=== PATIENT | female | born 1955 | race African-American/Black ===

== ENCOUNTER 2017-07-29 09:20 | Inpatient (IN) ==
[2017-07-29 09:53] LABS: Immature Platelets 1.9 % (1.1-6.1); Mean Corpuscular HGB Conc 33.3 g/dL (31.6-35.5); Mean Corpuscular Hemoglobin 28.7 pg (28.0-33.3); Mean Platelet Volume 9.9 fL (9.4-12.4); Nucleated Red Blood Cells 3.2 /100 WBC (0); Platelet Count 378 K/mcL (140-400)
[2017-07-29 10:27] LABS: Albumin/Globulin Ratio 0.4 (1.1-2.2); Bilirubin,Total 0.3 mg/dL (0.2-1.2); Calcium 8.2 mg/dL (8.6-10.8); Globulin 4.1 g/dL (2.4-3.5); Magnesium 3.1 mg/dL (1.6-2.6); Phosphorous 5.2 mg/dL (2.3-4.7); Potassium 5.6 mEq/L (3.5-4.5); Total Protein 5.9 g/dL (6.0-8.3)
[2017-07-29 10:28] LABS: Albumin 1.8 g/dL (3.5-5.0)
[2017-07-29 10:37] LABS: Hemoglobin 4.3 g/dL (11.5-15.4)
[2017-07-29 10:38] LABS: Hematocrit 12.9 % (35.3-44.9)
[2017-07-29 10:48] LABS: Thyroid Stimulating Hormone 1.761 mcIU/mL (0.350-4.840)
--- NOTE | 2017-07-29 11:13 | Emergency Department Note ---
Disposition Clinical Impression: Anemia, GI bleed, EDDIE (acute kidney injury) Disposition: Admitted As Inpatient Condition: Fair Referrals: Keesha Ellsworth, MILIEU MANAGER [Primary Care Provider] - Forms: ED Satisfaction Letter General Adult HPI - General Chief complaint: ED Weakness Stated complaint: weakness Time Seen by Provider: 07/29/17 09:26 Source: patient Limitations: no limitations Nursing Notes Reviewed: Yes Vital Signs Reviewed: Yes - History of Present Illness Pain Scale: 0 - Related Data Allergies Allergy/AdvReac Type Severity Reaction Status Date / Time Penicillins Allergy Rash Verified 07/29/17 09:44 Past Medical History - Past Medical History Medical history: Reports: hyperlipidemia, hypertension Psychiatric history: Reports: no psych history - Social History Smoking Status: Current every day smoker Smokeless Tobacco Status: No Alcohol use: Reports: none Drug use: Reports: none Physical Exam - General Limitations: no limitations General appearance: alert, in no apparent distress Course Vital Signs Temperature 94.4 F L 07/29/17 09:22 Pulse Rate 71 07/29/17 09:22 Respiratory Rate 16 07/29/17 09:22 Blood Pressure 107/91 07/29/17 09:22 O2 Sat by Pulse Oximetry 96 07/29/17 09:22 Temperature 96.2 F L 07/29/17 09:32 Pulse Rate 71 07/29/17 09:22 Respiratory Rate 16 07/29/17 09:22 Blood Pressure 107/91 07/29/17 09:22 O2 Sat by Pulse Oximetry 96 07/29/17 09:22 Oxygen Delivery Oxygen Delivery Room Air Medical Decision Making - MDM Narrative Medical decision making narrative: I examined this patient and my medical decision-making was reviewed with the Resident Physician. I agree with the documented findings, disposition and treatment plan as described except to the extent set forth below. Patient was seen and evaluated on arrival by Dr. Nguyen myself, I agree with his evaluation and management plan, supervising care of the patient's stay. Patient presents today stating that she has weakness in her bilateral legs are little bit of "puffiness in her ankles. She denies any chest pain or shortness of breath. She says she has a history of hypertension. She is fairly noncompliant with medications and follow-up. Under workup on her here and probably admit her. 1112 hrs.: Labs show an anemia with guaiac-positive stool. Consistent with a GI bleed. She also has renal insufficiency no old EKG or labs to compare this with. We will bring her into the hospital. Chest X-Ray 07/29/17 09:38 IMPRESSION: 1. Cardiomegaly with moderate right effusion and associated right middle and lower lobe consolidation. D/ / 07/29/2017 10:04:38 Jens Caal MD / le Interpreting Provider: Jens Caal MD Chest X-Ray 07/29/17 09:38 IMPRESSION: 1. Cardiomegaly with moderate right effusion and associated right middle and lower lobe consolidation. D/ / 07/29/2017 10:04:38 Jens Caal MD / le Interpreting Provider: Jens Caal MD 1144 hrs., blood is started. We will go and get her admitted to the hospital. Impressions GI bleed with anemia. EDDIE and weakness. Patient's critical care time excluding separately billable procedures is 45 minutes. 1152 hrs.: I spoke with Dr. Martin, he is on for new nephrology consult. He said he be happy to follow the patient. No new orders at this time. - Lab Data Result diagrams: 07/29/17 09:43 07/29/17 10:08 Lab Results 07/29/17 07/29/17 07/29/17 Range/Units 09:43 09:43 09:43 WBC 7.2 (4.3-11.1) K/mcL RBC 1.50 L (3.82-4.97) M/mcL Hgb 4.3 L* (11.5-15.4) g/dL Hct 12.9 L* (35.3-44.9) % MCV 86.0 (83.0-100.0) fL MCH 28.7 (28.0-33.3) pg MCHC 33.3 (31.6-35.5) g/dL RDW 19.0 H (11.5-14.5) % Plt Count 378 (140-400) K/mcL MPV 9.9 (9.4-12.4) fL Seg Neutrophils % 56.0 % Band Neutrophils % 20.0 H (0-4) % Lymphocytes % 12.0 % Monocytes % 10.0 % Metamyelocytes % 2.0 H (0) % Neutrophils # 5.5 (1.6-8.9) K/mcL Lymphocytes # 0.9 (0.6-4.6) K/mcL Monocytes # 0.7 (0.0-1.3) K/mcL Nucleated RBCs/100 WBC 3.2 H (0) /100 WBC Platelet Estimate Normal (Normal) Immature Plt Fraction 1.9 (1.1-6.1) % Anisocytosis 1+ A (Not Present) Sodium (136-145) mEq/L Potassium (3.5-4.5) mEq/L Chloride (98-109) mEq/L Carbon Dioxide (19-29) mEq/L BUN (7-20) mg/dL Creatinine (0.57-1.11) mg/dL Est GFR ( Amer) (> 60) Est GFR (Non-Af Amer) (> 60) BUN/Creatinine Ratio (6-26) Glucose (70-99) mg/dL Calculated Osmolality (280-300) Calcium (8.6-10.8) mg/dL Phosphorus (2.3-4.7) mg/dL Magnesium (1.6-2.6) mg/dL Total Bilirubin (0.2-1.2) mg/dL AST (5-34) Units/L ALT (0-55) Units/L Alkaline Phosphatase (38-126) Units/L Troponin I 0.01 (0-0.03) ng/mL B-Natriuretic Peptide 512 H (0-100) pg/mL Serum Total Protein (6.0-8.3) g/dL Albumin (3.5-5.0) g/dL Globulin (2.4-3.5) g/dL Albumin/Globulin Ratio (1.1-2.2) TSH (0.350-4.840) mcIU/mL Stool Occult Blood (Negative) Specimen Rejected Blood Type Antibody Screen Crossmatch 07/29/17 07/29/17 07/29/17 Range/Units 09:55 10:08 10:57 WBC (4.3-11.1) K/mcL RBC (3.82-4.97) M/mcL Hgb (11.5-15.4) g/dL Hct (35.3-44.9) % MCV (83.0-100.0) fL MCH (28.0-33.3) pg MCHC (31.6-35.5) g/dL RDW (11.5-14.5) % Plt Count (140-400) K/mcL MPV (9.4-12.4) fL Seg Neutrophils % % Band Neutrophils % (0-4) % Lymphocytes % % Monocytes % % Metamyelocytes % (0) % Neutrophils # (1.6-8.9) K/mcL Lymphocytes # (0.6-4.6) K/mcL Monocytes # (0.0-1.3) K/mcL Nucleated RBCs/100 WBC (0) /100 WBC Platelet Estimate (Normal) Immature Plt Fraction (1.1-6.1) % Anisocytosis (Not Present) Sodium 134 L (136-145) mEq/L Potassium 5.6 H (3.5-4.5) mEq/L Chloride 106 (98-109) mEq/L Carbon Dioxide 14 L (19-29) mEq/L BUN 76 H (7-20) mg/dL Creatinine 3.52 H (0.57-1.11) mg/dL Est GFR ( Amer) 16 L (> 60) Est GFR (Non-Af Amer) 13 L (> 60) BUN/Creatinine Ratio 22 (6-26) Glucose 82 (70-99) mg/dL Calculated Osmolality 300 (280-300) Calcium 8.2 L (8.6-10.8) mg/dL Phosphorus 5.2 H (2.3-4.7) mg/dL Magnesium 3.1 H (1.6-2.6) mg/dL Total Bilirubin 0.3 (0.2-1.2) mg/dL AST 11 (5-34) Units/L ALT 9 (0-55) Units/L Alkaline Phosphatase 59 (38-126) Units/L Troponin I (0-0.03) ng/mL B-Natriuretic Peptide (0-100) pg/mL Serum Total Protein 5.9 L (6.0-8.3) g/dL Albumin 1.8 L (3.5-5.0) g/dL Globulin 4.1 H (2.4-3.5) g/dL Albumin/Globulin Ratio 0.4 L (1.1-2.2) TSH 1.761 (0.350-4.840) mcIU/mL Stool Occult Blood Positive A (Negative) Specimen Rejected Hemolyzed Blood Type Antibody Screen Crossmatch 07/29/17 Range/Units 11:05 WBC (4.3-11.1) K/mcL RBC (3.82-4.97) M/mcL Hgb (11.5-15.4) g/dL Hct (35.3-44.9) % MCV (83.0-100.0) fL MCH (28.0-33.3) pg MCHC (31.6-35.5) g/dL RDW (11.5-14.5) % Plt Count (140-400) K/mcL MPV (9.4-12.4) fL Seg Neutrophils % % Band Neutrophils % (0-4) % Lymphocytes % % Monocytes % % Metamyelocytes % (0) % Neutrophils # (1.6-8.9) K/mcL Lymphocytes # (0.6-4.6) K/mcL Monocytes # (0.0-1.3) K/mcL Nucleated RBCs/100 WBC (0) /100 WBC Platelet Estimate (Normal) Immature Plt Fraction (1.1-6.1) % Anisocytosis (Not Present) Sodium (136-145) mEq/L Potassium (3.5-4.5) mEq/L Chloride (98-109) mEq/L Carbon Dioxide (19-29) mEq/L BUN (7-20) mg/dL Creatinine (0.57-1.11) mg/dL Est GFR ( Amer) (> 60) Est GFR (Non-Af Amer) (> 60) BUN/Creatinine Ratio (6-26) Glucose (70-99) mg/dL Calculated Osmolality (280-300) Calcium (8.6-10.8) mg/dL Phosphorus (2.3-4.7) mg/dL Magnesium (1.6-2.6) mg/dL Total Bilirubin (0.2-1.2) mg/dL AST (5-34) Units/L ALT (0-55) Units/L Alkaline Phosphatase (38-126) Units/L Troponin I (0-0.03) ng/mL B-Natriuretic Peptide (0-100) pg/mL Serum Total Protein (6.0-8.3) g/dL Albumin (3.5-5.0) g/dL Globulin (2.4-3.5) g/dL Albumin/Globulin Ratio (1.1-2.2) TSH (0.350-4.840) mcIU/mL Stool Occult Blood (Negative) Specimen Rejected Blood Type O POSITIVE Antibody Screen NEGATIVE Crossmatch See Detail
[2017-07-29 11:22] LABS: Lymphocytes # 0.9 K/mcL (0.6-4.6); Monocytes # 0.7 K/mcL (0.0-1.3); Neutrophils # 5.5 K/mcL (1.6-8.9)
[2017-07-29 11:24] LABS: Anisocytosis 1+ (Not Present)
[2017-07-29 11:25] LABS: Platelet Estimate Normal (Normal)
[2017-07-29] MEDS ORDERED: 0.9 % Sodium Chloride 1,000 ML IVC ONE ×2 (12:11→13:51)
--- NOTE | 2017-07-29 12:11 | Emergency Department Note ---
Disposition Clinical Impression: EDDIE (acute kidney injury), Pleural effusion Anemia Qualifiers: Anemia type: unspecified type Qualified Code(s): D64.9 - Anemia, unspecified GI bleed Qualifiers: GI bleed type/associated pathology: unspecified gastrointestinal hemorrhage type Qualified Code(s): K92.2 - Gastrointestinal hemorrhage, unspecified Disposition: Admitted As Inpatient Condition: Fair Referrals: Keesha Ellsworth, SCHOOL SPEECH THERAPIST [Primary Care Provider] - Forms: ED Satisfaction Letter General Adult HPI - General Chief complaint: ED Weakness Stated complaint: weakness Time Seen by Provider: 07/29/17 09:26 Source: patient Limitations: no limitations Nursing Notes Reviewed: Yes Vital Signs Reviewed: Yes - History of Present Illness HPI Narrative: 54-year-old female who reports that she has had a few days of increased fatigue and edema of bilateral lower extremities. She has no other complaints. She denies any chest pain or shortness of breath. She denies having any pain anywhere. She denies any prior occurrence of this. She states that her only medical problems are hypertension and hyperlipidemia. She does not go to a doctor very often. Pain Scale: 0 Consistency: constant Improves with: nothing Worsens with: nothing Associated symptoms: Reports: denies other symptoms Treatments Prior to Arrival: none - Related Data Home Medications Medication Instructions Recorded Confirmed Amlodipine Besylate/Benazepril 1 cap PO DAILY 07/29/17 07/29/17 [Lotrel 10-20 mg Capsule] Doxycycline Hyclate [Doxycycline 20 mg PO BID 07/29/17 07/29/17 Hyclate] Simvastatin [Zocor] 20 mg PO QPM 07/29/17 07/29/17 Allergies Allergy/AdvReac Type Severity Reaction Status Date / Time Penicillins Allergy Rash Verified 07/29/17 09:44 All systems ED: reviewed and negative except as stated. Constitutional: Denies: fever ENT ED: Denies: throat pain Cardiovascular: Denies: chest pain Respiratory: Denies: cough Musculoskeletal: Denies: back pain Integumentary: Denies: rash Endocrine: Denies: fatigue Hematological/Lymphatic: Denies: easy bleeding Past Medical History - Past Medical History Medical history: Reports: hyperlipidemia, hypertension Psychiatric history: Reports: no psych history - Social History Smoking Status: Current every day smoker Smokeless Tobacco Status: No Alcohol use: Reports: none Drug use: Reports: none Physical Exam - General Limitations: no limitations General appearance: alert, in no apparent distress - Head Head exam: atraumatic - Eye Eye exam: Present: normal appearance, other (scleral pallor) - ENT ENT exam: normal exam, normal oropharynx - Neck Neck exam: Present: normal inspection - Respiratory Respiratory exam: Present: normal lung sounds bilaterally. Absent: respiratory distress - Cardiovascular Cardiovascular exam: Present: regular rate, normal rhythm - Abdominal Exam Abdominal exam: Present: soft, Non-Tender - Rectal Exam Rectal exam: Present: heme (+) stool - Extremities Exam Extremities exam: Present: pedal edema (3+ bilateral) - Neurological Exam Neurological exam: Present: alert, oriented X3, CN II-XII intact - Psychiatric Psychiatric exam: Present: normal affect, normal mood - Skin Skin exam: Present: warm, dry Course Course Narrative: 62-year-old female with progressive fatigue and lower extremity edema. She is found to be in acute renal failure and a hemoglobin critically low. We called and spoke with Dr. Floyd Mathias who agreed to be a strategic solutions consultant on this case. We will also go ahead and started transfusion. Lungs are clear and I do not think that she is in acute CHF at this time. She is also not hypoxic. Potassium is mildly elevated but no EKG changes. Due to this and at the advice of the nephrologists will not currently treat for the hyperkalemia will first start with fluid resuscitation. I called and spoke with Dr Suh for gastroenterology. He agreed to consult on this case. Blood pressure is approximately 90 systolic. Will give IVF along with the blood. CXR shows a right sided pleural effusion with cardiomegaly. In addition she has a potential consolidation on the right. I do not believe this is pneumonia as she has not had a fever, no cough, and no shortness of breath. As such, I will not start antibiotics. Vital Signs Temperature 94.4 F L 07/29/17 09:22 Pulse Rate 71 07/29/17 09:22 Respiratory Rate 16 07/29/17 09:22 Blood Pressure 107/91 07/29/17 09:22 O2 Sat by Pulse Oximetry 96 07/29/17 09:22 Temperature 96 F L 07/29/17 13:11 Pulse Rate 75 07/29/17 12:49 Respiratory Rate 16 07/29/17 12:49 Blood Pressure 96/42 07/29/17 12:49 O2 Sat by Pulse Oximetry 96 07/29/17 12:49 Oxygen Delivery Oxygen Delivery Nasal Cannula Medical Decision Making - Medical Records Medical records reviewed: Yes I reviewed the patient's medical records. - Lab Data Lab results reviewed: Yes I reviewed the patient's lab results. Result diagrams: 07/29/17 09:43 07/29/17 10:08 Lab Results 07/29/17 07/29/17 07/29/17 Range/Units 09:43 09:43 09:43 WBC 7.2 (4.3-11.1) K/mcL RBC 1.50 L (3.82-4.97) M/mcL Hgb 4.3 L* (11.5-15.4) g/dL Hct 12.9 L* (35.3-44.9) % MCV 86.0 (83.0-100.0) fL MCH 28.7 (28.0-33.3) pg MCHC 33.3 (31.6-35.5) g/dL RDW 19.0 H (11.5-14.5) % Plt Count 378 (140-400) K/mcL MPV 9.9 (9.4-12.4) fL Seg Neutrophils % 56.0 % Band Neutrophils % 20.0 H (0-4) % Lymphocytes % 12.0 % Monocytes % 10.0 % Metamyelocytes % 2.0 H (0) % Neutrophils # 5.5 (1.6-8.9) K/mcL Lymphocytes # 0.9 (0.6-4.6) K/mcL Monocytes # 0.7 (0.0-1.3) K/mcL Nucleated RBCs/100 WBC 3.2 H (0) /100 WBC Platelet Estimate Normal (Normal) Immature Plt Fraction 1.9 (1.1-6.1) % Anisocytosis 1+ A (Not Present) Sodium (136-145) mEq/L Potassium (3.5-4.5) mEq/L Chloride (98-109) mEq/L Carbon Dioxide (19-29) mEq/L BUN (7-20) mg/dL Creatinine (0.57-1.11) mg/dL Est GFR ( Amer) (> 60) Est GFR (Non-Af Amer) (> 60) BUN/Creatinine Ratio (6-26) Glucose (70-99) mg/dL Calculated Osmolality (280-300) Calcium (8.6-10.8) mg/dL Phosphorus (2.3-4.7) mg/dL Magnesium (1.6-2.6) mg/dL Total Bilirubin (0.2-1.2) mg/dL AST (5-34) Units/L ALT (0-55) Units/L Alkaline Phosphatase (38-126) Units/L Troponin I 0.01 (0-0.03) ng/mL B-Natriuretic Peptide 512 H (0-100) pg/mL Serum Total Protein (6.0-8.3) g/dL Albumin (3.5-5.0) g/dL Globulin (2.4-3.5) g/dL Albumin/Globulin Ratio (1.1-2.2) TSH (0.350-4.840) mcIU/mL Urine Color (Yellow) Urine Clarity (Clear) Urine pH (5.0-8.0) pH Units Ur Specific [place] (1.010-1.025) Urine Protein (Neg-Trace) mg/dL Urine Glucose (UA) (Normal) mg/dL Urine Ketones (Negative) mg/dL Urine Blood (Negative) Urine Nitrite (Negative) Urine Bilirubin (Negative) Urine Urobilinogen (Normal) mg/dL Ur Leukocyte Esterase (Negative) Stool Occult Blood (Negative) Specimen Rejected Blood Type Antibody Screen Crossmatch 07/29/17 07/29/17 07/29/17 Range/Units 09:55 10:08 10:57 WBC (4.3-11.1) K/mcL RBC (3.82-4.97) M/mcL Hgb (11.5-15.4) g/dL Hct (35.3-44.9) % MCV (83.0-100.0) fL MCH (28.0-33.3) pg MCHC (31.6-35.5) g/dL RDW (11.5-14.5) % Plt Count (140-400) K/mcL MPV (9.4-12.4) fL Seg Neutrophils % % Band Neutrophils % (0-4) % Lymphocytes % % Monocytes % % Metamyelocytes % (0) % Neutrophils # (1.6-8.9) K/mcL Lymphocytes # (0.6-4.6) K/mcL Monocytes # (0.0-1.3) K/mcL Nucleated RBCs/100 WBC (0) /100 WBC Platelet Estimate (Normal) Immature Plt Fraction (1.1-6.1) % Anisocytosis (Not Present) Sodium 134 L (136-145) mEq/L Potassium 5.6 H (3.5-4.5) mEq/L Chloride 106 (98-109) mEq/L Carbon Dioxide 14 L (19-29) mEq/L BUN 76 H (7-20) mg/dL Creatinine 3.52 H (0.57-1.11) mg/dL Est GFR ( Amer) 16 L (> 60) Est GFR (Non-Af Amer) 13 L (> 60) BUN/Creatinine Ratio 22 (6-26) Glucose 82 (70-99) mg/dL Calculated Osmolality 300 (280-300) Calcium 8.2 L (8.6-10.8) mg/dL Phosphorus 5.2 H (2.3-4.7) mg/dL Magnesium 3.1 H (1.6-2.6) mg/dL Total Bilirubin 0.3 (0.2-1.2) mg/dL AST 11 (5-34) Units/L ALT 9 (0-55) Units/L Alkaline Phosphatase 59 (38-126) Units/L Troponin I (0-0.03) ng/mL B-Natriuretic Peptide (0-100) pg/mL Serum Total Protein 5.9 L (6.0-8.3) g/dL Albumin 1.8 L (3.5-5.0) g/dL Globulin 4.1 H (2.4-3.5) g/dL Albumin/Globulin Ratio 0.4 L (1.1-2.2) TSH 1.761 (0.350-4.840) mcIU/mL Urine Color (Yellow) Urine Clarity (Clear) Urine pH (5.0-8.0) pH Units Ur Specific [place] (1.010-1.025) Urine Protein (Neg-Trace) mg/dL Urine Glucose (UA) (Normal) mg/dL Urine Ketones (Negative) mg/dL Urine Blood (Negative) Urine Nitrite (Negative) Urine Bilirubin (Negative) Urine Urobilinogen (Normal) mg/dL Ur Leukocyte Esterase (Negative) Stool Occult Blood Positive A (Negative) Specimen Rejected Hemolyzed Blood Type Antibody Screen Crossmatch 07/29/17 07/29/17 Range/Units 11:05 13:07 WBC (4.3-11.1) K/mcL RBC (3.82-4.97) M/mcL Hgb (11.5-15.4) g/dL Hct (35.3-44.9) % MCV (83.0-100.0) fL MCH (28.0-33.3) pg MCHC (31.6-35.5) g/dL RDW (11.5-14.5) % Plt Count (140-400) K/mcL MPV (9.4-12.4) fL Seg Neutrophils % % Band Neutrophils % (0-4) % Lymphocytes % % Monocytes % % Metamyelocytes % (0) % Neutrophils # (1.6-8.9) K/mcL Lymphocytes # (0.6-4.6) K/mcL Monocytes # (0.0-1.3) K/mcL Nucleated RBCs/100 WBC (0) /100 WBC Platelet Estimate (Normal) Immature Plt Fraction (1.1-6.1) % Anisocytosis (Not Present) Sodium (136-145) mEq/L Potassium (3.5-4.5) mEq/L Chloride (98-109) mEq/L Carbon Dioxide (19-29) mEq/L BUN (7-20) mg/dL Creatinine (0.57-1.11) mg/dL Est GFR ( Amer) (> 60) Est GFR (Non-Af Amer) (> 60) BUN/Creatinine Ratio (6-26) Glucose (70-99) mg/dL Calculated Osmolality (280-300) Calcium (8.6-10.8) mg/dL Phosphorus (2.3-4.7) mg/dL Magnesium (1.6-2.6) mg/dL Total Bilirubin (0.2-1.2) mg/dL AST (5-34) Units/L ALT (0-55) Units/L Alkaline Phosphatase (38-126) Units/L Troponin I (0-0.03) ng/mL B-Natriuretic Peptide (0-100) pg/mL Serum Total Protein (6.0-8.3) g/dL Albumin (3.5-5.0) g/dL Globulin (2.4-3.5) g/dL Albumin/Globulin Ratio (1.1-2.2) TSH (0.350-4.840) mcIU/mL Urine Color Yellow (Yellow) Urine Clarity Hazy A (Clear) Urine pH 5.0 (5.0-8.0) pH Units Ur Specific [place] 1.026 H (1.010-1.025) Urine Protein Trace (Neg-Trace) mg/dL Urine Glucose (UA) Normal (Normal) mg/dL Urine Ketones Trace H (Negative) mg/dL Urine Blood Negative (Negative) Urine Nitrite Negative (Negative) Urine Bilirubin Small H (Negative) Urine Urobilinogen Normal (Normal) mg/dL Ur Leukocyte Esterase Small H (Negative) Stool Occult Blood (Negative) Specimen Rejected Blood Type O POSITIVE Antibody Screen NEGATIVE Crossmatch See Detail - Radiology Data Radiology results reviewed: Yes I reviewed the patient's radiology results. - EKG Data EKG #1 EKG attestation: Yes I reviewed and interpreted this EKG. EKG shows normal: sinus rhythm Rate: normal Rhythm: NSR [place]/QRS: normal Interpretation: no acute changes
[2017-07-29] MEDS ORDERED: 0.9 % Sodium Chloride 1,000 ML ONE (12:13)
[2017-07-29] MEDS ORDERED: 0.9 % Sodium Chloride 500 ML ONE (12:13)
[2017-07-29 13:24] LABS: Bilirubin,Urine Small (Negative); Blood,Urine Negative (Negative); Glucose,Urine (UA) Normal (Normal); Ketones,Urine Trace mg/dL (Negative); Leukocyte Esterase,Urine Small (Negative); Nitrite,Urine Negative (Negative); Protein,Urine Trace mg/dL (Neg-Trace); Specific Gravity,Urine 1.026 (1.010-1.025); Urobilinogen,Urine Normal (Normal)
[2017-07-29 13:27] LABS: Bacteria,Urine None Seen per hpf (None-Few); Squamous Epithelial Cell,Urine Many per lpf (None-Few); WBC,Urine 0-3 per hpf (0-3)
[2017-07-29 13:29] LABS: Clarity,Urine Hazy (Clear); Color,Urine Yellow (Yellow)
[2017-07-29] MEDS: Pantoprazole 40 MG in 0.9 % Sodium Chloride Mini Bag 100 ML IVC SCH ×3 (13:36→23:18)
[2017-07-29 13:45] LABS: Amorphous Sediment,Urine Many (Few); Mucus,Urine Few (Few)
[2017-07-29] MEDS ORDERED: *HR* HYDROcodone/Acet 5/325 mg TABLET PO PRN (15:13)
[2017-07-29] MEDS ORDERED: Naloxone 0.4 MG/ML INJ IVP PRN (15:13)
[2017-07-29] MEDS ORDERED: Acetaminophen 325 MG TABLET PO PRN (15:13)
--- NOTE | 2017-07-29 15:26 | Internal Med History&Physical ---
Date of Encounter: 07/29/17 Time of Encounter: 15:22 Assessment and Plan (1) Anemia Current visit: Yes Status: Acute Acute on chronic anemia Patient possibly has chronic anemia secondary to renal disease, however the use of NSAIDs and positive occult blood test she might also have GI bleed. Patient was hypotensive on arrival, blood pressure is improved with transfusion. Continue blood transfusion with at least 4 units of blood, give Lasix in between blood transfusion. Continue to monitor hemoglobin q6. Platelets is within normal limits. GI has been consulted for possible endoscopy. Keep patient on clear liquid diet only. Qualifiers: Anemia type: unspecified type Qualified Code(s): D64.9 - Anemia, unspecified (2) EDDIE (acute kidney injury) Current visit: Yes Status: Acute Suspected. Acute on chronic renal failure Evidence of chronic renal failure with BUN/creatinine ratio less than 20-1, presence of hypomagnesemia and hypophosphatemia. We will hold fluid for now as patient is fluid overloaded with evidence bipedal edema and bilateral pleural effusion. Obtain renal ultrasound Consult nephrology. Continue to monitor renal function Avoid nephrotoxins. (3) CKD (chronic kidney disease) Current visit: Yes Status: Acute As above. Qualifiers: Chronic kidney disease stage: unspecified stage Qualified Code(s): N18.9 - Chronic kidney disease, unspecified (4) GI bleed Current visit: Yes Status: Acute Suspected upper GI bleed Continue Protonix infusion Management as in anemia. Qualifiers: GI bleed type/associated pathology: unspecified gastrointestinal hemorrhage type Qualified Code(s): K92.2 - Gastrointestinal hemorrhage, unspecified (5) Pleural effusion Current visit: Yes Status: Acute Bilateral pleural effusion possibly secondary to fluid overload from cardiac and renal failure. Patient is asymptomatic, she has no chest pain, she is not hypoxic, she is not dyspneic. Interventional radiology for diagnostic and therapeutic paracentesis when patient is more stable. (6) Hypothermia Current visit: Yes Status: Acute Possibly secondary to anemia TSH is WNL Patient does not sepsis criteria at this time. Continue abir hugger And monitor closely Qualifiers: Encounter type: initial encounter Qualified Code(s): T68.XXXA - Hypothermia , initial encounter (7) Heart failure Current visit: Yes Status: Suspected Suspected. Possibly secondary to hypertensive heart disease, kidney disease and /or anemia. Obtain echocardiogram BNP on admission 515 Intake and output, daily weights and Lasix IV. Qualifiers: Heart failure type: unspecified heart failure type Heart failure chronicity : unspecified heart failure chronicity Qualified Code(s): I50.9 - Heart failure, unspecified (8) Hypertension Current visit: Yes Status: Chronic hypotensive on arrival Hold home medications for now. Qualifiers: Hypertension type: essential hypertension Qualified Code(s): I10 - Essential (primary) hypertension (9) Hyperlipidemia Current visit: Yes Status: Chronic Continue home medications. Qualifiers: Hyperlipidemia type: unspecified Qualified Code(s): E78.5 - Hyperlipidemia , unspecified Internal Medicine - H&P: HPI Chief complaint: Weakness Admitted From: Home Plans for Post Hospital Care: Home History of present illness: Ms. Adams is a 62 year old female Patient seen and evaluated at the bedside with her family members. She has not seen her primary care doctor in about 5 years. Therefore she does not know her baseline. However, she reports the onset of illness to about 3 months ago, patient was at [place] and started having bilateral lower extremity swelling. She reported lower extremity swelling to be progressing, intermittent and resolved spontaneously with rest. She denies chest pain, she denies cough she denies difficulty breathing. She was in her usual state of health until 2 weeks ago, when she noticed she has been feeling weak, increasing fatigue, and difficulty performing her usual activities. She denies hematemesis, hostilities brown in color without any blood, she denies nausea and vomiting. She reports a skin rash that was diffuse associated with some anesthetic agents used by her dentist about 2 months ago. She otherwise denies any integument symptoms. She does not have routine cancer screening. Past medical history is only of hypertension and hyperlipidemia, and she states she is compliant with her medications. She denies a history of smoking, or illicit drug use. Reports taking 2 tablets of Aleve, along with double Strength aspirin for pain for a prolonged period. She also reports decrease in urinary output, she denies belkis bloody urine, she denies foamy urine. Upon presentation to the ER, she was found to be severely anemic with a hemoglobin of 4, associated bilateral lower extremity edema, hypertension, tachycardia without fever and hypothermia. He was also found to have a potassium of 5.6, WNL 14 with creatinine of 3.52. She has hypomagnesemia and hypophosphatemia. Her liver function tests reveals an albumin level of 1.8. BNP was 512. Urine analysis reveals a dilute urine, to anuria, and some hematuria. Fecal occult blood test was positive. Imaging revealed a chest x- ray with bilateral pleural effusion right greater than left. Suspected consolidation. Past Med Surg Social Fam HX - Past Medical History Medical history: hyperlipidemia, hypertension Psychiatric history: no psych history - Past Surgical History Surgical History: other - Social History Smoking Status: Current every day smoker Packs per day: 1/2 Smokeless Tobacco Status: No Alcohol use: none Drug use: none Internal Medicine - H&P: Meds Amlodipine Besylate/Benazepril [Lotrel 10-20 mg Capsule] 1 cap PO DAILY [History] Doxycycline Hyclate [Doxycycline Hyclate] 20 mg PO BID 07/29/17 [History] Simvastatin [Zocor] 20 mg PO QPM 07/29/17 [History] 3 Allergy/AdvReac Type Severity Reaction Status Date / Time Penicillins Allergy Rash Verified 07/29/17 09:44 All Systems PM: A 10-system review of systems was performed and is negative for pertinent findings except as documented above in the HPI. - Constitutional Constitutional: chills, fatigue, lethargy, malaise - EENT Eyes: no change in vision, no discharge, no pain, no photophobia Nose, mouth and throat: no dysphagia, no nasal discharge, no neck pain, no sore throat - Cardiovascular Cardiovascular ROS IM: no chest pain, no diaphoresis, no dyspnea, no lightheadedness, no palpitations, no syncope - Respiratory Respiratory: no cough, no dyspnea, no wheezing, no excessive phlegm production - Gastrointestinal Gastrointestinal: no abdominal pain, no diarrhea, no hematemesis, no hematochezia, no melena, no nausea, no vomiting - Genitourinary Genitourinary: no change in urinary stream, no dysuria, no flank pain, no hematuria - Constitutional Vitals: Temp Pulse Resp BP Pulse Ox 96.7 F L 75 16 111/51 96 07/29/17 14:45 07/29/17 14:45 07/29/17 14:45 07/29/17 14:45 07/29/17 14:45 Shanties hypothermic and was temperature being 96 degrees Fahrenheit. Heart rate is normal, hypertension is improving. She is alert, awake and oriented 3. She has no speech deficits, she has no facial paralysis. She has no motor deficits. Her oral mucosa is moist. She has no jaundice and she is not cyanotic. Chest has decreased air entry AT the midlung zones bilaterally. She has no crackles or wheezing. She is not tachypneic. Heart sounds S1 and S2 only no murmurs gallops or rubs. Heart rate is regular. Abdomen is soft and nontender. Bowel sounds are present in all quadrants. She has 3+ bilateral pitting lower extremity edema to her knees. Circulation is intact distally. General appearance: Present: mild distress, A&O X 3, pleasant Internal Med - H&P Results - Labs CBC & Chem 7: 07/29/17 09:43 07/29/17 10:08
[2017-07-29] MEDS ORDERED: Furosemide 20 MG/2 ML VIAL IVP ONE (16:09)
--- NOTE | 2017-07-29 16:42 | Electrocardiograph Report ---
[address] [address] Test Date: 2017-07-29 Pat Name: Rashida Adams Department: 103 Room: 2N06 Gender: F Naturalist: : 1955 Requested By: Ralph Nguyne Order Number: [id number] Reading MD: Neri Machado MD Measurements Intervals [place] Rate: 69 P: -3 AK: 151 QRS: -20 QRSD: 85 T: 116 QT: 408 QTc: 427 Interpretive Statements SINUS RHYTHM LOW QRS VOLTAGE IN EXTREMITY LEADS Poor R wave progression BASELINE ARTIFACT Electronically Signed On 07-29-2017 16:40:50 EDT by Neri Machado MD
--- NOTE | 2017-07-29 17:50 | General Surgery Consult Note ---
Date of Encounter: 07/29/17 Time of Encounter: 17:37 History of Present Illness Consult date: 07/29/17 Requesting physician: Ralph Nguyen History of present illness: 62 yo, referred for further evaluation and treatment of profound anemia. The patient describes progressive weakness prompting the patient to seek medical evaluation [facility] ED. The patient was found to be severely anemic with Hgb 4.3, Hct 12.9. WBC 7.2, platelet count 372,000. BUN was elevated at 76 with a creatinine of 3.52. eGFR 16. The patient indicates recently initiating aspirin therapy as she felt so poorly. Patient admits to severe fatigue and malaise but no syncope. No fever, chills, nausea or vomiting. The patient denies any melena or any detected blood per rectum. The patient describes her bowel movements as brown. Past medical history: Hypertension; heart failure possibly due to hypertensive heart disease; hyperlipidemia Surgical history: "Some sort of hysterectomy" approximately 50 years ago Allergies: Penicillin Medications: Amlodipine/benazepril 10/20 one by mouth daily Doxycycline 20 mg by mouth twice a day Simvastatin 20 mg by mouth every afternoon Social history: Patient has never been ; she admits to tobacco use approximately half a pack per day for over 40 years; occasional alcohol, no illicit drugs. Physical examination: Age-appropriate appears in no acute distress. Mucous membranes appear pale consistent with profound anemia. Patient is 1.65 m tall, 87.45 kg, BMI 32.1 The patient is afebrile, 97.6, pulse 75, respirations 20, blood pressure 85/ 39; SPO2 on 2 L/m nasal cannula 94-96% Lungs: Clear to auscultation Cardiac: Regular rate, no appreciable murmurs Abdomen: Obese, soft, nontender. Impression: 62-year-old female admitted after presenting to edema at [facility] with progressive fatigue and malaise. She is profoundly anemic. The patient is to be transfused. I will arrange an EGD to be completed in the a.m. The procedure was discussed. Risks include hemorrhage , infection, aspiration, cramping abdominal pain, bloating, and perforation. We also briefly discussed discussed colonoscopy. The patient has not had a prior colonoscopy. The colonoscopy will be arranged once the patient is more hemodynamically stable. Consent for EGD has been obtained. Past Med Surg Social Fam HX - Past Medical History Medical history: hyperlipidemia, hypertension Psychiatric history: no psych history - Past Surgical History Surgical History: other - Social History Smoking Status: Current every day smoker Packs per day: 1/2 Smokeless Tobacco Status: No Alcohol use: none Drug use: none Medications and Allergies Amlodipine Besylate/Benazepril [Lotrel 10-20 mg Capsule] 1 cap PO DAILY [History] Doxycycline Hyclate [Doxycycline Hyclate] 20 mg PO BID 07/29/17 [History] Simvastatin [Zocor] 20 mg PO QPM 07/29/17 [History] 3 Allergy/AdvReac Type Severity Reaction Status Date / Time Penicillins Allergy Rash Verified 07/29/17 09:44 Review of Systems All systems PM: A 10-system review of systems was performed and is negative for pertinent findings except as documented above in the HPI. General Surgery Exam Initial Vital Signs Temp Pulse Resp BP Pulse Ox 94.4 F L 71 16 107/91 96 07/29/17 09:22 07/29/17 09:22 07/29/17 09:22 07/29/17 09:22 07/29/17 09:22 Exam Initial Vital Signs Temp Pulse Resp BP Pulse Ox 94.4 F L 71 16 107/91 96 07/29/17 09:22 07/29/17 09:22 07/29/17 09:22 07/29/17 09:22 07/29/17 09:22 Results - Labs 07/29/17 09:43 07/29/17 10:08 Abnormal lab results RBC 1.50 M/mcL (3.82-4.97) L 07/29/17 09:43 Hgb 4.3 g/dL (11.5-15.4) L* 07/29/17 09:43 Hct 12.9 % (35.3-44.9) L* 07/29/17 09:43 RDW 19.0 % (11.5-14.5) H 07/29/17 09:43 Band Neutrophils % 20.0 % (0-4) H 07/29/17 09:43 Metamyelocytes % 2.0 % (0) H 07/29/17 09:43 Nucleated RBCs/100 WBC 3.2 /100 WBC (0) H 07/29/17 09:43 Anisocytosis 1+ (Not Present) A 07/29/17 09:43 Sodium 134 mEq/L (136-145) L 07/29/17 10:08 Potassium 5.6 mEq/L (3.5-4.5) H 07/29/17 10:08 Carbon Dioxide 14 mEq/L (19-29) L 07/29/17 10:08 BUN 76 mg/dL (7-20) H 07/29/17 10:08 Creatinine 3.52 mg/dL (0.57-1.11) H 07/29/17 10:08 Est GFR ( Amer) 16 (> 60) L 07/29/17 10:08 Est GFR (Non-Af Amer) 13 (> 60) L 07/29/17 10:08 Calcium 8.2 mg/dL (8.6-10.8) L 07/29/17 10:08 Phosphorus 5.2 mg/dL (2.3-4.7) H 07/29/17 10:08 Magnesium 3.1 mg/dL (1.6-2.6) H 07/29/17 10:08 B-Natriuretic Peptide 512 pg/mL (0-100) H 07/29/17 09:43 Serum Total Protein 5.9 g/dL (6.0-8.3) L 07/29/17 10:08 Albumin 1.8 g/dL (3.5-5.0) L 07/29/17 10:08 Globulin 4.1 g/dL (2.4-3.5) H 07/29/17 10:08 Albumin/Globulin Ratio 0.4 (1.1-2.2) L 07/29/17 10:08 Urine Clarity Hazy (Clear) A 07/29/17 13:07 Ur Specific [place] 1.026 (1.010-1.025) H 07/29/17 13:07 Urine Ketones Trace mg/dL (Negative) H 07/29/17 13:07 Urine Bilirubin Small (Negative) H 07/29/17 13:07 Ur Leukocyte Esterase Small (Negative) H 07/29/17 13:07 Urine Microscopic RBC 3-5 per hpf (0-3) H 07/29/17 13:07 Ur Squamous Epith Cells Many per lpf (None-Few) H 07/29/17 13:07 Amorphous Sediment Many (Few) H 07/29/17 13:07 Ur Culture Indicated? YES (NO) A 07/29/17 13:07 Stool Occult Blood Positive (Negative) A 07/29/17 10:57 All other labs normal. Consult Discharge Plan - Plan Referrals: Keesha Ellsworth, GUIDE [Primary Care Provider] -
[2017-07-29 18:09] LABS: INR 1.3; Prothrombin Time 13.6 Seconds (9.4-12.1)
[2017-07-29 18:11] LABS: Hematocrit 16.1 % (35.3-44.9)
[2017-07-29 18:37] LABS: Hemoglobin 5.4 g/dL (11.5-15.4)
[2017-07-29] MEDS ORDERED: 0.9 % Sodium Chloride 250 ML ONE (22:13)
[2017-07-30] MEDS ORDERED: 0.9 % Sodium Chloride 1,000 ML ONE ×2 (05:05→06:07)
[2017-07-30] MEDS: Pantoprazole 40 MG in 0.9 % Sodium Chloride Mini Bag 100 ML IVC SCH ×3 (06:12→21:31)
[2017-07-30] MEDS: 0.9 % Sodium Chloride 1,000 ML IVC SCH ×3 (06:14→23:54)
[2017-07-30 06:16] LABS: Calcium 7.9 mg/dL (8.6-10.8); INR 1.3; Potassium 5.7 mEq/L (3.5-4.5); Prothrombin Time 14.1 Seconds (9.4-12.1)
[2017-07-30 06:21] LABS: VBG HCO3 19 mEq/L (21-27); VBG PCO2 58 mmHg (41-51); VBG PH 7.12 pH Units (7.32-7.42); VBG PO2 37 mmHg (25-50)
[2017-07-30] MEDS ORDERED: *HR* Dextrose 50 % in Water (Syg) 50 ML SYRINGE IVP PRN ×2 (06:36→21:20)
[2017-07-30] MEDS ORDERED: Calcium Gluconate 1,000 MG in D5% in Water 100 ML IVPB ONE (06:36)
[2017-07-30] MEDS ORDERED: Insulin Regular, Human 100 UNIT/ML IV ONE (06:37)
[2017-07-30] MEDS ORDERED: 0.9 % Sodium Chloride 1,000 ML IVC ONE (06:50)
[2017-07-30 06:52] LABS: Mean Corpuscular HGB Conc 32.9 g/dL (31.6-35.5); Mean Corpuscular Hemoglobin 28.1 pg (28.0-33.3); Mean Corpuscular Volume 85.4 fL (83.0-100.0); Mean Platelet Volume 9.9 fL (9.4-12.4); Nucleated Red Blood Cells 9.6 /100 WBC (0); Platelet Count 296 K/mcL (140-400); Red Blood Count 2.81 M/mcL (3.82-4.97); Red Cell Distribution Width 15.9 % (11.5-14.5)
[2017-07-30 06:54] LABS: Hemoglobin 7.9 g/dL (11.5-15.4)
[2017-07-30] MEDS ORDERED: Levofloxacin 750 MG/150 ML 750 MG/150 ML BAG IVPB SCH (07:00)
[2017-07-30 08:04] LABS: Lymphocytes # 1.1 K/mcL (0.6-4.6); Monocytes # 0.8 K/mcL (0.0-1.3); Neutrophils # 5.4 K/mcL (1.6-8.9); Platelet Estimate Normal (Normal)
--- NOTE | 2017-07-30 08:21 | Pulmonology History & Physical ---
Date of Encounter: 07/30/17 Time of Encounter: 08:19 History of Present Illness HPI: Ms. Adams is a 62 year old female Past Med Surg Social Fam HX - Past Medical History Medical history: hyperlipidemia, hypertension Psychiatric history: no psych history - Past Surgical History Surgical History: other - Social History Smoking Status: Current every day smoker Packs per day: 1/2 Smokeless Tobacco Status: No Alcohol use: none Drug use: none Medications and Allergies Amlodipine Besylate/Benazepril [Lotrel 10-20 mg Capsule] 1 cap PO DAILY [History] Doxycycline Hyclate [Doxycycline Hyclate] 20 mg PO BID 07/29/17 [History] Simvastatin [Zocor] 20 mg PO QPM 07/29/17 [History] 3 Allergy/AdvReac Type Severity Reaction Status Date / Time Penicillins Allergy Rash Verified 07/29/17 09:44 All Systems: A 10-system review of systems was performed and is negative for pertinent findings except as documented above in the HPI. Physical Examination Vital Signs: Vital Signs, Last 4 Hours Temp Pulse Resp BP Pulse Ox 07/30/17 08:00 96.4 F L 70 24 92/43 94 07/30/17 06:00 73 24 103/46 99 07/30/17 05:55 75 07/30/17 05:50 75 22 107/51 96 07/30/17 05:40 97.3 F L 81 20 79/38 95 07/30/17 04:49 97.3 F L 63 18 96 Results - Laboratory Findings CBC and BMP: 07/30/17 05:48 07/30/17 05:48 PT/INR, D-dimer PT 14.1 Seconds (9.4-12.1) H 07/30/17 05:48 Abnormal lab findings: Abnormal lab results RBC 2.81 M/mcL (3.82-4.97) L 07/30/17 05:48 Hgb 7.9 g/dL (11.5-15.4) L D 07/30/17 05:48 Hct 24.0 % (35.3-44.9) L 07/30/17 05:48 RDW 15.9 % (11.5-14.5) H 07/30/17 05:48 Band Neutrophils % 14.0 % (0-4) H 07/30/17 05:48 Metamyelocytes % 4.0 % (0) H 07/30/17 05:48 Nucleated RBCs/100 WBC 9.6 /100 WBC (0) H 07/30/17 05:48 Anisocytosis 1+ (Not Present) A 07/29/17 09:43 PT 14.1 Seconds (9.4-12.1) H 07/30/17 05:48 VBG pH 7.12 pH Units (7.32-7.42) L* 07/30/17 06:09 VBG pCO2 58 mmHg (41-51) H 07/30/17 06:09 VBG HCO3 19 mEq/L (21-27) L 07/30/17 06:09 Sodium 132 mEq/L (136-145) L 07/30/17 05:48 Potassium 5.7 mEq/L (3.5-4.5) H 07/30/17 05:48 Carbon Dioxide 16 mEq/L (19-29) L 07/30/17 05:48 BUN 86 mg/dL (7-20) H 07/30/17 05:48 Creatinine 3.84 mg/dL (0.57-1.11) H 07/30/17 05:48 Est GFR ( Amer) 14 (> 60) L 07/30/17 05:48 Est GFR (Non-Af Amer) 12 (> 60) L 07/30/17 05:48 POC Glucose 92 (58-89) H 07/30/17 05:44 Calcium 7.9 mg/dL (8.6-10.8) L 07/30/17 05:48 Phosphorus 5.2 mg/dL (2.3-4.7) H 07/29/17 10:08 Magnesium 3.1 mg/dL (1.6-2.6) H 07/29/17 10:08 B-Natriuretic Peptide 512 pg/mL (0-100) H 07/29/17 09:43 Serum Total Protein 5.9 g/dL (6.0-8.3) L 07/29/17 10:08 Albumin 1.8 g/dL (3.5-5.0) L 07/29/17 10:08 Globulin 4.1 g/dL (2.4-3.5) H 07/29/17 10:08 Albumin/Globulin Ratio 0.4 (1.1-2.2) L 07/29/17 10:08 Urine Clarity Hazy (Clear) A 07/29/17 13:07 Ur Specific [place] 1.026 (1.010-1.025) H 07/29/17 13:07 Urine Ketones Trace mg/dL (Negative) H 07/29/17 13:07 Urine Bilirubin Small (Negative) H 07/29/17 13:07 Ur Leukocyte Esterase Small (Negative) H 07/29/17 13:07 Urine Microscopic RBC 3-5 per hpf (0-3) H 07/29/17 13:07 Ur Squamous Epith Cells Many per lpf (None-Few) H 07/29/17 13:07 Amorphous Sediment Many (Few) H 07/29/17 13:07 Ur Culture Indicated? YES (NO) A 07/29/17 13:07 Stool Occult Blood Positive (Negative) A 07/29/17 10:57 - VTE Documentation of Mechanical Device: Intermittent pneumatic compression device
--- NOTE | 2017-07-30 08:29 | Pulmonology Consult Note ---
Addendum entered and electronically signed by Kimbelry Hoffman MD 07/30/17 12:27: Patients history obtained by mother and family friend. Per family friend, patient has not been herself for past few months. However, remains private and did not mention co-morbid medical conditions to either democrat. Recently, complained of weakness stating to to mother that she felt that the walker was too heavy for use. \\ Medical History: HTN, family/friend denies co-morbid condition Medications: Per mother, patient endorsed Aleve and Aspirin use, with Aleve daily to get her going Social History: Smoker, Alcohol (neither of which degree of use known). 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 Original Note: <Kimberly Hoffman - Last Filed: 07/30/17 12:22> Date of Encounter: 07/30/17 Time of Encounter: 08:26 Assessment and Plan (1) Anemia Current Visit: Yes Status: Acute 62 yo presenting to ED on 07/29/17 with progressive weakness 07/29/17 CBC demonstrated severe anemia - Hgb 4.3, Hct 12.9. WBC 7.2, platelet count 372,000. Now s/p 3 U PRBCs transfusion 07/30/17: Hgb 7.9. Hct: 24, Platelet count 296 K/mcL 07/30/17: Stool occult blood POS. Surgery on consult, appreciate recs EGD pending this AM. Pt NPO Colonoscopy planned once pt stable. On Protonix Qualifiers: Anemia type: unspecified type Qualified Code(s): D64.9 - Anemia, unspecified (2) EDDIE (acute kidney injury) Current Visit: Yes Status: Acute 07/29/17 BMP BUN: 76 with a creatinine of 3.52. eGFR 16 07/30/17 BMP BUN : 86 with a Creatinine of 3.84 eGFR 14 Hyperkalemia, K 5.4, downtrending from 5.6 Renal on consult, apprecate recs U/S kidney result pending Avoid nephrotoxins, as possible IVF: NS Ca: 7.9, corrected for albumin 9.7 I/O: 2450/0 ml, confirmed with RN (3) CKD (chronic kidney disease) Current Visit: Yes Status: Acute Presented with hypomagnesemia (3.1) and hypophosphatemia (5/2) , suggestive of CKD Renal U/S pending Qualifiers: Chronic kidney disease stage: unspecified stage Qualified Code(s): N18.9 - Chronic kidney disease, unspecified (4) Hypertension Current Visit: Yes Status: Chronic BP 103/46 Will continue to monitor No pressors at this time Qualifiers: Hypertension type: essential hypertension Qualified Code(s): I10 - Essential (primary) hypertension (5) Pleural effusion Current Visit: Yes Status: Acute 07/10/17 CXR Impression: airspace opacities at the bilateral lung bases, likely related to atelectasis and small to moderate pleural effusions, right more than left, stable. No evidence of pneumothorax Currently no SOB, no fever, no cough (6) Debility Current Visit: Yes Status: Acute Per intake, pt complained of progressive weakness ECHO demonstrated LVEF 65% . Moderate left ventricular diastolic dysfunction.Mild mitral regurgitation. Mild-moderate tricuspid regurgitation. CT chest and abdomen pending, to evaluate further causes or possibility of malignancy (7) Skin maceration Current Visit: Yes Status: Acute Skin maceration evident on b/l breast folds and abdominal and inguinal folds Erythematous appearance and distribution localized to skin fold sites, consistent with intertrigo Topical nystatin should be applied twice daily to the affected area until resolution for minimum of 2 weeks, as tolerated If intertrigo does not respond, will consider oral antifungal agent (8) DVT prophylaxis Current Visit: Yes Status: Acute Heparin History of Present Illness Consult date: 07/30/17 Requesting physician: Haja Martinez Reason for consult: other (EDDIE on CKD) Chief complaint: Fatigue History of present illness: 62 yo F presenting with weakness, Hgb In ED 4.3, BUN > 80, with lab suggestive for CKD. Patient responds only that she's feeling "ok" when asked to elaborate on medical condition Past Med Surg Social Fam HX - Past Medical History Medical history: hyperlipidemia, hypertension Psychiatric history: no psych history - Past Surgical History Surgical History: other - Social History Smoking Status: Current every day smoker Packs per day: 1/2 Smokeless Tobacco Status: No Alcohol use: none Drug use: none Medications and Allergies Amlodipine Besylate/Benazepril [Lotrel 10-20 mg Capsule] 1 cap PO DAILY [History] Doxycycline Hyclate [Doxycycline Hyclate] 20 mg PO BID 07/29/17 [History] Simvastatin [Zocor] 20 mg PO QPM 07/29/17 [History] 3 Allergy/AdvReac Type Severity Reaction Status Date / Time Penicillins Allergy Rash Verified 07/29/17 09:44 All Systems: ROS, per below. Review of Systems: ROS below. Only responds that she's "ok" - Constitutional Constitutional: no chills, no fever(s) - Cardiovascular Cardiovascular: leg edema, pedal edema, no rapid heart rate - Respiratory Respiratory: no cough - Integumentary Integumentary: rash Physical Examination Vital Signs: Vital Signs, Last 4 Hours Temp Pulse Resp BP Pulse Ox 07/30/17 08:00 96.4 F L 70 24 92/43 94 07/30/17 06:00 73 24 103/46 99 07/30/17 05:55 75 07/30/17 05:50 75 22 107/51 96 07/30/17 05:40 97.3 F L 81 20 79/38 95 07/30/17 04:49 97.3 F L 63 18 96 General appearance: no acute distress, appears uncomfortable (however, says she' s feeling "ok") Eyes: nonicteric ENT: oropharynx dry Mallampati (class): 3 Neck: JVD Effort: other (open mouthed breathing ) Auscultation: bilateral: diminished breath sounds Cardiovascular: other (diminished heart sounds, S3) Gastrointestinal: hypoactive bowel sounds, non-tender Integumentary: rash (Skin macerations beneath b/l breast folds, and b/l thigh creases) Extremities: edema (LE: +4 on Left, +3 on Right down to ankle. ), other (rash on b/l arms ) pupils equal and round other (blunted) Results - Laboratory Findings CBC and BMP: 07/30/17 10:47 07/30/17 10:47 PT/INR, D-dimer PT 14.1 Seconds (9.4-12.1) H 07/30/17 05:48 Abnormal lab findings: Abnormal lab results RBC 2.81 M/mcL (3.82-4.97) L 07/30/17 05:48 Hgb 7.9 g/dL (11.5-15.4) L D 07/30/17 05:48 Hct 24.0 % (35.3-44.9) L 07/30/17 05:48 RDW 15.9 % (11.5-14.5) H 07/30/17 05:48 Band Neutrophils % 14.0 % (0-4) H 07/30/17 05:48 Metamyelocytes % 4.0 % (0) H 07/30/17 05:48 Nucleated RBCs/100 WBC 9.6 /100 WBC (0) H 07/30/17 05:48 Anisocytosis 1+ (Not Present) A 07/29/17 09:43 PT 14.1 Seconds (9.4-12.1) H 07/30/17 05:48 VBG pH 7.12 pH Units (7.32-7.42) L* 07/30/17 06:09 VBG pCO2 58 mmHg (41-51) H 07/30/17 06:09 VBG HCO3 19 mEq/L (21-27) L 07/30/17 06:09 Sodium 132 mEq/L (136-145) L 07/30/17 05:48 Potassium 5.7 mEq/L (3.5-4.5) H 07/30/17 05:48 Carbon Dioxide 16 mEq/L (19-29) L 07/30/17 05:48 BUN 86 mg/dL (7-20) H 07/30/17 05:48 Creatinine 3.84 mg/dL (0.57-1.11) H 07/30/17 05:48 Est GFR ( Amer) 14 (> 60) L 07/30/17 05:48 Est GFR (Non-Af Amer) 12 (> 60) L 07/30/17 05:48 POC Glucose 92 (58-89) H 07/30/17 05:44 Calcium 7.9 mg/dL (8.6-10.8) L 07/30/17 05:48 Phosphorus 5.2 mg/dL (2.3-4.7) H 07/29/17 10:08 Magnesium 3.1 mg/dL (1.6-2.6) H 07/29/17 10:08 B-Natriuretic Peptide 512 pg/mL (0-100) H 07/29/17 09:43 Serum Total Protein 5.9 g/dL (6.0-8.3) L 07/29/17 10:08 Albumin 1.8 g/dL (3.5-5.0) L 07/29/17 10:08 Globulin 4.1 g/dL (2.4-3.5) H 07/29/17 10:08 Albumin/Globulin Ratio 0.4 (1.1-2.2) L 07/29/17 10:08 Urine Clarity Hazy (Clear) A 07/29/17 13:07 Ur Specific [place] 1.026 (1.010-1.025) H 07/29/17 13:07 Urine Ketones Trace mg/dL (Negative) H 07/29/17 13:07 Urine Bilirubin Small (Negative) H 07/29/17 13:07 Ur Leukocyte Esterase Small (Negative) H 07/29/17 13:07 Urine Microscopic RBC 3-5 per hpf (0-3) H 07/29/17 13:07 Ur Squamous Epith Cells Many per lpf (None-Few) H 07/29/17 13:07 Amorphous Sediment Many (Few) H 07/29/17 13:07 Ur Culture Indicated? YES (NO) A 07/29/17 13:07 Stool Occult Blood Positive (Negative) A 07/29/17 10:57 - Clinical Findings Intake & Output: Intake & Output 07/29/17 07/30/17 07/30/17 23:59 07:59 15:59 Intake Total 1360 / 1682 1450 / 1450 1000 / 1000 Output Total 0 / 0 Balance 1350 / 1672 1450 / 1450 1000 / 1000 Weight 87.9 kg Consult Discharge Plan - Plan Referrals: Keesha Ellsworth, [employer] [Primary Care Provider] - <Vicky Zapien - Last Filed: 07/30/17 16:37> Date of Encounter: 07/30/17 All Systems: A 10-system review of systems was performed and is negative for pertinent findings except as documented above in the HPI. Physical Examination Vital Signs: Vital Signs, Last 4 Hours Temp Pulse Resp BP Pulse Ox 07/30/17 15:43 14 72/44 97 07/30/17 15:00 96.4 F L 70 15 73/44 96 07/30/17 14:00 78 15 82/65 96 07/30/17 13:00 96.4 F L 65 15 68/45 96 Ventilator Settings Ventilator Settings: Ventilator Settings, Last 8 Hours Ventilator Mode VC+ Ventilator Mode VC+ Ventilator Mode VC+ Ventilator Mode VC+ Ventilator Mode VC+ Ventilator Mode VC+ Ventilator Tidal Volume 550 Setting Ventilator Tidal Volume 550 Setting Ventilator Tidal Volume 550 Setting Ventilator Tidal Volume 550 Setting Ventilator Tidal Volume 500 Setting Ventilator Tidal Volume 500 Setting Ventilator Respiratory Rate 14 Setting Ventilator Respiratory Rate 14 Setting Ventilator Respiratory Rate 14 Setting Ventilator Respiratory Rate 14 Setting Ventilator Respiratory Rate 14 Setting Ventilator Respiratory Rate 14 Setting Actual Respiratory Rate 14 Actual Respiratory Rate 15 Actual Respiratory Rate 15 Actual Respiratory Rate 18 Actual Respiratory Rate 21 Positive End Expiratory 5 Pressure Positive End Expiratory 5 Pressure Positive End Expiratory 5 Pressure Positive End Expiratory 5 Pressure Positive End Expiratory 5 Pressure Positive End Expiratory 5 Pressure Peak Inspiratory Airway 41 Pressure Peak Inspiratory Airway 40 Pressure Peak Inspiratory Airway 39 Pressure Peak Inspiratory Airway 40 Pressure Peak Inspiratory Airway 43 Pressure Results - Laboratory Findings CBC and BMP: 07/30/17 16:08 07/30/17 10:47 ABG ABG pH 7.20 pH Units (7.32-7.45) L* 07/30/17 11:31 ABG pCO2 42 mmHg (35-45) 07/30/17 11:31 ABG pO2 256 mmHg (85-104) H 07/30/17 11:31 ABG O2 Saturation 100 % (95-98) H 07/30/17 11:31 PT/INR, D-dimer PT 14.7 Seconds (9.4-12.1) H 07/30/17 10:47 Abnormal lab findings: Abnormal lab results RBC 3.35 M/mcL (3.82-4.97) L 07/30/17 16:08 Hgb 9.7 g/dL (11.5-15.4) L D 07/30/17 16:08 Hct 28.6 % (35.3-44.9) L 07/30/17 16:08 RDW 15.5 % (11.5-14.5) H 07/30/17 16:08 Band Neutrophils % 14.0 % (0-4) H 07/30/17 10:47 Metamyelocytes % 2.0 % (0) H 07/30/17 10:47 Nucleated RBCs/100 WBC 8.8 /100 WBC (0) H 07/30/17 16:08 Anisocytosis 1+ (Not Present) A 07/29/17 09:43 PT 14.7 Seconds (9.4-12.1) H 07/30/17 10:47 ABG pH 7.20 pH Units (7.32-7.45) L* 07/30/17 11:31 ABG pO2 256 mmHg (85-104) H 07/30/17 11:31 ABG HCO3 16 mEq/L (21-27) L 07/30/17 11:31 ABG Total CO2 18 mEq/L (20-26) L 07/30/17 11:31 ABG O2 Saturation 100 % (95-98) H 07/30/17 11:31 ABG Base Excess -11 mEq/L (-2 to 3) L 07/30/17 11:31 VBG pH 7.14 pH Units (7.32-7.42) L* 07/30/17 09:47 VBG pO2 80 mmHg (25-50) H 07/30/17 09:47 VBG HCO3 17 mEq/L (21-27) L 07/30/17 09:47 Potassium 5.4 mEq/L (3.5-4.5) H 07/30/17 10:47 Carbon Dioxide 16 mEq/L (19-29) L 07/30/17 10:47 BUN 79 mg/dL (7-20) H 07/30/17 10:47 Creatinine 3.71 mg/dL (0.57-1.11) H 07/30/17 10:47 Est GFR ( Amer) 15 (> 60) L 07/30/17 10:47 Est GFR (Non-Af Amer) 12 (> 60) L 07/30/17 10:47 Glucose 106 mg/dL (70-99) H 07/30/17 10:47 POC Glucose 92 (58-89) H 07/30/17 05:44 Calculated Osmolality 306 (280-300) H 07/30/17 10:47 Lactic Acid 3.1 mmol/L (0.5-2.2) H 07/30/17 10:47 Calcium 7.4 mg/dL (8.6-10.8) L 07/30/17 10:47 Ionized Calcium 1.07 mmol/L (1.15-1.35) L 07/30/17 10:47 Phosphorus 5.8 mg/dL (2.3-4.7) H 07/30/17 10:47 Magnesium 2.8 mg/dL (1.6-2.6) H 07/30/17 10:47 B-Natriuretic Peptide 512 pg/mL (0-100) H 07/29/17 09:43 Serum Total Protein 5.2 g/dL (6.0-8.3) L 07/30/17 10:47 Albumin 1.5 g/dL (3.5-5.0) L 07/30/17 10:47 Globulin 3.7 g/dL (2.4-3.5) H 07/30/17 10:47 Albumin/Globulin Ratio 0.4 (1.1-2.2) L 07/30/17 10:47 Urine Clarity Hazy (Clear) A 07/29/17 13:07 Ur Specific [place] 1.026 (1.010-1.025) H 07/29/17 13:07 Urine Ketones Trace mg/dL (Negative) H 07/29/17 13:07 Urine Bilirubin Small (Negative) H 07/29/17 13:07 Ur Leukocyte Esterase Small (Negative) H 07/29/17 13:07 Urine Microscopic RBC 3-5 per hpf (0-3) H 07/29/17 13:07 Ur Squamous Epith Cells Many per lpf (None-Few) H 07/29/17 13:07 Amorphous Sediment Many (Few) H 07/29/17 13:07 Ur Culture Indicated? YES (NO) A 07/29/17 13:07 Stool Occult Blood Positive (Negative) A 07/29/17 10:57 Salicylates < 5.0 mg/dL (15-30) L 07/30/17 09:28 Acetaminophen < 1.0 mcg/mL (10-30) L 07/30/17 09:28 - Clinical Findings Intake & Output: Intake & Output 07/30/17 07/30/17 07/30/17 07:59 15:59 23:59 Intake Total 1450 / 1450 3080 / 3080 Output Total 0 / 0 Balance 1450 / 1450 3080 / 3080 Weight 87.9 kg - Attending Attestation I examined this patient and my medical decision-making was reviewed with the Resident Physician. I agree with the documented findings, disposition and treatment plan as described except to the extent set forth below. Patient seen and examined. Labs, radiology, chart personally reviewed. 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 Pulmonary: Acceptable oxygenation and ventilation. Patient initially was not intubated, however after EGD procedure and complicated with acute hypoxic respiratory failure patient was placed on the ventilator and vent setting was changed according to the ABG. Patient remained intubated because of potential need of surgery. Patient also had CT chest which showed bilateral pleural effusion which I suspect she will need chest tube placement. This was explained to the family. Cardiovascular: Hemodynamically not stable, however she needs to have surgery after CT chest findings and I discussed this with the radiologist. GI: Nutrition per dietary and GI prophylaxis per routine. Patient has significant intake of Aleve according to the family and she said she was taking a lot of aspirin for not difficult reason that she could not explain and she had EGD done. Heme: DVT prophylaxis per routine. Severe anemia from the blood loss, upper GI bleed. ID: Continue antibiotics and plan to de-escalation. Patient was septic shock and she is covered with broad-spectrum antibiotics. Renal; urine out put and renal funtion reviewed. Acute kidney injury which is multifactorial. Endorcine: blood glucose is monitored Lines: all lines checked and no evidence of infections Skin: skin care to prevent pressure ulcers per nursing routine care. Skin lesion on the chest and also in the groin area. 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 She and had CT chest and abdomen with significant findings that they have mentioned above that needed surgery. Family initially was reluctant and they wanted to wait for brother, however I told them patient needs to have surgery otherwise prognosis is very poor and prognosis still poor even if she has surgery however the right thing to do is surgery. They understand and they agreed. I spent 90 min of Critical Care time with this patient. It involved decision making of high complexity to assess, manipulate, and support vital organ system failure and/or to prevent further life threatening deterioration of the patient' s condition. The time involved in the performance of separately reportable procedures was not counted toward critical care time. For critical care time, please refer to other documentation under the event note.
[2017-07-30] MEDS ORDERED: Tetracaine/Benzocaine/Butamben 200MG/SPRAY (100SPY/BOT) MM ONE (09:41)
[2017-07-30] MEDS ORDERED: *HR* FentaNYL (PF) 100 MCG/2 ML VIAL IVP PRN (09:41)
[2017-07-30] MEDS ORDERED: *HR* Midazolam HCl 5 MG/5 ML VIAL IVP PRN (09:41)
[2017-07-30] MEDS ORDERED: *HR* Midazolam HCl 5 MG/5 ML VIAL IVP ONE (09:44)
[2017-07-30] MEDS ORDERED: *HR* FentaNYL (PF) 100 MCG/2 ML VIAL ONE ×2 (09:44→16:51)
[2017-07-30 09:54] LABS: VBG HCO3 17 mEq/L (21-27); VBG PCO2 51 mmHg (41-51); VBG PH 7.14 pH Units (7.32-7.42); VBG PO2 80 mmHg (25-50)
[2017-07-30 10:00] LABS: Acetaminophen < 1.0 mcg/mL (10-30); Salicylate < 5.0 mg/dL (15-30)
[2017-07-30] MEDS ORDERED: Aminoglycoside Consult 1 EACH MC ONE (10:03)
[2017-07-30] MEDS ORDERED: FentaNYL (PF) 1,000 MCG in 0.9 % Sodium Chloride 80 ML IVC SCH (10:45)
[2017-07-30] MEDS ORDERED: Dexmedetomidine HCl 400 MCG/100 ML MLS IVC SCH (10:45)
--- NOTE | 2017-07-30 10:48 | Event Note ---
Addendum entered and electronically signed by Kimberly Hoffman MD 07/30/17 11:28: Dr. Zapien present for resuscitation response. Dr. Suh present for entire event. Original Note: <Kimebrly Hoffman - Last Filed: 07/30/17 11:18> Date of Encounter: 07/30/17 Time of Encounter: 10:48 This is an event note. Pt's O2 saturation down to 50% mid-procedure of EGD, performed by MD Angeli. Pt was on tele, was found pulseless at approx 10:15. ICU-wide resuscitation response activated. Attending notified. Pt received appropriate Ventilation: Bag -Valve Mask, Endotracheal Tube. Manual Compression was initiated. Pt received Epinephrine 1mg/IV and Atoprine, due to bradycardia with HRs 40. HR responded with atropine. Naloxone given. Resuscitation Ended with return of circulation. CXR, KUB, appropriate labs drawn. Will follow results. Attempt for further family information made (pt lives at home alone), to notify family. <Vicky Zapien - Last Filed: 07/30/17 16:21> Date of Encounter: 07/30/17 I examined this patient and my medical decision-making was reviewed with the Resident Physician. I agree with the documented findings, disposition and treatment plan as described except to the extent set forth below. Patient had lost her pulse briefly and also resuscitation CPR was done and patient was hypoxic that need to be intubated. Patient was initially preoxygenated with an low back and then with C-mac she was intubated with ET tube size 7.5 under direct visualization without immediate complications with confirmation was done with bilateral airway on auscultation and also chest x- ray subsequently and change in the capnometer. After resuscitation were able to regain her pulse and Narcan also was given during resuscitation. After that I had discussion with the mother and family was updated. Poor prognosis.
[2017-07-30 10:59] LABS: Hematocrit 23.2 % (35.3-44.9); Hemoglobin 7.8 g/dL (11.5-15.4); Mean Corpuscular HGB Conc 33.6 g/dL (31.6-35.5); Mean Corpuscular Hemoglobin 29.1 pg (28.0-33.3); Mean Corpuscular Volume 86.6 fL (83.0-100.0); Mean Platelet Volume 9.6 fL (9.4-12.4); Nucleated Red Blood Cells 11.3 /100 WBC (0); Platelet Count 276 K/mcL (140-400); Red Blood Count 2.68 M/mcL (3.82-4.97); Red Cell Distribution Width 16.2 % (11.5-14.5)
[2017-07-30] MEDS ORDERED: Vancomycin 1,250 MG in D5% in Water 250 ML IVPB SCH (11:00)
[2017-07-30] MEDS: Sod Bicarb 150mEq/D5W 150 MEQ/1,000 ML IV.SOLN IVC SCH ×2 (11:05→23:55)
[2017-07-30 11:06] LABS: INR 1.4; Prothrombin Time 14.7 Seconds (9.4-12.1)
[2017-07-30 11:09] LABS: Ionized Calcium 1.07 mmol/L (1.15-1.35)
--- NOTE | 2017-07-30 11:14 | General Surgery Procedure Note ---
Date of procedure: 07/30/17 Pre-op diagnosis: IV access Post-op diagnosis: same Procedure: placement CVL via left subclavian vein. Patient was in distress, acutely unresponsive requiring intubation and CPR. Once adequately stabilized, a central venous line was placed via the left subclavian vein. The patient was placed supine in her hospital bed. The left anterior chest and infraclavicular area was prepped and draped in the usual sterile fashion. A whole body drape was used, the surgeon was capped, gowned, masked and gloved. The patient was appropriately identified. 5 mL of 1% lidocaine was infiltrated into the infraclavicular skin. The patient was then placed in Trendelenburg. Using an 18 -gauge needle, the left subclavian vein was located. At no time was air aspirated. In the technique described by Radha, a guidewire was inserted, the needle extracted. The skin tract was incised and dilated. A 16 cm, 7Fr, 3 lumen Arrow-Juanito catheter was passed over the guidewire. The guidewire was extracted. The catheter was advanced to 15 cm and secured to the infraclavicular skin with 3-0 silk. The 3 ports aspirated easily for blood and were flushed with saline. A dry sterile dressing was placed. A portable chest x-ray was completed prior to the completion of this dictation demonstrating no pneumothorax and appropriate positioning of the catheter. Complications: none apparent Anesthesia: local (5 mL 1% lidocaine) Surgeon: Samuel Suh Estimated blood loss (cc): 0 Pathology: none sent Condition: stable Disposition: ICU
[2017-07-30 11:18] LABS: Albumin/Globulin Ratio 0.4 (1.1-2.2); Bilirubin,Direct 0.3 mg/dL (0.0-0.5); Bilirubin,Total 0.3 mg/dL (0.2-1.2); Calcium 7.4 mg/dL (8.6-10.8); Globulin 3.7 g/dL (2.4-3.5); Magnesium 2.8 mg/dL (1.6-2.6); Phosphorous 5.8 mg/dL (2.3-4.7); Potassium 5.4 mEq/L (3.5-4.5); Total Protein 5.2 g/dL (6.0-8.3)
[2017-07-30 11:19] LABS: Albumin 1.5 g/dL (3.5-5.0)
[2017-07-30 11:25] LABS: Lymphocytes # 0.7 K/mcL (0.6-4.6); Monocytes # 1.1 K/mcL (0.0-1.3); Neutrophils # 6.2 K/mcL (1.6-8.9); Platelet Estimate Normal (Normal)
--- NOTE | 2017-07-30 11:25 | Nephrology Consult Note ---
Date of Encounter: 07/30/17 Time of Encounter: 10:45 Assessment and Plan (1) EDDIE (acute kidney injury) Current Visit: Yes Status: Acute Oligoanuria EDDIE with hyperkalemia s/p cardiac arrest. Hypotensive on pressors. Recommend CRRT with CVVHDF will start without regional citrate d/t anemia; with Dialysate 1000mL/hr and Replacement fluid at 1000 mL/hr. Discussed with the pt's mother. The pt also nodded her head in affirmation while intubated to provide consent to proceed with HD after I described the R/B/ I and potential SEs. Thank you for consulting the [facility] team. CCT provided of about 48 min in total from early AM chart prep, patient assessment, Jade settings, family discussions and logistics/discussions of recommendations with ICU team plus chart documentation for this severely ill patient. (2) Hyperkalemia Current Visit: Yes Status: Resolved See above (3) GI bleed Current Visit: Yes Status: Acute Severe anemia. Qualifiers: GI bleed type/associated pathology: unspecified gastrointestinal hemorrhage type Qualified Code(s): K92.2 - Gastrointestinal hemorrhage, unspecified (4) Hypertension Current Visit: Yes Status: Chronic Hx of HTN, but now hypotensive, thus requiring use of Jade over standard HD. Qualifiers: Hypertension type: essential hypertension Qualified Code(s): I10 - Essential (primary) hypertension History of Present Illness - Reason for Consult Consult date: 07/29/17 hyperkalemia Requesting physician: Vicky Zapien - Chief Complaint EDDIE with hyperkalemia with severe anemia - History of Present Illness Rashida Adams presented with EDDIE and hyperkalemia and oliguria. She underwent a code blue while undergoing endoscopy and was intubated. This limited all history other than that obtained by the medical record. I later was able to speak with the pt's mother in the ICU family meeting room (one of the pt's mother's friends was present). I described the renal failure and hyperkalemia findings. The pt's mother said that she has never seen a prior collar padder blindstitch to her recollection. She voiced of no known prior renal disease. However, the pt was known to have been taking NSAIDs of late. Further HPI details are all limited d/t intubation. Past Med Surg Social Fam HX - Past Medical History Medical history: hyperlipidemia, hypertension Psychiatric history: no psych history - Past Surgical History Surgical History: other - Social History Smoking Status: Current every day smoker Packs per day: 1/2 Smokeless Tobacco Status: No Alcohol use: none Drug use: none Medications and Allergies Amlodipine Besylate/Benazepril [Lotrel 10-20 mg Capsule] 1 cap PO DAILY [History] Doxycycline Hyclate [Doxycycline Hyclate] 20 mg PO BID 07/29/17 [History] Simvastatin [Zocor] 20 mg PO QPM 07/29/17 [History] 3 Allergy/AdvReac Type Severity Reaction Status Date / Time Penicillins Allergy Rash Verified 07/29/17 09:44 Review of Systems ROS unobtainable: due to endotracheal tube Exam - Vital Signs Vital signs: Initial Vital Signs Temp Pulse Resp BP Pulse Ox 94.4 F L 71 16 107/91 96 07/29/17 09:22 07/29/17 09:22 07/29/17 09:22 07/29/17 09:22 07/29/17 09:22 Vital Signs - Last 8 Hours Temp Pulse Resp BP Pulse Ox 07/30/17 10:35 96.8 F L 91 21 90/56 100 07/30/17 09:00 70 22 102/46 91 07/30/17 08:00 96.4 F L 70 24 92/43 94 07/30/17 06:00 73 24 103/46 99 07/30/17 05:55 75 07/30/17 05:50 75 22 107/51 96 07/30/17 05:40 97.3 F L 81 20 79/38 95 07/30/17 04:49 97.3 F L 63 18 96 Intake and Output 07/29/17 07/30/17 07/30/17 23:59 07:59 15:59 Intake Total 1360 / 1682 1450 / 1450 215 / 2150 Output Total 0 / 0 Balance 1350 / 1672 1450 / 1450 215 / 2150 Intake: IV Fluids 200 / 200 1100 / 1100 215 / 2149 0.9 % Sodium Chloride 1,000 ML 1000 / 1000 As .ROUTE .STK-MED ONE Rx#: [id number] 0.9 % Sodium Chloride 1,000 ML 1999 / 1999 @ 100 mls/hr IVC .Q10H [facility]ANE Rx#: [id number] Protonix 40 MG In 0.9 % Sodium 200 / 200 100 / 100 Chloride (Mini-Bag +) 100 ML @ 20 mls/hr IVC .Q5H [facility]ANE Rx#: [id number] Levaquin Premix 750mg/150 mL 150 / 150 750 mg In 150 ml @ 100 mls/hr IVPB Q48H [facility] Rx#:[id number] Oral 460 / 460 0 / 0 0 / 0 Blood Product 700 / 700 350 / 350 0 / 0 Rbcs Leuko Poor As-1 Unit 350 / 350 350 / 350 [id number] Rbcs Leuko Poor As-1 Unit 0 / 0 [id number] Rbcs Leuko Poor As-3 2nd Unit 350 / 350 [id number] Output: Catheter 0 / 0 Other: Meal Dinner Percent of Meal Consumed 50% # Bowel Movements 0 Weight 87.9 kg Blood Glucose* 92 Patient Weight 07/30/17 23:59 Weight 87.9 kg - General Appearance General appearance: well-developed, well-nourished, moderate distress, fatigue, frail EENT: ATNC, mucous membranes moist Neck: supple Respiratory: course breath sounds Cardiology: edema (trace to 1+ pedal edema b/l), regular rate, regular rhythm, normal S1, normal S2 Gastrointestinal: normoactive bowel sounds, no tenderness, no guarding, obese Integumentary: no rash, warm and dry Neurologic: no focal deficit, no asterixis Musculoskeletal: no deformities, no erythema Psychiatric: cooperative Results - Lab Results 08/06/17 05:20 08/06/17 05:20 Most recent lab results Calcium 7.4 mg/dL (8.6-10.8) L 07/30/17 10:47 Phosphorus 5.8 mg/dL (2.3-4.7) H 07/30/17 10:47 Magnesium 2.8 mg/dL (1.6-2.6) H 07/30/17 10:47 I reviewed the labs, meds, vitals and progress notes, plus imaging. Consult Discharge Plan - Plan Referrals: Keesha Ellsworth, BUSINESS DEVELOPMENT ASSOCIATE [Primary Care Provider] -
[2017-07-30 11:37] LABS: ABG Base Excess -11 mEq/L (-2 to 3); ABG HCO3 16 mEq/L (21-27); ABG Oxygen Saturation 100 % (95-98); ABG PCO2 42 mmHg (35-45); ABG PO2 256 mmHg (85-104); ABG TCO2 18 mEq/L (20-26); Blood Gas Modality VC; Blood Gas PEEP 5 cm H2O; Blood Gas Respiration Rate 14; Blood Gas VT 500 cc
[2017-07-30] MEDS ORDERED: *HR* Heparin 5,000 UNIT/ML VIAL IV PRN (11:47)
[2017-07-30] MEDS ORDERED: 0.9 % Sodium Chloride 1,000 ML IVC SCH ×2 (12:00→21:20)
[2017-07-30] MEDS ORDERED: Vancomycin 1,500 MG in D5% in Water 250 ML IVPB ONE (12:00)
[2017-07-30] MEDS: Ipratropium/Albuterol Neb 3 ML IH SCH ×4 (12:00→23:32)
[2017-07-30] MEDS ORDERED: 0.9 % Sodium Chloride 1,000 ML PRIME SCH ×2 (12:00→21:20)
[2017-07-30] MEDS ORDERED: PrismaSATE BGK 4/2.5 5,000 ML CRRT SCH ×2 (12:00)
[2017-07-30] MEDS ORDERED: Ipratropium/Albuterol Neb 3 ML ONE (12:03)
[2017-07-30] MEDS: Norepinephrine 4 MG in D5% in Water 250 ML IVC SCH ×3 (13:45→22:09)
[2017-07-30] MEDS ORDERED: Heparin 1,000 UNITS/500 mL NS 500 ML ONE ×2 (13:50→16:52)
[2017-07-30] MEDS ORDERED: *HR* Heparin 5,000 UNIT/ML VIAL ONE (14:16)
--- NOTE | 2017-07-30 14:19 | IR Procedure Note ---
Date of procedure: 07/30/17 Consent Obtained: Verbal consent Timeout: Correct patient and procedure verified, Time out performed, Skin prep completed Local anesthetic: Lidocaine 1% Indications: ARF Procedure Performed: Temp dialysis catheter placement Results/Findings: RIJ 15.5F 20cm temp dialysis catheter placement Complications: None; Tolerated procedure well (Monitor on floor)
--- NOTE | 2017-07-30 15:10 | Internal Med Progress Note ---
Date of Encounter: 07/30/17 Time of Encounter: 15:09 - Assessment and plan (1) Anemia Current Visit: Yes Status: Acute Assessment and plan: s/p transfusion. Qualifiers: Anemia type: iron deficiency Iron deficiency anemia type: other iron deficiency Qualified Code(s): D50.8 - Other iron deficiency anemias (2) GI bleed Current Visit: Yes Status: Acute Assessment and plan: Surgery following and managing patient. Has so far needed 5 units PRBCs, levels have stablized at this time. Qualifiers: GI bleed type/associated pathology: unspecified gastrointestinal hemorrhage type Qualified Code(s): K92.2 - Gastrointestinal hemorrhage, unspecified (3) Cardiac arrest Current Visit: Yes Status: Acute Assessment and plan: Acheived ROSC shortly after resuscitation. Care under ICU team. Will follow patient when steps down. Overall poor prognosis. - Subjective Interval history: Patient under care of ICU. Patient had EGD done today that ended prematurely as patient became hemodynamically unstable. She was pulseless and resuscitation was started with compressions. She acheived ROSC. A stat CT Head/chest/abdomen /pelvis done. [facility] has notified us there is free air under her diaphragm. Surgery has been notified. - Constitutional Vitals: Temp Pulse Resp BP Pulse Ox 96.4 F L 78 15 82/65 96 07/30/17 11:40 07/30/17 14:00 07/30/17 14:00 07/30/17 14:00 07/30/17 14:00 Exam: Gen: Intubated, sedated. Obese female. CVS: RRR, Lungs: Coarse breath sounds throughout Abd: mildly distended, soft, normoactive bowel sounds. Ext: no edema Internal Medicine: Result - Labs CBC & Chem 7: 07/30/17 22:00 07/30/17 22:00 Labs: Short CBC 07/30/17 07/30/17 Range/Units 05:48 10:47 WBC 7.5 8.1 (4.3-11.1) K/mcL Hgb 7.9 L D 7.8 L (11.5-15.4) g/dL Hct 24.0 L 23.2 L (35.3-44.9) % Plt Count 296 276 (140-400) K/mcL Neutrophils # 5.4 6.2 (1.6-8.9) K/mcL BMP 07/30/17 07/30/17 07/30/17 05:48 09:28 10:47 Sodium 132 L 136 Potassium 5.7 H 5.6 H 5.4 H Chloride 106 108 Carbon Dioxide 16 L 16 L BUN 86 H 79 H Creatinine 3.84 H 3.71 H Glucose 85 106 H Calcium 7.9 L 7.4 L Liver Function 07/30/17 Range/Units 10:47 Total Bilirubin 0.3 (0.2-1.2) mg/dL Direct Bilirubin 0.3 (0.0-0.5) mg/dL AST 18 (5-34) Units/L ALT 9 (0-55) Units/L Alkaline Phosphatase 68 (38-126) Units/L Albumin 1.5 L (3.5-5.0) g/dL - ABG Interpretation ABG results: ABG ABG pH 7.20 pH Units (7.32-7.45) L* 07/30/17 11:31 ABG pCO2 42 mmHg (35-45) 07/30/17 11:31 ABG pO2 256 mmHg (85-104) H 07/30/17 11:31 ABG O2 Saturation 100 % (95-98) H 07/30/17 11:31 PT/INR, D-dimer PT 14.7 Seconds (9.4-12.1) H 07/30/17 10:47 - Impressions Impressions Chest X-Ray 07/30/17 06:42 IMPRESSION: Stable cardiomegaly. Low lung volumes. Airspace opacities at the bilateral lung bases, likely related to atelectasis and small to moderate pleural effusions, right more than left, stable. Superimposed pneumonia is difficult to exclude. D/ / Eddie Davison MD / Eddie Davison MD Interpreting Provider: Eddie Davison MD Retroperitoneum Ultrasound 07/30/17 09:00 IMPRESSION: No gross hydronephrosis. 1.4 cm right renal cyst. Nonobstructing nephrolithiasis versus echogenic renal sinus fat. Ascites. D/ / Floyd Serna MD / Floyd Serna MD Interpreting Provider: Floyd Serna MD Chest X-Ray 07/30/17 10:44 IMPRESSION: Endotracheal tube measures 2 cm above the omer. Left subclavian central venous catheter tip terminates in the proximal SVC. Increased left basilar atelectasis, superimposed on diffuse increased interstitial changes which may be related to interstitial pulmonary edema. Underlying infectious pneumonitis cannot be excluded. D/ / Amadeo Flores MD / Amadeo Flores MD Interpreting Provider: Amadeo Flores MD Abdomen/Pelvis CT 07/30/17 12:30 IMPRESSION: 1. Bilateral pleural effusions right greater than left with complete atelectasis of the right lower and middle lobes. There is also partial atelectasis of the left lower lobe. 2. Pneumoperitoneum. I suspect this likely is secondary to the abnormality adjacent to the fundus of the stomach and may be related to perforated ulcer or other cause of perforation of the stomach. 3. Mixed density extraluminal mass adjacent to the fundus of the stomach. This may represent a perforated ulcer versus hematoma secondary to iatrogenic perforation. These findings were discussed with Dr. Suh at 3:05 p.m. 07/30/2017. 4. Intra-abdominopelvic ascites with diffuse body wall edema. 5. Low-attenuation lesion seen within the kidneys likely representing cysts with some hemorrhagic cysts involving the left kidney. 6. Diverticulosis without obvious inflammation. 7. Calcified mass within the pelvis likely representing a large degenerated fibroid. 8. Age indeterminate superior endplate fracture of L1. 9. Asymmetric trabecular thickening involving the right pelvis. This could be due to monostotic Paget's disease versus myelofibrosis. Neoplastic process is less likely given the asymmetry and diffuse involvement of the right pelvis. D/ / Reginald Walsh MD / Reginald Walsh MD Interpreting Provider: Reginald Walsh MD Chest CT 07/30/17 12:30 IMPRESSION: 1. Bilateral pleural effusions right greater than left with complete atelectasis of the right lower and middle lobes. There is also partial atelectasis of the left lower lobe. 2. Pneumoperitoneum. I suspect this likely is secondary to the abnormality adjacent to the fundus of the stomach and may be related to perforated ulcer or other cause of perforation of the stomach. 3. Mixed density extraluminal mass adjacent to the fundus of the stomach. This may represent a perforated ulcer versus hematoma secondary to iatrogenic perforation. These findings were discussed with Dr. Suh at 3:05 p.m. 07/30/2017. 4. Intra-abdominopelvic ascites with diffuse body wall edema. 5. Low-attenuation lesion seen within the kidneys likely representing cysts with some hemorrhagic cysts involving the left kidney. 6. Diverticulosis without obvious inflammation. 7. Calcified mass within the pelvis likely representing a large degenerated fibroid. 8. Age indeterminate superior endplate fracture of L1. 9. Asymmetric trabecular thickening involving the right pelvis. This could be due to monostotic Paget's disease versus myelofibrosis. Neoplastic process is less likely given the asymmetry and diffuse involvement of the right pelvis. D/ / Reginald Walsh MD / Reginald Walsh MD Interpreting Provider: Reginald Walsh MD Head CT 07/30/17 12:30 IMPRESSION: 1. No acute intracranial abnormality. 2. Chronic small vessel ischemic disease. D/ / Reginald Walsh MD / Reginald Walsh MD Interpreting Provider: Reginald Walsh MD Echocardiogram 07/30/17 15:17 Impressions: LVEF 65%. Moderate left ventricular diastolic dysfunction. Normal right ventricular structure and function. Mild mitral regurgitation. Mild-moderate tricuspid regurgitation. Mild pulmonic regurgitation. Mild pulmonary hypertension. Abdominal ascites. Left Ventricular Wall Motion: Rest Echo Findings All wall segments showed normal motion. Findings: Study Quality * Technically adequate exam. ECG Findings * Normal sinus rhythm. Left Ventricle * Normal LV chamber size, wall thickness and function. * LVEF 65%. * Moderate left ventricular diastolic dysfunction. Right Ventricle * Normal right ventricular structure and function. Left Atrium * Moderate-severely dilated left atrium. Right Atrium * Normal right atrial size. Aortic Valve * No aortic regurgitation. * Trileaflet aortic valve. * No aortic stenosis. * Mildly calcified aortic valve leaflets. Mitral Valve * Normal mitral valve structure. * No mitral stenosis. * Mild mitral annular calcification * Mild mitral regurgitation. Tricuspid Valve * Normal tricuspid valve structure. * Mild-moderate tricuspid regurgitation. * Estimated RA pressure is 3 mmHg. * Estimated RVSP is 42 mmHg. * Mild pulmonary hypertension. Pulmonic Valve * Pulmonic valve is not well visualized. * No pulmonic stenosis. * Mild pulmonic regurgitation. Pulmonary Artery * Pulmonary artery not well visualized. Aorta * Normally sized aortic root. Pericardium * There is no pericardial effusion present. Interatrial Septum * No evidence of PFO by color Doppler. IVC * The IVC is not dilated. - VTE Documentation of Mechanical Device: Intermittent pneumatic compression device Consult Discharge Plan - Plan Referrals: Keesha Ellsworth, FIELD SUPPORT ENGINEER [Primary Care Provider] -
--- NOTE | 2017-07-30 16:11 | Anesthesia Evaluation PreOp ---
Date of Encounter: 07/30/17 Time of Encounter: 16:15 - Past History Planned Operation: exp lap Cardiac History: CHF, HTN, Hyperlipidemia Pulmonary History: Smoker, Pack/yr (half ppd x 40yrs) SKY LINE YARDER History: Denies Any Significant HX Other Medical History: Renal (DEDIE), Other (anemia) Anesthesia History: No Prior Anesthetic Complications, Past Anesthesia (LOUISE 50 yrs ago) Alcohol Use: none Drug use: none Medications and Allergies Amlodipine Besylate/Benazepril [Lotrel 10-20 mg Capsule] 1 cap PO DAILY [History] Doxycycline Hyclate [Doxycycline Hyclate] 20 mg PO BID 07/29/17 [History] Simvastatin [Zocor] 20 mg PO QPM 07/29/17 [History] 3 Allergy/AdvReac Type Severity Reaction Status Date / Time Penicillins Allergy Rash Verified 07/29/17 09:44 - Meds/Allergy Pre-op Review Medications Reviewed: Yes Allergies Reviewed: Yes Anesthesia Results - Labs 07/30/17 10:47 07/30/17 10:47 - Imaging Additional studies: echo: Impressions: LVEF 65%. Moderate left ventricular diastolic dysfunction. Normal right ventricular structure and function. Mild mitral regurgitation. Mild-moderate tricuspid regurgitation. Mild pulmonic regurgitation. Mild pulmonary hypertension. Abdominal ascites. Anesthesia Exam Selected Entries 07/30/17 15:00 Temperature 96.4 F L Pulse Rate 70 Respiratory Rate 15 Blood Pressure 73/44 O2 Sat by Pulse Oximetry 96 Fraction of Inspired Oxygen % 60 Oxygen Delivery Method Mechanical Ventilation - HEENT Pupil (Motor): Other (sedated on ventilator and intubated) Mallampati: Intubated - SKY LINE YARDER LOC: Unable to assess (intubated and sedated) - Cardiac Rhythm: Regular Murmur: None - Pulmonary Breath Sounds: left Rhonchi Respiratory Effort: Symmetrical Anesthesia Assess/Plan ASA Score: 5, E Modified Vannesa Scale for Level of Consciousness: Asleep with no response Anesthetic Plan: General Monitoring Plan: Standard Monitors Recovery Plan: ICU (very high risk patient)
[2017-07-30 16:20] LABS: Hematocrit 28.6 % (35.3-44.9); Mean Corpuscular HGB Conc 33.9 g/dL (31.6-35.5); Mean Corpuscular Volume 85.4 fL (83.0-100.0); Mean Platelet Volume 9.9 fL (9.4-12.4); Nucleated Red Blood Cells 8.8 /100 WBC (0); Platelet Count 257 K/mcL (140-400); Red Blood Count 3.35 M/mcL (3.82-4.97); Red Cell Distribution Width 15.5 % (11.5-14.5)
--- NOTE | 2017-07-30 16:21 | Electrocardiograph Report ---
[address] [place], [place] [address] Test Date: 2017-07-30 Pat Name: Rashida Adams Department: 109 Room: [facility] Gender: F Rf Manager: [facility] [place] 1955 Requested By: Grant Pickens Order Number: [id number] Reading MD: Fam Dickey Measurements Intervals [place] Rate: 71 P: 22 MA: 169 QRS: -17 QRSD: 98 T: 89 QT: 400 QTc: 422 Interpretive Statements SINUS RHYTHM LOW QRS VOLTAGE IN EXTREMITY LEADS POSSIBLE ANTERIOR MYOCARDIAL INFARCTION, PROBABLY OLD INFERIOR MYOCARDIAL INFARCTION, PROBABLY OLD Electronically Signed On 07-30-2017 16:20:11 EDT by Fam Dickey
[2017-07-30] MEDS: Vasopressin 40 UNIT in D5% in Water 100 ML IV SCH (16:22)
[2017-07-30 16:23] LABS: Hemoglobin 9.7 g/dL (11.5-15.4)
[2017-07-30 16:25] LABS: INR 1.4
[2017-07-30 16:28] LABS: Activated Partial Thrombo Time 53.2 Seconds (26.0-36.0)
[2017-07-30 16:29] LABS: Ionized Calcium 1.05 mmol/L (1.15-1.35)
[2017-07-30 16:35] LABS: Calcium 7.2 mg/dL (8.6-10.8); Magnesium 2.4 mg/dL (1.6-2.6); Potassium 5.4 mEq/L (3.5-4.5)
[2017-07-30] MEDS ORDERED: *HR* Etomidate 40 MG/20 ML VIAL IVP ONE (16:55)
[2017-07-30] MEDS ORDERED: *HR* Vasopressin 20 UNIT/ML VIAL ONE (16:59)
[2017-07-30] MEDS ORDERED: Sodium Bicarbonate 50 MEQ/50 ML VIAL ONE (16:59)
--- NOTE | 2017-07-30 17:08 | Event Note ---
Date of Encounter: 07/30/17 Time of Encounter: 16:48 General Surgery - this is a delayed note 62 yo with severe anemia - H&H on presentation 4.3/12.9 with hypotension. Patient transferred to ICU for continued care. EGD performed at bedside. During the EGD - patient became severely hypoxic with SPO2 approx 48 with associated bradycardia. Patient resuscitated with CPR, administration Epinephrine and Atropine; patient intubated. CVL via left subclavian vein placed without difficulty. Pulse and BP restored but has slowly deteriorated over several hours post resuscitation. CT head, chest, abd, pelvis obtained. Findings include: no acute intra cranial abnormalities; chronic small vessel ischemic disease; bilateral pleural effusions, right greater than left; compressive left lower lobe atelectasis and complete atelectasis right middle and lower lobes; no pneumothorax evident as a result of placing the central venous line; free intra- peritoneal air is noted with a mixed density extraluminal mass measuring approximately 5 x 6.7 cm; intra-abdominal and pelvic ascites noted. The abdominal findings are consistent with a perforated viscus either the stomach or duodenum. As of this dictation, the patient is on norepinephrine 30 mcg/min and Vasopressin 0.03 units/min. Systolic blood pressure has been labile ranging from 70-89. The situation has been discussed in detail with family. The patient is critically ill and despite near maximal support remains hypotensive and acidotic. Treatment options include surgery versus supportive/comfort care. The patient is unlikely to survive surgery, however, the patient is also unlikely to survive medical management without surgery. The family is ultimately decided to proceed with surgery. Consent has been obtained. Risks of surgery include hemorrhage, infection, intra-abdominal abscess, injury to adjacent structures, cardiac dysrhythmia/HI; prolonged respiratory failure; worsening renal status and . The family wishes to proceed with surgical intervention. They have expressed understanding as to the dire prognosis. The patient is in multi organ failure with significant risk of .
[2017-07-30 17:09] LABS: ABG Base Excess -11 mEq/L (-2 to 3); ABG HCO3 16 mEq/L (21-27); ABG Oxygen Saturation 98 % (95-98); ABG PCO2 39 mmHg (35-45); ABG PH 7.23 pH Units (7.32-7.45); ABG PO2 125 mmHg (85-104); ABG TCO2 17 mEq/L (20-26)
[2017-07-30 17:14] LABS: Lymphocytes # 0.9 K/mcL (0.6-4.6); Monocytes # 3.6 K/mcL (0.0-1.3); Neutrophils # 4.2 K/mcL (1.6-8.9)
[2017-07-30 17:15] LABS: Platelet Estimate Normal (Normal); Toxic Granulation Present (Not Present)
[2017-07-30] MEDS ORDERED: Piperacillin/Tazobactam 3.375 GM in D5% in Water (Mini-Bag+) 100 ML IVPB SCH (18:00)
[2017-07-30] MEDS ORDERED: 0.9 % Sodium Chloride 300 ML ONE (18:36)
[2017-07-30] MEDS ORDERED: *HR* EPINEPHrine 1 MG/ML AMPUL ONE (18:36)
[2017-07-30] MEDS ORDERED: *HR* Atropine Sulfate 8 MG/20 ML VIAL IVP ONE (18:36)
--- NOTE | 2017-07-30 18:48 | Anesthesia Procedures ---
Date of Encounter: 07/30/17 Time of Encounter: 18:00 Procedures: Anesthesia - Arterial Line Time out performed: Yes Size (Gauge): 20 Length (inches): 1 3/4 Technique Used: sterile prep, guide wire technique, direct puncture technique Post-Procedure: line taped into place Patient tolerated procedure: well Complications: none Site: Radial L Vitals: see Anesthesia Record Comments: RAdial A-line performed in OR #5 under GETA after uneventful fully monitored transport from ICU4. Sterile P&D, Landmarks identified, RAdial pulse palpated, readily cannulated w/ 20G Arrow. + Pulsatile BRB. Seldinger technique. Catheter easily over Wire. Catheter secured. Appropriate wave forms noted. NO immediate complications. - MD Dustin
[2017-07-30 18:56] LABS: ABG Base Excess -12 mEq/L (-2 to 3); ABG Chloride 109 mEq/L (98-107); ABG Glucose 163 mg/dL (60-95); ABG HCO3 16 mEq/L (21-27); ABG Ionized Calcium 1.48 mmol/L (1.15-1.35); ABG Oxygen Saturation 98 % (95-98); ABG PCO2 42 mmHg (35-45); ABG PH 7.19 pH Units (7.32-7.45); ABG PO2 134 mmHg (85-104); ABG TCO2 17 mEq/L (20-26)
[2017-07-30] MEDS ORDERED: Nystatin Cream 15 GM TUBE TP SCH (21:00)
[2017-07-30] MEDS ORDERED: DEXTROSE IVC SCH (21:20)
[2017-07-30] MEDS ORDERED: Naloxone 0.4 MG/ML INJ IVP PRN (21:20)
[2017-07-30] MEDS ORDERED: [UNRECOGNIZED DRUG - OTHER] IVC SCH (21:20)
[2017-07-30] MEDS ORDERED: SODIUM BICARBONATE IVC SCH (21:20)
--- NOTE | 2017-07-30 21:25 | Operative Note ---
Date of procedure: 07/30/17 Pre-op diagnosis: perforated viscus, pneumoperitoneum, hemodynamic instability Post-op diagnosis: other (Perforated gastric wall with peritonitis) Procedure: Exploratory celiotomy, evacuation 3 L infected ascites; subtotal gastrectomy with stapled retrocolic gastrojejunostomy; placement of Lam gastrostomy tube Implants: Lam gastrostomy tube Anesthesia: EAN Surgeon: Samuel Suh Estimated blood loss (cc): 200 IV fluids (cc): 1,500 Specimen: portion of stomach and perigastric LN; peritoneal cultures Condition: critical Disposition: ICU Procedure in Detail: Brief history: 62-year-old female admitted last evening after presenting to [facility] ED with progressive fatigue and malaise. She was found to be profoundly anemic with a hemoglobin of 4.3, hematocrit 12.9. The patient was also notably hypotensive. Patient was resuscitated through the night with hemoglobin improving to 7.9, blood pressure 102/46. An EGD was initiated but during the procedure patient became bradycardic to less than 20 bpm and hypoxic to approximately 48%. EGD was terminated, the patient was resuscitated using CPR, IV epinephrine and atropine. The patient was also intubated. When the patient was stabilized CT of the abdomen demonstrated free air and extensive ascites. The findings were consistent with perforated viscus requiring surgical intervention. The patient was taken to surgery, she was critically ill, hemodynamically unstable requiring 2 pressors to maintain a systolic blood pressure of approximately 80. Family was aware of the dire circumstances under which the patient was taken to surgery. Technique: The patient was taken to the operating room where she was placed supine upon the operating table. The patient was appropriately identified as to person and procedure. He accuracy of this information is confirmed by the procedure team. Operative consent had been obtained from the patient's mother preoperatively. General anesthesia was administered under the supervision of Dr. Lali Mejia. The abdomen was prepped and draped in usual sterile fashion. A midline incision was made from xiphoid to umbilicus. The dissection was carried to the fascia. Bleeding points were controlled with electrocautery. The fascia was incised along the linea alba allowing atraumatic entry into the peritoneal cavity. Immediately on entry, copious purulent fluid was encountered and evacuated. Approximately 3 L of this purulent ascites was removed. Aerobic and anaerobic cultures of the peritoneal cavity were obtained. Exposure was facilitated by use of a self-retaining Omni tract retractor. The abdominal cavity was examined. The liver gallbladder and spleen appeared normal. Small bowel demonstrated copious fibrinous exited on the serosal surfaces, some of which was easily removed. The anterior gastric appeared to be intact. The lesser sac was opened, the posterior wall demonstrated a large perforation with surrounding ecchymoses and ischemia. The stomach was mobilized from the surrounding structures and then ligated at its approximate midpoint (proximal to the perforation) with a TX 60 mm stapler ( green cartridge). The distal portion of the stomach was incised. Dissection was carried distal to the pylorus and the duodenum was ligated using a TX 60 mm stapler (blue cartridge). The proximal duodenum was divided. The distal stomach and proximal duodenum were removed and sent to pathology for analysis. An enlarged perigastric lymph node was encountered during this dissection and sent to pathology as a separate specimen. The duodenal staple line was reinforced with interrupted 3-0 silk. The jejunum was passed through the mesentery in a retrocolic fashion. The jejunum was approximated to the posterior gastric wall with interrupted 3-0 silk. A stapled gastrojejunostomy was completed with an Ethicon 75 mm linear stapler. A Lam gastrostomy tube was passed through the anterior abdominal wall and passed through the remaining gastrojejunal defect. The anterior gastric wall was approximated to the anterior abdominal wall with interrupted 3-0 silk. The gastrostomy tube was then passed into the efferent jejunal limb. The remaining defect in the stomach /jejunum was then approximated with interrupted 3-0 silk followed by application of a TX 60 mm stapler (green cartridge). The abdomen was copiously irrigated with warm sterile saline until the return was clear. Hemostasis was checked and appeared to be adequate. The anterior abdominal wall was then closed in layers. The peritoneum was approximated with running interlocking 0 Vicryl. The fascia was approximated with interrupted [id number] 0 Vicryl. Subcutaneous tissue was approximated with running 3-0 Vicryl. The skin edges approximated with consuelo. A Lam gastrostomy balloon was filled with 5 mL sterile saline. The retention collar was secured to the anterior abdominal wall with interrupted 3-0 silk. Dry sterile dressings were applied. The patient was returned to ICU. Needle, sponge, and instrument counts were correct at the close of the case.
[2017-07-30] MEDS ORDERED: Sodium Bicarbonate 150 MEQ in D5% in Water 1,000 ML IVC SCH (21:45)
[2017-07-30 22:13] LABS: Hematocrit 26.7 % (35.3-44.9); Hemoglobin 9.2 g/dL (11.5-15.4); Mean Corpuscular HGB Conc 34.5 g/dL (31.6-35.5); Mean Corpuscular Volume 84.2 fL (83.0-100.0); Mean Platelet Volume 9.3 fL (9.4-12.4); Nucleated Red Blood Cells 10.6 /100 WBC (0); Platelet Count 196 K/mcL (140-400); Red Blood Count 3.17 M/mcL (3.82-4.97); Red Cell Distribution Width 15.6 % (11.5-14.5)
[2017-07-30 22:24] LABS: Calcium 7.1 mg/dL (8.6-10.8); Magnesium 2.1 mg/dL (1.6-2.6); Potassium 5.2 mEq/L (3.5-4.5)
[2017-07-30 22:43] LABS: Lymphocytes # 0.4 K/mcL (0.6-4.6); Monocytes # 2.8 K/mcL (0.0-1.3); Neutrophils # 3.7 K/mcL (1.6-8.9); Platelet Estimate Normal (Normal)
[2017-07-30 22:47] LABS: Toxic Granulation Present (Not Present)
[2017-07-30] MEDS ORDERED: 0.9 % Sodium Chloride 500 ML ONE (22:53)
[2017-07-30] MEDS: 0.9 % Sodium Chloride 500 ML IVC ONE (23:03)
[2017-07-30] MEDS: PrismaSATE BGK 4/2.5 5,000 ML CRRT SCH ×2 (23:20)
[2017-07-31] MEDS: Norepinephrine 4 MG in D5% in Water 250 ML IVC SCH ×2 (01:51→05:18)
[2017-07-31] MEDS: Pantoprazole 40 MG in 0.9 % Sodium Chloride Mini Bag 100 ML IVC SCH ×5 (02:09→23:00)
[2017-07-31] MEDS: Ipratropium/Albuterol Neb 3 ML IH SCH ×6 (03:47→23:48)
[2017-07-31 04:32] LABS: Basophils % 0.3 %; Eosinophils # 0.2 K/mcL (0.0-0.6); Eosinophils % 1.7 %; Hematocrit 24.6 % (35.3-44.9); Hemoglobin 8.5 g/dL (11.5-15.4); Immature Granulocytes % 3.1 % (0-4); Lymphocytes # 0.2 K/mcL (0.6-4.6); Lymphocytes % 2.8 %; Mean Corpuscular HGB Conc 34.6 g/dL (31.6-35.5); Mean Corpuscular Hemoglobin 28.5 pg (28.0-33.3); Mean Corpuscular Volume 82.6 fL (83.0-100.0); Monocytes # 0.3 K/mcL (0.0-1.3); Monocytes % 3.1 %; Neutrophils # 7.7 K/mcL (1.6-8.9); Platelet Count 131 K/mcL (140-400); Red Blood Count 2.98 M/mcL (3.82-4.97); Red Cell Distribution Width 15.9 % (11.5-14.5)
[2017-07-31] MEDS: *HR* Heparin 5,000 UNIT/ML VIAL IV PRN ×4 (04:40→23:47)
[2017-07-31 04:42] LABS: ABG Base Excess -7 mEq/L (-2 to 3); ABG HCO3 18 mEq/L (21-27); ABG Oxygen Saturation 84 % (95-98); ABG PCO2 37 mmHg (35-45); ABG PO2 54 mmHg (85-104); ABG TCO2 20 mEq/L (20-26); Blood Gas Modality VC; Blood Gas PEEP 5 cm H2O; Blood Gas VT 550 cc
[2017-07-31 05:07] LABS: Albumin/Globulin Ratio 0.4 (1.1-2.2); Calcium 6.7 mg/dL (8.6-10.8); Globulin 2.9 g/dL (2.4-3.5); Magnesium 2.1 mg/dL (1.6-2.6); Potassium 4.9 mEq/L (3.5-4.5)
[2017-07-31 05:13] LABS: Albumin 1.1 g/dL (3.5-5.0); Bilirubin,Total 0.8 mg/dL (0.2-1.2)
[2017-07-31 05:15] LABS: Platelet Estimate Normal (Normal); Toxic Granulation Present (Not Present)
[2017-07-31] MEDS: PrismaSATE BGK 4/2.5 5,000 ML CRRT SCH ×8 (05:51→22:00)
[2017-07-31] MEDS ORDERED: D5% in Water 1,000 ML IVC PRN (06:22)
[2017-07-31] MEDS ORDERED: *HR* Dextrose 50 % in Water (Syg) 50 ML SYRINGE IVP PRN (06:22)
[2017-07-31] MEDS ORDERED: Dextrose Gel 15 GM PO PRN ×2 (06:22)
[2017-07-31] MEDS ORDERED: 0.9 % Sodium Chloride 500 ML ONE (06:25)
[2017-07-31] MEDS ORDERED: Lacri-Lube 3.5 GM TUBE BOTH EYES PRN (06:40)
[2017-07-31] MEDS: 0.9 % Sodium Chloride 500 ML IVC ONE (06:49)
--- NOTE | 2017-07-31 06:51 | Pulmonology Progress Note ---
<Kimbelry Hoffman - Last Filed: 07/31/17 11:43> Date of Encounter: 07/31/17 Time of Encounter: 06:51 Assessment and Plan (1) Anemia Current Visit: Yes Status: Acute Patient presented with severe anemia, s/p 5 U PRBCs. This includes 1 unit she received in AM Hgb s/p surgery stable, and improved from dmission Timed CBC in AM Qualifiers: Anemia type: iron deficiency Iron deficiency anemia type: other iron deficiency Qualified Code(s): D50.8 - Other iron deficiency anemias (2) Perforated abdominal viscus Current Visit: Yes Status: Acute CT of abdomen consistent with perforated abdominal ulcer and demonstrated significant ascites s/p Surgery POD# -Pt underwent exploratory celiotomy, with evacuation of 3 L purulent fluid; subtotal gastrectomy with stapled retrocolic gastrojejunostomy; placement of Lam gastrostomy tube Surgery is following Stress Ulcer Prophylaxis : On protonix (3) EDDIE (acute kidney injury) Current Visit: Yes Status: Acute Hemodialysis initiated Urine output and renal function reviewed - urine output remains minimal this morning: approx 60 ml overnight (11 PM - 7 AM) Creatinine levels improving with HD Continuous renal replacement therapy, per nephro Will discontinue bicarb Nephrology on consult, greatly appreciate recs Urine culture - no growth, final. (4) CKD (chronic kidney disease) Current Visit: Yes Status: Acute Qualifiers: Chronic kidney disease stage: unspecified stage Qualified Code(s): N18.9 - Chronic kidney disease, unspecified (5) Ascites Current Visit: Yes Status: Acute 3 L of this purulent ascites removed Aerobic and anaerobic cultures of the peritoneal cavity results pending No peritoneal signs evident on exam this morning Initiated meropenem Qualifiers: Ascites type: other type Qualified Code(s): R18.8 - Other ascites (6) Hypertension Current Visit: Yes Status: Chronic Due to current clinical status, pt currently on pressors Attempt to wean today, as tolerated Qualifiers: Hypertension type: essential hypertension Qualified Code(s): I10 - Essential (primary) hypertension (7) Pleural effusion Current Visit: Yes Status: Acute Repeat CXR overnight Pleural effusion b/l seen on CXR (8) Debility Current Visit: Yes Status: Acute Disposition: Critically ill Aim to wean off pressors today, as tolerated Blood cultures negative - preliminary growth (9) Skin maceration Current Visit: Yes Status: Acute Continue application of nystatin twice daily to affected areas, with care to integumentary folds and appropriate wound care Additional skin care to prevent pressure ulcers, according to nursing routine care (10) DVT prophylaxis Current Visit: Yes Status: Acute On subcutaneous compression devices (11) Full code status Current Visit: Yes Status: Acute Family in room this AM when examined Discussed clinical status with mother yesterday Subjective Principal diagnosis: Perforated Viscus s/p subtotal gastrectomy Interval history: Pt underwent exploratory celiotomy, with evacuation of 3 L infected ascites, subtotal gastrectomy with stapled retrocolic gastrojejunostomy and placement of Lam gastrostomy tube. This AM, patient is responsive to voice. Objective PUL Vital signs: Last Vital Signs Temp 97.8 F 07/31/17 06:40 Pulse 66 07/31/17 06:40 Resp 16 07/31/17 06:40 BP 109/40 07/31/17 06:40 Pulse Ox 100 07/31/17 06:30 General appearance: no acute distress, asleep Eyes: nonicteric Mallampati (class): 3 Neck: other (L: HD line in place. R: Subclavian catheter in place. No evidence of infection - no erythema, no oozing, no pus formation. ) Effort: normal, other (acceptable oxygenation, ventilation) Auscultation: bilateral: diminished breath sounds Cardiovascular: other (diminished heart sounds ) Gastrointestinal: hypoactive bowel sounds, non-tender, other (abdominal dressing pad in place, tube draining. No oozing, No outlying erythema) Integumentary: rash, erythema, other (skin macerations now covered with nystatin cream) Extremities: no cyanosis, edema (+4 on LLE, +3 on RLE. Pt's skin warm, dry. Diffuse rash across peripheral extremities ) pupils equal and round, other (responsive to voice) 2 peripheral IV lines, 1 arterial line intact. Ventilator Settings Ventilator Settings: Ventilator Settings, Last 8 Hours Ventilator Mode VC+ Ventilator Mode VC+ Ventilator Mode VC+ Ventilator Mode VC+ Ventilator Mode VC+ Ventilator Mode VC+ Ventilator Mode VC+ Ventilator Tidal Volume 550 Setting Ventilator Tidal Volume 550 Setting Ventilator Tidal Volume 550 Setting Ventilator Tidal Volume 550 Setting Ventilator Tidal Volume 550 Setting Ventilator Tidal Volume 550 Setting Ventilator Tidal Volume 550 Setting Ventilator Respiratory Rate 14 Setting Ventilator Respiratory Rate 14 Setting Ventilator Respiratory Rate 14 Setting Ventilator Respiratory Rate 14 Setting Ventilator Respiratory Rate 14 Setting Ventilator Respiratory Rate 14 Setting Ventilator Respiratory Rate 14 Setting Actual Respiratory Rate 17 Actual Respiratory Rate 15 Actual Respiratory Rate 15 Actual Respiratory Rate 14 Actual Respiratory Rate 14 Actual Respiratory Rate 14 Positive End Expiratory 5 Pressure Positive End Expiratory 5 Pressure Positive End Expiratory 5 Pressure Positive End Expiratory 5 Pressure Positive End Expiratory 5 Pressure Positive End Expiratory 5 Pressure Positive End Expiratory 5 Pressure Peak Inspiratory Airway 36 Pressure Peak Inspiratory Airway 38 Pressure Peak Inspiratory Airway 37 Pressure Peak Inspiratory Airway 38 Pressure Results - Laboratory Findings CBC and BMP: 07/31/17 04:10 07/31/17 04:10 ABG ABG pH 7.30 pH Units (7.32-7.45) L 07/31/17 04:38 ABG pCO2 37 mmHg (35-45) 07/31/17 04:38 ABG pO2 54 mmHg (85-104) L 07/31/17 04:38 ABG O2 Saturation 84 % (95-98) L 07/31/17 04:38 PT/INR, D-dimer PT 15.0 Seconds (9.4-12.1) H 07/30/17 16:08 Abnormal lab findings: Abnormal lab results RBC 2.98 M/mcL (3.82-4.97) L 07/31/17 04:10 Hgb 8.5 g/dL (11.5-15.4) L 07/31/17 04:10 Hct 24.6 % (35.3-44.9) L 07/31/17 04:10 MCV 82.6 fL (83.0-100.0) L 07/31/17 04:10 RDW 15.9 % (11.5-14.5) H 07/31/17 04:10 Plt Count 131 K/mcL (140-400) L 07/31/17 04:10 Band Neutrophils % 6.0 % (0-4) H 07/30/17 22:00 Metamyelocytes % 2.0 % (0) H 07/30/17 16:08 Myelocytes % 2.0 % (0) H 07/30/17 16:08 Lymphocytes # 0.2 K/mcL (0.6-4.6) L 07/31/17 04:10 Nucleated RBCs/100 WBC 11.0 /100 WBC (0) H 07/31/17 04:10 Toxic Granulation Present (Not Present) A 10/25/17 04:10 Anisocytosis 1+ (Not Present) A 07/29/17 09:43 PT 15.0 Seconds (9.4-12.1) H 07/30/17 16:08 APTT 53.2 Seconds (26.0-36.0) H 07/30/17 16:08 ABG pH 7.30 pH Units (7.32-7.45) L 07/31/17 04:38 ABG pO2 54 mmHg (85-104) L 07/31/17 04:38 ABG HCO3 18 mEq/L (21-27) L 07/31/17 04:38 ABG O2 Saturation 84 % (95-98) L 07/31/17 04:38 ABG Base Excess -7 mEq/L (-2 to 3) L 07/31/17 04:38 ABG Hematocrit 26.0 % (35.3-44.9) L 07/30/17 18:50 ABG Chloride 109 mEq/L (98-107) H 07/30/17 18:50 VBG pH 7.14 pH Units (7.32-7.42) L* 07/30/17 09:47 VBG pO2 80 mmHg (25-50) H 07/30/17 09:47 VBG HCO3 17 mEq/L (21-27) L 07/30/17 09:47 Sodium 134 mEq/L (135-148) L 07/30/17 18:50 Glucose 163 mg/dL (60-95) H 07/30/17 18:50 Lactate 2.5 mmol/L (0.7-2.1) H 07/30/17 18:50 Sodium 133 mEq/L (136-145) L 07/31/17 04:10 Potassium 4.9 mEq/L (3.5-4.5) H 07/31/17 04:10 BUN 62 mg/dL (7-20) H 07/31/17 04:10 Creatinine 3.10 mg/dL (0.57-1.11) H 07/31/17 04:10 Est GFR ( Amer) 18 (> 60) L 07/31/17 04:10 Est GFR (Non-Af Amer) 15 (> 60) L 07/31/17 04:10 Glucose 196 mg/dL (70-99) H 07/31/17 04:10 POC Glucose 177 (58-89) H 07/30/17 20:52 Lactic Acid 3.4 mmol/L (0.5-2.2) H 07/31/17 05:00 Calcium 6.7 mg/dL (8.6-10.8) L 07/31/17 04:10 Ionized Calcium 1.00 mmol/L (1.15-1.35) L 07/31/17 04:10 B-Natriuretic Peptide 512 pg/mL (0-100) H 07/29/17 09:43 Serum Total Protein 4.0 g/dL (6.0-8.3) L D 07/31/17 04:10 Albumin 1.1 g/dL (3.5-5.0) L D 07/31/17 04:10 Albumin/Globulin Ratio 0.4 (1.1-2.2) L 07/31/17 04:10 Arterial Blood Ionized Calcium 1.48 mmol/L (1.15-1.35) H 07/30/17 18:50 Urine Clarity Hazy (Clear) A 07/29/17 13:07 Ur Specific [place] 1.026 (1.010-1.025) H 07/29/17 13:07 Urine Ketones Trace mg/dL (Negative) H 07/29/17 13:07 Urine Bilirubin Small (Negative) H 07/29/17 13:07 Ur Leukocyte Esterase Small (Negative) H 07/29/17 13:07 Urine Microscopic RBC 3-5 per hpf (0-3) H 07/29/17 13:07 Ur Squamous Epith Cells Many per lpf (None-Few) H 07/29/17 13:07 Amorphous Sediment Many (Few) H 07/29/17 13:07 Ur Culture Indicated? YES (NO) A 07/29/17 13:07 Stool Occult Blood Positive (Negative) A 07/29/17 10:57 Salicylates < 5.0 mg/dL (15-30) L 07/30/17 09:28 Acetaminophen < 1.0 mcg/mL (10-30) L 07/30/17 09:28 - Microbiology Findings Microbiology Findings: Microbiology 07/29/17 13:07 Urine,Catheterized Urine Culture - Final No growth. - Diagnostic Findings Chest x-ray: image reviewed Additional studies: Impressions Chest X-Ray 07/29/17 09:38 IMPRESSION: 1. Cardiomegaly with moderate right effusion and associated right middle and lower lobe consolidation. D/ / 07/29/2017 10:04:38 Jens Caal MD / le Interpreting Provider: Jens Caal MD Guidance Needle Placement Ultrasound 07/30/17 00:00 IMPRESSION: 1. Right internal jugular vein temporary dialysis catheter placement placement as discussed above. D/ / Reginald Walsh MD / Reginald Walsh MD Interpreting Provider: Reginald Walsh MD Insertion Non-Tunneled Catheter 07/30/17 00:00 IMPRESSION: 1. Right internal jugular vein temporary dialysis catheter placement placement as discussed above. D/ / Reginald Walsh MD / Reginald Walsh MD Interpreting Provider: Reginald Walsh MD Retroperitoneum Ultrasound 07/30/17 09:00 IMPRESSION: No gross hydronephrosis. 1.4 cm right renal cyst. Nonobstructing nephrolithiasis versus echogenic renal sinus fat. Ascites. D/ / Floyd Serna MD / Floyd Serna MD Interpreting Provider: Floyd Serna MD Chest X-Ray 07/30/17 10:44 IMPRESSION: Endotracheal tube measures 2 cm above the omer. Left subclavian central venous catheter tip terminates in the proximal SVC. Increased left basilar atelectasis, superimposed on diffuse increased interstitial changes which may be related to interstitial pulmonary edema. Underlying infectious pneumonitis cannot be excluded. D/ / Amadeo Flores MD / Amadeo Flores MD Interpreting Provider: Amadeo Flores MD Abdomen/Pelvis CT 07/30/17 12:30 IMPRESSION: 1. Bilateral pleural effusions right greater than left with complete atelectasis of the right lower and middle lobes. There is also partial atelectasis of the left lower lobe. 2. Pneumoperitoneum. I suspect this likely is secondary to the abnormality adjacent to the fundus of the stomach and may be related to perforated ulcer or other cause of perforation of the stomach. 3. Mixed density extraluminal mass adjacent to the fundus of the stomach. This may represent a perforated ulcer versus hematoma secondary to iatrogenic perforation. These findings were discussed with Dr. Suh at 3:05 p.m. 07/30/2017. 4. Intra-abdominopelvic ascites with diffuse body wall edema. 5. Low-attenuation lesion seen within the kidneys likely representing cysts with some hemorrhagic cysts involving the left kidney. 6. Diverticulosis without obvious inflammation. 7. Calcified mass within the pelvis likely representing a large degenerated fibroid. 8. Age indeterminate superior endplate fracture of L1. 9. Asymmetric trabecular thickening involving the right pelvis. This could be due to monostotic Paget's disease versus myelofibrosis. Neoplastic process is less likely given the asymmetry and diffuse involvement of the right pelvis. D/ / Reginald Walsh MD / Reginald Walsh MD Interpreting Provider: Reginald Walsh MD Chest CT 07/30/17 12:30 IMPRESSION: 1. Bilateral pleural effusions right greater than left with complete atelectasis of the right lower and middle lobes. There is also partial atelectasis of the left lower lobe. 2. Pneumoperitoneum. I suspect this likely is secondary to the abnormality adjacent to the fundus of the stomach and may be related to perforated ulcer or other cause of perforation of the stomach. 3. Mixed density extraluminal mass adjacent to the fundus of the stomach. This may represent a perforated ulcer versus hematoma secondary to iatrogenic perforation. These findings were discussed with Dr. Suh at 3:05 p.m. 07/30/2017. 4. Intra-abdominopelvic ascites with diffuse body wall edema. 5. Low-attenuation lesion seen within the kidneys likely representing cysts with some hemorrhagic cysts involving the left kidney. 6. Diverticulosis without obvious inflammation. 7. Calcified mass within the pelvis likely representing a large degenerated fibroid. 8. Age indeterminate superior endplate fracture of L1. 9. Asymmetric trabecular thickening involving the right pelvis. This could be due to monostotic Paget's disease versus myelofibrosis. Neoplastic process is less likely given the asymmetry and diffuse involvement of the right pelvis. D/ / Reginald Walsh MD / Reginald Walsh MD Interpreting Provider: Reginald Walsh MD Head CT 07/30/17 12:30 IMPRESSION: 1. No acute intracranial abnormality. 2. Chronic small vessel ischemic disease. D/ / Reginald Walsh MD / Reginald Walsh MD Interpreting Provider: Reginald Walsh MD Echocardiogram 07/30/17 15:17 Impressions: LVEF 65%. Moderate left ventricular diastolic dysfunction. Normal right ventricular structure and function. Mild mitral regurgitation. Mild-moderate tricuspid regurgitation. Mild pulmonic regurgitation. Mild pulmonary hypertension. Abdominal ascites. Left Ventricular Wall Motion: Rest Echo Findings All wall segments showed normal motion. Findings: Study Quality * Technically adequate exam. ECG Findings * Normal sinus rhythm. Left Ventricle * Normal LV chamber size, wall thickness and function. * LVEF 65%. * Moderate left ventricular diastolic dysfunction. Right Ventricle * Normal right ventricular structure and function. Left Atrium * Moderate-severely dilated left atrium. Right Atrium * Normal right atrial size. Aortic Valve * No aortic regurgitation. * Trileaflet aortic valve. * No aortic stenosis. * Mildly calcified aortic valve leaflets. Mitral Valve * Normal mitral valve structure. * No mitral stenosis. * Mild mitral annular calcification * Mild mitral regurgitation. Tricuspid Valve * Normal tricuspid valve structure. * Mild-moderate tricuspid regurgitation. * Estimated RA pressure is 3 mmHg. * Estimated RVSP is 42 mmHg. * Mild pulmonary hypertension. Pulmonic Valve * Pulmonic valve is not well visualized. * No pulmonic stenosis. * Mild pulmonic regurgitation. Pulmonary Artery * Pulmonary artery not well visualized. Aorta * Normally sized aortic root. Pericardium * There is no pericardial effusion present. Interatrial Septum * No evidence of PFO by color Doppler. IVC * The IVC is not dilated. Chest X-Ray 07/31/17 06:03 IMPRESSION: Left subclavian catheter with tip at the superior SVC, slightly withdrawn from the prior exam. Satisfactory position of support devices. Lung aeration is unchanged. Moderate right and small left pleural effusion with bibasilar atelectasis. D/ / 07/31/2017 08:14:16 [facility] Inter[facility] Provider: Armin Lagunas MD - Clinical Findings Intake & Output: Intake & Output 07/30/17 07/30/17 07/31/17 15:59 23:59 07:59 Intake Total 3080 / 3080 1514 / 1514 1973 / 1973 Output Total 0 / 0 3410 / 3410 60 / 60 Balance 3080 / 3080 -1896 / -1896 1913 / 1913 - VTE Documentation of Mechanical Device: Intermittent pneumatic compression device Consult Discharge Plan - Plan Referrals: Keesha Ellsworth, [employer] MACHINE OPERATOR [Primary Care Provider] - <Vicky Zapien - Last Filed: 07/31/17 13:48> Date of Encounter: 07/31/17 Objective PUL Vital signs: Last Vital Signs Temp 96.9 F L 07/31/17 12:00 Pulse 75 07/31/17 13:00 Resp 22 07/31/17 13:00 BP 102/37 07/31/17 13:00 Pulse Ox 99 07/31/17 13:00 Ventilator Settings Ventilator Settings: Ventilator Settings, Last 8 Hours Ventilator Mode VC+ Ventilator Mode VC+ Ventilator Mode VC+ Ventilator Mode VC+ Ventilator Mode VC+ Ventilator Mode VC+ Ventilator Mode VC+ Ventilator Mode VC+ Ventilator Mode VC+ Ventilator Mode VC+ Ventilator Tidal Volume 550 Setting Ventilator Tidal Volume 550 Setting Ventilator Tidal Volume 550 Setting Ventilator Tidal Volume 550 Setting Ventilator Tidal Volume 550 Setting Ventilator Tidal Volume 550 Setting Ventilator Tidal Volume 550 Setting Ventilator Tidal Volume 550 Setting Ventilator Tidal Volume 550 Setting Ventilator Tidal Volume 550 Setting Ventilator Respiratory Rate 14 Setting Ventilator Respiratory Rate 14 Setting Ventilator Respiratory Rate 14 Setting Ventilator Respiratory Rate 14 Setting Ventilator Respiratory Rate 14 Setting Ventilator Respiratory Rate 14 Setting Ventilator Respiratory Rate 14 Setting Ventilator Respiratory Rate 14 Setting Ventilator Respiratory Rate 14 Setting Ventilator Respiratory Rate 14 Setting Actual Respiratory Rate 23 Actual Respiratory Rate 16 Actual Respiratory Rate 16 Actual Respiratory Rate 16 Actual Respiratory Rate 16 Actual Respiratory Rate 16 Actual Respiratory Rate 15 Actual Respiratory Rate 16 Actual Respiratory Rate 16 Actual Respiratory Rate 16 Positive End Expiratory 5 Pressure Positive End Expiratory 5 Pressure Positive End Expiratory 5 Pressure Positive End Expiratory 5 Pressure Positive End Expiratory 5 Pressure Positive End Expiratory 5 Pressure Positive End Expiratory 5 Pressure Positive End Expiratory 5 Pressure Positive End Expiratory 5 Pressure Positive End Expiratory 5 Pressure Peak Inspiratory Airway 28 Pressure Peak Inspiratory Airway 28 Pressure Peak Inspiratory Airway 29 Pressure Peak Inspiratory Airway 29 Pressure Peak Inspiratory Airway 29 Pressure Peak Inspiratory Airway 30 Pressure Peak Inspiratory Airway 30 Pressure Peak Inspiratory Airway 28 Pressure Peak Inspiratory Airway 32 Pressure Peak Inspiratory Airway 32 Pressure Results - Laboratory Findings CBC and BMP: 07/31/17 04:10 07/31/17 04:10 ABG ABG pH 7.30 pH Units (7.32-7.45) L 07/31/17 04:38 ABG pCO2 37 mmHg (35-45) 07/31/17 04:38 ABG pO2 54 mmHg (85-104) L 07/31/17 04:38 ABG O2 Saturation 84 % (95-98) L 07/31/17 04:38 PT/INR, D-dimer PT 15.0 Seconds (9.4-12.1) H 07/30/17 16:08 Abnormal lab findings: Abnormal lab results RBC 2.98 M/mcL (3.82-4.97) L 07/31/17 04:10 Hgb 8.5 g/dL (11.5-15.4) L 07/31/17 04:10 Hct 24.6 % (35.3-44.9) L 07/31/17 04:10 MCV 82.6 fL (83.0-100.0) L 07/31/17 04:10 RDW 15.9 % (11.5-14.5) H 07/31/17 04:10 Plt Count 131 K/mcL (140-400) L 07/31/17 04:10 Band Neutrophils % 6.0 % (0-4) H 07/30/17 22:00 Metamyelocytes % 2.0 % (0) H 07/30/17 16:08 Myelocytes % 2.0 % (0) H 07/30/17 16:08 Lymphocytes # 0.2 K/mcL (0.6-4.6) L 07/31/17 04:10 Nucleated RBCs/100 WBC 11.0 /100 WBC (0) H 07/31/17 04:10 Toxic Granulation Present (Not Present) A 07/31/17 04:10 Anisocytosis 1+ (Not Present) A 07/29/17 09:43 PT 15.0 Seconds (9.4-12.1) H 07/30/17 16:08 APTT 53.2 Seconds (26.0-36.0) H 07/30/17 16:08 ABG pH 7.30 pH Units (7.32-7.45) L 07/31/17 04:38 ABG pO2 54 mmHg (85-104) L 07/31/17 04:38 ABG HCO3 18 mEq/L (21-27) L 07/31/17 04:38 ABG O2 Saturation 84 % (95-98) L 07/31/17 04:38 ABG Base Excess -7 mEq/L (-2 to 3) L 07/31/17 04:38 ABG Hematocrit 26.0 % (35.3-44.9) L 07/30/17 18:50 ABG Chloride 109 mEq/L (98-107) H 07/30/17 18:50 VBG pH 7.14 pH Units (7.32-7.42) L* 07/30/17 09:47 VBG pO2 80 mmHg (25-50) H 07/30/17 09:47 VBG HCO3 17 mEq/L (21-27) L 07/30/17 09:47 Sodium 134 mEq/L (135-148) L 07/30/17 18:50 Glucose 163 mg/dL (60-95) H 07/30/17 18:50 Lactate 2.5 mmol/L (0.7-2.1) H 07/30/17 18:50 Sodium 133 mEq/L (136-145) L 07/31/17 04:10 Potassium 4.9 mEq/L (3.5-4.5) H 07/31/17 04:10 BUN 62 mg/dL (7-20) H 07/31/17 04:10 Creatinine 3.10 mg/dL (0.57-1.11) H 07/31/17 04:10 Est GFR ( Amer) 18 (> 60) L 07/31/17 04:10 Est GFR (Non-Af Amer) 15 (> 60) L 07/31/17 04:10 Glucose 196 mg/dL (70-99) H 07/31/17 04:10 POC Glucose 155 (58-89) H 07/31/17 13:25 Lactic Acid 4.4 mmol/L (0.5-2.2) H* 07/31/17 09:00 Calcium 6.7 mg/dL (8.6-10.8) L 07/31/17 04:10 Ionized Calcium 1.00 mmol/L (1.15-1.35) L 07/31/17 04:10 B-Natriuretic Peptide 512 pg/mL (0-100) H 07/29/17 09:43 Serum Total Protein 4.0 g/dL (6.0-8.3) L D 07/31/17 04:10 Albumin 1.1 g/dL (3.5-5.0) L D 07/31/17 04:10 Albumin/Globulin Ratio 0.4 (1.1-2.2) L 07/31/17 04:10 Arterial Blood Ionized Calcium 1.48 mmol/L (1.15-1.35) H 07/30/17 18:50 Urine Clarity Hazy (Clear) A 07/29/17 13:07 Ur Specific [place] 1.026 (1.010-1.025) H 07/29/17 13:07 Urine Ketones Trace mg/dL (Negative) H 07/29/17 13:07 Urine Bilirubin Small (Negative) H 07/29/17 13:07 Ur Leukocyte Esterase Small (Negative) H 07/29/17 13:07 Urine Microscopic RBC 3-5 per hpf (0-3) H 07/29/17 13:07 Ur Squamous Epith Cells Many per lpf (None-Few) H 07/29/17 13:07 Amorphous Sediment Many (Few) H 07/29/17 13:07 Ur Culture Indicated? YES (NO) A 07/29/17 13:07 Stool Occult Blood Positive (Negative) A 07/29/17 10:57 Salicylates < 5.0 mg/dL (15-30) L 07/30/17 09:28 Acetaminophen < 1.0 mcg/mL (10-30) L 07/30/17 09:28 - Clinical Findings Intake & Output: Intake & Output 07/30/17 07/31/17 07/31/17 23:59 07:59 15:59 Intake Total 1514 / 1514 2908 / 2908 1695 / 1695 Output Total 3410 / 3410 60 / 60 981 / 981 Balance -1896 / -1896 2848 / 2848 714 / 714 - Attending Attestation I examined this patient and my medical decision-making was reviewed with the Resident Physician. I agree with the documented findings, disposition and treatment plan as described except to the extent set forth below. Patient seen and examined. Labs, radiology, chart personally reviewed. Agree with resident's history and physical, assessment, plan with following comments: CREDIT REVIEW OFFICER: Patient follows commands, Pulmonary: Acceptable oxygenation and ventilation. Since patient remained hemodynamically unstable will postponed spontaneous breathing trial and she is requiring low FiO2 for that reason we will continue supportive care without any intervention, however if she started to have the stress then will plan for chest tube placement. Cardiovascular: Patient in shock which is septic in nature. Continue supportive care and vasopressors with transfusion of blood product which may help her hypertension. GI: Nutrition per dietary and GI prophylaxis per routine area patient status post surgery. And vasodilatory shock. Heme: DVT prophylaxis per routine. Mechanical DVT prophylaxis. ID: Continue antibiotics and plan to de-escalation. Renal; Patient is tolerating Jade. Endorcine: blood glucose is monitored Lines: all lines checked and no evidence of infections Skin: skin care to prevent pressure ulcers per nursing routine care. Skin lesion was shown to dermatology. Scuffs with the family at the bedside. I spent 35 min of Critical Care time with this patient. It involved decision making of high complexity to assess, manipulate, and support vital organ system failure and/or to prevent further life threatening deterioration of the patient' s condition. The time involved in the performance of separately reportable procedures was not counted toward critical care time.
[2017-07-31] MEDS: FentaNYL (PF) 1,000 MCG in 0.9 % Sodium Chloride 80 ML IVC SCH ×2 (08:01→23:38)
[2017-07-31] MEDS ORDERED: *HR* Norepinephrine 4 MG/4 ML VIAL IVC ONE (08:25)
[2017-07-31] MEDS ORDERED: D5% in Water 250 ML ONE (08:25)
[2017-07-31] MEDS: 0.9 % Sodium Chloride 1,000 ML IVC SCH (08:34)
[2017-07-31] MEDS: Norepinephrine 8 MG in D5% in Water 250 ML IVC SCH ×4 (08:37→23:48)
[2017-07-31] MEDS: Chlorhexidine Rinse 15 ML MOUTHWASH MM SCH ×2 (08:38→21:44)
[2017-07-31] MEDS: Nystatin Cream 15 GM TUBE TP SCH ×2 (08:39→21:45)
[2017-07-31] MEDS: Lacri-Lube 3.5 GM TUBE BOTH EYES SCH ×4 (08:41→23:38)
[2017-07-31] MEDS ORDERED: Vancomycin 1 EACH in EMPTY BAG 1 EACH IVPB SCH (09:00)
--- NOTE | 2017-07-31 09:42 | Nephrology Progress Note ---
Date of Encounter: 07/31/17 Time of Encounter: 09:10 - Assessment and Plan (1) EDDIE (acute kidney injury) Current Visit: Yes Status: Acute cont CRRT. Updated her brother and cousin Cindi who is a nurse here at [facility] Continue 1000mL/hr for sate/brook but add citrate d/t filter clotting without less than 12 hr UOP remains very poor. Limit obligate inputs: no need for the bicarb gtt now that CVVHDF is running Hyperkalemia is trending better. CCT provided of about 40 min in total from early AM chart prep, patient assessment, Jade adjustments, family discussions and logistics/discussions of recommendations with ICU team plus chart documentation for this severely ill patient. (2) Hyperkalemia Current Visit: Yes Status: Resolved Remained still slightly elevated (3) GI bleed Current Visit: Yes Status: Acute As per primary and GI/Surgery Qualifiers: GI bleed type/associated pathology: unspecified gastrointestinal hemorrhage type Qualified Code(s): K92.2 - Gastrointestinal hemorrhage, unspecified (4) Hypertension Current Visit: Yes Status: Chronic Remained hypotensive, actually, on pressors, so will continue CVVHDF rather than iHD. Qualifiers: Hypertension type: essential hypertension Qualified Code(s): I10 - Essential (primary) hypertension Subjective Principal diagnosis: Perforated Viscus s/p subtotal gastrectomy Interval history: Remains on Jade. No emergent events overnight per DIVER TENDER: still on pressors, but being weaned down. UOP remains very poor. Jade filter clotted 1-2 x already. Pt remains intubated. Family at bedside and updated. Objective - Vital Signs Vital signs: Vital Signs Temp Pulse Resp BP Pulse Ox 07/31/17 09:00 68 15 106/38 92 07/31/17 08:45 96.4 F L 68 18 102/41 100 07/31/17 08:00 68 16 101/40 100 07/31/17 07:56 16 110/35 100 07/31/17 07:00 96.4 F L 75 16 107/40 99 07/31/17 06:40 97.8 F 66 16 109/40 07/31/17 06:30 97.8 F 64 15 105/47 100 07/31/17 06:00 64 15 110/48 100 07/31/17 05:27 17 109/43 100 07/31/17 05:00 64 14 109/42 100 07/31/17 04:00 67 16 106/47 100 07/31/17 03:47 554 97/48 100 07/31/17 03:00 65 14 94/55 100 07/31/17 02:00 97.8 F 62 14 90/54 100 07/31/17 01:27 15 105/43 100 07/31/17 01:00 64 14 86/51 100 07/31/17 00:00 63 14 87/55 100 07/30/17 23:32 14 99/41 98 07/30/17 23:00 67 14 89/53 100 07/30/17 22:30 66 14 110/45 100 07/30/17 22:00 64 14 100/43 100 07/30/17 21:35 64 14 102/62 98 07/30/17 21:20 64 14 120/49 99 07/30/17 21:05 64 14 121/67 97 07/30/17 21:00 64 14 121/67 97 07/30/17 20:50 65 14 110/61 96 07/30/17 17:02 20 91/58 99 07/30/17 17:00 96.0 F L 64 14 86/51 100 07/30/17 16:00 62 14 89/55 99 07/30/17 15:43 14 72/44 97 07/30/17 15:00 96.4 F L 70 15 73/44 96 07/30/17 14:00 78 15 82/65 96 07/30/17 13:00 96.4 F L 65 15 68/45 96 07/30/17 12:07 89 16 84/51 98 07/30/17 12:00 26 92 07/30/17 11:40 96.4 F L 91 21 83/49 96 07/30/17 11:25 92 22 82/51 100 07/30/17 11:21 19 74/53 100 07/30/17 11:15 91 21 79/50 100 07/30/17 10:50 93 20 82/49 100 07/30/17 10:40 96.8 F L 72 15 72/52 94 07/30/17 10:35 96.8 F L 91 21 90/56 100 Intake and Output 07/30/17 07/31/17 07/31/17 23:59 07:59 15:59 Intake Total 1514 / 1514 2908 / 2908 678 / 678 Output Total 3410 / 3410 60 / 60 409 / 409 Balance -1896 / -1896 2848 / 2848 269 / 269 Intake: IV Fluids 1514 / 1514 2908 / 2908 313 / 313 Vasostrict 40 UNIT In Dextrose 34 / 34 5% 100 ML @ 0.03 UNIT/MIN 4.59 mls/hr IV .[id number] [facility] Rx#: [id number] 0.9 % Sodium Chloride 1,000 ML 687 / 687 313 / 313 @ 100 mls/hr IVC .Q10H [facility] Rx#: [id number] 0.9 % Sodium Chloride 500 ML @ 500 / 500 1875 mls/hr IVC .Q16M [facility] Rx#: [id number] PRECEDEX Premix 400 mcg In 100 33 / 33 ml @ 0.5 MCG/KG/HR 10.988 mls/ hr IVC .Q9H7M [facility] Rx#: [id number] FentaNYL (PF) 1,000 MCG In 0.9 38 / 38 % Sodium Chloride 80 ML @ 50 MCG/HR 5 mls/hr IVC CONT [facility] Rx #:[id number] Levophed 4 MG In Dextrose 5% 414 / 414 741 / 741 250 ML @ 5 MCG/MIN 19.05 mls/hr IVC CONT [facility] Rx#:[id number] Protonix 40 MG In 0.9 % Sodium 100 / 100 292 / 292 Chloride (Mini-Bag +) 100 ML @ 20 mls/hr IVC .Q5H [facility] Rx#: [id number] Sod Bicarb D5W 150 mEq/1000 mL 1000 / 1000 583 / 583 150 meq In 1,000 ml @ 100 mls/ hr IVC .Q10H [facility] Rx#:[id number] Blood Product 0 / 0 365 / 365 Rbcs Leuko Poor As-1 Unit 0 / 0 365 / 365 [id number] Output: Urine 10 / Urethral ([place]) 10 Jade 409 / 409 Estimated Blood Loss 400 / 400 Catheter 0 / 0 60 / 60 0 / 0 Wound Drainage 3000 / 3000 Other: Blood Glucose* 177 - General Appearance General appearance: Present: well-developed, well-nourished, moderate distress, fatigue, frail EENT: Present: ATNC, mucous membranes moist Neck: Present: supple Respiratory: Present: clear Cardiology: Present: edema (1+ pedal edema b/l ), regular rate, regular rhythm, normal S1, normal S2 Gastrointestinal: Present: normoactive bowel sounds, obese Integumentary: Present: warm and dry Neurologic: Present: no focal deficit Musculoskeletal: Present: no erythema, no cyanosis Psychiatric: Present: cooperative - Lab 08/06/17 05:20 08/06/17 05:20 Most recent lab results ABG pH 7.30 pH Units (7.32-7.45) L 07/31/17 04:38 ABG pCO2 37 mmHg (35-45) 07/31/17 04:38 ABG pO2 54 mmHg (85-104) L 07/31/17 04:38 ABG HCO3 18 mEq/L (21-27) L 07/31/17 04:38 ABG O2 Saturation 84 % (95-98) L 07/31/17 04:38 Calcium 6.7 mg/dL (8.6-10.8) L 07/31/17 04:10 Phosphorus 4.0 mg/dL (2.3-4.7) 07/31/17 04:10 Magnesium 2.1 mg/dL (1.6-2.6) 07/31/17 04:10 - VTE Documentation of Mechanical Device: Intermittent pneumatic compression device Consult Discharge Plan - Plan Referrals: Keesha Ellsworth, [employer] INTERCEPT CONTROLLER [Primary Care Provider] -
[2017-07-31] MEDS ORDERED: *HR* Heparin 5,000 UNIT/ML VIAL ONE ×2 (10:23→21:54)
[2017-07-31] MEDS: Calcium Chloride 4,000 MG in 0.9 % Sodium Chloride 1,000 ML CRRT SCH (11:04)
[2017-07-31] MEDS: Meropenem 1,000 MG in 0.9 % Sodium Chloride Mini Bag 100 ML IVPB SCH ×2 (11:43→17:33)
[2017-07-31] MEDS: Levofloxacin 750 MG/150 ML 750 MG/150 ML BAG IVPB SCH (11:44)
[2017-07-31] MEDS: Vasopressin 40 UNIT in D5% in Water 100 ML IV SCH (13:03)
[2017-07-31] MEDS: Insulin LISPRO 300 UNITS/3 ML VIAL SQ SCH ×3 (13:26→23:39)
[2017-07-31] MEDS: Dexmedetomidine HCl 400 MCG/100 ML MLS IVC SCH (13:34)
[2017-07-31] MEDS ORDERED: Calcium Gluconate 1,000 MG in D5% in Water 100 ML IVPB SCH (14:45)
[2017-07-31] MEDS ORDERED: 0.9 % Sodium Chloride 1,000 ML IVC ONE (17:07)
--- NOTE | 2017-07-31 17:16 | General Surgery Progress Note ---
Date of Encounter: 07/31/17 Time of Encounter: 17:07 Subjective Narrative: General Surgery - POD #1 The patient has remained hemodynamically stable since surgery but continues to require pressure support with both phenylephrine and vasopressin Dialysis has been initiated; no urine output but BUN and creatinine have improved to 62 and 3.10 respectively Postoperative white count 8.7; hemoglobin 8.5, hematocrit 24.6; platelet count 131,000. Patient remains intubated; afebrile, 96.8, pulse 74, respirations 18, blood pressure 114/36. Patient is awake and able to respond appropriately to voice. Lung sounds remained muffled; particularly diminished bilateral bases. Abdomen: Soft, quiet. Incision/dressing appears to be intact. No active bowel sounds. Gastrostomy tube intact. Low intermittent suction ordered Intraoperative peritoneal cultures pending Impression: Postoperative day 1: Profound anemia likely due to chronic gastritis with ulceration. Corrected S/p transfusion x 6 units PRBC Posterior wall perforation - status post subtotal gastrectomy with stapled gastrojejunostomy and placement of Lam gastrostomy tube The 3 L of purulent ascites encountered at the time of surgery indicative of at least several days duration. The patient is feeling better; but remains at significant risk for recurrent peritonitis/sepsis/and continued multisystem organ failure EDDIE - currently on dialysis Cardiopulmonary arrest during EGD - likely due to overwhelming sepsis/ peritonitis Objective Vital Signs - Last 8 Hours Temp Pulse Resp BP Pulse Ox 07/31/17 16:42 18 114/37 90 07/31/17 16:00 74 18 114/36 99 07/31/17 15:00 96.8 F L 74 20 104/38 93 07/31/17 14:00 71 16 92/35 97 07/31/17 13:00 75 22 102/37 99 07/31/17 12:00 96.9 F L 76 16 111/35 100 07/31/17 11:40 16 100 07/31/17 11:00 70 16 99/40 100 07/31/17 10:00 96.6 F L 68 16 102/44 92 07/31/17 09:56 15 106/38 90 Intake and Output 07/31/17 07/31/17 07/31/17 07:59 15:59 23:59 Intake Total 2908 / 2908 1945 / 1945 Output Total 60 / 60 1366 / 1366 118 / 118 Balance 2848 / 2848 579 / 579 -118 / -118 Intake: IV Fluids 2908 / 2908 1580 / 1580 Vasostrict 40 UNIT In Dextrose 34 / 34 5% 100 ML @ 0.03 UNIT/MIN 4.59 mls/hr IV .[id number] [facility] Rx#: [id number] 0.9 % Sodium Chloride 1,000 ML 687 / 687 413 / 413 @ 100 mls/hr IVC .Q10H [facility] Rx#: [id number] 0.9 % Sodium Chloride 500 ML @ 500 / 500 1875 mls/hr IVC .Q16M [facility] Rx#: [id number] PRECEDEX Premix 400 mcg In 100 33 / 33 ml @ 0.5 MCG/KG/HR 10.988 mls/ hr IVC .Q9H7M [facility] Rx#: [id number] FentaNYL (PF) 1,000 MCG In 0.9 38 / 38 % Sodium Chloride 80 ML @ 50 MCG/HR 5 mls/hr IVC CONT [facility] Rx #:[id number] Levophed 8 MG In Dextrose 5% 741 / 741 450 / 450 250 ML @ 20 MCG/MIN 38.7 mls/hr IVC CONT [facility] Rx#:[id number] Protonix 40 MG In 0.9 % Sodium 292 / 292 100 / 100 Chloride (Mini-Bag +) 100 ML @ 20 mls/hr IVC .Q5H [facility] Rx#: [id number] Sod Bicarb D5W 150 mEq/1000 mL 583 / 583 150 meq In 1,000 ml @ 100 mls/ hr IVC .Q10H [facility] Rx#:[id number] Levaquin Premix 750mg/150 mL 150 / 150 750 mg In 150 ml @ 100 mls/hr IVPB Q24H [facility] Rx#:[id number] Merrem 1,000 MG In 0.9 % Sodium 100 / 100 Chloride (Mini-Bag +) 100 ML @ 200 mls/hr IVPB Q8H [facility] Rx#: [id number] Blood Product 0 / 0 365 / 365 Rbcs Leuko Poor As-1 Unit 0 / 0 365 / 365 [id number] Output: Jade 1366 / 1366 118 / 118 Catheter 60 / 60 0 / 0 0 / 0 Other: Blood Glucose* 155 - Labs 07/31/17 04:10 07/31/17 04:10 Diabetes panel 07/30/17 07/31/17 Range/Units 22:00 04:10 Sodium 135 L 133 L (136-145) mEq/L Potassium 5.2 H 4.9 H (3.5-4.5) mEq/L Chloride 107 105 (98-109) mEq/L Carbon Dioxide 19 19 (19-29) mEq/L BUN 75 H 62 H (7-20) mg/dL Creatinine 3.54 H 3.10 H (0.57-1.11) mg/dL Glucose 201 H 196 H (70-99) mg/dL Calcium 7.1 L 6.7 L (8.6-10.8) mg/dL AST 18 (5-34) Units/L ALT 9 (0-55) Units/L Alkaline Phosphatase 56 (38-126) Units/L Albumin 1.1 L D (3.5-5.0) g/dL Calcium panel 07/30/17 07/31/17 Range/Units 22:00 04:10 Calcium 7.1 L 6.7 L (8.6-10.8) mg/dL Phosphorus 4.0 (2.3-4.7) mg/dL Albumin 1.1 L D (3.5-5.0) g/dL Pituitary panel 07/30/17 07/31/17 Range/Units 22:00 04:10 Sodium 135 L 133 L (136-145) mEq/L Potassium 5.2 H 4.9 H (3.5-4.5) mEq/L Chloride 107 105 (98-109) mEq/L Carbon Dioxide 19 19 (19-29) mEq/L BUN 75 H 62 H (7-20) mg/dL Creatinine 3.54 H 3.10 H (0.57-1.11) mg/dL Glucose 201 H 196 H (70-99) mg/dL Calcium 7.1 L 6.7 L (8.6-10.8) mg/dL Adrenal panel 07/30/17 07/31/17 Range/Units 22:00 04:10 Sodium 135 L 133 L (136-145) mEq/L Potassium 5.2 H 4.9 H (3.5-4.5) mEq/L Chloride 107 105 (98-109) mEq/L Carbon Dioxide 19 19 (19-29) mEq/L BUN 75 H 62 H (7-20) mg/dL Creatinine 3.54 H 3.10 H (0.57-1.11) mg/dL Glucose 201 H 196 H (70-99) mg/dL Calcium 7.1 L 6.7 L (8.6-10.8) mg/dL Total Bilirubin 0.8 D (0.2-1.2) mg/dL AST 18 (5-34) Units/L ALT 9 (0-55) Units/L Alkaline Phosphatase 56 (38-126) Units/L Albumin 1.1 L D (3.5-5.0) g/dL - VTE Documentation of Mechanical Device: Intermittent pneumatic compression device Consult Discharge Plan - Plan Referrals: Keesha Ellsworth, [employer] [Primary Care Provider] -
[2017-07-31 21:16] LABS: ABG Base Excess -7 mEq/L (-2 to 3); ABG HCO3 20 mEq/L (21-27); ABG Oxygen Saturation 91 % (95-98); ABG PCO2 43 mmHg (35-45); ABG PH 7.27 pH Units (7.32-7.45); ABG PO2 69 mmHg (85-104); ABG TCO2 21 mEq/L (20-26); Blood Gas Modality ASSIST CONTROL; Blood Gas PEEP 8 cm H2O; Blood Gas Respiration Rate 14; Blood Gas VT 550 cc
[2017-07-31 23:47] LABS: ABG Base Excess -6 mEq/L (-2 to 3); ABG HCO3 20 mEq/L (21-27); ABG Oxygen Saturation 87 % (95-98); ABG PCO2 42 mmHg (35-45); ABG PH 7.29 pH Units (7.32-7.45); ABG PO2 60 mmHg (85-104); ABG TCO2 21 mEq/L (20-26); Blood Gas Modality ASSIST CONTROL; Blood Gas PEEP 8 cm H2O; Blood Gas Respiration Rate 14; Blood Gas VT 550 cc
[2017-08-01] MEDS: Lacri-Lube 3.5 GM TUBE BOTH EYES SCH ×6 (00:18→19:52)
[2017-08-01] MEDS: Meropenem 1,000 MG in 0.9 % Sodium Chloride Mini Bag 100 ML IVPB SCH ×3 (00:21→16:25)
[2017-08-01] MEDS: Ipratropium/Albuterol Neb 3 ML IH SCH ×6 (03:22→23:37)
[2017-08-01] MEDS: PrismaSATE BGK 4/2.5 5,000 ML CRRT SCH ×8 (03:30→19:44)
[2017-08-01] MEDS: Calcium Chloride 4,000 MG in 0.9 % Sodium Chloride 1,000 ML CRRT SCH ×2 (04:06→18:25)
[2017-08-01] MEDS: FentaNYL (PF) 1,000 MCG in 0.9 % Sodium Chloride 80 ML IVC SCH ×2 (04:07→20:00)
[2017-08-01] MEDS: Norepinephrine 8 MG in D5% in Water 250 ML IVC SCH ×4 (04:08→20:38)
[2017-08-01] MEDS: Pantoprazole 40 MG in 0.9 % Sodium Chloride Mini Bag 100 ML IVC SCH ×4 (04:15→19:50)
[2017-08-01 04:51] LABS: ABG Base Excess -6 mEq/L (-2 to 3); ABG HCO3 20 mEq/L (21-27); ABG Oxygen Saturation 82 % (95-98); ABG PCO2 43 mmHg (35-45); ABG PH 7.28 pH Units (7.32-7.45); ABG PO2 52 mmHg (85-104); ABG TCO2 21 mEq/L (20-26); Blood Gas Modality ASSIST CONTROL; Blood Gas PEEP 8 cm H2O; Blood Gas Respiration Rate 14; Blood Gas VT 550 cc
[2017-08-01 04:57] LABS: Basophils % 0.1 %; Eosinophils # 0.3 K/mcL (0.0-0.6); Eosinophils % 4.8 %; Hematocrit 20.9 % (35.3-44.9); Hemoglobin 7.1 g/dL (11.5-15.4); Immature Granulocytes % 2.4 % (0-4); Immature Platelets 11.6 % (1.1-6.1); Lymphocytes # 0.4 K/mcL (0.6-4.6); Lymphocytes % 5.8 %; Mean Corpuscular Hemoglobin 29.3 pg (28.0-33.3); Mean Corpuscular Volume 86.4 fL (83.0-100.0); Mean Platelet Volume 11.9 fL (9.4-12.4); Monocytes # 0.2 K/mcL (0.0-1.3); Monocytes % 3.3 %; Neutrophils # 5.6 K/mcL (1.6-8.9); Nucleated Red Blood Cells 22.4 /100 WBC (0); Red Blood Count 2.42 M/mcL (3.82-4.97); Red Cell Distribution Width 16.6 % (11.5-14.5); Segmented Neutrophils % 83.6 %
[2017-08-01 05:11] LABS: Albumin/Globulin Ratio 0.4 (1.1-2.2); Bilirubin,Direct 0.4 mg/dL (0.0-0.5); Bilirubin,Indirect 0.1 mg/dL (0.0-1.2); Bilirubin,Total 0.5 mg/dL (0.2-1.2); Calcium 7.7 mg/dL (8.6-10.8); Magnesium 1.8 mg/dL (1.6-2.6); Phosphorous 2.6 mg/dL (2.3-4.7); Potassium 4.8 mEq/L (3.5-4.5)
[2017-08-01 05:18] LABS: Albumin 0.7 g/dL (3.5-5.0); Total Protein 2.7 g/dL (6.0-8.3)
[2017-08-01 05:53] LABS: Platelet Count 34 K/mcL (140-400)
[2017-08-01 05:56] LABS: Anisocytosis 1+ (Not Present); Burr Cells 1+ (Not Present); Hypochromasia Present (Not Present); Platelet Estimate Decreased (Normal)
[2017-08-01 05:57] LABS: Target Cells 1+ (Not Present)
[2017-08-01] MEDS: Insulin LISPRO 300 UNITS/3 ML VIAL SQ SCH ×3 (06:05→17:54)
[2017-08-01] MEDS ORDERED: 0.9 % Sodium Chloride 250 ML ONE ×2 (06:47→23:20)
[2017-08-01] MEDS: Chlorhexidine Rinse 15 ML MOUTHWASH MM SCH ×2 (08:29→19:50)
[2017-08-01] MEDS: Nystatin Cream 15 GM TUBE TP SCH ×2 (08:31→19:50)
[2017-08-01] MEDS: Levofloxacin 750 MG/150 ML 750 MG/150 ML BAG IVPB SCH (09:46)
[2017-08-01] MEDS: Dexmedetomidine HCl 400 MCG/100 ML MLS IVC SCH ×4 (10:37→22:48)
[2017-08-01] MEDS ORDERED: D10% in Water 500 ML IVC PRN (11:59)
[2017-08-01 12:35] LABS: RBC,Pleural Fluid < 0.002 M/mcL
[2017-08-01 12:36] LABS: Appearance of Pleural Fl Clear (Clear); LDH,Pleural Fluid 169 Units/L (No Ref Range)
[2017-08-01 12:37] LABS: Total Protein,Pleural Fluid 1.8 g/dL (No Ref Range)
--- NOTE | 2017-08-01 13:42 | Nephrology Progress Note ---
Date of Encounter: 08/01/17 Time of Encounter: 13:38 - Assessment and Plan (1) EDDIE (acute kidney injury) Current Visit: Yes Status: Acute Cr improved today 1.82 from 3.1 yesterday oligouric EDDIE will continue with dialysis. continues to have poor urine output. urine culture: no growth. Plan: continue helen, keep net + 25-50ml per hour as tolerated by hemodynamics. (2) Thrombocytopenia Current Visit: Yes Status: Acute may remain on citrate (3) CKD (chronic kidney disease) Current Visit: Yes Status: Acute Qualifiers: Chronic kidney disease stage: unspecified stage Qualified Code(s): N18.9 - Chronic kidney disease, unspecified (4) Hyperkalemia Current Visit: Yes Status: Acute (5) Anemia Current Visit: Yes Status: Acute acute blood loss anemia, s/p transfusion of 7 units so far. Qualifiers: Anemia type: iron deficiency Iron deficiency anemia type: other iron deficiency Qualified Code(s): D50.8 - Other iron deficiency anemias (6) GI bleed Current Visit: Yes Status: Acute Qualifiers: GI bleed type/associated pathology: unspecified gastrointestinal hemorrhage type Qualified Code(s): K92.2 - Gastrointestinal hemorrhage, unspecified (7) Hypertension Current Visit: Yes Status: Chronic Qualifiers: Hypertension type: essential hypertension Qualified Code(s): I10 - Essential (primary) hypertension (8) Pleural effusion Current Visit: Yes Status: Acute s/p placement of pleural catheter today with 1L fluid removed. per primary. (9) Perforated abdominal viscus Current Visit: Yes Status: Acute per surgery and primary team. Subjective Principal diagnosis: Perforated Viscus s/p subtotal gastrectomy Interval history: 62F evaluated at bedside. patient remains intubated and sedated. Objective - Vital Signs Vital signs: Vital Signs Temp Pulse Resp BP Pulse Ox 08/01/17 13:00 80 14 116/44 90 08/01/17 12:38 97.5 F L 80 14 101/38 91 08/01/17 12:23 97.3 F L 80 14 111/41 90 08/01/17 12:20 97.7 F 84 14 138/43 97 08/01/17 12:00 97.3 F L 80 14 111/41 90 08/01/17 11:18 14 133/40 97 08/01/17 11:00 97.7 F 74 15 142/43 100 08/01/17 10:26 16 133/40 100 08/01/17 10:00 89 16 105/36 90 08/01/17 09:00 92 16 133/40 92 08/01/17 08:21 98.5 F 80 16 144/40 95 08/01/17 08:06 98.4 F 80 17 135/42 97 08/01/17 08:00 98.4 F 80 16 135/40 95 08/01/17 07:43 80 08/01/17 07:36 17 124/38 93 08/01/17 07:00 80 17 124/38 95 08/01/17 06:00 82 19 104/41 90 08/01/17 05:40 19 116/40 92 08/01/17 05:00 82 18 111/40 89 08/01/17 04:00 99.8 F H 99 19 128/42 87 08/01/17 03:22 20 117/41 91 08/01/17 03:12 84 08/01/17 03:00 86 17 125/42 90 08/01/17 02:00 79 17 125/39 88 08/01/17 01:25 17 131/41 90 08/01/17 01:00 80 19 133/41 94 08/01/17 00:00 90 16 137/47 92 07/31/17 23:48 19 110/39 88 07/31/17 23:27 89 07/31/17 23:00 97.9 F 84 20 91/36 87 07/31/17 22:00 88 15 113/33 90 07/31/17 21:48 17 107/38 92 07/31/17 21:00 86 17 105/33 93 07/31/17 20:30 84 07/31/17 20:00 96.9 F L 86 18 98/54 90 07/31/17 19:43 19 130/38 96 07/31/17 19:00 77 18 115/34 94 07/31/17 18:00 78 16 122/36 95 07/31/17 17:00 74 16 108/36 95 07/31/17 16:42 18 114/37 90 07/31/17 16:00 74 18 114/36 99 07/31/17 15:10 16 95 10/25/17 15:00 96.8 F L 74 20 104/38 93 07/31/17 14:00 71 16 92/35 97 Intake and Output 07/31/17 08/01/17 08/01/17 23:59 07:59 15:59 Intake Total 1290 / 1290 1544 / 1544 884 / 884 Output Total 1225 / 1225 1484 / 1484 2284 / 2284 Balance 65 / 65 60 / 60 -1400 / -1400 Intake: IV Fluids 1290 / 1290 1544 / 1544 584 / 584 Calcium Chloride 4,000 MG In 0. 380 / 380 747 / 747 9 % Sodium Chloride 1,000 ML @ 40 mls/hr CRRT CONT [facility] Rx#: [id number] PrismaSATE BGK 4/2.5 5,000 ML @ 0 / 0 0 / 0 1000 mls/hr CRRT CONT [facility] Rx#: [id number] PRECEDEX Premix 400 mcg In 100 100 / 100 ml @ 0.5 MCG/KG/HR 10.988 mls/ hr IVC .Q9H7M [facility] Rx#: [id number] FentaNYL (PF) 1,000 MCG In 0.9 115 / 115 % Sodium Chloride 80 ML @ 50 MCG/HR 5 mls/hr IVC CONT [facility] Rx #:[id number] Levophed 8 MG In Dextrose 5% 500 / 500 423 / 423 93 / 93 250 ML @ 20 MCG/MIN 38.7 mls/hr IVC CONT [facility] Rx#:[id number] Protonix 40 MG In 0.9 % Sodium 200 / 200 159 / 159 41 / 41 Chloride (Mini-Bag +) 100 ML @ 20 mls/hr IVC .Q5H [facility] Rx#: [id number] Calcium Gluconate 1,000 MG In 110 / 110 Dextrose 5% 100 ML @ 220 mls/hr IVPB PROTOCOL [facility] Rx#: [id number] Levaquin Premix 750mg/150 mL 150 / 150 750 mg In 150 ml @ 100 mls/hr IVPB Q24H [facility] Rx#:[id number] Merrem 1,000 MG In 0.9 % Sodium 100 / 100 100 / 100 100 / 100 Chloride (Mini-Bag +) 100 ML @ 200 mls/hr IVPB Q8H [facility] Rx#: [id number] Oral 0 / 0 0 / 0 Tube Feeding 0 / 0 0 / 0 Blood Product 300 / 300 Rbcs Leuko Poor As-1 Unit 0 / 0 [id number] Rbcs Leuko Poor As-1 Unit 300 / 300 [id number] Free Water 0 / 0 0 / 0 Output: Helen 1195 / 1195 1484 / 1484 1184 / 1184 Thoracentesis 1100 / 1100 Catheter 30 / 30 0 / 0 0 / 0 Gastric Drainage 0 / 0 Other: # Bowel Movements 0 Weight 90 kg Blood Glucose* 117 111 141 - General Appearance General appearance: Present: well-developed, well-nourished, appears started age , obese, sedated on ventilator, intubated Neck: Present: JVD Additional Comments: mild JVD present. Respiratory: Present: course breath sounds Additional Comments: coarse breath sounds heard throughout. Cardiology: Present: regular rate, regular rhythm, normal S1, normal S2 Dialysis Vascular Access: Venous Catheter Gastrointestinal: Present: absent bowel sounds Additional Comments: distended, mild tenderness. Additional Comments: intubated and sedated. Additional Comments: +2 pitting edema on right lower extremity, +3 pitting edema on left lower extremity. - Lab 08/01/17 04:35 08/01/17 04:35 Most recent lab results ABG pH 7.28 pH Units (7.32-7.45) L 08/01/17 04:45 ABG pCO2 43 mmHg (35-45) 08/01/17 04:45 ABG pO2 52 mmHg (85-104) L 08/01/17 04:45 ABG HCO3 20 mEq/L (21-27) L 08/01/17 04:45 ABG O2 Saturation 82 % (95-98) L 08/01/17 04:45 Calcium 7.7 mg/dL (8.6-10.8) L 08/01/17 04:35 Phosphorus 2.6 mg/dL (2.3-4.7) 08/01/17 04:35 Magnesium 1.8 mg/dL (1.6-2.6) 08/01/17 04:35 - VTE Documentation of Mechanical Device: Intermittent pneumatic compression device Consult Discharge Plan - Plan Referrals: Keesha Ellsworth, INTERNATIONAL SALES REPRESENTATIVE [Primary Care Provider] -
[2017-08-01] MEDS: Vasopressin 40 UNIT in D5% in Water 100 ML IV SCH ×3 (14:55→22:47)
--- NOTE | 2017-08-01 15:59 | Pulmonology Progress Note ---
<Julius Navarro - Last Filed: 08/01/17 15:56> Date of Encounter: 08/01/17 Time of Encounter: 15:56 Assessment and Plan (1) Cardiac arrest Current Visit: Yes Status: Acute Patient had a cardiac arrest during endoscopy on the day of admission. She received 1 round of CPR and milligram of epinephrine and had spontaneous return of circulation. Neurologic status appears to be intact. No indications for hypothermia. (2) Perforated abdominal viscus Current Visit: Yes Status: Acute Likely secondary to gastric ulcer. Patient is postop day 2 status post gastric resection. Patient is on broad-spectrum antibiotics, intraoperative cultures are pending. Surgery is following, further management per surgery. (3) Anemia Current Visit: Yes Status: Acute Likely secondary to peptic ulcer disease. Continue PPI drip. Qualifiers: Anemia type: iron deficiency Iron deficiency anemia type: other iron deficiency Qualified Code(s): D50.8 - Other iron deficiency anemias (4) GI bleed Current Visit: Yes Status: Acute Likely secondary to peptic ulcer disease. Hemoglobin has been corrected. No evidence of active bleeding. Continue to monitor. Qualifiers: GI bleed type/associated pathology: unspecified gastrointestinal hemorrhage type Qualified Code(s): K92.2 - Gastrointestinal hemorrhage, unspecified (5) EDDIE (acute kidney injury) Current Visit: Yes Status: Acute Secondary to dehydration in setting of GI bleed as discussed above. Septic shock is also contributing. Patient has been anuric and is on renal replacement therapy. Electrolytes stable. Nephrology is following. (6) Pleural effusion Current Visit: Yes Status: Acute Patient had a large right-sided pleural effusion that continued to worsen since admission. Patient did have some hypoxia overnight and this was felt to be related to her worsening pleural effusion. Patient underwent pleural catheter placement with evacuation of approximately 1 L of straw-colored fluid immediately. Oxygen saturations improved immediately. Repeat chest x-ray in the morning. Subjective Principal diagnosis: Perforated Viscus s/p subtotal gastrectomy Interval history: Patient seen and examined at bedside. Patient remains intubated and sedated. She will wake up to verbal stimuli and follow commands. She does not appear to be in any acute distress. Objective PUL Vital signs: Last Vital Signs Temp 97.5 F L 08/01/17 14:31 Pulse 80 08/01/17 15:00 Resp 14 08/01/17 15:00 BP 139/49 08/01/17 15:00 Pulse Ox 93 08/01/17 15:00 General appearance: no acute distress ENT: oropharynx dry Auscultation: bilateral: diminished breath sounds Cardiovascular: regular rate and rhythm Gastrointestinal: absent bowel sounds, soft, non-tender Extremities: no cyanosis, no edema, no clubbing unable to assess due to mental status Ventilator Settings Ventilator Settings: Ventilator Settings, Last 8 Hours Ventilator Mode VC+ Ventilator Mode VC+ Ventilator Mode VC+ Ventilator Mode VC+ Ventilator Mode VC+ Ventilator Mode VC+ Ventilator Mode VC+ Ventilator Mode VC+ Ventilator Mode VC+ Ventilator Mode VC+ Ventilator Tidal Volume 550 Setting Ventilator Tidal Volume 550 Setting Ventilator Tidal Volume 550 Setting Ventilator Tidal Volume 550 Setting Ventilator Tidal Volume 550 Setting Ventilator Tidal Volume 550 Setting Ventilator Tidal Volume 550 Setting Ventilator Tidal Volume 550 Setting Ventilator Tidal Volume 550 Setting Ventilator Tidal Volume 550 Setting Ventilator Respiratory Rate 14 Setting Ventilator Respiratory Rate 14 Setting Ventilator Respiratory Rate 14 Setting Ventilator Respiratory Rate 14 Setting Ventilator Respiratory Rate 14 Setting Ventilator Respiratory Rate 14 Setting Ventilator Respiratory Rate 14 Setting Ventilator Respiratory Rate 14 Setting Ventilator Respiratory Rate 14 Setting Ventilator Respiratory Rate 14 Setting Actual Respiratory Rate 14 Actual Respiratory Rate 14 Actual Respiratory Rate 14 Actual Respiratory Rate 14 Actual Respiratory Rate 16 Actual Respiratory Rate 14 Actual Respiratory Rate 16 Actual Respiratory Rate 16 Actual Respiratory Rate 16 Actual Respiratory Rate 17 Positive End Expiratory 8 Pressure Positive End Expiratory 8 Pressure Positive End Expiratory 8 Pressure Positive End Expiratory 8 Pressure Positive End Expiratory 8 Pressure Positive End Expiratory 8 Pressure Positive End Expiratory 8 Pressure Positive End Expiratory 8 Pressure Positive End Expiratory 10 Pressure Positive End Expiratory 10 Pressure Peak Inspiratory Airway 36 Pressure Peak Inspiratory Airway 36 Pressure Peak Inspiratory Airway 36 Pressure Peak Inspiratory Airway 37 Pressure Peak Inspiratory Airway 33 Pressure Peak Inspiratory Airway 34 Pressure Peak Inspiratory Airway 28 Pressure Peak Inspiratory Airway 38 Pressure Peak Inspiratory Airway 28 Pressure Peak Inspiratory Airway 31 Pressure Results - Laboratory Findings CBC and BMP: 08/01/17 04:35 08/01/17 04:35 ABG ABG pH 7.28 pH Units (7.32-7.45) L 08/01/17 04:45 ABG pCO2 43 mmHg (35-45) 08/01/17 04:45 ABG pO2 52 mmHg (85-104) L 08/01/17 04:45 ABG O2 Saturation 82 % (95-98) L 08/01/17 04:45 PT/INR, D-dimer PT 15.0 Seconds (9.4-12.1) H 07/30/17 16:08 Abnormal lab findings: Abnormal lab results RBC 2.42 M/mcL (3.82-4.97) L 08/01/17 04:35 Hgb 7.1 g/dL (11.5-15.4) L 08/01/17 04:35 Hct 20.9 % (35.3-44.9) L 08/01/17 04:35 RDW 16.6 % (11.5-14.5) H 08/01/17 04:35 Plt Count 34 K/mcL (140-400) L D 08/01/17 04:35 Band Neutrophils % 6.0 % (0-4) H 07/30/17 22:00 Metamyelocytes % 2.0 % (0) H 07/30/17 16:08 Myelocytes % 2.0 % (0) H 07/30/17 16:08 Lymphocytes # 0.4 K/mcL (0.6-4.6) L 08/01/17 04:35 Nucleated RBCs/100 WBC 22.4 /100 WBC (0) H 08/01/17 04:35 Toxic Granulation Present (Not Present) A 07/31/17 04:10 Platelet Estimate Decreased (Normal) L 08/01/17 04:35 Immature Plt Fraction 11.6 % (1.1-6.1) H 08/01/17 04:35 Hypochromasia Present (Not Present) A 08/01/17 04:35 Anisocytosis 1+ (Not Present) A 08/01/17 04:35 Target Cells 1+ (Not Present) A 08/01/17 04:35 [place] Cells 1+ (Not Present) A 08/01/17 04:35 PT 15.0 Seconds (9.4-12.1) H 07/30/17 16:08 APTT 69.7 Seconds (26.0-36.0) H 08/01/17 05:30 ABG pH 7.28 pH Units (7.32-7.45) L 08/01/17 04:45 ABG pO2 52 mmHg (85-104) L 08/01/17 04:45 ABG HCO3 20 mEq/L (21-27) L 08/01/17 04:45 ABG O2 Saturation 82 % (95-98) L 08/01/17 04:45 ABG Base Excess -6 mEq/L (-2 to 3) L 08/01/17 04:45 ABG Hematocrit 26.0 % (35.3-44.9) L 07/30/17 18:50 ABG Chloride 109 mEq/L (98-107) H 07/30/17 18:50 VBG pH 7.14 pH Units (7.32-7.42) L* 07/30/17 09:47 VBG pO2 80 mmHg (25-50) H 07/30/17 09:47 VBG HCO3 17 mEq/L (21-27) L 07/30/17 09:47 Sodium 134 mEq/L (135-148) L 07/30/17 18:50 Glucose 163 mg/dL (60-95) H 07/30/17 18:50 Lactate 2.5 mmol/L (0.7-2.1) H 07/30/17 18:50 Sodium 135 mEq/L (136-145) L 08/01/17 04:35 Potassium 4.8 mEq/L (3.5-4.5) H 08/01/17 04:35 BUN 28 mg/dL (7-20) H D 08/01/17 04:35 Creatinine 1.82 mg/dL (0.57-1.11) H 08/01/17 04:35 Est GFR ( Amer) 34 (> 60) L 08/01/17 04:35 Est GFR (Non-Af Amer) 28 (> 60) L 08/01/17 04:35 Glucose 104 mg/dL (70-99) H 08/01/17 04:35 POC Glucose 141 (58-89) H 08/01/17 11:32 Lactic Acid 4.0 mmol/L (0.5-2.2) H* 08/01/17 04:35 Calcium 7.7 mg/dL (8.6-10.8) L 08/01/17 04:35 B-Natriuretic Peptide 512 pg/mL (0-100) H 07/29/17 09:43 Serum Total Protein 2.7 g/dL (6.0-8.3) L D 08/01/17 04:35 Albumin 0.7 g/dL (3.5-5.0) L D 08/01/17 04:35 Globulin 2.0 g/dL (2.4-3.5) L 08/01/17 04:35 Albumin/Globulin Ratio 0.4 (1.1-2.2) L 08/01/17 04:35 Arterial Blood Ionized Calcium 1.48 mmol/L (1.15-1.35) H 07/30/17 18:50 Urine Clarity Hazy (Clear) A 07/29/17 13:07 Ur Specific [place] 1.026 (1.010-1.025) H 07/29/17 13:07 Urine Ketones Trace mg/dL (Negative) H 07/29/17 13:07 Urine Bilirubin Small (Negative) H 07/29/17 13:07 Ur Leukocyte Esterase Small (Negative) H 07/29/17 13:07 Urine Microscopic RBC 3-5 per hpf (0-3) H 07/29/17 13:07 Ur Squamous Epith Cells Many per lpf (None-Few) H 07/29/17 13:07 Amorphous Sediment Many (Few) H 07/29/17 13:07 Ur Culture Indicated? YES (NO) A 07/29/17 13:07 Stool Occult Blood Positive (Negative) A 07/29/17 10:57 Salicylates < 5.0 mg/dL (15-30) L 07/30/17 09:28 Acetaminophen < 1.0 mcg/mL (10-30) L 07/30/17 09:28 - Microbiology Findings Microbiology Findings: Microbiology, Last 48 Hours 08/01/17 10:40 Gram Stain - Final Pleural Fluid - Clinical Findings Intake & Output: Intake & Output 07/31/17 08/01/17 08/01/17 23:59 07:59 15:59 Intake Total 1290 / 1290 1544 / 1544 1539 / 1539 Output Total 1225 / 1225 1484 / 1484 2816 / 2816 Balance 65 / 65 60 / 60 -1277 / -1277 Weight 90 kg - VTE Documentation of Mechanical Device: Intermittent pneumatic compression device Consult Discharge Plan - Plan Referrals: Keesha Ellsworth, DESIGN ENGINEER [employer] [Primary Care Provider] - <Vicky Zapien - Last Filed: 08/01/17 17:15> Date of Encounter: 08/01/17 Objective PUL Vital signs: Last Vital Signs Temp 97.9 F 08/01/17 16:00 Pulse 76 10/26/17 16:00 Resp 14 08/01/17 16:27 BP 132/51 08/01/17 16:27 Pulse Ox 93 08/01/17 16:27 Ventilator Settings Ventilator Settings: Ventilator Settings, Last 8 Hours Ventilator Mode VC+ Ventilator Mode VC+ Ventilator Mode VC+ Ventilator Mode VC+ Ventilator Mode VC+ Ventilator Mode VC+ Ventilator Mode VC+ Ventilator Mode VC+ Ventilator Mode VC+ Ventilator Mode VC+ Ventilator Tidal Volume 550 Setting Ventilator Tidal Volume 550 Setting Ventilator Tidal Volume 550 Setting Ventilator Tidal Volume 550 Setting Ventilator Tidal Volume 550 Setting Ventilator Tidal Volume 550 Setting Ventilator Tidal Volume 550 Setting Ventilator Tidal Volume 550 Setting Ventilator Tidal Volume 550 Setting Ventilator Tidal Volume 550 Setting Ventilator Respiratory Rate 14 Setting Ventilator Respiratory Rate 14 Setting Ventilator Respiratory Rate 14 Setting Ventilator Respiratory Rate 14 Setting Ventilator Respiratory Rate 14 Setting Ventilator Respiratory Rate 14 Setting Ventilator Respiratory Rate 14 Setting Ventilator Respiratory Rate 14 Setting Ventilator Respiratory Rate 14 Setting Ventilator Respiratory Rate 14 Setting Actual Respiratory Rate 14 Actual Respiratory Rate 14 Actual Respiratory Rate 14 Actual Respiratory Rate 14 Actual Respiratory Rate 14 Actual Respiratory Rate 14 Actual Respiratory Rate 16 Actual Respiratory Rate 14 Actual Respiratory Rate 16 Actual Respiratory Rate 16 Positive End Expiratory 8 Pressure Positive End Expiratory 8 Pressure Positive End Expiratory 8 Pressure Positive End Expiratory 8 Pressure Positive End Expiratory 8 Pressure Positive End Expiratory 8 Pressure Positive End Expiratory 8 Pressure Positive End Expiratory 8 Pressure Positive End Expiratory 8 Pressure Positive End Expiratory 8 Pressure Peak Inspiratory Airway 37 Pressure Peak Inspiratory Airway 36 Pressure Peak Inspiratory Airway 36 Pressure Peak Inspiratory Airway 36 Pressure Peak Inspiratory Airway 36 Pressure Peak Inspiratory Airway 37 Pressure Peak Inspiratory Airway 33 Pressure Peak Inspiratory Airway 34 Pressure Peak Inspiratory Airway 28 Pressure Peak Inspiratory Airway 38 Pressure Results - Laboratory Findings CBC and BMP: 08/01/17 04:35 08/01/17 04:35 ABG ABG pH 7.28 pH Units (7.32-7.45) L 08/01/17 04:45 ABG pCO2 43 mmHg (35-45) 08/01/17 04:45 ABG pO2 52 mmHg (85-104) L 08/01/17 04:45 ABG O2 Saturation 82 % (95-98) L 08/01/17 04:45 PT/INR, D-dimer PT 15.0 Seconds (9.4-12.1) H 07/30/17 16:08 Abnormal lab findings: Abnormal lab results RBC 2.42 M/mcL (3.82-4.97) L 08/01/17 04:35 Hgb 7.1 g/dL (11.5-15.4) L 08/01/17 04:35 Hct 20.9 % (35.3-44.9) L 08/01/17 04:35 RDW 16.6 % (11.5-14.5) H 08/01/17 04:35 Plt Count 34 K/mcL (140-400) L D 08/01/17 04:35 Band Neutrophils % 6.0 % (0-4) H 07/30/17 22:00 Metamyelocytes % 2.0 % (0) H 07/30/17 16:08 Myelocytes % 2.0 % (0) H 07/30/17 16:08 Lymphocytes # 0.4 K/mcL (0.6-4.6) L 08/01/17 04:35 Nucleated RBCs/100 WBC 22.4 /100 WBC (0) H 08/01/17 04:35 Toxic Granulation Present (Not Present) A 07/31/17 04:10 Platelet Estimate Decreased (Normal) L 08/01/17 04:35 Immature Plt Fraction 11.6 % (1.1-6.1) H 08/01/17 04:35 Hypochromasia Present (Not Present) A 08/01/17 04:35 Anisocytosis 1+ (Not Present) A 08/01/17 04:35 Target Cells 1+ (Not Present) A 08/01/17 04:35 [place] Cells 1+ (Not Present) A 08/01/17 04:35 PT 15.0 Seconds (9.4-12.1) H 07/30/17 16:08 APTT 69.7 Seconds (26.0-36.0) H 08/01/17 05:30 ABG pH 7.28 pH Units (7.32-7.45) L 08/01/17 04:45 ABG pO2 52 mmHg (85-104) L 08/01/17 04:45 ABG HCO3 20 mEq/L (21-27) L 08/01/17 04:45 ABG O2 Saturation 82 % (95-98) L 08/01/17 04:45 ABG Base Excess -6 mEq/L (-2 to 3) L 08/01/17 04:45 ABG Hematocrit 26.0 % (35.3-44.9) L 07/30/17 18:50 ABG Chloride 109 mEq/L (98-107) H 07/30/17 18:50 VBG pH 7.14 pH Units (7.32-7.42) L* 07/30/17 09:47 VBG pO2 80 mmHg (25-50) H 07/30/17 09:47 VBG HCO3 17 mEq/L (21-27) L 07/30/17 09:47 Sodium 134 mEq/L (135-148) L 07/30/17 18:50 Glucose 163 mg/dL (60-95) H 07/30/17 18:50 Lactate 2.5 mmol/L (0.7-2.1) H 07/30/17 18:50 Sodium 135 mEq/L (136-145) L 08/01/17 04:35 Potassium 4.8 mEq/L (3.5-4.5) H 08/01/17 04:35 BUN 28 mg/dL (7-20) H D 08/01/17 04:35 Creatinine 1.82 mg/dL (0.57-1.11) H 08/01/17 04:35 Est GFR ( Amer) 34 (> 60) L 08/01/17 04:35 Est GFR (Non-Af Amer) 28 (> 60) L 08/01/17 04:35 Glucose 104 mg/dL (70-99) H 08/01/17 04:35 POC Glucose 141 (58-89) H 08/01/17 11:32 Lactic Acid 4.0 mmol/L (0.5-2.2) H* 08/01/17 04:35 Calcium 7.7 mg/dL (8.6-10.8) L 08/01/17 04:35 B-Natriuretic Peptide 512 pg/mL (0-100) H 07/29/17 09:43 Serum Total Protein 2.7 g/dL (6.0-8.3) L D 08/01/17 04:35 Albumin 0.7 g/dL (3.5-5.0) L D 08/01/17 04:35 Globulin 2.0 g/dL (2.4-3.5) L 08/01/17 04:35 Albumin/Globulin Ratio 0.4 (1.1-2.2) L 08/01/17 04:35 Arterial Blood Ionized Calcium 1.48 mmol/L (1.15-1.35) H 07/30/17 18:50 Urine Clarity Hazy (Clear) A 07/29/17 13:07 Ur Specific [place] 1.026 (1.010-1.025) H 07/29/17 13:07 Urine Ketones Trace mg/dL (Negative) H 07/29/17 13:07 Urine Bilirubin Small (Negative) H 07/29/17 13:07 Ur Leukocyte Esterase Small (Negative) H 07/29/17 13:07 Urine Microscopic RBC 3-5 per hpf (0-3) H 07/29/17 13:07 Ur Squamous Epith Cells Many per lpf (None-Few) H 07/29/17 13:07 Amorphous Sediment Many (Few) H 07/29/17 13:07 Ur Culture Indicated? YES (NO) A 07/29/17 13:07 Stool Occult Blood Positive (Negative) A 07/29/17 10:57 Salicylates < 5.0 mg/dL (15-30) L 07/30/17 09:28 Acetaminophen < 1.0 mcg/mL (10-30) L 07/30/17 09:28 - Microbiology Findings Microbiology Findings: Microbiology, Last 48 Hours 08/01/17 10:40 Gram Stain - Final Pleural Fluid - Clinical Findings Intake & Output: Intake & Output 08/01/17 08/01/17 08/01/17 07:59 15:59 23:59 Intake Total 1544 / 1544 1539 / 1539 100 / 100 Output Total 1484 / 1484 2816 / 2816 321 / 321 Balance 60 / 60 -1277 / -1277 -221 / -221 - Attending Attestation I examined this patient and my medical decision-making was reviewed with the Resident Physician. I agree with the documented findings, disposition and treatment plan as described except to the extent set forth below. Patient seen and examined. Labs, radiology, chart personally reviewed. Agree with resident's history and physical, assessment, plan with following comments: EQUIPMENT VALIDATION ENGINEER: Patient follows simple commands, Pulmonary: Patient had significant hypoxia and FiO2 has to be increased to 100 % and PEEP to 10 which I suspected with pleural effusion and compressive atelectasis is histaminic reason. I have discussed with the family at the bedside and recommended chest tube and they agreed. Immediately after placing chest tube significantly improved on oxygenation and we are able to lower FiO2 and PEEP. Cardiovascular: Patient is in shock which is multifactorial from GI bleed as well as septic shock. GI: Nutrition per dietary and GI prophylaxis per routine Heme: DVT prophylaxis per routine. Transfuse packed RBC which helped blood pressure. ID: Continue antibiotics and plan to de-escalation Renal; urine out put and renal funtion reviewed Endorcine: blood glucose is monitored Lines: all lines checked and no evidence of infections Skin: skin care to prevent pressure ulcers per nursing routine care Discussed with the family at the bedside. I spent 40 min of Critical Care time with this patient. It involved decision making of high complexity to assess, manipulate, and support vital organ system failure and/or to prevent further life threatening deterioration of the patient' s condition. The time involved in the performance of separately reportable procedures was not counted toward critical care time.
[2017-08-01] MEDS ORDERED: Clinimix 5%-20% SOLUTION 2,000 ML with MVI, adult with vitamin K 10 ML, Sodium Phosph... IVC SCH (17:00)
--- NOTE | 2017-08-01 17:28 | Procedure Note ---
Date of procedure: 08/01/17 Pre-op diagnosis: Acute respiratory failure with right-sided pleural effusion Post-op diagnosis: same Procedure: Chest he replacement for the right-sided pleural effusion No immediate complications After obtaining informed consent, the patient was supine position on the ventilator. Using ultrasound, the right hemithorax was examined revealing a moderately sized pleural effusion. The best entry site was marked. The area was prepped in the usual sterile fashion. Fluid was aspirated using 18-gauge needle in the midaxillary line in the sixth intercostal space, guidewire was placed and then the needle was removed subsequently was dilated over the guidewire then 10 Polish chest tube was placed successfully without immediate complication. 1800 mL of serous fluid was removed. Fluid was sent for routine pleural analysis. Patient's condition improved after the procedure. Chest x-ray was ordered for any evidence of pneumothorax or complications. Anesthesia: other (Patients on the ventilator and sedation) Surgeon: Vicky Zapien Disposition: ICU
--- NOTE | 2017-08-01 19:27 | General Surgery Progress Note ---
Date of Encounter: 08/01/17 Time of Encounter: 19:17 Subjective Narrative: General Surgery POD#2 This is a delayed progress note. Patient seen and examined with discussion with family members approx 1300 and 1900. Patient is responsive to verbal stimulation; remains intubated with sedation to assist tolerance of mechanical ventilation Patient remains afebrile, currently 97.9, pulse 80, respirations 14, blood pressure 133/52 -pressure support has been slowly weaned over the course of the day. Earlier today she would was still on both phenylephrine and vasopressin. Currently she is only on phenylephrine. Lungs: Clear, her aeration right lung field with thoracentesis and evacuation of a large pleural effusion. Over 1 L of fluid was extracted. Abdomen: Soft, quiet; line incision intact with no drainage. Gastrostomy tube also intact - gastrostomy output scant. Patient remains on Jade; no significant urine output. Labs: White count 6.7, hemoglobin is full and is 7.1 with hematocrit 20.9; blood has been transfused, it appears to units PRBC have been administered Bilateral count notable for profound thrombocytopenia, 34,000. No evidence of bleeding but certainly at risk. Electrolytes within an acceptable range, BUN 28, creatinine 1.82 - improved with dialysis. Total serum protein 2.7, albumin 0.7 - TPN has been initiated. Impression: Patient remains in critical condition. Several parameters demonstrate improvement, however, it has been stressed to family that the patient's situation remains "precarious". Awaiting operative pathology as well as intraoperative cultures Objective Vital Signs - Last 8 Hours Temp Pulse Resp BP Pulse Ox 08/01/17 18:22 14 133/52 88 08/01/17 18:00 80 14 133/52 93 08/01/17 17:00 82 14 155/55 92 08/01/17 16:27 14 132/51 93 08/01/17 16:00 97.9 F 76 14 121/43 93 08/01/17 15:00 80 14 139/49 93 08/01/17 14:31 97.5 F L 80 14 142/49 93 08/01/17 14:00 84 14 124/43 93 08/01/17 13:00 80 14 116/44 90 08/01/17 12:38 97.5 F L 80 14 101/38 91 08/01/17 12:23 97.3 F L 80 14 111/41 90 08/01/17 12:20 97.7 F 84 14 138/43 97 08/01/17 12:00 97.3 F L 80 14 111/41 90 08/01/17 11:18 14 133/40 97 Intake and Output 08/01/17 08/01/17 08/01/17 07:59 15:59 23:59 Intake Total 1544 / 1544 1539 / 1539 933 / 933 Output Total 1484 / 1484 2816 / 2816 977 / 977 Balance 60 / 60 -1277 / -1277 -44 / -44 Intake: IV Fluids 1544 / 1544 939 / 939 933 / 933 Calcium Chloride 4,000 MG In 0. 747 / 747 833 / 833 9 % Sodium Chloride 1,000 ML @ 40 mls/hr CRRT CONT [facility] Rx#: [id number] PrismaSATE BGK 4/2.5 5,000 ML @ 0 / 0 0 / 0 1000 mls/hr CRRT CONT [facility] Rx#: [id number] Vasostrict 40 UNIT In Dextrose 5 / 5 5% 100 ML @ 0.03 UNIT/MIN 4.59 mls/hr IV .[id number] [facility] Rx#: [id number] PRECEDEX Premix 400 mcg In 100 100 / 100 ml @ 0.5 MCG/KG/HR 10.988 mls/ hr IVC .Q9H7M [facility] Rx#: [id number] FentaNYL (PF) 1,000 MCG In 0.9 115 / 115 % Sodium Chloride 80 ML @ 50 MCG/HR 5 mls/hr IVC CONT [facility] Rx #:[id number] Levophed 8 MG In Dextrose 5% 423 / 423 343 / 343 250 ML @ 20 MCG/MIN 38.7 mls/hr IVC CONT [facility] Rx#:[id number] Protonix 40 MG In 0.9 % Sodium 159 / 159 141 / 141 Chloride (Mini-Bag +) 100 ML @ 20 mls/hr IVC .Q5H [facility] Rx#: [id number] Levaquin Premix 750mg/150 mL 150 / 150 750 mg In 150 ml @ 100 mls/hr IVPB Q24H [facility] Rx#:[id number] Merrem 1,000 MG In 0.9 % Sodium 100 / 100 100 / 100 100 / 100 Chloride (Mini-Bag +) 100 ML @ 200 mls/hr IVPB Q8H [facility] Rx#: [id number] Oral 0 / 0 Tube Feeding 0 / 0 Blood Product 600 / 600 Rbcs Leuko Poor As-1 Unit 300 / 300 [id number] Rbcs Leuko Poor As-1 Unit 300 / 300 [id number] Free Water 0 / 0 Output: Jade 1484 / 1484 1676 / 1676 927 / 927 Thoracentesis 1140 / 1140 50 / 50 Catheter 0 / 0 0 / 0 0 / 0 Gastric Drainage 0 / 0 Other: # Bowel Movements 0 Blood Glucose* 111 141 - Labs 08/01/17 04:35 08/01/17 04:35 Diabetes panel 08/01/17 08/01/17 Range/Units 04:35 04:35 Sodium 135 L (136-145) mEq/L Potassium 4.8 H (3.5-4.5) mEq/L Chloride 106 (98-109) mEq/L Carbon Dioxide 19 (19-29) mEq/L BUN 28 H D (7-20) mg/dL Creatinine 1.82 H (0.57-1.11) mg/dL Glucose 104 H (70-99) mg/dL Calcium 7.7 L (8.6-10.8) mg/dL AST 16 (5-34) Units/L ALT 7 (0-55) Units/L Alkaline Phosphatase 44 (38-126) Units/L Albumin 0.7 L D (3.5-5.0) g/dL Calcium panel 08/01/17 08/01/17 Range/Units 04:35 04:35 Calcium 7.7 L (8.6-10.8) mg/dL Phosphorus 2.6 (2.3-4.7) mg/dL Albumin 0.7 L D (3.5-5.0) g/dL Pituitary panel 08/01/17 Range/Units 04:35 Sodium 135 L (136-145) mEq/L Potassium 4.8 H (3.5-4.5) mEq/L Chloride 106 (98-109) mEq/L Carbon Dioxide 19 (19-29) mEq/L BUN 28 H D (7-20) mg/dL Creatinine 1.82 H (0.57-1.11) mg/dL Glucose 104 H (70-99) mg/dL Calcium 7.7 L (8.6-10.8) mg/dL Adrenal panel 08/01/17 08/01/17 Range/Units 04:35 04:35 Sodium 135 L (136-145) mEq/L Potassium 4.8 H (3.5-4.5) mEq/L Chloride 106 (98-109) mEq/L Carbon Dioxide 19 (19-29) mEq/L BUN 28 H D (7-20) mg/dL Creatinine 1.82 H (0.57-1.11) mg/dL Glucose 104 H (70-99) mg/dL Calcium 7.7 L (8.6-10.8) mg/dL Total Bilirubin 0.5 (0.2-1.2) mg/dL AST 16 (5-34) Units/L ALT 7 (0-55) Units/L Alkaline Phosphatase 44 (38-126) Units/L Albumin 0.7 L D (3.5-5.0) g/dL - VTE Documentation of Mechanical Device: Intermittent pneumatic compression device Consult Discharge Plan - Plan Referrals: Keesha Ellsworth, [employer] [Primary Care Provider] -
[2017-08-01] MEDS ORDERED: *HR* Heparin 5,000 UNIT/ML VIAL ONE (20:19)
[2017-08-01] MEDS: *HR* Heparin 5,000 UNIT/ML VIAL IV PRN (20:36)
[2017-08-02] MEDS: Insulin LISPRO 300 UNITS/3 ML VIAL SQ SCH ×6 (00:41→23:28)
[2017-08-02] MEDS: Lacri-Lube 3.5 GM TUBE BOTH EYES SCH ×7 (00:43→23:25)
[2017-08-02] MEDS: Meropenem 1,000 MG in 0.9 % Sodium Chloride Mini Bag 100 ML IVPB SCH ×2 (01:23→08:32)
[2017-08-02] MEDS: Pantoprazole 40 MG in 0.9 % Sodium Chloride Mini Bag 100 ML IVC SCH ×3 (02:30→08:00)
[2017-08-02] MEDS: PrismaSATE BGK 4/2.5 5,000 ML CRRT SCH ×10 (02:58→23:22)
[2017-08-02] MEDS: Norepinephrine 8 MG in D5% in Water 250 ML IVC SCH ×3 (03:00→22:00)
[2017-08-02 03:17] LABS: Protein/Creatinine Ratio,Urine 2.43 mg/mg (0-0.20)
[2017-08-02] MEDS: Ipratropium/Albuterol Neb 3 ML IH SCH ×6 (03:27→23:20)
[2017-08-02 05:24] LABS: Ionized Calcium 1.27 mmol/L (1.15-1.35)
[2017-08-02 05:29] LABS: Hematocrit 28.1 % (35.3-44.9); Mean Corpuscular HGB Conc 34.5 g/dL (31.6-35.5); Mean Corpuscular Volume 84.1 fL (83.0-100.0); Mean Platelet Volume 12.5 fL (9.4-12.4); Red Blood Count 3.34 M/mcL (3.82-4.97); Red Cell Distribution Width 17.3 % (11.5-14.5)
[2017-08-02 05:30] LABS: Hemoglobin 9.7 g/dL (11.5-15.4); Platelet Count 39 K/mcL (140-400)
[2017-08-02 06:18] LABS: Alanine Aminotransferase 19 Units/L (0-55); Albumin 1.1 g/dL (3.5-5.0); Albumin/Globulin Ratio 0.4 (1.1-2.2); Alkaline Phosphatase 71 Units/L (38-126); Aspartate Amino Transferase 28 Units/L (5-34); BUN/Creatinine Ratio 14 (6-26); Bilirubin,Indirect 0.4 mg/dL (0.0-1.2); Bilirubin,Total 1.4 mg/dL (0.2-1.2); Blood Urea Nitrogen 15 mg/dL (7-20); Calcium 7.9 mg/dL (8.6-10.8); Carbon Dioxide 24 mEq/L (19-29); Chloride 106 mEq/L (98-109); Globulin 3.1 g/dL (2.4-3.5); Glucose 155 mg/dL (70-99); Magnesium 1.9 mg/dL (1.6-2.6); Osmolality,Calculated 286 (280-300); Potassium 3.8 mEq/L (3.5-4.5); Sodium 136 mEq/L (136-145); Total Protein 4.2 g/dL (6.0-8.3); Triglycerides 262 mg/dL (< 150); eGFR For African Americans > 60 (> 60); eGFR For Non-African Americans 53 (> 60)
[2017-08-02] MEDS: Dexmedetomidine HCl 400 MCG/100 ML MLS IVC SCH ×3 (06:22→23:20)
[2017-08-02] MEDS ORDERED: Sodium Phosphate 30 MMOL in D5% in Water 100 ML IVPB ONE (06:33)
[2017-08-02] MEDS ORDERED: Budesonide/Formoterol 160/4.5 MDI IH ONE (07:46)
[2017-08-02 08:25] LABS: Anisocytosis 1+ (Not Present); Eosinophils # 1.3 K/mcL (0.0-0.6); Lymphocytes # 1.3 K/mcL (0.6-4.6); Monocytes # 0.9 K/mcL (0.0-1.3); Neutrophils # 5.6 K/mcL (1.6-8.9); Toxic Granulation Present (Not Present)
[2017-08-02 08:27] LABS: Platelet Estimate Marked Decrease (Normal)
[2017-08-02 08:28] LABS: Polychromasia 1+ (Not Present)
[2017-08-02 08:29] LABS: Hypochromasia Present (Not Present)
[2017-08-02] MEDS: Chlorhexidine Rinse 15 ML MOUTHWASH MM SCH ×2 (08:32→20:36)
[2017-08-02 09:09] LABS: ABG Base Excess -2 mEq/L (-2 to 3); ABG HCO3 25 mEq/L (21-27); ABG Oxygen Saturation 78 % (95-98); ABG PCO2 51 mmHg (35-45); ABG PH 7.29 pH Units (7.32-7.45); ABG PO2 48 mmHg (85-104); ABG TCO2 26 mEq/L (20-26); Blood Gas Modality VC; Blood Gas PEEP 8 cm H2O; Blood Gas Respiration Rate 14; Blood Gas VT 550 cc
[2017-08-02] MEDS ORDERED: *HR* Heparin 5,000 UNIT/ML VIAL ONE (09:13)
--- NOTE | 2017-08-02 09:42 | Pulmonology Progress Note ---
<Julius Navarro - Last Filed: 08/02/17 09:48> Date of Encounter: 08/02/17 Time of Encounter: 09:39 Assessment and Plan (1) Cardiac arrest Current Visit: Yes Status: Acute Patient had a cardiac arrest during endoscopy on the day of admission. She received 1 round of CPR and milligram of epinephrine and had spontaneous return of circulation. Neurologic status appears to be intact. No indications for hypothermia. (2) Perforated abdominal viscus Current Visit: Yes Status: Acute Likely secondary to gastric ulcer. Patient is postop day 3 status post gastric resection. Patient is on broad-spectrum antibiotics with meropenem and levaquin , intraoperative cultures are pending. Surgery is following, further management per surgery. (3) Anemia Current Visit: Yes Status: Acute Likely secondary to peptic ulcer disease. Continue PPI drip. Qualifiers: Anemia type: iron deficiency Iron deficiency anemia type: other iron deficiency Qualified Code(s): D50.8 - Other iron deficiency anemias (4) GI bleed Current Visit: Yes Status: Acute Likely secondary to peptic ulcer disease. Hemoglobin has been corrected. No evidence of active bleeding. Continue to monitor. Qualifiers: GI bleed type/associated pathology: unspecified gastrointestinal hemorrhage type Qualified Code(s): K92.2 - Gastrointestinal hemorrhage, unspecified (5) EDDIE (acute kidney injury) Current Visit: Yes Status: Acute Secondary to dehydration in setting of GI bleed as discussed above. Septic shock is also contributing. Patient has been anuric and is on renal replacement therapy. Electrolytes stable. Nephrology is following. (6) Pleural effusion Current Visit: Yes Status: Acute Patient had a large right-sided pleural effusion that continued to worsen since admission. Patient did have some hypoxia overnight and this was felt to be related to her worsening pleural effusion. Patient underwent pleural catheter placement with evacuation of approximately 1 L of straw-colored fluid immediately. Oxygen saturations improved immediately. Repeat chest x-ray in the morning. (7) Atrial fibrillation Current Visit: Yes Status: Acute Patient is having paroxysmal A. fib since last night. Rate is well controlled. Likely related to stress of underlying illness. Anticoagulation is contraindicated at this time. Continue to monitor. Qualifiers: Atrial fibrillation type: paroxysmal Qualified Code(s): I48.0 - Paroxysmal atrial fibrillation (8) Thrombocytopenia Current Visit: Yes Status: Acute Likely related to underlying sepsis. Platelets were as low as 28 last night. Patient received 2 units of platelets overnight. We will give 1 more unit of platelets today. Subjective Principal diagnosis: Perforated Viscus s/p subtotal gastrectomy Interval history: Patient seen and examined at bedside. Patient remains intubated and sedated. She does not appear to be in any acute distress. Objective PUL Vital signs: Last Vital Signs Temp 96.0 F L 08/02/17 08:00 Pulse 90 08/02/17 09:00 Resp 14 08/02/17 09:00 BP 112/50 08/02/17 09:00 Pulse Ox 95 08/02/17 09:00 General appearance: no acute distress ENT: oropharynx dry Auscultation: bilateral: clear Cardiovascular: regular rate and rhythm Gastrointestinal: hypoactive bowel sounds, soft, non-tender, other (Midline surgical incision with consuelo present. Incision is clean dry and intact) Extremities: no cyanosis, no edema, no clubbing unable to assess due to mental status Ventilator Settings Ventilator Settings: Ventilator Settings, Last 8 Hours Ventilator Mode VC+ Ventilator Mode VC+ Ventilator Mode VC+ Ventilator Mode VC+ Ventilator Mode VC+ Ventilator Mode VC+ Ventilator Mode VC+ Ventilator Mode VC+ Ventilator Mode VC+ Ventilator Mode VC+ Ventilator Mode VC+ Ventilator Mode VC+ Ventilator Tidal Volume 600 Setting Ventilator Tidal Volume 550 Setting Ventilator Tidal Volume 550 Setting Ventilator Tidal Volume 550 Setting Ventilator Tidal Volume 550 Setting Ventilator Tidal Volume 550 Setting Ventilator Tidal Volume 550 Setting Ventilator Tidal Volume 550 Setting Ventilator Tidal Volume 550 Setting Ventilator Tidal Volume 550 Setting Ventilator Tidal Volume 550 Setting Ventilator Tidal Volume 550 Setting Ventilator Respiratory Rate 14 Setting Ventilator Respiratory Rate 14 Setting Ventilator Respiratory Rate 14 Setting Ventilator Respiratory Rate 14 Setting Ventilator Respiratory Rate 14 Setting Ventilator Respiratory Rate 14 Setting Ventilator Respiratory Rate 14 Setting Ventilator Respiratory Rate 14 Setting Ventilator Respiratory Rate 14 Setting Ventilator Respiratory Rate 14 Setting Ventilator Respiratory Rate 14 Setting Ventilator Respiratory Rate 14 Setting Actual Respiratory Rate 14 Actual Respiratory Rate 14 Actual Respiratory Rate 14 Actual Respiratory Rate 14 Actual Respiratory Rate 14 Actual Respiratory Rate 14 Actual Respiratory Rate 14 Actual Respiratory Rate 14 Actual Respiratory Rate 14 Actual Respiratory Rate 15 Actual Respiratory Rate 15 Positive End Expiratory 8 Pressure Positive End Expiratory 8 Pressure Positive End Expiratory 8 Pressure Positive End Expiratory 8 Pressure Positive End Expiratory 8 Pressure Positive End Expiratory 8 Pressure Positive End Expiratory 8 Pressure Positive End Expiratory 8 Pressure Positive End Expiratory 8 Pressure Positive End Expiratory 8 Pressure Positive End Expiratory 8 Pressure Peak Inspiratory Airway 41 Pressure Peak Inspiratory Airway 37 Pressure Peak Inspiratory Airway 38 Pressure Peak Inspiratory Airway 38 Pressure Peak Inspiratory Airway 39 Pressure Peak Inspiratory Airway 39 Pressure Peak Inspiratory Airway 39 Pressure Peak Inspiratory Airway 38 Pressure Peak Inspiratory Airway 37 Pressure Peak Inspiratory Airway 36 Pressure Peak Inspiratory Airway 36 Pressure Results - Laboratory Findings CBC and BMP: 08/02/17 04:30 08/02/17 04:30 ABG ABG pH 7.29 pH Units (7.32-7.45) L 08/02/17 08:55 ABG pCO2 51 mmHg (35-45) H 08/02/17 08:55 ABG pO2 48 mmHg (85-104) L* 08/02/17 08:55 ABG O2 Saturation 78 % (95-98) L 08/02/17 08:55 PT/INR, D-dimer PT 15.0 Seconds (9.4-12.1) H 07/30/17 16:08 Abnormal lab findings: Abnormal lab results RBC 3.34 M/mcL (3.82-4.97) L 08/02/17 04:30 Hgb 9.7 g/dL (11.5-15.4) L D 08/02/17 04:30 Hct 28.1 % (35.3-44.9) L 08/02/17 04:30 RDW 17.3 % (11.5-14.5) H 08/02/17 04:30 Plt Count 39 K/mcL (140-400) L 08/02/17 04:30 MPV 12.5 fL (9.4-12.4) H 08/02/17 04:30 Band Neutrophils % 6.0 % (0-4) H 07/30/17 22:00 Metamyelocytes % 2.0 % (0) H 07/30/17 16:08 Myelocytes % 2.0 % (0) H 07/30/17 16:08 Eosinophils # 1.3 K/mcL (0.0-0.6) H 08/02/17 04:30 Nucleated RBCs/100 WBC 5.0 /100 WBC (0) H 08/02/17 04:30 Toxic Granulation Present (Not Present) A 08/02/17 04:30 Platelet Estimate Marked Decrease (Normal) L 08/02/17 04:30 Immature Plt Fraction 11.6 % (1.1-6.1) H 08/01/17 04:35 Polychromasia 1+ (Not Present) A 08/02/17 04:30 Hypochromasia Present (Not Present) A 08/02/17 04:30 Anisocytosis 1+ (Not Present) A 08/02/17 04:30 Target Cells 1+ (Not Present) A 08/01/17 04:35 [place]ima Cells 1+ (Not Present) A 08/01/17 04:35 PT 15.0 Seconds (9.4-12.1) H 07/30/17 16:08 APTT 69.7 Seconds (26.0-36.0) H 08/01/17 05:30 ABG pH 7.29 pH Units (7.32-7.45) L 08/02/17 08:55 ABG pCO2 51 mmHg (35-45) H 08/02/17 08:55 ABG pO2 48 mmHg (85-104) L* 08/02/17 08:55 ABG O2 Saturation 78 % (95-98) L 08/02/17 08:55 ABG Hematocrit 26.0 % (35.3-44.9) L 07/30/17 18:50 ABG Chloride 109 mEq/L (98-107) H 07/30/17 18:50 VBG pH 7.14 pH Units (7.32-7.42) L* 07/30/17 09:47 VBG pO2 80 mmHg (25-50) H 07/30/17 09:47 VBG HCO3 17 mEq/L (21-27) L 07/30/17 09:47 Sodium 134 mEq/L (135-148) L 07/30/17 18:50 Glucose 163 mg/dL (60-95) H 07/30/17 18:50 Lactate 2.5 mmol/L (0.7-2.1) H 07/30/17 18:50 Est GFR (Non-Af Amer) 53 (> 60) L 08/02/17 04:30 Glucose 155 mg/dL (70-99) H 08/02/17 04:30 POC Glucose 153 (58-89) H 08/02/17 06:13 Lactic Acid 4.0 mmol/L (0.5-2.2) H* 08/01/17 04:35 Calcium 7.9 mg/dL (8.6-10.8) L 08/02/17 04:30 Phosphorus 1.0 mg/dL (2.3-4.7) L* D 08/02/17 04:30 Total Bilirubin 1.4 mg/dL (0.2-1.2) H D 08/02/17 04:30 Direct Bilirubin 1.0 mg/dL (0.0-0.5) H 08/02/17 04:30 B-Natriuretic Peptide 512 pg/mL (0-100) H 07/29/17 09:43 Serum Total Protein 4.2 g/dL (6.0-8.3) L D 08/02/17 04:30 Albumin 1.1 g/dL (3.5-5.0) L D 08/02/17 04:30 Albumin/Globulin Ratio 0.4 (1.1-2.2) L 08/02/17 04:30 Triglycerides 262 mg/dL (< 150) H 08/02/17 04:30 Arterial Blood Ionized Calcium 1.48 mmol/L (1.15-1.35) H 07/30/17 18:50 Urine Clarity Hazy (Clear) A 07/29/17 13:07 Ur Specific [place] 1.026 (1.010-1.025) H 07/29/17 13:07 Urine Ketones Trace mg/dL (Negative) H 07/29/17 13:07 Urine Bilirubin Small (Negative) H 07/29/17 13:07 Ur Leukocyte Esterase Small (Negative) H 07/29/17 13:07 Urine Microscopic RBC 3-5 per hpf (0-3) H 07/29/17 13:07 Ur Squamous Epith Cells Many per lpf (None-Few) H 07/29/17 13:07 Amorphous Sediment Many (Few) H 07/29/17 13:07 Ur Culture Indicated? YES (NO) A 07/29/17 13:07 Protein/Creatinin Ratio 2.43 mg/mg (0-0.20) H 08/02/17 02:30 Urine Total Protein 211 mg/dL (1-14) H 08/02/17 02:30 Stool Occult Blood Positive (Negative) A 07/29/17 10:57 Salicylates < 5.0 mg/dL (15-30) L 07/30/17 09:28 Acetaminophen < 1.0 mcg/mL (10-30) L 07/30/17 09:28 - Microbiology Findings Microbiology Findings: Microbiology, Last 48 Hours 08/01/17 10:40 Gram Stain - Final Pleural Fluid - Clinical Findings Intake & Output: Intake & Output 08/01/17 08/02/17 08/02/17 23:59 07:59 15:59 Intake Total 7229 / 7229 987 / 987 171 / 171 Output Total 1314 / 1314 1378 / 1378 197 / 197 Balance 5915 / 5915 -391 / -391 - - Weight 100 kg - VTE Documentation of Mechanical Device: Intermittent pneumatic compression device Consult Discharge Plan - Plan Referrals: Keesha Ellsworth, [facility] [Primary Care Provider] - <Vicky Zapien - Last Filed: 08/02/17 10:18> Date of Encounter: 08/02/17 Objective PUL Vital signs: Last Vital Signs Temp 96.0 F L 08/02/17 08:00 Pulse 92 08/02/17 10:00 Resp 14 08/02/17 10:00 BP 103/49 08/02/17 10:00 Pulse Ox 96 08/02/17 10:00 Ventilator Settings Ventilator Settings: Ventilator Settings, Last 8 Hours Ventilator Mode VC+ Ventilator Mode VC+ Ventilator Mode VC+ Ventilator Mode VC+ Ventilator Mode VC+ Ventilator Mode VC+ Ventilator Mode VC+ Ventilator Mode VC+ Ventilator Mode VC+ Ventilator Mode VC+ Ventilator Mode VC+ Ventilator Mode VC+ Ventilator Mode VC+ Ventilator Tidal Volume 600 Setting Ventilator Tidal Volume 600 Setting Ventilator Tidal Volume 600 Setting Ventilator Tidal Volume 550 Setting Ventilator Tidal Volume 550 Setting Ventilator Tidal Volume 550 Setting Ventilator Tidal Volume 550 Setting Ventilator Tidal Volume 550 Setting Ventilator Tidal Volume 550 Setting Ventilator Tidal Volume 550 Setting Ventilator Tidal Volume 550 Setting Ventilator Tidal Volume 550 Setting Ventilator Tidal Volume 550 Setting Ventilator Respiratory Rate 14 Setting Ventilator Respiratory Rate 14 Setting Ventilator Respiratory Rate 14 Setting Ventilator Respiratory Rate 14 Setting Ventilator Respiratory Rate 14 Setting Ventilator Respiratory Rate 14 Setting Ventilator Respiratory Rate 14 Setting Ventilator Respiratory Rate 14 Setting Ventilator Respiratory Rate 14 Setting Ventilator Respiratory Rate 14 Setting Ventilator Respiratory Rate 14 Setting Ventilator Respiratory Rate 14 Setting Ventilator Respiratory Rate 14 Setting Actual Respiratory Rate 14 Actual Respiratory Rate 14 Actual Respiratory Rate 14 Actual Respiratory Rate 14 Actual Respiratory Rate 14 Actual Respiratory Rate 14 Actual Respiratory Rate 14 Actual Respiratory Rate 14 Actual Respiratory Rate 14 Actual Respiratory Rate 14 Actual Respiratory Rate 14 Actual Respiratory Rate 15 Positive End Expiratory 8 Pressure Positive End Expiratory 8 Pressure Positive End Expiratory 8 Pressure Positive End Expiratory 8 Pressure Positive End Expiratory 8 Pressure Positive End Expiratory 8 Pressure Positive End Expiratory 8 Pressure Positive End Expiratory 8 Pressure Positive End Expiratory 8 Pressure Positive End Expiratory 8 Pressure Positive End Expiratory 8 Pressure Positive End Expiratory 8 Pressure Peak Inspiratory Airway 40 Pressure Peak Inspiratory Airway 40 Pressure Peak Inspiratory Airway 41 Pressure Peak Inspiratory Airway 37 Pressure Peak Inspiratory Airway 38 Pressure Peak Inspiratory Airway 38 Pressure Peak Inspiratory Airway 39 Pressure Peak Inspiratory Airway 39 Pressure Peak Inspiratory Airway 39 Pressure Peak Inspiratory Airway 38 Pressure Peak Inspiratory Airway 37 Pressure Peak Inspiratory Airway 36 Pressure Results - Laboratory Findings CBC and BMP: 08/02/17 04:30 08/02/17 04:30 ABG ABG pH 7.29 pH Units (7.32-7.45) L 08/02/17 08:55 ABG pCO2 51 mmHg (35-45) H 08/02/17 08:55 ABG pO2 48 mmHg (85-104) L* 08/02/17 08:55 ABG O2 Saturation 78 % (95-98) L 08/02/17 08:55 PT/INR, D-dimer PT 15.0 Seconds (9.4-12.1) H 07/30/17 16:08 Abnormal lab findings: Abnormal lab results RBC 3.34 M/mcL (3.82-4.97) L 08/02/17 04:30 Hgb 9.7 g/dL (11.5-15.4) L D 08/02/17 04:30 Hct 28.1 % (35.3-44.9) L 08/02/17 04:30 RDW 17.3 % (11.5-14.5) H 08/02/17 04:30 Plt Count 39 K/mcL (140-400) L 08/02/17 04:30 MPV 12.5 fL (9.4-12.4) H 08/02/17 04:30 Band Neutrophils % 6.0 % (0-4) H 07/30/17 22:00 Metamyelocytes % 2.0 % (0) H 07/30/17 16:08 Myelocytes % 2.0 % (0) H 07/30/17 16:08 Eosinophils # 1.3 K/mcL (0.0-0.6) H 08/02/17 04:30 Nucleated RBCs/100 WBC 5.0 /100 WBC (0) H 08/02/17 04:30 Toxic Granulation Present (Not Present) A 08/02/17 04:30 Platelet Estimate Marked Decrease (Normal) L 08/02/17 04:30 Immature Plt Fraction 11.6 % (1.1-6.1) H 08/01/17 04:35 Polychromasia 1+ (Not Present) A 08/02/17 04:30 Hypochromasia Present (Not Present) A 08/02/17 04:30 Anisocytosis 1+ (Not Present) A 08/02/17 04:30 Target Cells 1+ (Not Present) A 08/01/17 04:35 Kartik Cells 1+ (Not Present) A 08/01/17 04:35 PT 15.0 Seconds (9.4-12.1) H 07/30/17 16:08 APTT 69.7 Seconds (26.0-36.0) H 08/01/17 05:30 ABG pH 7.29 pH Units (7.32-7.45) L 08/02/17 08:55 ABG pCO2 51 mmHg (35-45) H 08/02/17 08:55 ABG pO2 48 mmHg (85-104) L* 08/02/17 08:55 ABG O2 Saturation 78 % (95-98) L 08/02/17 08:55 ABG Hematocrit 26.0 % (35.3-44.9) L 07/30/17 18:50 ABG Chloride 109 mEq/L (98-107) H 07/30/17 18:50 VBG pH 7.14 pH Units (7.32-7.42) L* 07/30/17 09:47 VBG pO2 80 mmHg (25-50) H 07/30/17 09:47 VBG HCO3 17 mEq/L (21-27) L 07/30/17 09:47 Sodium 134 mEq/L (135-148) L 07/30/17 18:50 Glucose 163 mg/dL (60-95) H 07/30/17 18:50 Lactate 2.5 mmol/L (0.7-2.1) H 07/30/17 18:50 Est GFR (Non-Af Amer) 53 (> 60) L 08/02/17 04:30 Glucose 155 mg/dL (70-99) H 08/02/17 04:30 POC Glucose 153 (58-89) H 08/02/17 06:13 Lactic Acid 4.0 mmol/L (0.5-2.2) H* 08/01/17 04:35 Calcium 7.9 mg/dL (8.6-10.8) L 08/02/17 04:30 Phosphorus 1.0 mg/dL (2.3-4.7) L* D 08/02/17 04:30 Total Bilirubin 1.4 mg/dL (0.2-1.2) H D 08/02/17 04:30 Direct Bilirubin 1.0 mg/dL (0.0-0.5) H 08/02/17 04:30 B-Natriuretic Peptide 512 pg/mL (0-100) H 07/29/17 09:43 Serum Total Protein 4.2 g/dL (6.0-8.3) L D 08/02/17 04:30 Albumin 1.1 g/dL (3.5-5.0) L D 08/02/17 04:30 Albumin/Globulin Ratio 0.4 (1.1-2.2) L 08/02/17 04:30 Triglycerides 262 mg/dL (< 150) H 08/02/17 04:30 Arterial Blood Ionized Calcium 1.48 mmol/L (1.15-1.35) H 07/30/17 18:50 Urine Clarity Hazy (Clear) A 07/29/17 13:07 Ur Specific [place] 1.026 (1.010-1.025) H 07/29/17 13:07 Urine Ketones Trace mg/dL (Negative) H 07/29/17 13:07 Urine Bilirubin Small (Negative) H 07/29/17 13:07 Ur Leukocyte Esterase Small (Negative) H 07/29/17 13:07 Urine Microscopic RBC 3-5 per hpf (0-3) H 07/29/17 13:07 Ur Squamous Epith Cells Many per lpf (None-Few) H 07/29/17 13:07 Amorphous Sediment Many (Few) H 07/29/17 13:07 Ur Culture Indicated? YES (NO) A 07/29/17 13:07 Protein/Creatinin Ratio 2.43 mg/mg (0-0.20) H 08/02/17 02:30 Urine Total Protein 211 mg/dL (1-14) H 08/02/17 02:30 Stool Occult Blood Positive (Negative) A 07/29/17 10:57 Salicylates < 5.0 mg/dL (15-30) L 07/30/17 09:28 Acetaminophen < 1.0 mcg/mL (10-30) L 07/30/17 09:28 - Microbiology Findings Microbiology Findings: Microbiology, Last 48 Hours 08/01/17 10:40 Gram Stain - Final Pleural Fluid - Clinical Findings Intake & Output: Intake & Output 08/01/17 08/02/17 08/02/17 23:59 07:59 15:59 Intake Total 7229 / 7229 987 / 987 171 / 171 Output Total 1314 / 1314 1378 / 1378 362 / 362 Balance 5915 / 5915 -391 / -391 -191 / -191 Weight 100 kg - Attending Attestation I examined this patient and my medical decision-making was reviewed with the Resident Physician. I agree with the documented findings, disposition and treatment plan as described except to the extent set forth below. Patient seen and examined. Labs, radiology, chart personally reviewed. 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 Chest tube is draining less and will monitor if less than 150 mL then it can be removed. Still have some evidence of respiratory acidosis and increased tidal volume. Metabolic acidosis hopefully will be corrected with Jade. Cardiovascular: Patient remained in septic shock and started on Levothroid which needs to go higher. GI: Nutrition per dietary and GI prophylaxis per routine Heme: DVT prophylaxis per routine. No need for transfusion packed RBC and platelet was transfused. ID: Continue antibiotics and plan to de-escalation Renal; urine out put and renal funtion reviewed. Patient is on Jade. Endorcine: blood glucose is monitored Lines: all lines checked and no evidence of infections Skin: skin care to prevent pressure ulcers per nursing routine care I have explained to the family she still critically ill and will continue current treatment. I spent 35 min of Critical Care time with this patient. It involved decision making of high complexity to assess, manipulate, and support vital organ system failure and/or to prevent further life threatening deterioration of the patient' s condition. The time involved in the performance of separately reportable procedures was not counted toward critical care time.
[2017-08-02] MEDS: Nystatin Cream 15 GM TUBE TP SCH ×2 (11:21→20:39)
[2017-08-02] MEDS: Levofloxacin 750 MG/150 ML 750 MG/150 ML BAG IVPB SCH (11:21)
--- NOTE | 2017-08-02 11:51 | Nephrology Progress Note ---
Date of Encounter: 08/02/17 Time of Encounter: 11:48 - Assessment and Plan (1) EDDIE (acute kidney injury) Current Visit: Yes Status: Acute Cr improved continues to improve. oligoanuric EDDIE will continue with dialysis. continues to have poor urine output. urine culture: no growth. Plan: continue with helen today with more fluid removal after patient is weaned off of levophed (vasopressin stopped yesterday). stopped citrate due to thrombocytopenia (2) Thrombocytopenia Current Visit: Yes Status: Acute stopped citrate (3) CKD (chronic kidney disease) Current Visit: Yes Status: Acute Qualifiers: Chronic kidney disease stage: unspecified stage Qualified Code(s): N18.9 - Chronic kidney disease, unspecified (4) Hyperkalemia Current Visit: Yes Status: Resolved (5) Anemia Current Visit: Yes Status: Acute acute blood loss anemia, s/p transfusion of 7 units so far. Qualifiers: Anemia type: iron deficiency Iron deficiency anemia type: other iron deficiency Qualified Code(s): D50.8 - Other iron deficiency anemias (6) GI bleed Current Visit: Yes Status: Acute Qualifiers: GI bleed type/associated pathology: unspecified gastrointestinal hemorrhage type Qualified Code(s): K92.2 - Gastrointestinal hemorrhage, unspecified (7) Hypertension Current Visit: Yes Status: Chronic Qualifiers: Hypertension type: essential hypertension Qualified Code(s): I10 - Essential (primary) hypertension (8) Pleural effusion Current Visit: Yes Status: Acute s/p placement of pleural catheter yesterday per primary. (9) Perforated abdominal viscus Current Visit: Yes Status: Acute per surgery and primary team. Subjective Principal diagnosis: Perforated Viscus s/p subtotal gastrectomy Interval history: 62F evaluated at bedside. patient remains intubated and sedated. Objective - Vital Signs Vital signs: Vital Signs Temp Pulse Resp BP Pulse Ox 08/02/17 11:09 14 119/53 95 08/02/17 11:00 100 14 103/56 98 08/02/17 10:00 92 14 103/49 96 08/02/17 09:50 14 108/52 96 08/02/17 09:00 90 14 112/50 95 08/02/17 08:00 96.0 F L 90 14 122/62 92 08/02/17 07:56 14 92/51 92 08/02/17 07:54 90 08/02/17 07:00 104 14 108/50 91 08/02/17 06:00 92 14 109/52 91 08/02/17 05:27 14 89/45 88 08/02/17 05:00 101 14 97/47 89 08/02/17 04:00 96.6 F L 72 14 115/47 91 08/02/17 03:27 14 132/49 90 08/02/17 03:00 74 15 121/46 90 08/02/17 02:00 80 15 111/47 89 08/02/17 01:17 16 124/45 89 08/02/17 01:00 85 15 137/49 90 08/02/17 00:00 97.9 F 70 15 140/52 90 08/01/17 23:50 97.9 F 86 15 131/49 90 08/01/17 23:38 15 138/54 90 08/01/17 23:21 97.8 F 83 14 129/49 90 08/01/17 23:20 97.8 F 87 15 136/50 08/01/17 23:00 97.8 F 81 14 129/49 90 08/01/17 22:00 97.9 F 83 14 138/49 90 08/01/17 21:36 16 99/37 90 08/01/17 21:00 89 16 134/46 90 08/01/17 20:00 81 14 127/47 92 08/01/17 19:39 15 129/48 91 08/01/17 19:00 78 14 114/45 91 08/01/17 18:22 14 133/52 88 08/01/17 18:00 80 14 133/52 93 08/01/17 17:00 82 14 155/55 92 08/01/17 16:27 14 132/51 93 08/01/17 16:00 97.9 F 76 14 121/43 93 08/01/17 15:00 80 14 139/49 93 08/01/17 14:31 97.5 F L 80 14 142/49 93 08/01/17 14:00 84 14 124/43 93 08/01/17 13:00 80 14 116/44 90 08/01/17 12:38 97.5 F L 80 14 101/38 91 08/01/17 12:23 97.3 F L 80 14 111/41 90 08/01/17 12:20 97.7 F 84 14 138/43 97 08/01/17 12:00 97.3 F L 80 14 111/41 90 Intake and Output 08/01/17 08/02/17 08/02/17 23:59 07:59 15:59 Intake Total 7229 / 7229 987 / 987 171 / 171 Output Total 1314 / 1314 1378 / 1378 415 / 415 Balance 5915 / 5915 -391 / -391 -244 / -244 Intake: IV Fluids 6779 / 6779 987 / 987 171 / 171 Calcium Chloride 4,000 MG In 0. 1140 / 1140 9 % Sodium Chloride 1,000 ML @ 40 mls/hr CRRT CONT [facility] Rx#: [id number] PrismaSATE BGK 4/2.5 5,000 ML @ 5000 / 5000 2 / 2 1000 mls/hr CRRT CONT [facility] Rx#: [id number] PRECEDEX Premix 400 mcg In 100 34 / 34 69 / 69 ml @ 0.5 MCG/KG/HR 10.988 mls/ hr IVC .Q9H7M [facility] Rx#: [id number] FentaNYL (PF) 1,000 MCG In 0.9 85 / 85 54 / 54 % Sodium Chloride 80 ML @ 50 MCG/HR 5 mls/hr IVC CONT [facility] Rx #:[id number] Levophed 8 MG In Dextrose 5% 258 / 258 385 / 385 60 / 60 250 ML @ 20 MCG/MIN 38.7 mls/hr IVC CONT [facility] Rx#:[id number] Protonix 40 MG In 0.9 % Sodium 100 / 100 189 / 189 11 / 11 Chloride (Mini-Bag +) 100 ML @ 20 mls/hr IVC .Q5H [facility] Rx#: [id number] Intralipid 20% 250 ML @ 21 mls/ 62 / 62 188 / 188 hr IVPB DAILY@1700 [facility] Rx#: [id number] Merrem 1,000 MG In 0.9 % Sodium 100 / 100 100 / 100 100 / 100 Chloride (Mini-Bag +) 100 ML @ 200 mls/hr IVPB Q8H [facility] Rx#: [id number] Blood Product 450 / 450 Platelet Pheresis Lp Irr 1st 450 / 450 Unit [id number] Output: Urine 0 / 0 0 / 0 Urethral ([place]) 0 / 0 Helen 1189 / 1189 1213 / 1213 405 / 405 Thoracentesis 50 / 50 Other 0 / 0 50 / 50 Catheter 5 / 5 15 / 10 Chest Tube Drainage 70 / 70 100 / 100 0 / 0 Right Upper Mid-Axillary Chest 70 / 70 100 / 100 0 / 0 #1 Other: Weight 100 kg Blood Glucose* 153 Patient Weight 08/02/17 23:59 Weight 100 kg - General Appearance General appearance: Present: well-developed, well-nourished, appears started age , obese, intubated Neck: Present: JVD Cardiology: Present: regular rate, regular rhythm, normal S1, normal S2 Dialysis Vascular Access: Venous Catheter Gastrointestinal: Present: absent bowel sounds, no tenderness, no guarding, no organomegaly, no masses Additional Comments: abdomen soft distended, non tender, bowel sounds not heard. Additional Comments: bilateral +3 pitting edema on extremities, appears worse on left lower extremity than right. - Lab 08/02/17 04:30 08/02/17 04:30 Most recent lab results ABG pH 7.29 pH Units (7.32-7.45) L 08/02/17 08:55 ABG pCO2 51 mmHg (35-45) H 08/02/17 08:55 ABG pO2 48 mmHg (85-104) L* 08/02/17 08:55 ABG HCO3 25 mEq/L (21-27) 08/02/17 08:55 ABG O2 Saturation 78 % (95-98) L 08/02/17 08:55 Calcium 7.9 mg/dL (8.6-10.8) L 08/02/17 04:30 Phosphorus 1.0 mg/dL (2.3-4.7) L* D 08/02/17 04:30 Magnesium 1.9 mg/dL (1.6-2.6) 08/02/17 04:30 Urine Creatinine 87 mg/dL 08/02/17 02:30 Urine Sodium 49.0 mEq/L 08/02/17 02:30 Urine Total Protein 211 mg/dL (1-14) H 08/02/17 02:30 - VTE Documentation of Mechanical Device: Intermittent pneumatic compression device Consult Discharge Plan - Plan Referrals: Keesha Ellsworth, VINE[employer] MAKER [Primary Care Provider] -
--- NOTE | 2017-08-02 12:23 | General Surgery Progress Note ---
Date of Encounter: 08/02/17 Time of Encounter: 11:50 Subjective Narrative: General Surgery - POD #3 Patient remains intubated, requires less pressor support. Patient awake, able to respond to simple questions. She denies abd pain Afebrile, currently 96.0; pulse 90; respirations 14; blood pressure 122/62 though earlier today 92/51 Lungs clear; SPO2 92% on 60% FIO2; significant history tobacco use, likely baseline 90% or less - ABGs 7.29/pCO2 51/ pO2 48/roqfpr20 chest tube approx 230 mL serous fluid since yesterday Abdomen: soft, quiet non tender. Midline incision clean and dry. gastrostomy tube - scant output. intra operative cultures pending. Laboratories: White count 9.1, hematocrit 28.1; platelet count 39,000 Electrolytes within acceptable range; ionized calcium 1.0; total protein 4.2 , albumin 1.1 - TPN discussed with Manager Multimedia Impression: continues slow progress. discussed with CCM and Nutrition Objective Vital Signs - Last 8 Hours Temp Pulse Resp BP Pulse Ox 08/02/17 11:09 14 119/53 95 08/02/17 11:00 100 14 103/56 98 08/02/17 10:00 92 14 103/49 96 08/02/17 09:50 14 108/52 96 08/02/17 09:00 90 14 112/50 95 08/02/17 08:00 96.0 F L 90 14 122/62 92 08/02/17 07:56 14 92/51 92 08/02/17 07:54 90 08/02/17 07:00 104 14 108/50 91 08/02/17 06:00 92 14 109/52 91 08/02/17 05:27 14 89/45 88 08/02/17 05:00 101 14 97/47 89 Intake and Output 08/01/17 08/02/17 08/02/17 23:59 07:59 15:59 Intake Total 7229 / 7229 987 / 987 221 / 221 Output Total 1314 / 1314 1378 / 1378 415 / 415 Balance 5915 / 5915 -391 / -391 -194 / -194 Intake: IV Fluids 6779 / 6779 987 / 987 221 / 221 Calcium Chloride 4,000 MG In 0. 1140 / 1140 9 % Sodium Chloride 1,000 ML @ 40 mls/hr CRRT CONT [facility] Rx#: [id number] PrismaSATE BGK 4/2.5 5,000 ML @ 5000 / 5000 2 / 2 1000 mls/hr CRRT CONT [facility] Rx#: [id number] PRECEDEX Premix 400 mcg In 100 34 / 34 69 / 69 ml @ 0.5 MCG/KG/HR 10.988 mls/ hr IVC .Q9H7M [facility] Rx#: [id number] FentaNYL (PF) 1,000 MCG In 0.9 85 / 85 54 / 54 % Sodium Chloride 80 ML @ 50 MCG/HR 5 mls/hr IVC CONT [facility] Rx #:[id number] Levophed 8 MG In Dextrose 5% 258 / 258 385 / 385 110 / 110 250 ML @ 20 MCG/MIN 38.7 mls/hr IVC CONT [facility] Rx#:[id number] Protonix 40 MG In 0.9 % Sodium 100 / 100 189 / 189 11 / 11 Chloride (Mini-Bag +) 100 ML @ 20 mls/hr IVC .Q5H [facility] Rx#: [id number] Intralipid 20% 250 ML @ 21 mls/ 62 / 62 188 / 188 hr IVPB DAILY@1700 [facility] Rx#: [id number] Merrem 1,000 MG In 0.9 % Sodium 100 / 100 100 / 100 100 / 100 Chloride (Mini-Bag +) 100 ML @ 200 mls/hr IVPB Q8H [facility] Rx#: [id number] Blood Product 450 / 450 Platelet Pheresis Lp Irr 1st 450 / 450 Unit [id number] Output: Urine 0 / 0 0 / 0 Urethral ([place]) 0 / 0 Jade 1189 / 1189 1213 / 1213 405 / 405 Thoracentesis 50 / 50 Other 0 / 0 50 / 50 Catheter 5 / 5 15 / 15 10 / 10 Chest Tube Drainage 70 / 70 100 / 100 0 / 0 Right Upper Mid-Axillary Chest 70 / 70 100 / 100 0 / 0 #1 Other: Weight 100 kg Blood Glucose* 153 Patient Weight 08/02/17 23:59 Weight 100 kg - Labs 08/02/17 04:30 08/02/17 04:30 Diabetes panel 08/02/17 Range/Units 04:30 Sodium 136 (136-145) mEq/L Potassium 3.8 D (3.5-4.5) mEq/L Chloride 106 (98-109) mEq/L Carbon Dioxide 24 (19-29) mEq/L BUN 15 D (7-20) mg/dL Creatinine 1.05 (0.57-1.11) mg/dL Glucose 155 H (70-99) mg/dL Calcium 7.9 L (8.6-10.8) mg/dL AST 28 (5-34) Units/L ALT 19 (0-55) Units/L Alkaline Phosphatase 71 (38-126) Units/L Albumin 1.1 L D (3.5-5.0) g/dL Triglycerides 262 H (< 150) mg/dL Calcium panel 08/02/17 Range/Units 04:30 Calcium 7.9 L (8.6-10.8) mg/dL Phosphorus 1.0 L* D (2.3-4.7) mg/dL Albumin 1.1 L D (3.5-5.0) g/dL Pituitary panel 08/02/17 Range/Units 04:30 Sodium 136 (136-145) mEq/L Potassium 3.8 D (3.5-4.5) mEq/L Chloride 106 (98-109) mEq/L Carbon Dioxide 24 (19-29) mEq/L BUN 15 D (7-20) mg/dL Creatinine 1.05 (0.57-1.11) mg/dL Glucose 155 H (70-99) mg/dL Calcium 7.9 L (8.6-10.8) mg/dL Adrenal panel 08/02/17 Range/Units 04:30 Sodium 136 (136-145) mEq/L Potassium 3.8 D (3.5-4.5) mEq/L Chloride 106 (98-109) mEq/L Carbon Dioxide 24 (19-29) mEq/L BUN 15 D (7-20) mg/dL Creatinine 1.05 (0.57-1.11) mg/dL Glucose 155 H (70-99) mg/dL Calcium 7.9 L (8.6-10.8) mg/dL Total Bilirubin 1.4 H D (0.2-1.2) mg/dL AST 28 (5-34) Units/L ALT 19 (0-55) Units/L Alkaline Phosphatase 71 (38-126) Units/L Albumin 1.1 L D (3.5-5.0) g/dL - VTE Documentation of Mechanical Device: Intermittent pneumatic compression device Consult Discharge Plan - Plan Referrals: Keesha Ellsworth, NANCY [Primary Care Provider] -
[2017-08-02] MEDS: Fluconazole 400 MG/200 ML 400 MG/200 ML BAG IVPB SCH (12:48)
[2017-08-02] MEDS: Meropenem 1,000 MG in Water for inj. (sterile) 10 ML IVP SCH ×2 (16:09→23:35)
[2017-08-02] MEDS ORDERED: Clinimix E 5%-15% SOLUTION 2,000 ML with MVI, adult with vitamin K 10 ML IVC SCH ×2 (17:00)
[2017-08-02] MEDS: FentaNYL (PF) 1,000 MCG in 0.9 % Sodium Chloride 80 ML IVC SCH (17:25)
[2017-08-02] MEDS: Pantoprazole 40 MG VIAL IVP SCH (18:00)
[2017-08-02] MEDS: Vasopressin 40 UNIT in D5% in Water 100 ML IV SCH (19:32)
[2017-08-03] MEDS: Ipratropium/Albuterol Neb 3 ML IH SCH ×5 (03:39→20:32)
[2017-08-03 04:14] LABS: Ionized Calcium 1.15 mmol/L (1.15-1.35)
[2017-08-03 04:16] LABS: BUN/Creatinine Ratio 14 (6-26); Blood Urea Nitrogen 11 mg/dL (7-20); Calcium 7.5 mg/dL (8.6-10.8); Carbon Dioxide 24 mEq/L (19-29); Chloride 105 mEq/L (98-109); Glucose 177 mg/dL (70-99); Magnesium 1.9 mg/dL (1.6-2.6); Osmolality,Calculated 284 (280-300); Potassium 3.7 mEq/L (3.5-4.5); Sodium 135 mEq/L (136-145); eGFR For African Americans > 60 (> 60); eGFR For Non-African Americans > 60 (> 60)
[2017-08-03 04:20] LABS: Albumin/Globulin Ratio 0.3 (1.1-2.2); Bilirubin,Direct 0.7 mg/dL (0.0-0.5); Bilirubin,Indirect 0.3 mg/dL (0.0-1.2); Globulin 3.5 g/dL (2.4-3.5); Total Protein 4.4 g/dL (6.0-8.3)
[2017-08-03 04:22] LABS: Phosphorous 0.9 mg/dL (2.3-4.7)
[2017-08-03 04:25] LABS: Albumin 0.9 g/dL (3.5-5.0)
[2017-08-03] MEDS: Lacri-Lube 3.5 GM TUBE BOTH EYES SCH ×6 (04:42→23:37)
[2017-08-03] MEDS: Insulin LISPRO 300 UNITS/3 ML VIAL SQ SCH ×6 (04:43→23:42)
[2017-08-03] MEDS: Pantoprazole 40 MG VIAL IVP SCH ×2 (04:45→17:47)
[2017-08-03 04:46] LABS: Basophils % 0.2 %; Eosinophils # 0.5 K/mcL (0.0-0.6); Eosinophils % 6.9 %; Hematocrit 28.6 % (35.3-44.9); Hemoglobin 9.9 g/dL (11.5-15.4); Immature Granulocytes % 2.5 % (0-4); Immature Platelets 16.7 % (1.1-6.1); Lymphocytes # 0.3 K/mcL (0.6-4.6); Lymphocytes % 4.9 %; Mean Corpuscular HGB Conc 34.6 g/dL (31.6-35.5); Mean Corpuscular Hemoglobin 28.9 pg (28.0-33.3); Mean Corpuscular Volume 83.4 fL (83.0-100.0); Monocytes # 0.5 K/mcL (0.0-1.3); Nucleated Red Blood Cells 6.2 /100 WBC (0); Red Blood Count 3.43 M/mcL (3.82-4.97); Red Cell Distribution Width 17.3 % (11.5-14.5); Segmented Neutrophils % 77.5 %
[2017-08-03] MEDS: PrismaSATE BGK 4/2.5 5,000 ML CRRT SCH ×6 (04:48→21:00)
[2017-08-03 05:02] LABS: Platelet Count 15 K/mcL (140-400)
[2017-08-03 05:06] LABS: Platelet Estimate Marked Decrease (Normal)
[2017-08-03 05:07] LABS: Anisocytosis 1+ (Not Present); Microcytosis Present (Not Present); Poikilocytosis 1+ (Not Present); Polychromasia 1+ (Not Present); Target Cells 1+ (Not Present)
[2017-08-03] MEDS ORDERED: Potassium Phosphate 44 MEQ in 0.9 % Sodium Chloride 250 ML IVPB ONE (05:11)
[2017-08-03] MEDS: Norepinephrine 8 MG in D5% in Water 250 ML IVC SCH ×2 (06:43→16:52)
--- NOTE | 2017-08-03 07:25 | Internal Med Progress Note ---
Date of Encounter: 08/03/17 - Assessment and plan (1) Anemia Current Visit: Yes Status: Acute Qualifiers: Anemia type: iron deficiency Iron deficiency anemia type: other iron deficiency Qualified Code(s): D50.8 - Other iron deficiency anemias (2) Perforated abdominal viscus Current Visit: Yes Status: Acute (3) EDDIE (acute kidney injury) Current Visit: Yes Status: Acute (4) CKD (chronic kidney disease) Current Visit: Yes Status: Acute Qualifiers: Chronic kidney disease stage: unspecified stage Qualified Code(s): N18.9 - Chronic kidney disease, unspecified (5) Ascites Current Visit: Yes Status: Acute Qualifiers: Ascites type: other type Qualified Code(s): R18.8 - Other ascites (6) Hypertension Current Visit: Yes Status: Chronic Qualifiers: Hypertension type: essential hypertension Qualified Code(s): I10 - Essential (primary) hypertension (7) Pleural effusion Current Visit: Yes Status: Acute (8) Debility Current Visit: Yes Status: Acute (9) Skin maceration Current Visit: Yes Status: Acute (10) DVT prophylaxis Current Visit: Yes Status: Acute (11) Full code status Current Visit: Yes Status: Acute - Subjective Interval history: Pt underwent exploratory celiotomy, with evacuation of 3 L infected ascites, subtotal gastrectomy with stapled retrocolic gastrojejunostomy and placement of Lam gastrostomy tube. This AM, patient is responsive to voice. - Constitutional Vitals: Temp Pulse Resp BP Pulse Ox 95.6 F L 79 19 138/46 96 08/03/17 04:00 08/03/17 06:55 08/03/17 06:55 08/03/17 06:55 08/03/17 06:55 General appearance: Present: mild distress, A&O X 3, pleasant Internal Medicine: Result - Labs CBC & Chem 7: 08/03/17 04:35 08/03/17 03:30 Labs: Short CBC 08/02/17 08/03/17 Range/Units 04:30 04:35 WBC 6.5 (4.3-11.1) K/mcL Hgb 9.9 L (11.5-15.4) g/dL Hct 28.6 L (35.3-44.9) % Plt Count 15 L* D (140-400) K/mcL Neutrophils # 5.6 5.0 (1.6-8.9) K/mcL BMP 08/03/17 03:30 Sodium 135 L Potassium 3.7 Chloride 105 Carbon Dioxide 24 BUN 11 Creatinine 0.76 Glucose 177 H Calcium 7.5 L Liver Function 08/03/17 Range/Units 03:30 Total Bilirubin 1.0 (0.2-1.2) mg/dL Direct Bilirubin 0.7 H (0.0-0.5) mg/dL AST 25 (5-34) Units/L ALT 20 (0-55) Units/L Alkaline Phosphatase 78 (38-126) Units/L Albumin 0.9 L (3.5-5.0) g/dL - ABG Interpretation ABG results: ABG ABG pH 7.29 pH Units (7.32-7.45) L 08/02/17 08:55 ABG pCO2 51 mmHg (35-45) H 08/02/17 08:55 ABG pO2 48 mmHg (85-104) L* 08/02/17 08:55 ABG O2 Saturation 78 % (95-98) L 08/02/17 08:55 PT/INR, D-dimer PT 15.0 Seconds (9.4-12.1) H 07/30/17 16:08 - VTE Documentation of Mechanical Device: Intermittent pneumatic compression device Consult Discharge Plan - Plan Referrals: Keesha Ellsworth, [employer]N LOADER [Primary Care Provider] -
--- NOTE | 2017-08-03 07:29 | Pulmonology Progress Note ---
<Vicky Zapien M - Last Filed: 08/03/17 10:02> Date of Encounter: 08/03/17 Objective PUL Vital signs: Last Vital Signs Temp 91.0 F L 08/03/17 08:00 Pulse 77 08/03/17 09:00 Resp 18 08/03/17 09:00 BP 115/40 08/03/17 09:00 Pulse Ox 94 08/03/17 09:00 Ventilator Settings Ventilator Settings: Ventilator Settings, Last 8 Hours Ventilator Mode VC+ Ventilator Mode VC+ Ventilator Mode VC+ Ventilator Mode VC+ Ventilator Mode VC+ Ventilator Mode VC+ Ventilator Mode VC+ Ventilator Mode VC+ Ventilator Mode VC+ Ventilator Mode VC+ Ventilator Mode VC+ Ventilator Mode VC+ Ventilator Tidal Volume 600 Setting Ventilator Tidal Volume 600 Setting Ventilator Tidal Volume 600 Setting Ventilator Tidal Volume 600 Setting Ventilator Tidal Volume 600 Setting Ventilator Tidal Volume 600 Setting Ventilator Tidal Volume 600 Setting Ventilator Tidal Volume 600 Setting Ventilator Tidal Volume 600 Setting Ventilator Tidal Volume 600 Setting Ventilator Tidal Volume 600 Setting Ventilator Tidal Volume 600 Setting Ventilator Respiratory Rate 14 Setting Ventilator Respiratory Rate 16 Setting Ventilator Respiratory Rate 14 Setting Ventilator Respiratory Rate 14 Setting Ventilator Respiratory Rate 14 Setting Ventilator Respiratory Rate 14 Setting Ventilator Respiratory Rate 14 Setting Ventilator Respiratory Rate 14 Setting Ventilator Respiratory Rate 14 Setting Ventilator Respiratory Rate 14 Setting Ventilator Respiratory Rate 14 Setting Ventilator Respiratory Rate 14 Setting Actual Respiratory Rate 18 Actual Respiratory Rate 18 Actual Respiratory Rate 16 Actual Respiratory Rate 22 Actual Respiratory Rate 19 Actual Respiratory Rate 19 Actual Respiratory Rate 20 Actual Respiratory Rate 20 Actual Respiratory Rate 19 Actual Respiratory Rate 18 Actual Respiratory Rate 14 Positive End Expiratory 8 Pressure Positive End Expiratory 8 Pressure Positive End Expiratory 8 Pressure Positive End Expiratory 8 Pressure Positive End Expiratory 8 Pressure Positive End Expiratory 8 Pressure Positive End Expiratory 8 Pressure Positive End Expiratory 8 Pressure Positive End Expiratory 8 Pressure Positive End Expiratory 8 Pressure Positive End Expiratory 8 Pressure Positive End Expiratory 8 Pressure Peak Inspiratory Airway 41 Pressure Peak Inspiratory Airway 42 Pressure Peak Inspiratory Airway 42 Pressure Peak Inspiratory Airway 42 Pressure Peak Inspiratory Airway 42 Pressure Peak Inspiratory Airway 42 Pressure Peak Inspiratory Airway 42 Pressure Peak Inspiratory Airway 42 Pressure Peak Inspiratory Airway 42 Pressure Peak Inspiratory Airway 43 Pressure Peak Inspiratory Airway 40 Pressure Results - Laboratory Findings CBC and BMP: 08/03/17 04:35 08/03/17 03:30 ABG ABG pH 7.42 pH Units (7.32-7.45) 08/03/17 08:58 ABG pCO2 40 mmHg (35-45) 08/03/17 08:58 ABG pO2 51 mmHg (85-104) L 08/03/17 08:58 ABG O2 Saturation 87 % (95-98) L 08/03/17 08:58 PT/INR, D-dimer PT 15.0 Seconds (9.4-12.1) H 07/30/17 16:08 Abnormal lab findings: Abnormal lab results RBC 3.43 M/mcL (3.82-4.97) L 08/03/17 04:35 Hgb 9.9 g/dL (11.5-15.4) L 08/03/17 04:35 Hct 28.6 % (35.3-44.9) L 08/03/17 04:35 RDW 17.3 % (11.5-14.5) H 08/03/17 04:35 Plt Count 15 K/mcL (140-400) L* D 08/03/17 04:35 Band Neutrophils % 6.0 % (0-4) H 07/30/17 22:00 Metamyelocytes % 2.0 % (0) H 07/30/17 16:08 Myelocytes % 2.0 % (0) H 07/30/17 16:08 Lymphocytes # 0.3 K/mcL (0.6-4.6) L 08/03/17 04:35 Nucleated RBCs/100 WBC 6.2 /100 WBC (0) H 08/03/17 04:35 Toxic Granulation Present (Not Present) A 08/02/17 04:30 Platelet Estimate Marked Decrease (Normal) L 08/03/17 04:35 Immature Plt Fraction 16.7 % (1.1-6.1) H 08/03/17 04:35 Polychromasia 1+ (Not Present) A 08/03/17 04:35 Hypochromasia Present (Not Present) A 08/02/17 04:30 Poikilocytosis 1+ (Not Present) A 08/03/17 04:35 Anisocytosis 1+ (Not Present) A 08/03/17 04:35 Microcytosis Present (Not Present) A 08/03/17 04:35 Target Cells 1+ (Not Present) A 08/03/17 04:35 Kartik Cells 1+ (Not Present) A 08/01/17 04:35 PT 15.0 Seconds (9.4-12.1) H 07/30/17 16:08 APTT 69.7 Seconds (26.0-36.0) H 08/01/17 05:30 ABG pO2 51 mmHg (85-104) L 08/03/17 08:58 ABG Total CO2 27 mEq/L (20-26) H 08/03/17 08:58 ABG O2 Saturation 87 % (95-98) L 08/03/17 08:58 ABG Hematocrit 26.0 % (35.3-44.9) L 07/30/17 18:50 ABG Chloride 109 mEq/L (98-107) H 07/30/17 18:50 VBG pH 7.14 pH Units (7.32-7.42) L* 07/30/17 09:47 VBG pO2 80 mmHg (25-50) H 07/30/17 09:47 VBG HCO3 17 mEq/L (21-27) L 07/30/17 09:47 Sodium 134 mEq/L (135-148) L 07/30/17 18:50 Glucose 163 mg/dL (60-95) H 07/30/17 18:50 Lactate 2.5 mmol/L (0.7-2.1) H 07/30/17 18:50 Sodium 135 mEq/L (136-145) L 08/03/17 03:30 Glucose 177 mg/dL (70-99) H 08/03/17 03:30 POC Glucose 180 (58-89) H 08/03/17 08:58 Lactic Acid 4.0 mmol/L (0.5-2.2) H* 08/01/17 04:35 Calcium 7.5 mg/dL (8.6-10.8) L 08/03/17 03:30 Phosphorus 0.9 mg/dL (2.3-4.7) L* D 08/03/17 03:30 Direct Bilirubin 0.7 mg/dL (0.0-0.5) H 08/03/17 03:30 B-Natriuretic Peptide 512 pg/mL (0-100) H 07/29/17 09:43 Serum Total Protein 4.4 g/dL (6.0-8.3) L 08/03/17 03:30 Albumin 0.9 g/dL (3.5-5.0) L 08/03/17 03:30 Albumin/Globulin Ratio 0.3 (1.1-2.2) L 08/03/17 03:30 Triglycerides 262 mg/dL (< 150) H 08/02/17 04:30 Arterial Blood Ionized Calcium 1.48 mmol/L (1.15-1.35) H 07/30/17 18:50 Urine Clarity Hazy (Clear) A 07/29/17 13:07 Ur Specific Carpenter 1.026 (1.010-1.025) H 07/29/17 13:07 Urine Ketones Trace mg/dL (Negative) H 07/29/17 13:07 Urine Bilirubin Small (Negative) H 07/29/17 13:07 Ur Leukocyte Esterase Small (Negative) H 07/29/17 13:07 Urine Microscopic RBC 3-5 per hpf (0-3) H 07/29/17 13:07 Ur Squamous Epith Cells Many per lpf (None-Few) H 07/29/17 13:07 Amorphous Sediment Many (Few) H 07/29/17 13:07 Ur Culture Indicated? YES (NO) A 07/29/17 13:07 Protein/Creatinin Ratio 2.43 mg/mg (0-0.20) H 08/02/17 02:30 Urine Total Protein 211 mg/dL (1-14) H 08/02/17 02:30 Stool Occult Blood Positive (Negative) A 07/29/17 10:57 Salicylates < 5.0 mg/dL (15-30) L 07/30/17 09:28 Acetaminophen < 1.0 mcg/mL (10-30) L 07/30/17 09:28 - Microbiology Findings Microbiology Findings: Microbiology, Last 48 Hours 07/30/17 18:00 Wound Culture - Preliminary Abdomen Yeast Species Strep agalactiae - (Group B) Gram Positive Cocci 08/01/17 10:40 Body Fluid Culture - Preliminary Pleural Fluid 07/30/17 18:00 Anaerobic Culture - Preliminary Abdomen At this time, no anaerobic growth is present. The culture will be finalized after 5 days of incubation. 08/01/17 10:40 Gram Stain - Final Pleural Fluid - Clinical Findings Intake & Output: Intake & Output 08/02/17 08/03/17 08/03/17 23:59 07:59 15:59 Intake Total 387 / 387 1556.5 / 1556.5 167.5 / 167.5 Output Total 1185 / 1185 1232 / 1232 358 / 358 Balance -798 / -798 324.5 / 324.5 -190.5 / -190.5 Weight 96.2 kg Consult Discharge Plan - Plan Referrals: Keesha Ellsworth, [employer] OPERATOR [Primary Care Provider] - - Attending Attestation I examined this patient and my medical decision-making was reviewed with the Resident Physician. I agree with the documented findings, disposition and treatment plan as described except to the extent set forth below. Patient seen and examined. Labs, radiology, chart personally reviewed. Agree with resident's history and physical, assessment, plan with following comments: DIE FILER: Patient follows commands, he should not is not comfortable and will increase fentanyl for vent synchrony and patient's comfort Pulmonary: Acceptable oxygenation and ventilation. Combination of metabolic and component of respiratory acidosis will increase respiratory rate and discussed with the applications project manager regarding metabolic acidosis. Patient remain unstable for spontaneous breathing trial. No plan to remove chest tube because of pleural fluid is greater than 150 mL. Cardiovascular: Patient is still requiring Levophed for septic shock and discussed with the family at the bedside the fact that there is no significant improvement, there is always potential for complications. GI: Nutrition per dietary and GI prophylaxis per routine Heme: DVT prophylaxis per routine patient with significant thrombocytopenia which is multifactorial and she will need platelet transfusion. HIT panel to be ordered. ID: Continue antibiotics and plan to de-escalation Renal; urine out put and renal funtion reviewed. Discussed with applications project manager and they give her sodium bicarbonate for metabolic acidosis. Endorcine: blood glucose is monitored Lines: all lines checked and no evidence of infections Skin: skin care to prevent pressure ulcers per nursing routine care Should not remain critically sick and I am hoping she would not have major complications from staying on the ventilator I spent 35 min of Critical Care time with this patient. It involved decision making of high complexity to assess, manipulate, and support vital organ system failure and/or to prevent further life threatening deterioration of the patient' s condition. The time involved in the performance of separately reportable procedures was not counted toward critical care time. <Kimberly Hoffman - Last Filed: 08/03/17 11:50> Date of Encounter: 08/03/17 Time of Encounter: 07:29 Assessment and Plan (1) Thrombocytopenia Current Visit: Yes Status: Acute This AM, platelet count < 20k. Transfused 2 units of platelets this AM. Platelet drop, concerning for HIT. Assay for HIT assessment ordered Plan to stop all heparin-containing products, if positive for [id number] (2) Anemia Current Visit: Yes Status: Acute Patient presented with severe anemia, s/p transfusion 8 U PRBCs Hgb levels stable Will continue to monitor with timed CBC Qualifiers: Anemia type: iron deficiency Iron deficiency anemia type: other iron deficiency Qualified Code(s): D50.8 - Other iron deficiency anemias (3) Perforated abdominal viscus Current Visit: Yes Status: Acute s/p Surgery POD#4 -Pt underwent exploratory celiotomy, with evacuation of 3 L purulent fluid; subtotal gastrectomy with stapled retrocolic gastrojejunostomy; placement of Lam gastrostomy tube Peritoenum fluid culture -- preliminary positive for Group B strep, no anaerobic growth present. Final Sensitivities pending Patient is on broad-spectrum antibiotics with meropenem and levaquin Stress Ulcer Prophylaxis : On protonix Surgery is following, further management per surgery (4) EDDIE (acute kidney injury) Current Visit: Yes Status: Acute Hemodialysis initiated Urine output and renal function reviewed - remains poor Creatinine levels improving with HD Continuous renal replacement therapy, per nephro -- with plan for additional fluid removal today Citrate d/c's 2/2 to thrombocytopenia Nephrology on consult, greatly appreciate recs (5) Ascites Current Visit: Yes Status: Acute 3 L of this purulent ascites removed Final Aerobic and anaerobic cultures of the peritoneal cavity results pending - preliminary report discussed above No peritoneal signs evident on exam this morning Continue Abx Qualifiers: Ascites type: other type Qualified Code(s): R18.8 - Other ascites (6) Pleural effusion Current Visit: Yes Status: Acute Pleural effusion seen on CXR, with R-sided prominent on CXR Patient s/p pleural catheter placement with evacuation of approximately 1 L of straw-colored fluid immediately. Patient's 02 sat improved since then (7) Atrial fibrillation Current Visit: Yes Status: Acute Onset of Paroxysmal A. fib noted 2 nights prior Anticoagulation is contraindicated On tele, continue to monitor Qualifiers: Atrial fibrillation type: paroxysmal Qualified Code(s): I48.0 - Paroxysmal atrial fibrillation (8) Electrolyte abnormality Current Visit: Yes Status: Acute On electrolyte protocol orders Phosphorus low today, replaced this AM (9) Skin maceration Current Visit: Yes Status: Acute Continue application of nystatin twice daily to affected areas, with care to integumentary folds and appropriate wound care Additional skin care to prevent pressure ulcers, according to nursing routine care (10) DVT prophylaxis Current Visit: Yes Status: Acute On subcutaneous compression devices (11) Full code status Current Visit: Yes Status: Acute Family in room this AM when examined Discussed clinical status with mother yesterday (12) Debility Current Visit: Yes Status: Acute Disposition: Critically ill Fentanyl for pain control Subjective Principal diagnosis: Perforated Viscus s/p subtotal gastrectomy Interval history: Patient responsive to commands. Occasionally appears uncomfortable. Objective PUL Vital signs: Last Vital Signs Temp 95.6 F L 08/03/17 04:00 Pulse 79 08/03/17 06:55 Resp 19 08/03/17 06:55 BP 138/46 08/03/17 06:55 Pulse Ox 96 08/03/17 06:55 General appearance: appears uncomfortable Eyes: nonicteric ENT: other (remains intubated ) Mallampati (class): 3 (patient remains intubated) Neck: supple Effort: mildly labored Auscultation: bilateral: diminished breath sounds Cardiovascular: regular rate and rhythm, other (diminished heart sounds ) Gastrointestinal: hypoactive bowel sounds, non-tender (Agata present and intact, by midline surgical incision. No oozing. Incision clean dry. ), other ( drain in place) Integumentary: other (skin maceration, covered with nystatin ) Extremities: cool (bear huggers in place), edema (LE: + 2 ) unable to assess due to mental status Peripheral lines intact. SCDs in place. Ventilator Settings Ventilator Settings: Ventilator Settings, Last 8 Hours Ventilator Mode VC+ Ventilator Mode VC+ Ventilator Mode VC+ Ventilator Mode VC+ Ventilator Mode VC+ Ventilator Mode VC+ Ventilator Mode VC+ Ventilator Mode VC+ Ventilator Mode VC+ Ventilator Mode VC+ Ventilator Mode VC+ Ventilator Tidal Volume 600 Setting Ventilator Tidal Volume 600 Setting Ventilator Tidal Volume 600 Setting Ventilator Tidal Volume 600 Setting Ventilator Tidal Volume 600 Setting Ventilator Tidal Volume 600 Setting Ventilator Tidal Volume 600 Setting Ventilator Tidal Volume 600 Setting Ventilator Tidal Volume 600 Setting Ventilator Tidal Volume 600 Setting Ventilator Tidal Volume 600 Setting Ventilator Respiratory Rate 14 Setting Ventilator Respiratory Rate 14 Setting Ventilator Respiratory Rate 14 Setting Ventilator Respiratory Rate 14 Setting Ventilator Respiratory Rate 14 Setting Ventilator Respiratory Rate 14 Setting Ventilator Respiratory Rate 14 Setting Ventilator Respiratory Rate 14 Setting Ventilator Respiratory Rate 14 Setting Ventilator Respiratory Rate 14 Setting Ventilator Respiratory Rate 14 Setting Actual Respiratory Rate 19 Actual Respiratory Rate 19 Actual Respiratory Rate 20 Actual Respiratory Rate 20 Actual Respiratory Rate 19 Actual Respiratory Rate 18 Actual Respiratory Rate 14 Actual Respiratory Rate 14 Actual Respiratory Rate 14 Actual Respiratory Rate 14 Actual Respiratory Rate 14 Positive End Expiratory 8 Pressure Positive End Expiratory 8 Pressure Positive End Expiratory 8 Pressure Positive End Expiratory 8 Pressure Positive End Expiratory 8 Pressure Positive End Expiratory 8 Pressure Positive End Expiratory 8 Pressure Positive End Expiratory 8 Pressure Positive End Expiratory 8 Pressure Positive End Expiratory 8 Pressure Positive End Expiratory 8 Pressure Peak Inspiratory Airway 42 Pressure Peak Inspiratory Airway 42 Pressure Peak Inspiratory Airway 42 Pressure Peak Inspiratory Airway 42 Pressure Peak Inspiratory Airway 42 Pressure Peak Inspiratory Airway 43 Pressure Peak Inspiratory Airway 40 Pressure Peak Inspiratory Airway 40 Pressure Peak Inspiratory Airway 40 Pressure Peak Inspiratory Airway 39 Pressure Peak Inspiratory Airway 42 Pressure Results - Laboratory Findings CBC and BMP: 08/03/17 04:35 08/03/17 03:30 ABG ABG pH 7.29 pH Units (7.32-7.45) L 08/02/17 08:55 ABG pCO2 51 mmHg (35-45) H 08/02/17 08:55 ABG pO2 48 mmHg (85-104) L* 08/02/17 08:55 ABG O2 Saturation 78 % (95-98) L 08/02/17 08:55 PT/INR, D-dimer PT 15.0 Seconds (9.4-12.1) H 07/30/17 16:08 Abnormal lab findings: Abnormal lab results RBC 3.43 M/mcL (3.82-4.97) L 08/03/17 04:35 Hgb 9.9 g/dL (11.5-15.4) L 08/03/17 04:35 Hct 28.6 % (35.3-44.9) L 08/03/17 04:35 RDW 17.3 % (11.5-14.5) H 08/03/17 04:35 Plt Count 15 K/mcL (140-400) L* D 08/03/17 04:35 Band Neutrophils % 6.0 % (0-4) H 07/30/17 22:00 Metamyelocytes % 2.0 % (0) H 07/30/17 16:08 Myelocytes % 2.0 % (0) H 07/30/17 16:08 Lymphocytes # 0.3 K/mcL (0.6-4.6) L 08/03/17 04:35 Nucleated RBCs/100 WBC 6.2 /100 WBC (0) H 08/03/17 04:35 Toxic Granulation Present (Not Present) A 08/02/17 04:30 Platelet Estimate Marked Decrease (Normal) L 08/03/17 04:35 Immature Plt Fraction 16.7 % (1.1-6.1) H 08/03/17 04:35 Polychromasia 1+ (Not Present) A 08/03/17 04:35 Hypochromasia Present (Not Present) A 08/02/17 04:30 Poikilocytosis 1+ (Not Present) A 08/03/17 04:35 Anisocytosis 1+ (Not Present) A 08/03/17 04:35 Microcytosis Present (Not Present) A 08/03/17 04:35 Target Cells 1+ (Not Present) A 08/03/17 04:35 Kartik Cells 1+ (Not Present) A 08/01/17 04:35 PT 15.0 Seconds (9.4-12.1) H 07/30/17 16:08 APTT 69.7 Seconds (26.0-36.0) H 08/01/17 05:30 ABG pH 7.29 pH Units (7.32-7.45) L 08/02/17 08:55 ABG pCO2 51 mmHg (35-45) H 08/02/17 08:55 ABG pO2 48 mmHg (85-104) L* 08/02/17 08:55 ABG O2 Saturation 78 % (95-98) L 08/02/17 08:55 ABG Hematocrit 26.0 % (35.3-44.9) L 07/30/17 18:50 ABG Chloride 109 mEq/L (98-107) H 07/30/17 18:50 VBG pH 7.14 pH Units (7.32-7.42) L* 07/30/17 09:47 VBG pO2 80 mmHg (25-50) H 07/30/17 09:47 VBG HCO3 17 mEq/L (21-27) L 07/30/17 09:47 Sodium 134 mEq/L (135-148) L 07/30/17 18:50 Glucose 163 mg/dL (60-95) H 07/30/17 18:50 Lactate 2.5 mmol/L (0.7-2.1) H 07/30/17 18:50 Sodium 135 mEq/L (136-145) L 08/03/17 03:30 Glucose 177 mg/dL (70-99) H 08/03/17 03:30 POC Glucose 168 (58-89) H 08/03/17 04:17 Lactic Acid 4.0 mmol/L (0.5-2.2) H* 08/01/17 04:35 Calcium 7.5 mg/dL (8.6-10.8) L 08/03/17 03:30 Phosphorus 0.9 mg/dL (2.3-4.7) L* D 08/03/17 03:30 Direct Bilirubin 0.7 mg/dL (0.0-0.5) H 08/03/17 03:30 B-Natriuretic Peptide 512 pg/mL (0-100) H 07/29/17 09:43 Serum Total Protein 4.4 g/dL (6.0-8.3) L 08/03/17 03:30 Albumin 0.9 g/dL (3.5-5.0) L 08/03/17 03:30 Albumin/Globulin Ratio 0.3 (1.1-2.2) L 08/03/17 03:30 Triglycerides 262 mg/dL (< 150) H 08/02/17 04:30 Arterial Blood Ionized Calcium 1.48 mmol/L (1.15-1.35) H 07/30/17 18:50 Urine Clarity Hazy (Clear) A 07/29/17 13:07 Ur Specific Carpenter 1.026 (1.010-1.025) H 07/29/17 13:07 Urine Ketones Trace mg/dL (Negative) H 07/29/17 13:07 Urine Bilirubin Small (Negative) H 07/29/17 13:07 Ur Leukocyte Esterase Small (Negative) H 07/29/17 13:07 Urine Microscopic RBC 3-5 per hpf (0-3) H 07/29/17 13:07 Ur Squamous Epith Cells Many per lpf (None-Few) H 07/29/17 13:07 Amorphous Sediment Many (Few) H 07/29/17 13:07 Ur Culture Indicated? YES (NO) A 07/29/17 13:07 Protein/Creatinin Ratio 2.43 mg/mg (0-0.20) H 08/02/17 02:30 Urine Total Protein 211 mg/dL (1-14) H 08/02/17 02:30 Stool Occult Blood Positive (Negative) A 07/29/17 10:57 Salicylates < 5.0 mg/dL (15-30) L 07/30/17 09:28 Acetaminophen < 1.0 mcg/mL (10-30) L 07/30/17 09:28 - Microbiology Findings Microbiology Findings: Microbiology, Last 48 Hours 08/01/17 10:40 Body Fluid Culture - Preliminary Pleural Fluid 07/30/17 18:00 Anaerobic Culture - Preliminary Abdomen At this time, no anaerobic growth is present. The culture will be finalized after 5 days of incubation. 07/30/17 18:00 Wound Culture - Preliminary Abdomen Yeast Species Strep agalactiae - (Group B) 08/01/17 10:40 Gram Stain - Final Pleural Fluid - Clinical Findings Intake & Output: Intake & Output 08/02/17 08/02/17 08/03/17 15:59 23:59 07:59 Intake Total 836 / 836 387 / 387 1556 / 1556 Output Total 1284 / 1284 1185 / 1185 1232 / 1232 Balance -448 / -448 -798 / -798 324 / 324 Weight 96.2 kg - VTE Documentation of Mechanical Device: Intermittent pneumatic compression device
[2017-08-03] MEDS: Dexmedetomidine HCl 400 MCG/100 ML MLS IVC SCH ×3 (08:42→23:44)
[2017-08-03] MEDS: Meropenem 1,000 MG in Water for inj. (sterile) 10 ML IVP SCH ×3 (08:59→23:37)
[2017-08-03] MEDS: Nystatin Cream 15 GM TUBE TP SCH ×2 (09:00→20:34)
[2017-08-03] MEDS: Fluconazole 400 MG/200 ML 400 MG/200 ML BAG IVPB SCH (09:00)
[2017-08-03] MEDS: Chlorhexidine Rinse 15 ML MOUTHWASH MM SCH ×2 (09:00→20:34)
[2017-08-03 09:03] LABS: ABG Base Excess 2 mEq/L (-2 to 3); ABG HCO3 26 mEq/L (21-27); ABG Oxygen Saturation 87 % (95-98); ABG PCO2 40 mmHg (35-45); ABG PH 7.42 pH Units (7.32-7.45); ABG PO2 51 mmHg (85-104); ABG TCO2 27 mEq/L (20-26); Blood Gas Modality VC; Blood Gas PEEP 8 cm H2O; Blood Gas Respiration Rate 14; Blood Gas VT 600 cc
[2017-08-03] MEDS ORDERED: 0.9 % Sodium Chloride 250 ML ONE (09:31)
--- NOTE | 2017-08-03 10:07 | Nephrology Progress Note ---
Date of Encounter: 08/03/17 Time of Encounter: 10:05 - Assessment and Plan (1) Respiratory failure Current Visit: Yes Status: Acute Management per primary team. Patient on vent. Removing fluid to assist with volume status. Qualifiers: Qualified Code(s): J96.90 - Respiratory failure, unspecified, unspecified whether with hypoxia or hypercapnia (2) EDDIE (acute kidney injury) Current Visit: Yes Status: Acute Dialysis dependent. Patient on CVVHDF Tolerating continuous dialysis well Adjust volume removal as tolerated. From 25cc/hour to 50cc/hour. Adjust medications for renal function. (3) Anemia Current Visit: Yes Status: Acute Per primary team. Transfuse as needed. Qualifiers: Anemia type: iron deficiency Iron deficiency anemia type: other iron deficiency Qualified Code(s): D50.8 - Other iron deficiency anemias (4) CKD (chronic kidney disease) Current Visit: Yes Status: Acute Qualifiers: Chronic kidney disease stage: unspecified stage Qualified Code(s): N18.9 - Chronic kidney disease, unspecified (5) Perforated abdominal viscus Current Visit: Yes Status: Acute Per surgery. (6) Acidosis Current Visit: Yes Status: Acute Metabolic and respiratory. Improved with ongoing CVVHD and improvement in pCO2. Subjective Principal diagnosis: Perforated Viscus s/p subtotal gastrectomy Interval history: Patient seen and evaluated. Family at bedside. Review of systems unobtainable as patient is intubated and sedated. Objective - Vital Signs Vital signs: Vital Signs Temp Pulse Resp BP Pulse Ox 08/03/17 09:00 77 18 115/40 94 08/03/17 08:25 19 92 08/03/17 08:00 91.0 F L 97 16 105/38 93 08/03/17 07:00 79 22 110/38 96 08/03/17 06:55 79 19 138/46 96 08/03/17 06:00 80 19 122/42 96 08/03/17 05:20 20 125/45 96 08/03/17 05:00 79 20 129/45 96 08/03/17 04:00 95.6 F L 75 19 124/44 95 08/03/17 03:39 18 139/48 96 08/03/17 03:00 70 14 132/46 96 08/03/17 02:00 94.2 F L 70 14 117/43 96 08/03/17 01:34 14 130/48 97 08/03/17 01:00 70 14 132/50 97 08/03/17 00:00 92.8 F L 70 14 142/54 97 08/02/17 23:20 14 123/54 97 08/02/17 23:00 91 14 118/52 96 08/02/17 22:00 93.8 F L 86 14 104/52 97 08/02/17 21:45 14 141/71 97 08/02/17 21:00 93 14 106/51 96 08/02/17 20:00 93.5 F L 83 14 124/53 96 08/02/17 19:59 14 125/54 96 08/02/17 19:00 93 14 109/52 96 08/02/17 18:00 87 14 127/58 96 08/02/17 17:13 14 112/50 96 08/02/17 17:00 97 14 113/50 96 08/02/17 16:00 96.2 F L 95 14 119/51 95 08/02/17 15:00 98 14 113/51 95 08/02/17 14:00 96 14 121/52 96 08/02/17 13:00 99 14 121/51 96 08/02/17 12:00 96.0 F L 105 14 100/44 96 08/02/17 11:09 14 119/53 95 08/02/17 11:00 100 14 103/56 98 Intake and Output 08/02/17 08/03/17 08/03/17 23:59 07:59 15:59 Intake Total 387 / 387 1556.5 / 1556.5 167.5 / 167.5 Output Total 1185 / 1185 1232 / 1232 358 / 358 Balance -798 / -798 324.5 / 324.5 -190.5 / -190.5 Intake: IV Fluids 387 / 387 1556.5 / 1556.5 167.5 / 167.5 Calcium Chloride 4,000 MG In 0. 0 / 0 9 % Sodium Chloride 1,000 ML @ 40 mls/hr CRRT [facility] Rx#: [id number] PrismaSATE BGK 4/2.5 5,000 ML @ 2 / 2 2 / 2 1000 mls/hr CRRT [facility] Rx#: [id number] PRECEDEX Premix 400 mcg In 100 14 / 14 23.5 / 23.5 159.5 / 159.5 ml @ 0.5 MCG/KG/HR 10.988 mls/ hr IVC .Q9H7M [facility] Rx#: [id number] FentaNYL (PF) 1,000 MCG In 0.9 62 / 62 43 / 43 8 / 8 % Sodium Chloride 80 ML @ 50 MCG/HR 5 mls/hr IVC CONT [facility] Rx #:[id number] Clinimix E 5%-15% SOLUTION 2, 1005 / 1005 000 ML @ 83.3 mls/hr IVC .Q24H [facility] with M.v.i. Adult 10 ml Rx# :[id number] Levophed 8 MG In Dextrose 5% 224 / 224 258 / 258 250 ML @ 20 MCG/MIN 38.7 mls/hr IVC CONT [facility] Rx#:[id number] Merrem 1,000 MG In Water for 20 / 20 inj. (sterile) 10 ML @ 200 mls/ hr IVP Q8HR [facility] Rx#:[id number] Intralipid 20% 250 ML @ 21 mls/ 65 / 65 185 / 185 hr IVPB DAILY@1700 [facility] Rx#: [id number] Potassium Phosphate 44 MEQ In 0 40 / 40 .9 % Sodium Chloride 250 ML @ 40 mls/hr IVPB ONCE [facility] Rx#: [id number] Output: Gastric Tube Lavage Amount 0 / 0 0 / 0 Left Upper Quadrant 0 / 0 0 / 0 Jade 1105 / 1105 1162 / 1162 338 / 338 Catheter 0 / 0 20 / 20 20 / 20 Chest Tube Drainage 80 / 80 50 / 50 0 / 0 Right Upper Mid-Axillary Chest 80 / 80 50 / 50 0 / 0 #1 Other: Weight 96.2 kg Blood Glucose* 159 168 Patient Weight 08/03/17 23:59 Weight 96.2 kg - General Appearance General appearance: Present: well-developed, well-nourished, sedated on ventilator, intubated EENT: Present: ATNC Respiratory: Present: course breath sounds Cardiology: Present: edema, regular rate, regular rhythm Dialysis Vascular Access: Venous Catheter Additional Comments: Soft Integumentary: Present: warm and dry Additional Comments: Sedated Musculoskeletal: Present: no cyanosis Additional Comments: Sedated - Lab 08/03/17 04:35 08/03/17 03:30 Most recent lab results ABG pH 7.42 pH Units (7.32-7.45) 08/03/17 08:58 ABG pCO2 40 mmHg (35-45) 08/03/17 08:58 ABG pO2 51 mmHg (85-104) L 08/03/17 08:58 ABG HCO3 26 mEq/L (21-27) 08/03/17 08:58 ABG O2 Saturation 87 % (95-98) L 08/03/17 08:58 Calcium 7.5 mg/dL (8.6-10.8) L 08/03/17 03:30 Phosphorus 0.9 mg/dL (2.3-4.7) L* D 08/03/17 03:30 Magnesium 1.9 mg/dL (1.6-2.6) 08/03/17 03:30 Urine Creatinine 87 mg/dL 08/02/17 02:30 Urine Sodium 49.0 mEq/L 08/02/17 02:30 Urine Total Protein 211 mg/dL (1-14) H 08/02/17 02:30 - VTE Documentation of Mechanical Device: Intermittent pneumatic compression device Consult Discharge Plan - Plan Referrals: Keesha Ellsworth, [employer]PERATOR [Primary Care Provider] -
[2017-08-03] MEDS: Levofloxacin 750 MG/150 ML 750 MG/150 ML BAG IVPB SCH (10:31)
[2017-08-03] MEDS: FentaNYL (PF) 1,000 MCG in 0.9 % Sodium Chloride 80 ML IVC SCH ×2 (11:20→22:00)
--- NOTE | 2017-08-03 11:41 | General Surgery Progress Note ---
Date of Encounter: 08/03/17 Time of Encounter: 11:00 Subjective Narrative: General Surgery - POD #4 Patient remains intubated, and as a result sedated. Voicing no complaints Pressure support continues to be diminished, currently norepinephrine at 15 mg/hr Remains afebrile, currently 94.4, pulse 79, respirations 16, blood pressure 121/42. Lungs: Clear though on the right side a few crackles are still present; chest tube - approximately 290 mL output in the last 24 hours Abdomen: Soft without obvious tenderness; no active bowel sounds audible. Midline incision clean dry and intact; gastrostomy also clean and intact - output approximately 50 mL. Urine output: Approximately 40 mL reported in the last 24 hours. Laboratories: White count 6.5, hemoglobin 9.9, hematocrit 28.6 Platelet count 15,000 - 2 "sixpacks" platelets to be transfused Electrolytes, BUN and creatinine remained stable and within normal limits; sodium is borderline low at 135 but there are no obvious colon from this hyponatremia Total protein 4.4, albumin 0.9 Intraperitoneal cultures - Yeast, Strep agalactiae, GPC (presumably strep species) - sensitivities requested. Pathology: Perforated benign stomach with necrotizing serositis; multiple reactive lymph nodes; benign perigastric fat with foci of fat necrosis. Impression: continued slow progress requiring less pressure support continue mechanical ventilation for respiratory failure severe thrombocytopenia - transfusions ordered EDDIE - patient has responded to Jade - awaiting return renal function Pathology results and peritoneal cultures noted - may need to change levoquin for better strep coverage. Sensitivities requested and pending. severe protein depletion, hypo albuminemia - on TPN until enteral route available. No audible bowel sounds at present. Objective Vital Signs - Last 8 Hours Temp Pulse Resp BP Pulse Ox 08/03/17 11:00 79 16 121/42 94 08/03/17 10:42 81 17 99/37 94 08/03/17 10:28 94.4 F L 82 16 110/39 94 08/03/17 10:00 85 18 125/42 95 08/03/17 09:00 77 18 115/40 94 08/03/17 08:25 19 92 08/03/17 08:00 91.0 F L 97 16 105/38 93 08/03/17 07:00 79 22 110/38 96 08/03/17 06:55 79 19 138/46 96 08/03/17 06:00 80 19 122/42 96 08/03/17 05:20 20 125/45 96 08/03/17 05:00 79 20 129/45 96 08/03/17 04:00 95.6 F L 75 19 124/44 95 08/03/17 03:39 18 139/48 96 Intake and Output 08/02/17 08/03/17 08/03/17 23:59 07:59 15:59 Intake Total 387 / 387 1556.5 / 1556.5 410.5 / 410.5 Output Total 1185 / 1185 1232 / 1232 882 / 882 Balance -798 / -798 324.5 / 324.5 -471.5 / -471.5 Intake: IV Fluids 387 / 387 1556.5 / 1556.5 410.5 / 410.5 Calcium Chloride 4,000 MG In 0. 0 / 0 9 % Sodium Chloride 1,000 ML @ 40 mls/hr CRRT [facility] Rx#: [id number] PrismaSATE BGK 4/2.5 5,000 ML @ 2 / 2 2 / 2 1000 mls/hr CRRT [facility] Rx#: [id number] PRECEDEX Premix 400 mcg In 100 14 / 14 23.5 / 23.5 159.5 / 159.5 ml @ 0.5 MCG/KG/HR 10.988 mls/ hr IVC .Q9H7M [facility] Rx#: [id number] FentaNYL (PF) 1,000 MCG In 0.9 62 / 62 43 / 43 41 / 41 % Sodium Chloride 80 ML @ 50 MCG/HR 5 mls/hr IVC [facility] Rx #:[id number] Clinimix E 5%-15% SOLUTION 2, 1005 / 1005 000 ML @ 83.3 mls/hr IVC .Q24H [facility] with M.v.i. Adult 10 ml Rx# :[id number] Levophed 8 MG In Dextrose 5% 224 / 224 258 / 258 250 ML @ 20 MCG/MIN 38.7 mls/hr IVC [facility] Rx#:[id number] Merrem 1,000 MG In Water for 10 inj. (sterile) 10 ML @ 200 mls/ hr IVP Q8HR [facility] Rx#:[id number] Intralipid 20% 250 ML @ 21 mls/ 65 / 65 185 / 185 hr IVPB DAILY@1700 [facility] Rx#: [id number] Diflucan Premix 400 MG/200 ML 200 / 200 400 mg In 200 ml @ 200 mls/hr IVPB DAILY [facility] Rx#:[id number] Potassium Phosphate 44 MEQ In 0 40 / 40 .9 % Sodium Chloride 250 ML @ 40 mls/hr IVPB ONCE ONE Rx#: [id number] Blood Product 0 / 0 Platelet Pheresis Lp Irr 3rd 0 / 0 Unit [id number] Output: Gastric Tube Lavage Amount 0 / 0 0 / 0 Left Upper Quadrant 0 / 0 0 / 0 Jade 1105 / 1105 1162 / 1162 852 / 852 Catheter 0 / 0 20 / 20 30 / 30 Chest Tube Drainage 80 / 80 50 / 50 0 / 0 Right Upper Mid-Axillary Chest 80 / 80 50 / 50 0 / 0 #1 Other: Weight 96.2 kg Blood Glucose* 159 168 180 Patient Weight 08/03/17 23:59 Weight 96.2 kg - Labs 08/03/17 04:35 08/03/17 03:30 Diabetes panel 08/03/17 08/03/17 Range/Units 03:30 03:30 Sodium 135 L (136-145) mEq/L Potassium 3.7 (3.5-4.5) mEq/L Chloride 105 (98-109) mEq/L Carbon Dioxide 24 (19-29) mEq/L BUN 11 (7-20) mg/dL Creatinine 0.76 (0.57-1.11) mg/dL Glucose 177 H (70-99) mg/dL Calcium 7.5 L (8.6-10.8) mg/dL AST 25 (5-34) Units/L ALT 20 (0-55) Units/L Alkaline Phosphatase 78 (38-126) Units/L Albumin 0.9 L (3.5-5.0) g/dL Calcium panel 08/02/17 08/03/17 08/03/17 Range/Units 15:00 03:30 03:30 Calcium 7.5 L (8.6-10.8) mg/dL Phosphorus 2.0 L D 0.9 L* D (2.3-4.7) mg/dL Albumin 0.9 L (3.5-5.0) g/dL Pituitary panel 08/03/17 Range/Units 03:30 Sodium 135 L (136-145) mEq/L Potassium 3.7 (3.5-4.5) mEq/L Chloride 105 (98-109) mEq/L Carbon Dioxide 24 (19-29) mEq/L BUN 11 (7-20) mg/dL Creatinine 0.76 (0.57-1.11) mg/dL Glucose 177 H (70-99) mg/dL Calcium 7.5 L (8.6-10.8) mg/dL Adrenal panel 08/03/17 08/03/17 Range/Units 03:30 03:30 Sodium 135 L (136-145) mEq/L Potassium 3.7 (3.5-4.5) mEq/L Chloride 105 (98-109) mEq/L Carbon Dioxide 24 (19-29) mEq/L BUN 11 (7-20) mg/dL Creatinine 0.76 (0.57-1.11) mg/dL Glucose 177 H (70-99) mg/dL Calcium 7.5 L (8.6-10.8) mg/dL Total Bilirubin 1.0 (0.2-1.2) mg/dL AST 25 (5-34) Units/L ALT 20 (0-55) Units/L Alkaline Phosphatase 78 (38-126) Units/L Albumin 0.9 L (3.5-5.0) g/dL - VTE Documentation of Mechanical Device: Intermittent pneumatic compression device Consult Discharge Plan - Plan Referrals: Keesha Ellsworth, FIELD STAFF [Primary Care Provider] -
[2017-08-03] MEDS ORDERED: Sodium Phosphate 30 MMOL in D5% in Water 100 ML IVPB ONE (11:43)
[2017-08-03] MEDS ORDERED: *HR* Heparin 5,000 UNIT/ML VIAL ONE (14:35)
[2017-08-03] MEDS ORDERED: CLINIMIX E IVC SCH (17:00)
[2017-08-03] MEDS ORDERED: PARENTERAL AMINO ACID 10% IVC SCH (17:00)
[2017-08-03] MEDS ORDERED: [UNRECOGNIZED DRUG - OTHER] IVC SCH (17:00)
[2017-08-03] MEDS ORDERED: MVI IVC SCH (17:00)
[2017-08-03] MEDS ORDERED: Clinimix E 5%-15% SOLUTION 2,000 ML with MVI, adult with vitamin K 10 ML IVC SCH (17:00)
[2017-08-03] MEDS: Calcium Chloride 4,000 MG in 0.9 % Sodium Chloride 1,000 ML CRRT SCH (19:35)
[2017-08-03] MEDS: Vasopressin 40 UNIT in D5% in Water 100 ML IV SCH (19:37)
[2017-08-04] MEDS: Ipratropium/Albuterol Neb 3 ML IH SCH ×7 (00:24→23:53)
[2017-08-04] MEDS ORDERED: *HR* Heparin 5,000 UNIT/ML VIAL ONE ×2 (00:32→17:44)
[2017-08-04] MEDS: Norepinephrine 8 MG in D5% in Water 250 ML IVC SCH ×2 (00:34→10:17)
[2017-08-04] MEDS: PrismaSATE BGK 4/2.5 5,000 ML CRRT SCH ×10 (02:00→23:22)
[2017-08-04] MEDS: Insulin LISPRO 300 UNITS/3 ML VIAL SQ SCH ×6 (04:42→23:47)
[2017-08-04] MEDS: Lacri-Lube 3.5 GM TUBE BOTH EYES SCH ×6 (04:45→23:47)
[2017-08-04 05:41] LABS: ABG Base Excess -1 mEq/L (-2 to 3); ABG HCO3 24 mEq/L (21-27); ABG Oxygen Saturation 87 % (95-98); ABG PCO2 42 mmHg (35-45); ABG PH 7.37 pH Units (7.32-7.45); ABG PO2 55 mmHg (85-104); ABG TCO2 26 mEq/L (20-26); Blood Gas Modality ASSIST CONTROL; Blood Gas PEEP 8 cm H2O; Blood Gas Respiration Rate 16; Blood Gas VT 600 cc
[2017-08-04] MEDS: Pantoprazole 40 MG VIAL IVP SCH ×2 (05:49→17:20)
[2017-08-04 05:58] LABS: Hematocrit 26.1 % (35.3-44.9)
[2017-08-04 06:00] LABS: Hemoglobin 8.9 g/dL (11.5-15.4); Immature Platelets 16.3 % (1.1-6.1); Mean Corpuscular HGB Conc 34.1 g/dL (31.6-35.5); Mean Corpuscular Hemoglobin 28.9 pg (28.0-33.3); Mean Corpuscular Volume 84.7 fL (83.0-100.0); Nucleated Red Blood Cells 3.3 /100 WBC (0); Red Blood Count 3.08 M/mcL (3.82-4.97); Red Cell Distribution Width 18.1 % (11.5-14.5)
[2017-08-04 06:03] LABS: Ionized Calcium 1.08 mmol/L (1.15-1.35)
[2017-08-04 06:04] LABS: Alanine Aminotransferase 18 Units/L (0-55); Albumin/Globulin Ratio 0.3 (1.1-2.2); Alkaline Phosphatase 77 Units/L (38-126); Aspartate Amino Transferase 21 Units/L (5-34); BUN/Creatinine Ratio 14 (6-26); Bilirubin,Direct 0.8 mg/dL (0.0-0.5); Bilirubin,Indirect 0.4 mg/dL (0.0-1.2); Bilirubin,Total 1.2 mg/dL (0.2-1.2); Blood Urea Nitrogen 11 mg/dL (7-20); Calcium 7.2 mg/dL (8.6-10.8); Carbon Dioxide 23 mEq/L (19-29); Chloride 105 mEq/L (98-109); Globulin 3.7 g/dL (2.4-3.5); Glucose 199 mg/dL (70-99); Magnesium 1.9 mg/dL (1.6-2.6); Osmolality,Calculated 287 (280-300); Phosphorous 1.3 mg/dL (2.3-4.7); Potassium 4.3 mEq/L (3.5-4.5); Sodium 136 mEq/L (136-145); Total Protein 4.7 g/dL (6.0-8.3); eGFR For African Americans > 60 (> 60); eGFR For Non-African Americans > 60 (> 60)
[2017-08-04 06:25] LABS: Platelet Count 30 K/mcL (140-400)
--- NOTE | 2017-08-04 06:38 | Pulmonology Progress Note ---
<Vicky Zapien M - Last Filed: 08/04/17 09:55> Date of Encounter: 08/04/17 Objective PUL Vital signs: Last Vital Signs Temp 96.2 F L 08/04/17 08:00 Pulse 73 08/04/17 09:00 Resp 19 08/04/17 09:00 BP 109/48 08/04/17 09:00 Pulse Ox 95 08/04/17 09:00 Ventilator Settings Ventilator Settings: Ventilator Settings, Last 8 Hours Ventilator Mode VC+ Ventilator Mode VC+ Ventilator Mode VC+ Ventilator Mode VC+ Ventilator Mode VC+ Ventilator Mode VC+ Ventilator Mode VC+ Ventilator Mode VC+ Ventilator Mode VC+ Ventilator Mode VC+ Ventilator Mode VC+ Ventilator Mode VC+ Ventilator Mode VC+ Ventilator Tidal Volume 600 Setting Ventilator Tidal Volume 600 Setting Ventilator Tidal Volume 600 Setting Ventilator Tidal Volume 600 Setting Ventilator Tidal Volume 600 Setting Ventilator Tidal Volume 600 Setting Ventilator Tidal Volume 600 Setting Ventilator Tidal Volume 600 Setting Ventilator Tidal Volume 600 Setting Ventilator Tidal Volume 600 Setting Ventilator Tidal Volume 600 Setting Ventilator Tidal Volume 600 Setting Ventilator Tidal Volume 600 Setting Ventilator Respiratory Rate 16 Setting Ventilator Respiratory Rate 16 Setting Ventilator Respiratory Rate 16 Setting Ventilator Respiratory Rate 16 Setting Ventilator Respiratory Rate 16 Setting Ventilator Respiratory Rate 16 Setting Ventilator Respiratory Rate 16 Setting Ventilator Respiratory Rate 16 Setting Ventilator Respiratory Rate 16 Setting Ventilator Respiratory Rate 16 Setting Ventilator Respiratory Rate 16 Setting Ventilator Respiratory Rate 16 Setting Ventilator Respiratory Rate 16 Setting Actual Respiratory Rate 19 Actual Respiratory Rate 22 Actual Respiratory Rate 22 Actual Respiratory Rate 18 Actual Respiratory Rate 18 Actual Respiratory Rate 18 Actual Respiratory Rate 17 Actual Respiratory Rate 16 Actual Respiratory Rate 18 Actual Respiratory Rate 17 Actual Respiratory Rate 17 Actual Respiratory Rate 18 Positive End Expiratory 5 Pressure Positive End Expiratory 8 Pressure Positive End Expiratory 5 Pressure Positive End Expiratory 8 Pressure Positive End Expiratory 8 Pressure Positive End Expiratory 8 Pressure Positive End Expiratory 8 Pressure Positive End Expiratory 8 Pressure Positive End Expiratory 8 Pressure Positive End Expiratory 8 Pressure Positive End Expiratory 8 Pressure Positive End Expiratory 8 Pressure Positive End Expiratory 8 Pressure Peak Inspiratory Airway 31 Pressure Peak Inspiratory Airway 36 Pressure Peak Inspiratory Airway 36 Pressure Peak Inspiratory Airway 34 Pressure Peak Inspiratory Airway 32 Pressure Peak Inspiratory Airway 36 Pressure Peak Inspiratory Airway 32 Pressure Peak Inspiratory Airway 53 Pressure Peak Inspiratory Airway 38 Pressure Peak Inspiratory Airway 35 Pressure Peak Inspiratory Airway 38 Pressure Peak Inspiratory Airway 39 Pressure Results - Laboratory Findings CBC and BMP: 08/04/17 05:45 08/04/17 05:45 ABG ABG pH 7.37 pH Units (7.32-7.45) 08/04/17 05:38 ABG pCO2 42 mmHg (35-45) 08/04/17 05:38 ABG pO2 55 mmHg (85-104) L 08/04/17 05:38 ABG O2 Saturation 87 % (95-98) L 08/04/17 05:38 PT/INR, D-dimer PT 15.0 Seconds (9.4-12.1) H 07/30/17 16:08 Abnormal lab findings: Abnormal lab results WBC 14.4 K/mcL (4.3-11.1) H D 08/04/17 05:45 RBC 3.08 M/mcL (3.82-4.97) L 08/04/17 05:45 Hgb 8.9 g/dL (11.5-15.4) L 08/04/17 05:45 Hct 26.1 % (35.3-44.9) L 08/04/17 05:45 RDW 18.1 % (11.5-14.5) H 08/04/17 05:45 Plt Count 30 K/mcL (140-400) L* D 08/04/17 05:45 Band Neutrophils % 6.0 % (0-4) H 08/04/17 05:45 Metamyelocytes % 2.0 % (0) H 08/04/17 05:45 Myelocytes % 6.0 % (0) H 08/04/17 05:45 Monocytes # 4.0 K/mcL (0.0-1.3) H 08/04/17 05:45 Nucleated RBCs/100 WBC 3.3 /100 WBC (0) H 08/04/17 05:45 Toxic Granulation Present (Not Present) A 08/04/17 05:45 Platelet Estimate Marked Decrease (Normal) L 08/04/17 05:45 Immature Plt Fraction 16.3 % (1.1-6.1) H 08/04/17 05:45 Polychromasia 1+ (Not Present) A 08/04/17 05:45 Hypochromasia Present (Not Present) A 08/02/17 04:30 Poikilocytosis 1+ (Not Present) A 08/03/17 04:35 Anisocytosis 1+ (Not Present) A 08/04/17 05:45 Microcytosis Present (Not Present) A 08/03/17 04:35 Target Cells 1+ (Not Present) A 08/03/17 04:35 [place] Cells 1+ (Not Present) A 08/01/17 04:35 PT 15.0 Seconds (9.4-12.1) H 07/30/17 16:08 APTT 69.7 Seconds (26.0-36.0) H 08/01/17 05:30 ABG pO2 55 mmHg (85-104) L 08/04/17 05:38 ABG O2 Saturation 87 % (95-98) L 08/04/17 05:38 ABG Hematocrit 26.0 % (35.3-44.9) L 07/30/17 18:50 ABG Chloride 109 mEq/L (98-107) H 07/30/17 18:50 VBG pH 7.14 pH Units (7.32-7.42) L* 07/30/17 09:47 VBG pO2 80 mmHg (25-50) H 07/30/17 09:47 VBG HCO3 17 mEq/L (21-27) L 07/30/17 09:47 Sodium 134 mEq/L (135-148) L 07/30/17 18:50 Glucose 163 mg/dL (60-95) H 07/30/17 18:50 Lactate 2.5 mmol/L (0.7-2.1) H 07/30/17 18:50 Glucose 199 mg/dL (70-99) H 08/04/17 05:45 POC Glucose 177 (58-89) H 08/04/17 08:00 Lactic Acid 4.0 mmol/L (0.5-2.2) H* 08/01/17 04:35 Calcium 7.2 mg/dL (8.6-10.8) L 08/04/17 05:45 Ionized Calcium 1.08 mmol/L (1.15-1.35) L 08/04/17 05:45 Phosphorus 1.3 mg/dL (2.3-4.7) L 08/04/17 05:45 Direct Bilirubin 0.8 mg/dL (0.0-0.5) H 08/04/17 05:45 B-Natriuretic Peptide 512 pg/mL (0-100) H 07/29/17 09:43 Serum Total Protein 4.7 g/dL (6.0-8.3) L 08/04/17 05:45 Albumin 1.0 g/dL (3.5-5.0) L 08/04/17 05:45 Globulin 3.7 g/dL (2.4-3.5) H 08/04/17 05:45 Albumin/Globulin Ratio 0.3 (1.1-2.2) L 08/04/17 05:45 Triglycerides 262 mg/dL (< 150) H 08/02/17 04:30 Arterial Blood Ionized Calcium 1.48 mmol/L (1.15-1.35) H 07/30/17 18:50 Urine Clarity Hazy (Clear) A 07/29/17 13:07 Ur Specific [place] 1.026 (1.010-1.025) H 07/29/17 13:07 Urine Ketones Trace mg/dL (Negative) H 07/29/17 13:07 Urine Bilirubin Small (Negative) H 07/29/17 13:07 Ur Leukocyte Esterase Small (Negative) H 07/29/17 13:07 Urine Microscopic RBC 3-5 per hpf (0-3) H 07/29/17 13:07 Ur Squamous Epith Cells Many per lpf (None-Few) H 07/29/17 13:07 Amorphous Sediment Many (Few) H 07/29/17 13:07 Ur Culture Indicated? YES (NO) A 07/29/17 13:07 Protein/Creatinin Ratio 2.43 mg/mg (0-0.20) H 08/02/17 02:30 Urine Total Protein 211 mg/dL (1-14) H 08/02/17 02:30 Stool Occult Blood Positive (Negative) A 07/29/17 10:57 Salicylates < 5.0 mg/dL (15-30) L 07/30/17 09:28 Acetaminophen < 1.0 mcg/mL (10-30) L 07/30/17 09:28 - Microbiology Findings Microbiology Findings: Microbiology, Last 48 Hours 08/01/17 10:40 Body Fluid Culture - Final Pleural Fluid 07/30/17 18:00 Wound Culture - Preliminary Abdomen Yeast Species Strep agalactiae - (Group B) Gram Positive Cocci 07/30/17 18:00 Anaerobic Culture - Preliminary Abdomen At this time, no anaerobic growth is present. The culture will be finalized after 5 days of incubation. - Clinical Findings Intake & Output: Intake & Output 08/03/17 08/04/17 08/04/17 23:59 07:59 15:59 Intake Total 1889.2 / 1889.2 1572 / 1572 207 / 207 Output Total 1619 / 1619 1649 / 1649 328 / 328 Balance 270.2 / 270.2 -77 / -77 -121 / -121 Weight 96.9 kg Consult Discharge Plan - Plan Referrals: Keesha Ellsworth, GRADUATE ADVISOR [Primary Care Provider] - - Attending Attestation I examined this patient and my medical decision-making was reviewed with the Resident Physician. I agree with the documented findings, disposition and treatment plan as described except to the extent set forth below. Patient seen and examined. Labs, radiology, chart personally reviewed. Agree with resident's history and physical, assessment, plan with following comments: PERSONAL PROPERTY ASSESSOR: Patient follows commands, Pulmonary: Acceptable oxygenation and ventilation. Patient is requiring higher PEEP which was reduced for chest tube removal and patient is on higher FiO2 which I will attempt to titrate it down. Patient is now stable for spontaneous breathing trial. Chest is removed out immediate complications. Cardiovascular: She still requiring Levophed, however we are able to lower the dose. GI: Nutrition per dietary and GI prophylaxis per routine Heme: DVT prophylaxis per routine. Platelet transfusion because of the risk of bleeding. ID: Continue antibiotics and plan to de-escalation Renal; and remain on Jade Endorcine: blood glucose is monitored Lines: all lines checked and no evidence of infections Skin: skin care to prevent pressure ulcers per nursing routine care I spent 40 min of Critical Care time with this patient. It involved decision making of high complexity to assess, manipulate, and support vital organ system failure and/or to prevent further life threatening deterioration of the patient' s condition. The time involved in the performance of procedures removing chest tube. <Kimberly Hoffman - Last Filed: 08/04/17 13:52> Date of Encounter: 08/04/17 Time of Encounter: 06:38 Assessment and Plan (1) Thrombocytopenia Current Visit: Yes Status: Acute This AM, platelet count 30k Transfuse 1 units of platelets this AM. HIT panel result pending (2) Anemia Current Visit: Yes Status: Acute Patient presented with severe anemia, s/p transfusion Hgb levels stable Will continue to monitor with timed CBC Qualifiers: Anemia type: iron deficiency Iron deficiency anemia type: other iron deficiency Qualified Code(s): D50.8 - Other iron deficiency anemias (3) Perforated abdominal viscus Current Visit: Yes Status: Acute s/p Surgery POD#4 -Pt underwent exploratory celiotomy, with evacuation of 3 L purulent fluid; subtotal gastrectomy with stapled retrocolic gastrojejunostomy; placement of Lam gastrostomy tube Patient is currently hypothermic, with warming efforts in place Chest tube removed, with follow-up CXR reviewed Peritoenum fluid culture -- preliminary positive for Group B strep, no anaerobic growth present. Final Sensitivities pending Patient is on broad-spectrum antibiotics with meropenem and levaquin Stress Ulcer Prophylaxis : On protonix Surgery is following, appreciate recs (4) EDDIE (acute kidney injury) Current Visit: Yes Status: Acute Citrate d/c's 2/2 to thrombocytopenia Nephrology on consult, greatly appreciate recs Tolerating continuous dialysis well Adjust volume removal as tolerated. From 25cc/hour to 50cc/hour. Adjust medications for renal function. (5) Ascites Current Visit: Yes Status: Acute 3 L of this purulent ascites removed Final Aerobic and anaerobic cultures of the peritoneal cavity results pending - preliminary report discussed above No peritoneal signs evident on exam this morning Continue Abx Qualifiers: Ascites type: other type Qualified Code(s): R18.8 - Other ascites (6) Pleural effusion Current Visit: Yes Status: Acute Pleural effusion seen on CXR, with R-sided prominent on CXR Patient s/p pleural catheter placement with evacuation of approximately 1 L of straw-colored fluid immediately. Patient's 02 sat improved since then (7) Atrial fibrillation Current Visit: Yes Status: Acute Onset of Paroxysmal A. fib noted 2 nights prior. Anticoagulation is contraindicated On tele, continue to monitor Qualifiers: Atrial fibrillation type: paroxysmal Qualified Code(s): I48.0 - Paroxysmal atrial fibrillation (8) Electrolyte abnormality Current Visit: Yes Status: Acute On electrolyte protocol orders Phosphorus low today, replaced this AM (9) Skin maceration Current Visit: Yes Status: Acute Continue application of nystatin twice daily to affected areas, with care to integumentary folds and appropriate wound care Additional skin care to prevent pressure ulcers, according to nursing routine care (10) DVT prophylaxis Current Visit: Yes Status: Acute On subcutaneous compression devices (11) Debility Current Visit: Yes Status: Acute Disposition: Critically ill Patient at risk for intra peritoneal abscess / sepsis , CT abd/pelvis contraindicated at moment due to patient's condition (12) Full code status Current Visit: Yes Status: Acute Family in room this AM when examined Discussed clinical status with mother yesterday Subjective Principal diagnosis: Perforated Viscus s/p subtotal gastrectomy Interval history: Patient responsive to commands and name this AM. Appears more comfortable this morning. Objective PUL Vital signs: Last Vital Signs Temp 96.7 F L 08/04/17 06:00 Pulse 82 08/04/17 06:00 Resp 17 08/04/17 06:33 BP 113/44 08/04/17 06:33 Pulse Ox 96 08/04/17 06:33 General appearance: no acute distress Eyes: nonicteric Neck: supple Effort: mildly labored Auscultation: bilateral: diminished breath sounds Cardiovascular: other (irregular heart rhythm, diminished heart sounds ) Gastrointestinal: hypoactive bowel sounds (Abdomen slightly more distended compared to previous exam. Agata present and intact, by midline surgical incision. No oozing. Incision clean dry. ), other (Abdomen slighlty more distended than in previous exam. No tenderness. Soft. ) Integumentary: rash (Skin maceration, covered with nystatin ) Extremities: edema, other (Bear hugger in place, ) unable to assess due to mental status All lines examined. No evidence of infection present. SCDs in place. Ventilator Settings Ventilator Settings: Ventilator Settings, Last 8 Hours Ventilator Mode VC+ Ventilator Mode VC+ Ventilator Mode VC+ Ventilator Mode VC+ Ventilator Mode VC+ Ventilator Mode VC+ Ventilator Mode VC+ Ventilator Mode VC+ Ventilator Mode VC+ Ventilator Mode VC+ Ventilator Mode VC+ Ventilator Mode VC+ Ventilator Mode VC+ Ventilator Tidal Volume 600 Setting Ventilator Tidal Volume 600 Setting Ventilator Tidal Volume 600 Setting Ventilator Tidal Volume 600 Setting Ventilator Tidal Volume 600 Setting Ventilator Tidal Volume 600 Setting Ventilator Tidal Volume 600 Setting Ventilator Tidal Volume 600 Setting Ventilator Tidal Volume 600 Setting Ventilator Tidal Volume 600 Setting Ventilator Tidal Volume 600 Setting Ventilator Tidal Volume 600 Setting Ventilator Tidal Volume 600 Setting Ventilator Respiratory Rate 16 Setting Ventilator Respiratory Rate 16 Setting Ventilator Respiratory Rate 16 Setting Ventilator Respiratory Rate 16 Setting Ventilator Respiratory Rate 16 Setting Ventilator Respiratory Rate 16 Setting Ventilator Respiratory Rate 16 Setting Ventilator Respiratory Rate 16 Setting Ventilator Respiratory Rate 16 Setting Ventilator Respiratory Rate 16 Setting Ventilator Respiratory Rate 16 Setting Ventilator Respiratory Rate 16 Setting Ventilator Respiratory Rate 16 Setting Actual Respiratory Rate 18 Actual Respiratory Rate 18 Actual Respiratory Rate 17 Actual Respiratory Rate 16 Actual Respiratory Rate 18 Actual Respiratory Rate 17 Actual Respiratory Rate 17 Actual Respiratory Rate 18 Actual Respiratory Rate 20 Actual Respiratory Rate 21 Actual Respiratory Rate 21 Actual Respiratory Rate 19 Positive End Expiratory 8 Pressure Positive End Expiratory 8 Pressure Positive End Expiratory 8 Pressure Positive End Expiratory 8 Pressure Positive End Expiratory 8 Pressure Positive End Expiratory 8 Pressure Positive End Expiratory 8 Pressure Positive End Expiratory 8 Pressure Positive End Expiratory 8 Pressure Positive End Expiratory 8 Pressure Positive End Expiratory 8 Pressure Positive End Expiratory 8 Pressure Positive End Expiratory 8 Pressure Peak Inspiratory Airway 32 Pressure Peak Inspiratory Airway 36 Pressure Peak Inspiratory Airway 32 Pressure Peak Inspiratory Airway 53 Pressure Peak Inspiratory Airway 38 Pressure Peak Inspiratory Airway 35 Pressure Peak Inspiratory Airway 38 Pressure Peak Inspiratory Airway 39 Pressure Peak Inspiratory Airway 37 Pressure Peak Inspiratory Airway 43 Pressure Peak Inspiratory Airway 42 Pressure Peak Inspiratory Airway 44 Pressure Results - Laboratory Findings CBC and BMP: 08/04/17 05:45 08/04/17 05:45 ABG ABG pH 7.37 pH Units (7.32-7.45) 08/04/17 05:38 ABG pCO2 42 mmHg (35-45) 08/04/17 05:38 ABG pO2 55 mmHg (85-104) L 08/04/17 05:38 ABG O2 Saturation 87 % (95-98) L 08/04/17 05:38 PT/INR, D-dimer PT 15.0 Seconds (9.4-12.1) H 07/30/17 16:08 Abnormal lab findings: Abnormal lab results WBC 14.4 K/mcL (4.3-11.1) H D 08/04/17 05:45 RBC 3.08 M/mcL (3.82-4.97) L 08/04/17 05:45 Hgb 8.9 g/dL (11.5-15.4) L 08/04/17 05:45 Hct 26.1 % (35.3-44.9) L 08/04/17 05:45 RDW 18.1 % (11.5-14.5) H 08/04/17 05:45 Plt Count 30 K/mcL (140-400) L* D 08/04/17 05:45 Band Neutrophils % 6.0 % (0-4) H 07/30/17 22:00 Metamyelocytes % 2.0 % (0) H 07/30/17 16:08 Myelocytes % 2.0 % (0) H 07/30/17 16:08 Lymphocytes # 0.3 K/mcL (0.6-4.6) L 08/03/17 04:35 Nucleated RBCs/100 WBC 3.3 /100 WBC (0) H 08/04/17 05:45 Toxic Granulation Present (Not Present) A 08/02/17 04:30 Platelet Estimate Marked Decrease (Normal) L 08/03/17 04:35 Immature Plt Fraction 16.3 % (1.1-6.1) H 08/04/17 05:45 Polychromasia 1+ (Not Present) A 08/03/17 04:35 Hypochromasia Present (Not Present) A 08/02/17 04:30 Poikilocytosis 1+ (Not Present) A 08/03/17 04:35 Anisocytosis 1+ (Not Present) A 08/03/17 04:35 Microcytosis Present (Not Present) A 08/03/17 04:35 Target Cells 1+ (Not Present) A 08/03/17 04:35 [place] Cells 1+ (Not Present) A 08/01/17 04:35 PT 15.0 Seconds (9.4-12.1) H 07/30/17 16:08 APTT 69.7 Seconds (26.0-36.0) H 08/01/17 05:30 ABG pO2 55 mmHg (85-104) L 08/04/17 05:38 ABG O2 Saturation 87 % (95-98) L 08/04/17 05:38 ABG Hematocrit 26.0 % (35.3-44.9) L 07/30/17 18:50 ABG Chloride 109 mEq/L (98-107) H 07/30/17 18:50 VBG pH 7.14 pH Units (7.32-7.42) L* 07/30/17 09:47 VBG pO2 80 mmHg (25-50) H 07/30/17 09:47 VBG HCO3 17 mEq/L (21-27) L 07/30/17 09:47 Sodium 134 mEq/L (135-148) L 07/30/17 18:50 Glucose 163 mg/dL (60-95) H 07/30/17 18:50 Lactate 2.5 mmol/L (0.7-2.1) H 07/30/17 18:50 Glucose 199 mg/dL (70-99) H 08/04/17 05:45 POC Glucose 197 (58-89) H 08/04/17 04:12 Lactic Acid 4.0 mmol/L (0.5-2.2) H* 08/01/17 04:35 Calcium 7.2 mg/dL (8.6-10.8) L 08/04/17 05:45 Ionized Calcium 1.08 mmol/L (1.15-1.35) L 08/04/17 05:45 Phosphorus 1.3 mg/dL (2.3-4.7) L 08/04/17 05:45 Direct Bilirubin 0.8 mg/dL (0.0-0.5) H 08/04/17 05:45 B-Natriuretic Peptide 512 pg/mL (0-100) H 07/29/17 09:43 Serum Total Protein 4.7 g/dL (6.0-8.3) L 08/04/17 05:45 Albumin 1.0 g/dL (3.5-5.0) L 08/04/17 05:45 Globulin 3.7 g/dL (2.4-3.5) H 08/04/17 05:45 Albumin/Globulin Ratio 0.3 (1.1-2.2) L 08/04/17 05:45 Triglycerides 262 mg/dL (< 150) H 08/02/17 04:30 Arterial Blood Ionized Calcium 1.48 mmol/L (1.15-1.35) H 07/30/17 18:50 Urine Clarity Hazy (Clear) A 07/29/17 13:07 Ur Specific [place] 1.026 (1.010-1.025) H 07/29/17 13:07 Urine Ketones Trace mg/dL (Negative) H 07/29/17 13:07 Urine Bilirubin Small (Negative) H 07/29/17 13:07 Ur Leukocyte Esterase Small (Negative) H 07/29/17 13:07 Urine Microscopic RBC 3-5 per hpf (0-3) H 07/29/17 13:07 Ur Squamous Epith Cells Many per lpf (None-Few) H 07/29/17 13:07 Amorphous Sediment Many (Few) H 07/29/17 13:07 Ur Culture Indicated? YES (NO) A 07/29/17 13:07 Protein/Creatinin Ratio 2.43 mg/mg (0-0.20) H 08/02/17 02:30 Urine Total Protein 211 mg/dL (1-14) H 08/02/17 02:30 Stool Occult Blood Positive (Negative) A 07/29/17 10:57 Salicylates < 5.0 mg/dL (15-30) L 07/30/17 09:28 Acetaminophen < 1.0 mcg/mL (10-30) L 07/30/17 09:28 - Microbiology Findings Microbiology Findings: Microbiology, Last 48 Hours 08/01/17 10:40 Body Fluid Culture - Final Pleural Fluid 07/30/17 18:00 Wound Culture - Preliminary Abdomen Yeast Species Strep agalactiae - (Group B) Gram Positive Cocci 07/30/17 18:00 Anaerobic Culture - Preliminary Abdomen At this time, no anaerobic growth is present. The culture will be finalized after 5 days of incubation. - Clinical Findings Intake & Output: Intake & Output 08/03/17 08/03/17 08/04/17 15:59 23:59 07:59 Intake Total 1220.5 / 1220.5 1889.2 / 1889.2 1453 / 1453 Output Total 2115 / 2115 1619 / 1619 1460 / 1460 Balance -894.5 / -894.5 270.2 / 270.2 -7 / -7 Weight 96.9 kg - VTE Documentation of Mechanical Device: Intermittent pneumatic compression device
[2017-08-04] MEDS: Meropenem 1,000 MG in Water for inj. (sterile) 10 ML IVP SCH ×3 (08:42→23:52)
[2017-08-04] MEDS: Chlorhexidine Rinse 15 ML MOUTHWASH MM SCH ×2 (08:44→20:54)
[2017-08-04] MEDS: Nystatin Cream 15 GM TUBE TP SCH ×2 (08:45→20:54)
[2017-08-04] MEDS: Fluconazole 400 MG/200 ML 400 MG/200 ML BAG IVPB SCH (08:45)
[2017-08-04] MEDS: FentaNYL (PF) 1,000 MCG in 0.9 % Sodium Chloride 80 ML IVC SCH ×2 (08:50→18:34)
[2017-08-04 08:54] LABS: Eosinophils # 0.6 K/mcL (0.0-0.6); Lymphocytes # 0.9 K/mcL (0.6-4.6); Neutrophils # 7.8 K/mcL (1.6-8.9); Platelet Estimate Marked Decrease (Normal)
[2017-08-04 08:55] LABS: Anisocytosis 1+ (Not Present); Polychromasia 1+ (Not Present); Toxic Granulation Present (Not Present)
[2017-08-04] MEDS: Levofloxacin 750 MG/150 ML 750 MG/150 ML BAG IVPB SCH (10:17)
--- NOTE | 2017-08-04 11:57 | General Surgery Progress Note ---
Date of Encounter: 08/04/17 Time of Encounter: 11:38 Subjective Narrative: General Surgery - POD #5 Patient remains intubated, but able to respond to verbal stimuli. She denies abdominal pain. Patient is currently hypothermic, which are approximately 92 degrees - warming efforts are in progress. 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 Pressure suppport has also geen increased. Norepinephrine increased from 8 to 10 mg/hour Chest x-ray personally reviewed - findings include interval removal right sided chest tube; slight decrease left pleural effusion and slight interval improvement in his airspace opacities. Lungs: Essentially unchanged, slight rales right, clear anterior left Abdomen: Soft, quiet. No obvious tenderness. Incision clean; gastrostomy site; minimal gastric drainage. Extremities: 4+ pitting edema as expected due to fluids being administered and low protein/albumin status Laboratories: White count 14.4 - first elevated leukocytosis since surgery Hemoglobin 8.9, hematocrit 26.1; platelet count remains low at 30,000 despite transfusion 2 sixpacks platelets in the last 24 hours Band neutrophils increased to 6%; metamyelocytes 2%, metamyelocytes 6%; no increase in neutrophils above normal limits Electrolytes, BUN and creatinine remain within an acceptable range. Protein 4.7 albumin 1.0 - improved but still severely depleted. Impression: hypothermia, leukocytosis, increased pressure support and increased oxygen demand concerning. Discussed with family present at bedside Patient at risk for intra peritoneal abscess / sepsis but at the present time unsafe to obtain CT abd/pelvis due to the risk of moving the patient and her multiple support lines and devices. Objective Vital Signs - Last 8 Hours Temp Pulse Resp BP Pulse Ox 08/04/17 11:05 17 88 08/04/17 10:00 96.7 F L 73 19 122/50 92 08/04/17 09:00 73 19 109/48 95 08/04/17 08:12 22 92 08/04/17 08:00 96.2 F L 80 22 128/48 93 08/04/17 07:00 80 18 119/46 96 08/04/17 06:33 17 113/44 96 08/04/17 06:00 96.7 F L 82 18 113/44 96 08/04/17 05:11 18 104/44 94 10/29/17 05:00 77 16 100/42 94 08/04/17 04:00 96.7 F L 81 18 118/47 93 Intake and Output 08/03/17 08/04/17 08/04/17 23:59 07:59 15:59 Intake Total 1889.2 / 1889.2 1572 / 1572 597 / 597 Output Total 1619 / 1619 1649 / 1649 501 / 501 Balance 270.2 / 270.2 -77 / -77 96 / 96 Intake: IV Fluids 1889.2 / 1889.2 1572 / 1572 298 / 298 PrismaSATE BGK 4/2.5 5,000 ML @ 2 / 2 4 / 4 1000 mls/hr CRRT CONT [facility] Rx#: [id number] PRECEDEX Premix 400 mcg In 100 100 / 100 40 / 40 14 / 14 ml @ 0.5 MCG/KG/HR 10.988 mls/ hr IVC .Q9H7M [facility] Rx#: [id number] FentaNYL (PF) 1,000 MCG In 0.9 100 / 100 100 / 100 % Sodium Chloride 80 ML @ 50 MCG/HR 5 mls/hr IVC CONT [facility] Rx #:[id number] Clinimix E 5%-15% SOLUTION 2, 905 / 905 000 ML @ 83.3 mls/hr IVC .Q24H [facility] with M.v.i. Adult 10 ml Rx# :[id number] Clinimix E 5%-15% SOLUTION 2, 286 / 286 853 / 853 000 ML Travasol 10% 300 ML @ 95 .8 mls/hr IVC .Q24H [facility] with M. v.i. Adult 10 ml Rx#:[id number] Levophed 8 MG In Dextrose 5% 303.2 / 303.2 388 / 388 74 / 74 250 ML @ 20 MCG/MIN 38.7 mls/hr IVC CONT [facility] Rx#:[id number] Merrem 1,000 MG In Water for 10 inj. (sterile) 10 ML @ 200 mls/ hr IVP Q8HR [facility] Rx#:[id number] Intralipid 20% 250 ML @ 21 mls/ 63 / 63 187 / 187 hr IVPB DAILY@1700 [facility] Rx#: [id number] Diflucan Premix 400 MG/200 ML 200 / 200 400 mg In 200 ml @ 200 mls/hr IVPB DAILY [facility] Rx#:[id number] Sodium Phosphate 30 MMOL In 110 / 110 Dextrose 5% 100 ML @ 16 mls/hr IVPB ONCE ONE Rx#:[id number] Blood Product 0 / 0 Platelet Pheresis Lp Irr 1st 0 / 0 Unit [id number] Other 299 / 299 Output: Gastric Tube Lavage Amount 0 / 0 20 20 Left Upper Quadrant 0 / 0 Jade 1524 / 1524 1604 / 1604 501 / 501 Catheter 0 0 Chest Tube Drainage 60 / 60 Right Upper Mid-Axillary Chest 60 / 60 #1 Other: Weight 96.9 kg Blood Glucose* 135 184 177 Patient Weight 08/04/17 23:59 Weight 96.9 kg - Labs 08/04/17 05:45 08/04/17 05:45 Diabetes panel 08/04/17 Range/Units 05:45 Sodium 136 (136-145) mEq/L Potassium 4.3 (3.5-4.5) mEq/L Chloride 105 (98-109) mEq/L Carbon Dioxide 23 (19-29) mEq/L BUN 11 (7-20) mg/dL Creatinine 0.78 (0.57-1.11) mg/dL Glucose 199 H (70-99) mg/dL Calcium 7.2 L (8.6-10.8) mg/dL AST 21 (5-34) Units/L ALT 18 (0-55) Units/L Alkaline Phosphatase 77 (38-126) Units/L Albumin 1.0 L (3.5-5.0) g/dL Calcium panel 08/04/17 Range/Units 05:45 Calcium 7.2 L (8.6-10.8) mg/dL Phosphorus 1.3 L (2.3-4.7) mg/dL Albumin 1.0 L (3.5-5.0) g/dL Pituitary panel 08/04/17 Range/Units 05:45 Sodium 136 (136-145) mEq/L Potassium 4.3 (3.5-4.5) mEq/L Chloride 105 (98-109) mEq/L Carbon Dioxide 23 (19-29) mEq/L BUN 11 (7-20) mg/dL Creatinine 0.78 (0.57-1.11) mg/dL Glucose 199 H (70-99) mg/dL Calcium 7.2 L (8.6-10.8) mg/dL Adrenal panel 08/04/17 Range/Units 05:45 Sodium 136 (136-145) mEq/L Potassium 4.3 (3.5-4.5) mEq/L Chloride 105 (98-109) mEq/L Carbon Dioxide 23 (19-29) mEq/L BUN 11 (7-20) mg/dL Creatinine 0.78 (0.57-1.11) mg/dL Glucose 199 H (70-99) mg/dL Calcium 7.2 L (8.6-10.8) mg/dL Total Bilirubin 1.2 (0.2-1.2) mg/dL AST 21 (5-34) Units/L ALT 18 (0-55) Units/L Alkaline Phosphatase 77 (38-126) Units/L Albumin 1.0 L (3.5-5.0) g/dL - VTE Documentation of Mechanical Device: Intermittent pneumatic compression device Consult Discharge Plan - Plan Referrals: Keesha Ellsworth, TECHNOLOGY SALES CONSULTANT [Primary Care Provider] -
--- NOTE | 2017-08-04 12:03 | Nephrology Progress Note ---
Date of Encounter: 08/04/17 Time of Encounter: 12:00 - Assessment and Plan (1) Respiratory failure Current Visit: Yes Status: Acute Management per primary team. Patient on vent. Removing fluid to assist with volume status. Patient with increasing O2 requirement after improvement yesterday. This is along with significant increase in WBC with bandemia and hypothermia. Patient with worsening sepsis. Will continue CVVHDF at the same settings. Unable to wean pressors as she has significant drop in blood pressure as the pressors are decreased. May need to decrease UF if patient pressor requirement increases. (2) EDDIE (acute kidney injury) Current Visit: Yes Status: Acute Dialysis dependent. Patient on CVVHDF Tolerating continuous dialysis well Adjust volume removal as tolerated. Current UF 50cc/hr, but with worsening sepsis this may need to decrease. Adjust medications for renal function. Replace electrolytes as needed. Discussed plan of care with critical care team. 32 minutes spent in the care of this critically ill patient. (3) Anemia Current Visit: Yes Status: Acute Per primary team. Transfuse as needed. Qualifiers: Anemia type: iron deficiency Iron deficiency anemia type: other iron deficiency Qualified Code(s): D50.8 - Other iron deficiency anemias (4) CKD (chronic kidney disease) Current Visit: Yes Status: Acute Qualifiers: Chronic kidney disease stage: unspecified stage Qualified Code(s): N18.9 - Chronic kidney disease, unspecified (5) Perforated abdominal viscus Current Visit: Yes Status: Acute Per surgery. (6) Acidosis Current Visit: Yes Status: Acute Metabolic and respiratory. Improved with ongoing CVVHD and improvement in pCO2. Subjective Principal diagnosis: Perforated Viscus s/p subtotal gastrectomy Interval history: Patient seen and evaluated. Still on vent and CVVHD. Review of systems unobtainable as patient is intubated and sedated. Objective - Vital Signs Vital signs: Vital Signs Temp Pulse Resp BP Pulse Ox 08/04/17 11:05 17 88 08/04/17 11:00 94.1 F L 67 18 108/56 90 08/04/17 10:00 95.7 F L 73 19 122/50 92 08/04/17 09:00 73 19 109/48 95 08/04/17 08:12 22 92 08/04/17 08:00 96.2 F L 80 22 128/48 93 08/04/17 07:00 80 18 119/46 96 10/29/17 06:33 17 113/44 96 08/04/17 06:00 96.7 F L 82 18 113/44 96 08/04/17 05:11 18 104/44 94 08/04/17 05:00 77 16 100/42 94 08/04/17 04:00 96.7 F L 81 18 118/47 93 08/04/17 03:00 97.5 F L 83 17 123/49 96 08/04/17 02:04 19 126/48 97 08/04/17 02:00 98.3 F 86 18 130/50 96 08/04/17 01:00 90 20 129/48 97 08/04/17 00:25 19 124/52 90 08/04/17 00:00 83 21 136/49 89 08/03/17 23:00 99.8 F H 92 19 133/51 89 08/03/17 22:22 19 129/47 91 08/03/17 22:00 99.5 F 85 19 127/45 90 08/03/17 21:00 92 18 115/42 92 08/03/17 20:32 21 118/43 92 08/03/17 20:00 100.1 F H 93 16 106/40 93 08/03/17 19:00 93 20 108/40 92 08/03/17 18:00 101 20 97/40 92 08/03/17 17:36 19 93 08/03/17 17:00 93 16 131/47 96 08/03/17 16:00 98.2 F 96 16 117/42 94 08/03/17 15:40 96.1 F L 68 18 126/52 92 08/03/17 15:31 19 94 08/03/17 15:00 96 16 109/37 94 08/03/17 14:03 18 93 08/03/17 14:00 89 18 127/44 94 08/03/17 13:05 92.4 F L 96 16 103/35 96 08/03/17 13:00 85 16 118/41 93 08/03/17 12:47 92.4 F L 85 17 111/40 93 08/03/17 12:46 92.4 F L 85 17 107/37 93 Intake and Output 08/03/17 08/04/17 08/04/17 23:59 07:59 15:59 Intake Total 1889.2 / 1889.2 1572 / 1572 687 / 687 Output Total 1619 / 1619 1649 / 1649 773 / 773 Balance 270.2 / 270.2 -77 / -77 -86 / -86 Intake: IV Fluids 1889.2 / 1889.2 1572 / 1572 298 / 298 PrismaSATE BGK 4/2.5 5,000 ML @ 2 / 2 4 / 4 1000 mls/hr CRRT CONT [facility] [place] Rx#: [id number] PRECEDEX Premix 400 mcg In 100 100 / 100 40 / 40 14 / 14 ml @ 0.5 MCG/KG/HR 10.988 mls/ hr IVC .Q9H7M [facility] Rx#: [id number] FentaNYL (PF) 1,000 MCG In 0.9 100 / 100 100 / 100 % Sodium Chloride 80 ML @ 50 MCG/HR 5 mls/hr IVC CONT [facility] Rx #:[id number] Clinimix E 5%-15% SOLUTION 2, 905 / 905 000 ML @ 83.3 mls/hr IVC .Q24H [facility] with M.v.i. Adult 10 ml Rx# :[id number] Clinimix E 5%-15% SOLUTION 2, 286 / 286 853 / 853 000 ML Travasol 10% 300 ML @ 95 .8 mls/hr IVC .Q24H [facility] with M. v.i. Adult 10 ml Rx#:[id number] Levophed 8 MG In Dextrose 5% 303.2 / 303.2 388 / 388 74 / 74 250 ML @ 20 MCG/MIN 38.7 mls/hr IVC CONT [facility] Rx#:[id number] Merrem 1,000 MG In Water for 20 10 / 10 inj. (sterile) 10 ML @ 200 mls/ hr IVP Q8HR [facility] Rx#:[id number] Intralipid 20% 250 ML @ 21 mls/ 63 / 63 187 / 187 hr IVPB DAILY@1700 [facility] Rx#: [id number] Diflucan Premix 400 MG/200 ML 200 / 200 400 mg In 200 ml @ 200 mls/hr IVPB DAILY [facility] Rx#:[id number] Sodium Phosphate 30 MMOL In 110 / 110 Dextrose 5% 100 ML @ 16 mls/hr IVPB ONCE ONE Rx#:[id number] Blood Product 0 / 0 Platelet Pheresis Lp Irr 1st 0 / 0 Unit [id number] Other 389 / 389 Output: Gastric Tube Lavage Amount 0 / 0 20 / Left Upper Quadrant 0 / 0 20 / 20 Jade 1524 / 1524 1604 / 1604 768 / 768 Catheter 35 / 35 15 / 15 5 / 5 Chest Tube Drainage 60 / 60 10 Right Upper Mid-Axillary Chest 60 / 60 #1 Other: Weight 96.9 kg Blood Glucose* 135 184 177 Patient Weight 08/04/17 23:59 Weight 96.9 kg - General Appearance General appearance: Present: well-developed, well-nourished, sedated on ventilator, intubated EENT: Present: ATNC Respiratory: Present: course breath sounds Cardiology: Present: edema, regular rate Dialysis Vascular Access: Venous Catheter Additional Comments: Post surgical consuelo are in place. Additional Comments: sedated. Musculoskeletal: Present: no cyanosis Additional Comments: sedated. - Lab 08/04/17 05:45 08/04/17 05:45 Most recent lab results ABG pH 7.37 pH Units (7.32-7.45) 08/04/17 05:38 ABG pCO2 42 mmHg (35-45) 08/04/17 05:38 ABG pO2 55 mmHg (85-104) L 08/04/17 05:38 ABG HCO3 24 mEq/L (21-27) 08/04/17 05:38 ABG O2 Saturation 87 % (95-98) L 08/04/17 05:38 Calcium 7.2 mg/dL (8.6-10.8) L 08/04/17 05:45 Phosphorus 1.3 mg/dL (2.3-4.7) L 08/04/17 05:45 Magnesium 1.9 mg/dL (1.6-2.6) 08/04/17 05:45 Urine Creatinine 87 mg/dL 08/02/17 02:30 Urine Sodium 49.0 mEq/L 08/02/17 02:30 Urine Total Protein 211 mg/dL (1-14) H 08/02/17 02:30 - VTE Documentation of Mechanical Device: Intermittent pneumatic compression device Consult Discharge Plan - Plan Referrals: Keesha Ellsworth, WHEELCHAIR RENTAL CLERK [Primary Care Provider] -
[2017-08-04] MEDS ORDERED: Calcium Gluconate 2,000 MG in D5% in Water 100 ML IVPB ONE (13:37)
[2017-08-04] MEDS ORDERED: Magnesium Sulfate 1 GM in D5% in Water 100 ML IVPB ONE (13:37)
[2017-08-04] MEDS: Dexmedetomidine HCl 400 MCG/100 ML MLS IVC SCH ×2 (14:49→20:57)
[2017-08-04] MEDS ORDERED: MVI IVC SCH (17:00)
[2017-08-04] MEDS ORDERED: [UNRECOGNIZED DRUG - OTHER] IVC SCH (17:00)
[2017-08-04] MEDS ORDERED: CLINIMIX E IVC SCH (17:00)
[2017-08-04] MEDS ORDERED: PARENTERAL AMINO ACID 10% IVC SCH (17:00)
[2017-08-04] MEDS ORDERED: Clinimix E 5%-15% SOLUTION 2,000 ML with MVI, adult with vitamin K 10 ML IVC SCH (17:00)
[2017-08-04] MEDS: Vasopressin 40 UNIT in D5% in Water 100 ML IV SCH (17:29)
[2017-08-04] MEDS: Calcium Chloride 4,000 MG in 0.9 % Sodium Chloride 1,000 ML CRRT SCH (17:29)
[2017-08-04] MEDS: *HR* Heparin 5,000 UNIT/ML VIAL IV PRN (18:33)
[2017-08-05] MEDS: FentaNYL (PF) 1,000 MCG in 0.9 % Sodium Chloride 80 ML IVC SCH ×3 (02:15→18:47)
[2017-08-05] MEDS: PrismaSATE BGK 4/2.5 5,000 ML CRRT SCH ×8 (03:45→20:47)
[2017-08-05] MEDS: Ipratropium/Albuterol Neb 3 ML IH SCH ×6 (03:54→23:24)
[2017-08-05 04:49] LABS: ABG Base Excess -1 mEq/L (-2 to 3); ABG HCO3 25 mEq/L (21-27); ABG Oxygen Saturation 86 % (95-98); ABG PCO2 48 mmHg (35-45); ABG PH 7.33 pH Units (7.32-7.45); ABG PO2 56 mmHg (85-104); ABG TCO2 26 mEq/L (20-26); Blood Gas Modality ASSIST CONTROL; Blood Gas PEEP 8 cm H2O; Blood Gas Respiration Rate 16; Blood Gas VT 600 cc
[2017-08-05] MEDS: Lacri-Lube 3.5 GM TUBE BOTH EYES SCH ×6 (04:51→23:50)
[2017-08-05] MEDS: Insulin LISPRO 300 UNITS/3 ML VIAL SQ SCH ×6 (04:54→23:50)
[2017-08-05] MEDS: Dexmedetomidine HCl 400 MCG/100 ML MLS IVC SCH (05:02)
[2017-08-05 05:20] LABS: Hemoglobin 8.5 g/dL (11.5-15.4); Mean Corpuscular Hemoglobin 28.1 pg (28.0-33.3); Nucleated Red Blood Cells 1.9 /100 WBC (0); Red Cell Distribution Width 18.6 % (11.5-14.5)
[2017-08-05 05:22] LABS: Mean Corpuscular HGB Conc 32.7 g/dL (31.6-35.5); Mean Corpuscular Volume 86.1 fL (83.0-100.0); Mean Platelet Volume 11.8 fL (9.4-12.4); Red Blood Count 3.02 M/mcL (3.82-4.97)
[2017-08-05 05:24] LABS: Ionized Calcium 1.13 mmol/L (1.15-1.35)
[2017-08-05 05:33] LABS: Alanine Aminotransferase 15 Units/L (0-55); Albumin/Globulin Ratio 0.3 (1.1-2.2); Alkaline Phosphatase 88 Units/L (38-126); Aspartate Amino Transferase 23 Units/L (5-34); BUN/Creatinine Ratio 18 (6-26); Bilirubin,Total 1.1 mg/dL (0.2-1.2); Blood Urea Nitrogen 13 mg/dL (7-20); Calcium 7.6 mg/dL (8.6-10.8); Carbon Dioxide 25 mEq/L (19-29); Chloride 105 mEq/L (98-109); Globulin 3.7 g/dL (2.4-3.5); Glucose 174 mg/dL (70-99); Osmolality,Calculated 286 (280-300); Potassium 4.6 mEq/L (3.5-4.5); Sodium 136 mEq/L (136-145); Total Protein 4.7 g/dL (6.0-8.3); eGFR For African Americans > 60 (> 60); eGFR For Non-African Americans > 60 (> 60)
[2017-08-05 05:34] LABS: Albumin/Globulin Ratio 0.3 (1.1-2.2); Bilirubin,Direct 0.9 mg/dL (0.0-0.5); Bilirubin,Indirect 0.2 mg/dL (0.0-1.2); Bilirubin,Total 1.1 mg/dL (0.2-1.2); Globulin 3.7 g/dL (2.4-3.5); Total Protein 4.7 g/dL (6.0-8.3)
[2017-08-05 05:45] LABS: Platelet Count 41 K/mcL (140-400)
[2017-08-05] MEDS: Pantoprazole 40 MG VIAL IVP SCH ×2 (05:48→18:43)
[2017-08-05 05:49] LABS: Eosinophils # 2.3 K/mcL (0.0-0.6); Lymphocytes # 2.7 K/mcL (0.6-4.6); Monocytes # 0.9 K/mcL (0.0-1.3); Neutrophils # 16.9 K/mcL (1.6-8.9)
[2017-08-05 05:50] LABS: Smudge Cells Present (Not Present); Toxic Granulation Present (Not Present); Toxic Vacuolation Present (Not Present)
[2017-08-05 05:54] LABS: Anisocytosis 1+ (Not Present); Poikilocytosis 1+ (Not Present); Target Cells 1+ (Not Present)
[2017-08-05 05:55] LABS: Platelet Estimate Decreased (Normal); Polychromasia 1+ (Not Present)
[2017-08-05] MEDS: Norepinephrine 8 MG in D5% in Water 250 ML IVC SCH ×3 (05:57→20:15)
[2017-08-05] MEDS: Meropenem 1,000 MG in Water for inj. (sterile) 10 ML IVP SCH ×3 (08:48→23:43)
[2017-08-05] MEDS: Nystatin Cream 15 GM TUBE TP SCH ×2 (08:49→20:48)
[2017-08-05] MEDS: Chlorhexidine Rinse 15 ML MOUTHWASH MM SCH ×2 (08:50→20:47)
--- NOTE | 2017-08-05 08:51 | Pulmonology Progress Note ---
<Julius Navarro - Last Filed: 08/05/17 13:48> Date of Encounter: 08/05/17 Time of Encounter: 08:48 Assessment and Plan (1) Septic shock Current Visit: Yes Status: Acute Present since arrival. Secondary to perforated abdominal viscus. Patient is still requiring pressor therapy in the amount of pressor requirements have been increasing. There is a concern for intra-abdominal abscess however the patient is too unstable for CT scan. Continue antibiotic therapy and may broaden antibiotics today. Patient is on Levaquin, meropenem, vancomycin, and micafungin (2) Cardiac arrest Current Visit: Yes Status: Acute Patient had a cardiac arrest during endoscopy on the day of admission. She received 1 round of CPR and milligram of epinephrine and had spontaneous return of circulation. Neurologic status intact. (3) Perforated abdominal viscus Current Visit: Yes Status: Acute Likely secondary to gastric ulcer. Patient is postop day 6 status post gastric resection. Patient is on broad-spectrum antibiotics with meropenem and levaquin as well as econazole, intraoperative cultures showed 2 different gram- positive cocci and yeast species. Leukocytosis is worsening, will broaden out antibiotics including adding vancomycin and changing fluconazole to micafungin. There is a concern for intra-abdominal abscess and we will tentatively get CT however patient at this point is too unstable to transport to CT scan. Surgery is following. (4) Anemia Current Visit: Yes Status: Acute Stable. Likely secondary to peptic ulcer disease. On twice a day Protonix. Qualifiers: Anemia type: iron deficiency Iron deficiency anemia type: other iron deficiency Qualified Code(s): D50.8 - Other iron deficiency anemias (5) GI bleed Current Visit: Yes Status: Acute Likely secondary to peptic ulcer disease. Hemoglobin has been corrected. No evidence of active bleeding. Continue to monitor. Qualifiers: GI bleed type/associated pathology: unspecified gastrointestinal hemorrhage type Qualified Code(s): K92.2 - Gastrointestinal hemorrhage, unspecified (6) EDDIE (acute kidney injury) Current Visit: Yes Status: Acute Secondary to dehydration in setting of GI bleed as discussed above. Septic shock is also contributing. Patient has been anuric and is on renal replacement therapy. Replace phosphorus. Nephrology is following. (7) Pleural effusion Current Visit: Yes Status: Acute Pleural catheter removed yesterday. Repeat chest x-ray does not show reaccumulation of fluid. Patient also has pulmonary edema which is contributing to her worsening oxygenation status. Currently requiring high amounts of PEEP and FiO2. Attempting to remove fluid through continuous renal replacement therapy. (8) Atrial fibrillation Current Visit: Yes Status: Acute Patient is having paroxysmal A. fib since Saturday. Rate is well controlled. Likely related to stress of underlying illness. Anticoagulation is contraindicated at this time. Continue to monitor. Qualifiers: Atrial fibrillation type: paroxysmal Qualified Code(s): I48.0 - Paroxysmal atrial fibrillation (9) Thrombocytopenia Current Visit: Yes Status: Acute Likely related to underlying sepsis. Platelets were as low as 15, 41 today. Subjective Principal diagnosis: Perforated Viscus s/p subtotal gastrectomy Interval history: Patient seen and examined at bedside. Patient remains intubated and minimally sedated. She is awake and able to follow commands. She does appear to be in mild distress. Objective PUL Vital signs: Last Vital Signs Temp 97.6 F 08/05/17 08:00 Pulse 79 08/05/17 08:00 Resp 23 08/05/17 08:12 BP 99/39 08/05/17 08:12 Pulse Ox 92 08/05/17 08:12 General appearance: appears uncomfortable ENT: oropharynx dry Auscultation: left: diminished breath sounds Cardiovascular: irregular rhythm Gastrointestinal: hypoactive bowel sounds, soft, non-tender, non-distended, other (Surgical incision is clean dry and intact.) Extremities: no cyanosis, no clubbing, edema (Trace lower extremity bilaterally) non-focal exam Ventilator Settings Ventilator Settings: Ventilator Settings, Last 8 Hours Ventilator Mode VC+ Ventilator Mode VC+ Ventilator Mode VC+ Ventilator Mode VC+ Ventilator Mode VC+ Ventilator Mode VC+ Ventilator Mode VC+ Ventilator Mode VC+ Ventilator Mode VC+ Ventilator Mode VC+ Ventilator Mode VC+ Ventilator Mode VC+ Ventilator Mode VC+ Ventilator Mode VC+ Ventilator Tidal Volume 450 Setting Ventilator Tidal Volume 450 Setting Ventilator Tidal Volume 600 Setting Ventilator Tidal Volume 600 Setting Ventilator Tidal Volume 600 Setting Ventilator Tidal Volume 600 Setting Ventilator Tidal Volume 600 Setting Ventilator Tidal Volume 600 Setting Ventilator Tidal Volume 600 Setting Ventilator Tidal Volume 600 Setting Ventilator Tidal Volume 600 Setting Ventilator Tidal Volume 600 Setting Ventilator Tidal Volume 600 Setting Ventilator Tidal Volume 600 Setting Ventilator Respiratory Rate 16 Setting Ventilator Respiratory Rate 16 Setting Ventilator Respiratory Rate 16 Setting Ventilator Respiratory Rate 16 Setting Ventilator Respiratory Rate 16 Setting Ventilator Respiratory Rate 16 Setting Ventilator Respiratory Rate 16 Setting Ventilator Respiratory Rate 16 Setting Ventilator Respiratory Rate 16 Setting Ventilator Respiratory Rate 16 Setting Ventilator Respiratory Rate 16 Setting Ventilator Respiratory Rate 16 Setting Ventilator Respiratory Rate 16 Setting Ventilator Respiratory Rate 16 Setting Actual Respiratory Rate 23 Actual Respiratory Rate 21 Actual Respiratory Rate 22 Actual Respiratory Rate 20 Actual Respiratory Rate 19 Actual Respiratory Rate 18 Actual Respiratory Rate 20 Actual Respiratory Rate 20 Actual Respiratory Rate 19 Actual Respiratory Rate 20 Actual Respiratory Rate 20 Actual Respiratory Rate 22 Actual Respiratory Rate 20 Positive End Expiratory 10 Pressure Positive End Expiratory 10 Pressure Positive End Expiratory 8 Pressure Positive End Expiratory 8 Pressure Positive End Expiratory 8 Pressure Positive End Expiratory 8 Pressure Positive End Expiratory 8 Pressure Positive End Expiratory 8 Pressure Positive End Expiratory 8 Pressure Positive End Expiratory 8 Pressure Positive End Expiratory 8 Pressure Positive End Expiratory 8 Pressure Positive End Expiratory 8 Pressure Positive End Expiratory 8 Pressure Peak Inspiratory Airway 29 Pressure Peak Inspiratory Airway 15 Pressure Peak Inspiratory Airway 36 Pressure Peak Inspiratory Airway 27 Pressure Peak Inspiratory Airway 26 Pressure Peak Inspiratory Airway 28 Pressure Peak Inspiratory Airway 27 Pressure Peak Inspiratory Airway 32 Pressure Peak Inspiratory Airway 27 Pressure Peak Inspiratory Airway 25 Pressure Peak Inspiratory Airway 27 Pressure Peak Inspiratory Airway 29 Pressure Peak Inspiratory Airway 29 Pressure Results - Laboratory Findings CBC and BMP: 08/05/17 05:10 08/05/17 05:10 ABG ABG pH 7.33 pH Units (7.32-7.45) 08/05/17 04:44 ABG pCO2 48 mmHg (35-45) H 08/05/17 04:44 ABG pO2 56 mmHg (85-104) L 08/05/17 04:44 ABG O2 Saturation 86 % (95-98) L 08/05/17 04:44 PT/INR, D-dimer PT 15.0 Seconds (9.4-12.1) H 07/30/17 16:08 Abnormal lab findings: Abnormal lab results WBC 22.8 K/mcL (4.3-11.1) H D 08/05/17 05:10 RBC 3.02 M/mcL (3.82-4.97) L 08/05/17 05:10 Hgb 8.5 g/dL (11.5-15.4) L 08/05/17 05:10 Hct 26.0 % (35.3-44.9) L 08/05/17 05:10 RDW 18.6 % (11.5-14.5) H 08/05/17 05:10 Plt Count 41 K/mcL (140-400) L 08/05/17 05:10 Band Neutrophils % 6.0 % (0-4) H 08/04/17 05:45 Metamyelocytes % 2.0 % (0) H 08/04/17 05:45 Myelocytes % 6.0 % (0) H 08/04/17 05:45 Neutrophils # 16.9 K/mcL (1.6-8.9) H 08/05/17 05:10 Eosinophils # 2.3 K/mcL (0.0-0.6) H 08/05/17 05:10 Nucleated RBCs/100 WBC 1.9 /100 WBC (0) H 08/05/17 05:10 Smudge Cells Present (Not Present) A 08/05/17 05:10 Toxic Granulation Present (Not Present) A 08/05/17 05:10 Toxic Vacuolation Present (Not Present) A 08/05/17 05:10 Platelet Estimate Decreased (Normal) L 08/05/17 05:10 Immature Plt Fraction 16.0 % (1.1-6.1) H 08/05/17 05:10 Polychromasia 1+ (Not Present) A 08/05/17 05:10 Hypochromasia Present (Not Present) A 08/02/17 04:30 Poikilocytosis 1+ (Not Present) A 08/05/17 05:10 Anisocytosis 1+ (Not Present) A 08/05/17 05:10 Microcytosis Present (Not Present) A 08/03/17 04:35 Target Cells 1+ (Not Present) A 08/05/17 05:10 Kartik Cells 1+ (Not Present) A 08/01/17 04:35 PT 15.0 Seconds (9.4-12.1) H 07/30/17 16:08 APTT 69.7 Seconds (26.0-36.0) H 08/01/17 05:30 ABG pCO2 48 mmHg (35-45) H 08/05/17 04:44 ABG pO2 56 mmHg (85-104) L 08/05/17 04:44 ABG O2 Saturation 86 % (95-98) L 08/05/17 04:44 ABG Hematocrit 26.0 % (35.3-44.9) L 07/30/17 18:50 ABG Chloride 109 mEq/L (98-107) H 07/30/17 18:50 VBG pH 7.14 pH Units (7.32-7.42) L* 07/30/17 09:47 VBG pO2 80 mmHg (25-50) H 07/30/17 09:47 VBG HCO3 17 mEq/L (21-27) L 07/30/17 09:47 Sodium 134 mEq/L (135-148) L 07/30/17 18:50 Glucose 163 mg/dL (60-95) H 07/30/17 18:50 Lactate 2.5 mmol/L (0.7-2.1) H 07/30/17 18:50 Potassium 4.6 mEq/L (3.5-4.5) H 08/05/17 05:10 Glucose 174 mg/dL (70-99) H 08/05/17 05:10 POC Glucose 156 (58-89) H 08/05/17 08:00 Lactic Acid 4.0 mmol/L (0.5-2.2) H* 08/01/17 04:35 Calcium 7.6 mg/dL (8.6-10.8) L 08/05/17 05:10 Ionized Calcium 1.13 mmol/L (1.15-1.35) L 08/05/17 05:10 Phosphorus 1.0 mg/dL (2.3-4.7) L* 08/05/17 05:10 Direct Bilirubin 0.9 mg/dL (0.0-0.5) H 08/05/17 05:10 B-Natriuretic Peptide 512 pg/mL (0-100) H 07/29/17 09:43 Serum Total Protein 4.7 g/dL (6.0-8.3) L 08/05/17 05:10 Albumin 1.0 g/dL (3.5-5.0) L 08/05/17 05:10 Globulin 3.7 g/dL (2.4-3.5) H 08/05/17 05:10 Albumin/Globulin Ratio 0.3 (1.1-2.2) L 08/05/17 05:10 Triglycerides 262 mg/dL (< 150) H 08/02/17 04:30 Arterial Blood Ionized Calcium 1.48 mmol/L (1.15-1.35) H 07/30/17 18:50 Urine Clarity Hazy (Clear) A 07/29/17 13:07 Ur Specific [place] 1.026 (1.010-1.025) H 07/29/17 13:07 Urine Ketones Trace mg/dL (Negative) H 07/29/17 13:07 Urine Bilirubin Small (Negative) H 07/29/17 13:07 Ur Leukocyte Esterase Small (Negative) H 07/29/17 13:07 Urine Microscopic RBC 3-5 per hpf (0-3) H 07/29/17 13:07 Ur Squamous Epith Cells Many per lpf (None-Few) H 07/29/17 13:07 Amorphous Sediment Many (Few) H 07/29/17 13:07 Ur Culture Indicated? YES (NO) A 07/29/17 13:07 Protein/Creatinin Ratio 2.43 mg/mg (0-0.20) H 08/02/17 02:30 Urine Total Protein 211 mg/dL (1-14) H 08/02/17 02:30 Stool Occult Blood Positive (Negative) A 07/29/17 10:57 Salicylates < 5.0 mg/dL (15-30) L 07/30/17 09:28 Acetaminophen < 1.0 mcg/mL (10-30) L 07/30/17 09:28 - Microbiology Findings Microbiology Findings: Microbiology, Last 48 Hours 07/30/17 18:00 Wound Culture - Preliminary Abdomen Ketty albicans Strep agalactiae - (Group B) Streptococcus mitis/S.oralis 07/30/17 18:00 Anaerobic Culture - Preliminary Abdomen 08/01/17 10:40 Body Fluid Culture - Final Pleural Fluid - Clinical Findings Intake & Output: Intake & Output 08/04/17 08/05/17 08/05/17 23:59 07:59 15:59 Intake Total 1373 / 1373 1346 / 1346 Output Total 1616 / 1616 1620 / 1620 196 / 196 Balance -243 / -243 -274 / -274 -179 / -179 Weight 98 kg - VTE Documentation of Mechanical Device: Intermittent pneumatic compression device Consult Discharge Plan - Plan Referrals: Keesha Ellsworth, [employer] [employer] [Primary Care Provider] - <Chris Rodríguez - Last Filed: 08/05/17 18:26> Date of Encounter: 08/05/17 Objective PUL Vital signs: Last Vital Signs Temp 97.7 F 08/05/17 16:00 Pulse 85 08/05/17 17:00 Resp 30 08/05/17 17:00 BP 101/53 08/05/17 17:00 Pulse Ox 98 08/05/17 17:00 Ventilator Settings Ventilator Settings: Ventilator Settings, Last 8 Hours Ventilator Mode VC+ Ventilator Mode VC+ Ventilator Mode VC+ Ventilator Mode VC+ Ventilator Mode VC+ Ventilator Mode VC+ Ventilator Mode VC+ Ventilator Mode VC+ Ventilator Mode VC+ Ventilator Mode VC+ Ventilator Mode VC+ Ventilator Mode VC+ Ventilator Tidal Volume 450 Setting Ventilator Tidal Volume 450 Setting Ventilator Tidal Volume 450 Setting Ventilator Tidal Volume 450 Setting Ventilator Tidal Volume 450 Setting Ventilator Tidal Volume 450 Setting Ventilator Tidal Volume 450 Setting Ventilator Tidal Volume 450 Setting Ventilator Tidal Volume 450 Setting Ventilator Tidal Volume 450 Setting Ventilator Tidal Volume 450 Setting Ventilator Tidal Volume 450 Setting Ventilator Respiratory Rate 16 Setting Ventilator Respiratory Rate 16 Setting Ventilator Respiratory Rate 16 Setting Ventilator Respiratory Rate 16 Setting Ventilator Respiratory Rate 16 Setting Ventilator Respiratory Rate 16 Setting Ventilator Respiratory Rate 16 Setting Ventilator Respiratory Rate 16 Setting Ventilator Respiratory Rate 16 Setting Ventilator Respiratory Rate 16 Setting Ventilator Respiratory Rate 16 Setting Ventilator Respiratory Rate 16 Setting Actual Respiratory Rate 30 Actual Respiratory Rate 28 Actual Respiratory Rate 25 Actual Respiratory Rate 28 Actual Respiratory Rate 30 Actual Respiratory Rate 27 Actual Respiratory Rate 27 Actual Respiratory Rate 27 Actual Respiratory Rate 29 Actual Respiratory Rate 22 Positive End Expiratory 15 Pressure Positive End Expiratory 15 Pressure Positive End Expiratory 15 Pressure Positive End Expiratory 15 Pressure Positive End Expiratory 15 Pressure Positive End Expiratory 15 Pressure Positive End Expiratory 15 Pressure Positive End Expiratory 15 Pressure Positive End Expiratory 15 Pressure Positive End Expiratory 15 Pressure Positive End Expiratory 15 Pressure Positive End Expiratory 10 Pressure Peak Inspiratory Airway 45 Pressure Peak Inspiratory Airway 39 Pressure Peak Inspiratory Airway 39 Pressure Peak Inspiratory Airway 38 Pressure Peak Inspiratory Airway 38 Pressure Peak Inspiratory Airway 41 Pressure Peak Inspiratory Airway 41 Pressure Peak Inspiratory Airway 41 Pressure Peak Inspiratory Airway 44 Pressure Peak Inspiratory Airway 17 Pressure Results - Laboratory Findings CBC and BMP: 08/05/17 05:10 08/05/17 05:10 ABG ABG pH 7.29 pH Units (7.32-7.45) L 08/05/17 18:00 ABG pCO2 50 mmHg (35-45) H 08/05/17 18:00 ABG pO2 71 mmHg (85-104) L 08/05/17 18:00 ABG O2 Saturation 92 % (95-98) L 08/05/17 18:00 PT/INR, D-dimer PT 15.0 Seconds (9.4-12.1) H 07/30/17 16:08 Abnormal lab findings: Abnormal lab results WBC 22.8 K/mcL (4.3-11.1) H D 08/05/17 05:10 RBC 3.02 M/mcL (3.82-4.97) L 08/05/17 05:10 Hgb 8.5 g/dL (11.5-15.4) L 08/05/17 05:10 Hct 26.0 % (35.3-44.9) L 08/05/17 05:10 RDW 18.6 % (11.5-14.5) H 08/05/17 05:10 Plt Count 41 K/mcL (140-400) L 08/05/17 05:10 Band Neutrophils % 6.0 % (0-4) H 08/04/17 05:45 Metamyelocytes % 2.0 % (0) H 08/04/17 05:45 Myelocytes % 6.0 % (0) H 08/04/17 05:45 Neutrophils # 16.9 K/mcL (1.6-8.9) H 08/05/17 05:10 Eosinophils # 2.3 K/mcL (0.0-0.6) H 08/05/17 05:10 Nucleated RBCs/100 WBC 1.9 /100 WBC (0) H 08/05/17 05:10 Smudge Cells Present (Not Present) A 08/05/17 05:10 Toxic Granulation Present (Not Present) A 08/05/17 05:10 Toxic Vacuolation Present (Not Present) A 08/05/17 05:10 Platelet Estimate Decreased (Normal) L 08/05/17 05:10 Immature Plt Fraction 16.0 % (1.1-6.1) H 08/05/17 05:10 Polychromasia 1+ (Not Present) A 08/05/17 05:10 Hypochromasia Present (Not Present) A 08/02/17 04:30 Poikilocytosis 1+ (Not Present) A 08/05/17 05:10 Anisocytosis 1+ (Not Present) A 08/05/17 05:10 Microcytosis Present (Not Present) A 08/03/17 04:35 Target Cells 1+ (Not Present) A 08/05/17 05:10 Kartik Cells 1+ (Not Present) A 08/01/17 04:35 PT 15.0 Seconds (9.4-12.1) H 07/30/17 16:08 APTT 69.7 Seconds (26.0-36.0) H 08/01/17 05:30 ABG pH 7.29 pH Units (7.32-7.45) L 08/05/17 18:00 ABG pCO2 50 mmHg (35-45) H 08/05/17 18:00 ABG pO2 71 mmHg (85-104) L 08/05/17 18:00 ABG O2 Saturation 92 % (95-98) L 08/05/17 18:00 ABG Base Excess -3 mEq/L (-2 to 3) L 08/05/17 18:00 ABG Hematocrit 26.0 % (35.3-44.9) L 07/30/17 18:50 ABG Chloride 109 mEq/L (98-107) H 07/30/17 18:50 VBG pH 7.14 pH Units (7.32-7.42) L* 07/30/17 09:47 VBG pO2 80 mmHg (25-50) H 07/30/17 09:47 VBG HCO3 17 mEq/L (21-27) L 07/30/17 09:47 Sodium 134 mEq/L (135-148) L 07/30/17 18:50 Glucose 163 mg/dL (60-95) H 07/30/17 18:50 Lactate 3.1 mmol/L (0.7-2.1) H 08/05/17 16:54 Potassium 4.6 mEq/L (3.5-4.5) H 08/05/17 05:10 Glucose 174 mg/dL (70-99) H 08/05/17 05:10 POC Glucose 191 (58-89) H 08/05/17 16:24 Lactic Acid 4.0 mmol/L (0.5-2.2) H* 08/01/17 04:35 Calcium 7.6 mg/dL (8.6-10.8) L 08/05/17 05:10 Ionized Calcium 1.13 mmol/L (1.15-1.35) L 08/05/17 05:10 Phosphorus 1.0 mg/dL (2.3-4.7) L* 08/05/17 05:10 Direct Bilirubin 0.9 mg/dL (0.0-0.5) H 08/05/17 05:10 B-Natriuretic Peptide 512 pg/mL (0-100) H 07/29/17 09:43 Serum Total Protein 4.7 g/dL (6.0-8.3) L 08/05/17 05:10 Albumin 1.0 g/dL (3.5-5.0) L 08/05/17 05:10 Globulin 3.7 g/dL (2.4-3.5) H 08/05/17 05:10 Albumin/Globulin Ratio 0.3 (1.1-2.2) L 08/05/17 05:10 Triglycerides 262 mg/dL (< 150) H 08/02/17 04:30 Arterial Blood Ionized Calcium 1.48 mmol/L (1.15-1.35) H 07/30/17 18:50 Urine Clarity Hazy (Clear) A 07/29/17 13:07 Ur Specific [place] 1.026 (1.010-1.025) H 07/29/17 13:07 Urine Ketones Trace mg/dL (Negative) H 07/29/17 13:07 Urine Bilirubin Small (Negative) H 07/29/17 13:07 Ur Leukocyte Esterase Small (Negative) H 07/29/17 13:07 Urine Microscopic RBC 3-5 per hpf (0-3) H 07/29/17 13:07 Ur Squamous Epith Cells Many per lpf (None-Few) H 07/29/17 13:07 Amorphous Sediment Many (Few) H 07/29/17 13:07 Ur Culture Indicated? YES (NO) A 07/29/17 13:07 Protein/Creatinin Ratio 2.43 mg/mg (0-0.20) H 08/02/17 02:30 Urine Total Protein 211 mg/dL (1-14) H 08/02/17 02:30 Stool Occult Blood Positive (Negative) A 07/29/17 10:57 Salicylates < 5.0 mg/dL (15-30) L 07/30/17 09:28 Acetaminophen < 1.0 mcg/mL (10-30) L 07/30/17 09:28 - Microbiology Findings Microbiology Findings: Microbiology, Last 48 Hours 07/30/17 18:00 Wound Culture - Preliminary Abdomen Ketty albicans Strep agalactiae - (Group B) Streptococcus mitis/S.oralis 07/30/17 18:00 Anaerobic Culture - Preliminary Abdomen 08/01/17 10:40 Body Fluid Culture - Final Pleural Fluid - Clinical Findings Intake & Output: Intake & Output 08/05/17 08/05/17 08/05/17 07:59 15:59 23:59 Intake Total 1346 / 1346 843 / 843 1375 / 1375 Output Total 1620 / 1620 1648 / 1648 696 / 696 Balance -274 / -274 -805 / -805 679 / 679 Weight 98 kg - Attending Attestation I saw the patient with the resident agree with History and Physical exam findings. Labs and Radiology were reviewed CXR showed left sided airspace disease more likely fluid overload vs developing ARDS Ventilator data were reviewed adjusted TV and RR , FIO2 and PEEP PRODUCT DEVELOPMENT: Patient is intubated and following commands NECK : No JVD appreciated Pulmonary : Patient is has refractory hypoxemia which became a real concern today more likely due to Fluid overload because of diastolic dysfunction low concern for ARDS needed higher PEEP to convert Shunt Physiology to V/Q mimatch very high PEEP will try to bring down the FIO2 as tolerated to aim for SPO2 around 90-92%. Cardiac : On Vasopressor due to septic shock now it is worsening with increasing lactate and increasing vasopressor requirements Nutrition/GI: Patient is on TPN , PPI prophylaxis , Patient has Laparatomy secondary to a subacute perforation had lot of pus inside the abdomen they do worse after 72 hrs after surgery very poor prognosis . Could not shift her to the CT scan , US guided aspiration of intraperitoneal pus is difficult because of post laparatomy anatomy spoke with IR Renal : EDDIE on CVVH had to remove fluid because of low blood pressure. Heme onc Labs reviewed Endo: Diabetes on insulin Musculo skeletal / skin issues : Per Nursing Disposition : Very Critical Code status: Spoke with Mother and her Sibling brother POA as she doesnt have or Children Changed to code status to DNRCCA if she gets worsen despite all therapy will help the family focussing comfort measures . Palliative Care is Involved Family/POA: Brother and Mother I spent 44 minutes of Critical Care time which include complex medical decision in supporting vital organ function and prevention life threatening deterioration of the organ function.
[2017-08-05] MEDS ORDERED: Sodium Phosphate 30 MMOL in D5% in Water 100 ML IVPB ONE ×2 (08:54→16:00)
[2017-08-05] MEDS ORDERED: Vancomycin 1,500 MG in D5% in Water 250 ML IVPB SCH (09:00)
[2017-08-05] MEDS ORDERED: Calcium Gluconate 2,000 MG in D5% in Water 100 ML IVPB ONE (09:18)
--- NOTE | 2017-08-05 09:22 | Nephrology Progress Note ---
Date of Encounter: 08/05/17 Time of Encounter: 09:20 - Assessment and Plan (1) EDDIE (acute kidney injury) Current Visit: Yes Status: Acute Cr improved but urine output remains very poor: total of 30ml urine output yesterday. oligoanuric EDDIE will continue with helen urine culture: no growth. Plan: continue with helen today, keep net negative 50ml per hour. (2) Septic shock Current Visit: Yes Status: Acute patient requiring levophed again. wound culture from abdomen grew jagruti albicans, group B strep agalectiae, strep Mitis blood culture and pleural fluid culture: no growth. currently on levaquin, micafungin, meropenem, vancomycin (3) Respiratory failure Current Visit: Yes Status: Acute likely secondary to septic shock. per primary team. Qualifiers: Chronicity: acute Respiratory failure complication: hypoxia Qualified Code(s): J96.01 - Acute respiratory failure with hypoxia (4) Thrombocytopenia Current Visit: Yes Status: Acute platelets today 41 (5) CKD (chronic kidney disease) Current Visit: Yes Status: Acute Qualifiers: Chronic kidney disease stage: unspecified stage Qualified Code(s): N18.9 - Chronic kidney disease, unspecified (6) Hyperkalemia Current Visit: Yes Status: Resolved (7) Anemia Current Visit: Yes Status: Acute acute blood loss anemia, s/p transfusion of 8 units blood and 4 units platelets so far. Qualifiers: Anemia type: iron deficiency Iron deficiency anemia type: other iron deficiency Qualified Code(s): D50.8 - Other iron deficiency anemias (8) GI bleed Current Visit: Yes Status: Acute Qualifiers: GI bleed type/associated pathology: unspecified gastrointestinal hemorrhage type Qualified Code(s): K92.2 - Gastrointestinal hemorrhage, unspecified (9) Hypertension Current Visit: Yes Status: Chronic Qualifiers: Hypertension type: essential hypertension Qualified Code(s): I10 - Essential (primary) hypertension (10) Pleural effusion Current Visit: Yes Status: Acute pleural catheter has been removed. (11) Perforated abdominal viscus Current Visit: Yes Status: Acute per surgery and primary team. Subjective Principal diagnosis: Perforated Viscus s/p subtotal gastrectomy Interval history: 62F evaluated at bedside. patient remains intubated and sedated. Objective - Vital Signs Vital signs: Vital Signs Temp Pulse Resp BP Pulse Ox 08/05/17 09:00 80 23 94/37 91 08/05/17 08:12 23 99/39 92 08/05/17 08:00 97.6 F 79 21 96/36 92 08/05/17 07:47 16 67/38 87 08/05/17 07:00 97.1 F L 73 20 113/44 90 08/05/17 06:00 97.4 F L 72 19 106/41 88 08/05/17 05:48 18 105/42 89 08/05/17 05:00 98.3 F 77 20 107/42 90 08/05/17 04:30 98.3 F 80 20 101/43 90 08/05/17 04:00 98.1 F 81 20 115/44 90 08/05/17 03:54 19 145/54 91 08/05/17 03:00 97.3 F L 83 20 118/48 90 08/05/17 02:00 96.8 F L 72 20 108/43 90 08/05/17 01:27 22 113/46 93 08/05/17 01:00 98.0 F 82 20 111/46 93 08/05/17 00:00 98.3 F 87 21 140/53 94 08/04/17 23:53 18 128/50 92 08/04/17 23:00 97.3 F L 77 20 99/41 91 08/04/17 22:00 97.9 F 79 20 117/49 92 08/04/17 21:57 19 122/49 92 08/04/17 21:00 97.8 F 80 19 103/43 92 08/04/17 20:15 19 124/50 90 08/04/17 20:00 96.9 F L 80 16 98/41 92 08/04/17 19:00 97.2 F L 70 18 104/45 92 08/04/17 18:00 98.9 F 90 20 121/49 94 08/04/17 17:21 19 93 08/04/17 17:00 98.8 F 84 16 86/48 94 08/04/17 16:00 97.1 F L 90 18 130/50 94 08/04/17 15:00 96.6 F L 87 18 86/49 93 08/04/17 14:41 20 91 08/04/17 14:00 95.9 F L 97 18 83/53 94 08/04/17 13:00 94.6 F L 105 18 90/52 90 08/04/17 12:15 94.3 F L 110 18 126/62 90 08/04/17 12:00 94.1 F L 98 18 111/55 90 08/04/17 11:05 17 88 08/04/17 11:00 94.1 F L 67 18 108/56 90 08/04/17 10:49 94.2 F L 70 18 124/52 93 08/04/17 10:34 85 18 121/52 08/04/17 10:00 95.7 F L 73 19 122/50 92 Intake and Output 08/04/17 08/05/17 08/05/17 23:59 07:59 15:59 Intake Total 1373 / 1373 1346 / 1346 37 / 37 Output Total 1616 / 1616 1620 / 1620 382 / 382 Balance -243 / -243 -274 / -274 -345 / -345 Intake: IV Fluids 624 / 624 578 / 578 37 / 37 PrismaSATE BGK 4/2.5 5,000 ML @ 4 / 4 2 / 2 1000 mls/hr CRRT CONT [facility] Rx#: [id number] PRECEDEX Premix 400 mcg In 100 123 / 123 102 / 102 ml @ 0.5 MCG/KG/HR 10.988 mls/ hr IVC .Q9H7M [facility] Rx#: [id number] FentaNYL (PF) 1,000 MCG In 0.9 84 / 84 118 / 118 % Sodium Chloride 80 ML @ 50 MCG/HR 5 mls/hr IVC CONT [facility] Rx #:[id number] Levophed 8 MG In Dextrose 5% 76 / 76 201 / 201 37 / 37 250 ML @ 20 MCG/MIN 38.7 mls/hr IVC CONT [facility] Rx#:[id number] Merrem 1,000 MG In Water for inj. (sterile) 10 ML @ 200 mls/ hr IVP Q8HR [facility] Rx#:[id number] Calcium Gluconate 2,000 MG In 120 / 120 Dextrose 5% 100 ML @ 220 mls/hr IVPB ONCE ONE Rx#:[id number] Intralipid 20% 250 ML @ 21 mls/ 105 / 105 145 / 145 hr IVPB DAILY@1700 [facility] Rx#: [id number] Magnesium Sulfate 1 GM In 102 / 102 Dextrose 5% 100 ML @ 100 mls/hr IVPB ONCE ONE Rx#:[id number] Other 749 / 749 768 / 768 Output: Gastric Tube Lavage Amount 0 / 0 40 / 40 Left Upper Quadrant 0 / 0 40 / 40 Helen 1611 / 1611 1555 / 1555 382 / 382 Catheter 5 / 5 25 / 25 0 / 0 Other: Weight 98 kg Blood Glucose* 153 163 Patient Weight 08/05/17 23:59 Weight 98 kg - General Appearance General appearance: Present: well-developed, well-nourished, appears started age , obese, chronically ill, intubated Neck: Present: JVD Respiratory: Present: course breath sounds (throughout. ) Cardiology: Present: no murmurs, no rub, no gallops, normal S1, normal S2 Dialysis Vascular Access: Venous Catheter Additional Comments: firm, distended, non tender. no bowel sounds heard. scar present from surgery Additional Comments: +3/4 pitting edema on bilateral lower extremities. - Lab 08/05/17 05:10 08/05/17 05:10 Most recent lab results ABG pH 7.33 pH Units (7.32-7.45) 08/05/17 04:44 ABG pCO2 48 mmHg (35-45) H 08/05/17 04:44 ABG pO2 56 mmHg (85-104) L 08/05/17 04:44 ABG HCO3 25 mEq/L (21-27) 08/05/17 04:44 ABG O2 Saturation 86 % (95-98) L 08/05/17 04:44 Calcium 7.6 mg/dL (8.6-10.8) L 08/05/17 05:10 Phosphorus 1.0 mg/dL (2.3-4.7) L* 08/05/17 05:10 Magnesium 2.0 mg/dL (1.6-2.6) 08/05/17 05:10 Urine Creatinine 87 mg/dL 08/02/17 02:30 Urine Sodium 49.0 mEq/L 08/02/17 02:30 Urine Total Protein 211 mg/dL (1-14) H 08/02/17 02:30 - VTE Documentation of Mechanical Device: Intermittent pneumatic compression device Consult Discharge Plan - Plan Referrals: Keesha Ellsworth, MOBILE UNIT ASSISTANT [Primary Care Provider] -
[2017-08-05] MEDS ORDERED: Heparin 1,000 UNITS/500 mL NS 500 ML ONE (09:35)
[2017-08-05] MEDS: Micafungin 100 MG in 0.9 % Sodium Chloride 100 ML IVPB SCH (09:41)
[2017-08-05] MEDS: Levofloxacin 750 MG/150 ML 750 MG/150 ML BAG IVPB SCH (09:43)
[2017-08-05] MEDS: Vancomycin 1,250 MG in D5% in Water 250 ML IVPB SCH ×2 (09:43→20:58)
[2017-08-05 09:47] LABS: ABG Base Excess -1 mEq/L (-2 to 3); ABG HCO3 26 mEq/L (21-27); ABG Oxygen Saturation 82 % (95-98); ABG PCO2 56 mmHg (35-45); ABG PH 7.28 pH Units (7.32-7.45); ABG PO2 54 mmHg (85-104); ABG TCO2 28 mEq/L (20-26); Blood Gas Modality VC; Blood Gas PEEP 10 cm H2O; Blood Gas Respiration Rate 16; Blood Gas VT 450 cc
[2017-08-05] MEDS ORDERED: *HR* Heparin 5,000 UNIT/ML VIAL ONE ×3 (10:33→20:40)
[2017-08-05] MEDS: Vasopressin 40 UNIT in D5% in Water 100 ML IV SCH (13:58)
--- NOTE | 2017-08-05 14:48 | Palliative - Consult Note ---
Date of Encounter: 08/05/17 Time of Encounter: 13:30 - Assessment and Plan (1) Generalized pain Current Visit: Yes Status: Acute Assessment and plan: Receiving IV Fentanyl per ICU protocol. MOnitor (2) Goals of care, counseling/discussion Current Visit: Yes Status: Acute Assessment and plan: Mother, which is patient's closest next of kin, has already transitioned code status to DNRCC-Arrest. Patient has no durable power of united [place] attorney for healthcare. Mother states pt siblings will be traveling from out of state ( [place]) and she has good friend coming tonight from [place]. MOther understands her condition is very critical, and she may not survive. She desires to continue present care, to give family a chance to arrive. Will continue to follow. Will plan on meeting with them tomorrow when they arrive. (3) Perforated abdominal viscus Current Visit: Yes Status: Acute (4) EDDIE (acute kidney injury) Current Visit: Yes Status: Acute Assessment and plan: Nephrology following. On helen (5) Cardiac arrest Current Visit: Yes Status: Acute (6) Septic shock Current Visit: Yes Status: Acute Palliative-CN HPI - Data of Consult Consult date: 08/05/17 Requesting Physician: Dennys Scott MD Primary Care Provider: Keesha Ellsworth CNP - Consult Narrative History of present illness: Ms. Adams is a 62 year old female who was admitted when she was found to be very anemic with presenting hemoglobin of ? Patient currently intubated and on vent, history being taken by chart review as well as mother, Constance, at bedside. 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 Mother states she had been increasingly weak at home, and had lower extremity swelling. She describes pt as very private, and she didn't care for going to physicians. Not much medical history on record, other than hypertension, hyperlipidemia. Surgery was consulted and after transfusion, pt was taken for EGD the following day. She experience cardiac arrest during EGD. Further testing was completed and pt had perforated viscous. Upon weighing risks/benefit, family did consent for pt to have surgery. Appears she was fairly stable last week, however, began to decline over the weekend, requiring increasing vent support. She has continued to decline today, with further hypotension, and pressors have been escalated. She also continues increased vent support with FIO2 100% and PEEP 10. At my visit, mother is at bedside. Dr. Suh, Dr. Navarro, and Dr. Rodríguez have all spoken and updated mother on current declining condition. Mother did transition code status to DNRCC-A. A 2nd pressors is being added. Palliative care was consulted to assist with goals of care discussion. CC: Dennys Scott MD Past Med Surg Social Fam HX - Past Medical History Medical history: hyperlipidemia, hypertension Psychiatric history: no psych history - Past Surgical History Surgical History: other - Social History Smoking Status: Current every day smoker Packs per day: 1/2 Smokeless Tobacco Status: No Alcohol use: none Drug use: none Medications and Allergies Amlodipine Besylate/Benazepril [Lotrel 10-20 mg Capsule] 1 cap PO DAILY [History] Doxycycline Hyclate [Doxycycline Hyclate] 20 mg PO BID 07/29/17 [History] Simvastatin [Zocor] 20 mg PO QPM 07/29/17 [History] 3 Allergy/AdvReac Type Severity Reaction Status Date / Time Penicillins Allergy Rash Verified 07/29/17 09:44 ROS unobtainable: due to endotracheal tube Palliative Care-Exam - Constitutional Vitals: Temp Pulse Resp BP Pulse Ox 97.6 F 89 30 93/46 91 08/05/17 13:00 08/05/17 14:00 08/05/17 14:00 08/05/17 14:00 08/05/17 14:00 General appearance: Present: mild distress - Head Head Exam: Present: normal inspection, normocephalic - Respiratory Respiratory exam: Present: decreased breath sounds, CTAB - Cardiovascular Cardiovascular exam: Present: irregular rhythm, tachycardia - GI/Abdominal Exam GI/Abdominal exam: Present: diminished bowel sounds, distended, firm additional comments: Jejunostomy intact, abd incision - Catheter Type: Urethral (Vicente) Additional comments: Drops in vicente tubing - Extremities Exam Additional comments: 3-4+ bilateral pitting edema - Neurological Exam Additional comments: Sedated on vent - Skin Skin exam: Present: dry, warm Internal Medicine - CN: Reslt - Labs CBC & Chem 7: 08/05/17 05:10 08/05/17 05:10 Labs: Short CBC 08/05/17 Range/Units 05:10 WBC 22.8 H D (4.3-11.1) K/mcL Hgb 8.5 L (11.5-15.4) g/dL Hct 26.0 L (35.3-44.9) % Plt Count 41 L (140-400) K/mcL Neutrophils # 16.9 H (1.6-8.9) K/mcL BMP 08/05/17 05:10 Sodium 136 Potassium 4.6 H Chloride 105 Carbon Dioxide 25 BUN 13 Creatinine 0.73 Glucose 174 H Calcium 7.6 L Liver Function 08/05/17 08/05/17 Range/Units 05:10 05:10 Total Bilirubin 1.1 1.1 (0.2-1.2) mg/dL Direct Bilirubin 0.9 H (0.0-0.5) mg/dL AST 22 23 (5-34) Units/L ALT 16 15 (0-55) Units/L Alkaline Phosphatase 89 88 (38-126) Units/L Albumin 1.0 L 1.0 L (3.5-5.0) g/dL - ABG Interpretation ABG results: ABG ABG pH 7.28 pH Units (7.32-7.45) L 08/05/17 09:42 ABG pCO2 56 mmHg (35-45) H 08/05/17 09:42 ABG pO2 54 mmHg (85-104) L 08/05/17 09:42 ABG O2 Saturation 82 % (95-98) L 08/05/17 09:42 PT/INR, D-dimer PT 15.0 Seconds (9.4-12.1) H 07/30/17 16:08 - Impressions Impressions Chest X-Ray 08/05/17 05:00 IMPRESSION: Diffuse bilateral airspace disease suggests pneumonia. Stable examination. Stable lines and tubes. D/ / 08/05/2017 07:52:39 George Zamorano MD / le Interpreting Provider: George Zamorano MD Consult Discharge Plan - Plan Referrals: Keesha Ellsworth, NANCY [Primary Care Provider] - Palliative Quality Palliative Quality: Screen for Code Status: Yes, Screen for Goals of Care: Yes, Screen for Pain: NA, If Pain Regimen Started, Initiate Bowel Regimen: NA, Screen for Nausea/Vomitting: NA Code Status: 08/05/17 13:44 CODE [Resuscitation Status: Active] [RES] Routine Comment: Resuscitation Status: DNR-Comfort Care-Arrest
[2017-08-05 16:57] LABS: ABG Base Excess -3 mEq/L (-2 to 3); ABG HCO3 24 mEq/L (21-27); ABG Oxygen Saturation 79 % (95-98); ABG PCO2 47 mmHg (35-45); ABG PH 7.31 pH Units (7.32-7.45); ABG PO2 48 mmHg (85-104); ABG TCO2 25 mEq/L (20-26); Blood Gas Modality ASSIST CONTROL; Blood Gas PEEP 15 cm H2O; Blood Gas Respiration Rate 16; Blood Gas VT 450 cc
[2017-08-05] MEDS ORDERED: CLINIMIX E IVC SCH (17:00)
[2017-08-05] MEDS ORDERED: PARENTERAL AMINO ACID 10% IVC SCH (17:00)
[2017-08-05] MEDS ORDERED: Clinimix 5%-20% SOLUTION 2,000 ML, Parenteral Amino Acid 10% 300 ML with MVI, adult wi... IVC SCH (17:00)
[2017-08-05] MEDS ORDERED: [UNRECOGNIZED DRUG - OTHER] IVC SCH (17:00)
[2017-08-05] MEDS ORDERED: MVI IVC SCH (17:00)
[2017-08-05 18:05] LABS: ABG Base Excess -3 mEq/L (-2 to 3); ABG HCO3 24 mEq/L (21-27); ABG Oxygen Saturation 92 % (95-98); ABG PCO2 50 mmHg (35-45); ABG PH 7.29 pH Units (7.32-7.45); ABG PO2 71 mmHg (85-104); ABG TCO2 25 mEq/L (20-26); Blood Gas Modality VC; Blood Gas PEEP 15 cm H2O; Blood Gas Respiration Rate 16; Blood Gas VT 450 cc
--- NOTE | 2017-08-05 18:33 | General Surgery Progress Note ---
Date of Encounter: 08/05/17 Time of Encounter: 18:28 Subjective Narrative: General Surgery - POD # 6 - delayed progress note I have been at bedside several times today. Discussed situation with family and Dr Rodríguez Patient's pulmonary failure has progressed, requiring FiO2 of 100% to maintain adequate SPO2 Patient is also required increased pressure support; currently on 2 pressors ; a third may be necessary through the night The patient is no longer awake and alert Leukocytosis has increased to 22.8; neutrophils 16.9%;Hemoglobin stable at 8.5, hetocrit 26. Platelet count 41,000 despite repeated platelet transfusions Per my discussions with the family; the patient has been made DNR-A Treatment continues. The prognosis appears quite grim. The family is aware. Objective Vital Signs - Last 8 Hours Temp Pulse Resp BP Pulse Ox 08/05/17 18:00 89 26 100/44 97 08/05/17 17:00 85 30 101/53 98 08/05/17 16:00 97.7 F 87 24 94/43 92 08/05/17 15:29 29 102/46 94 08/05/17 15:00 87 28 87/47 94 08/05/17 14:00 89 30 93/46 91 08/05/17 13:20 27 111/44 96 08/05/17 13:00 97.6 F 89 29 90/36 94 08/05/17 12:00 90 26 104/42 92 08/05/17 11:45 26 97/39 84 08/05/17 11:00 84 22 123/42 90 Intake and Output 08/05/17 08/05/17 08/05/17 07:59 15:59 23:59 Intake Total 1346 / 1346 843 / 843 1375 / 1375 Output Total 1620 / 1620 1648 / 1648 696 / 696 Balance -274 / -274 -805 / -805 679 / 679 Intake: IV Fluids 578 / 578 843 / 843 1375 / 1375 PrismaSATE BGK 4/2.5 5,000 ML @ 2 / 2 1000 mls/hr CRRT CONT [facility] Rx#: [id number] Vasostrict 40 UNIT In Dextrose 0 / 0 5% 100 ML @ 0.03 UNIT/MIN 4.59 mls/hr IV .[id number] [facility] Rx#: [id number] PRECEDEX Premix 400 mcg In 100 102 / 102 25 / 25 ml @ 0.5 MCG/KG/HR 10.988 mls/ hr IVC .Q9H7M [facility] Rx#: [id number] FentaNYL (PF) 1,000 MCG In 0.9 118 / 118 53 / 53 % Sodium Chloride 80 ML @ 50 MCG/HR 5 mls/hr IVC CONT [facility] Rx #:[id number] Versed 50 MG In 0.9 % Sodium 16 / 16 84 / 84 Chloride 90 ML @ 2 MG/HR 4 mls/ hr IVC CONT [facility] Rx#:[id number] Levophed 8 MG In Dextrose 5% 201 / 201 239 / 239 250 ML @ 20 MCG/MIN 38.7 mls/hr IVC CONT [facility] Rx#:[id number] Merrem 1,000 MG In Water for inj. (sterile) 10 ML @ 200 mls/ hr IVP Q8HR [facility] Rx#:[id number] Intralipid 20% 250 ML @ 21 mls/ 145 / 145 hr IVPB DAILY@1700 [facility] Rx#: [id number] Levaquin Premix 750mg/150 mL 150 / 150 750 mg In 150 ml @ 100 mls/hr IVPB Q24H [facility] Rx#:[id number] Mycamine 100 MG In 0.9 % Sodium 100 / 100 Chloride 100 ML @ 100 mls/hr IVPB DAILY [facility] Rx#:[id number] Sodium Phosphate 30 MMOL In 110 / 110 Dextrose 5% 100 ML @ 16 mls/hr IVPB ONCE ONE Rx#:[id number] Vancocin 1,250 MG In Dextrose 5 250 / 250 % 250 ML @ 166.67 mls/hr IVPB Q12H [facility] Rx#:[id number] Other 768 / 768 Output: Gastric Tube Lavage Amount 40 / 40 Left Upper Quadrant 40 / 40 Jade 1555 / 1555 1638 / 1638 696 / 696 Catheter 0 / 0 Other: Weight 98 kg Blood Glucose* 163 197 191 Patient Weight 08/05/17 23:59 Weight 98 kg - Labs 08/05/17 05:10 08/05/17 05:10 Diabetes panel 08/05/17 08/05/17 Range/Units 05:10 05:10 Sodium 136 (136-145) mEq/L Potassium 4.6 H (3.5-4.5) mEq/L Chloride 105 (98-109) mEq/L Carbon Dioxide 25 (19-29) mEq/L BUN 13 (7-20) mg/dL Creatinine 0.73 (0.57-1.11) mg/dL Glucose 174 H (70-99) mg/dL Calcium 7.6 L (8.6-10.8) mg/dL AST 22 23 (5-34) Units/L ALT 16 15 (0-55) Units/L Alkaline Phosphatase 89 88 (38-126) Units/L Albumin 1.0 L 1.0 L (3.5-5.0) g/dL Calcium panel 08/05/17 08/05/17 08/05/17 Range/Units 05:10 05:10 05:10 Calcium 7.6 L (8.6-10.8) mg/dL Phosphorus 1.0 L* (2.3-4.7) mg/dL Albumin 1.0 L 1.0 L (3.5-5.0) g/dL Pituitary panel 08/05/17 Range/Units 05:10 Sodium 136 (136-145) mEq/L Potassium 4.6 H (3.5-4.5) mEq/L Chloride 105 (98-109) mEq/L Carbon Dioxide 25 (19-29) mEq/L BUN 13 (7-20) mg/dL Creatinine 0.73 (0.57-1.11) mg/dL Glucose 174 H (70-99) mg/dL Calcium 7.6 L (8.6-10.8) mg/dL Adrenal panel 08/05/17 08/05/17 Range/Units 05:10 05:10 Sodium 136 (136-145) mEq/L Potassium 4.6 H (3.5-4.5) mEq/L Chloride 105 (98-109) mEq/L Carbon Dioxide 25 (19-29) mEq/L BUN 13 (7-20) mg/dL Creatinine 0.73 (0.57-1.11) mg/dL Glucose 174 H (70-99) mg/dL Calcium 7.6 L (8.6-10.8) mg/dL Total Bilirubin 1.1 1.1 (0.2-1.2) mg/dL AST 22 23 (5-34) Units/L ALT 16 15 (0-55) Units/L Alkaline Phosphatase 89 88 (38-126) Units/L Albumin 1.0 L 1.0 L (3.5-5.0) g/dL - VTE Documentation of Mechanical Device: Intermittent pneumatic compression device Consult Discharge Plan - Plan Referrals: Keesha Ellsworth, PULP MILL OPERATOR [Primary Care Provider] -
[2017-08-05 18:42] LABS: VBG HCO3 25 mEq/L (21-27); VBG PCO2 65 mmHg (41-51); VBG PO2 75 mmHg (25-50)
[2017-08-05] MEDS: Phenylephrine 10 MG in D5% in Water 250 ML IVC SCH ×3 (18:53→23:56)
[2017-08-05] MEDS: Calcium Chloride 4,000 MG in 0.9 % Sodium Chloride 1,000 ML CRRT SCH (20:14)
[2017-08-06] MEDS: Norepinephrine 8 MG in D5% in Water 250 ML IVC SCH ×4 (00:03→14:30)
[2017-08-06] MEDS: Phenylephrine 10 MG in D5% in Water 250 ML IVC SCH ×5 (01:13→06:20)
[2017-08-06] MEDS: FentaNYL (PF) 1,000 MCG in 0.9 % Sodium Chloride 80 ML IVC SCH ×2 (03:00→19:00)
[2017-08-06] MEDS: Ipratropium/Albuterol Neb 3 ML IH SCH ×5 (04:18→20:09)
[2017-08-06] MEDS: Insulin LISPRO 300 UNITS/3 ML VIAL SQ SCH ×5 (04:36→20:09)
[2017-08-06] MEDS: Lacri-Lube 3.5 GM TUBE BOTH EYES SCH ×5 (04:36→20:09)
[2017-08-06 05:09] LABS: ABG Base Excess -6 mEq/L (-2 to 3); ABG HCO3 21 mEq/L (21-27); ABG Oxygen Saturation 90 % (95-98); ABG PCO2 49 mmHg (35-45); ABG PH 7.24 pH Units (7.32-7.45); ABG PO2 68 mmHg (85-104); ABG TCO2 23 mEq/L (20-26); Blood Gas Modality ASSIST CONTROL; Blood Gas PEEP 15 cm H2O; Blood Gas Respiration Rate 16; Blood Gas VT 450 cc
[2017-08-06 05:34] LABS: Hemoglobin 8.6 g/dL (11.5-15.4); Nucleated Red Blood Cells 2.5 /100 WBC (0)
[2017-08-06 05:37] LABS: Hematocrit 26.8 % (35.3-44.9); Immature Platelets 26.5 % (1.1-6.1); Mean Corpuscular HGB Conc 32.1 g/dL (31.6-35.5); Mean Corpuscular Hemoglobin 28.4 pg (28.0-33.3); Mean Corpuscular Volume 88.4 fL (83.0-100.0); Red Blood Count 3.03 M/mcL (3.82-4.97); Red Cell Distribution Width 19.1 % (11.5-14.5)
[2017-08-06 05:45] LABS: Platelet Count 43 K/mcL (140-400)
[2017-08-06 05:56] LABS: Alanine Aminotransferase 14 Units/L (0-55); Albumin/Globulin Ratio 0.2 (1.1-2.2); Alkaline Phosphatase 138 Units/L (38-126); Aspartate Amino Transferase 24 Units/L (5-34); BUN/Creatinine Ratio 20 (6-26); Bilirubin,Direct 0.9 mg/dL (0.0-0.5); Bilirubin,Indirect 0.4 mg/dL (0.0-1.2); Bilirubin,Total 1.3 mg/dL (0.2-1.2); Blood Urea Nitrogen 17 mg/dL (7-20); Calcium 7.4 mg/dL (8.6-10.8); Carbon Dioxide 20 mEq/L (19-29); Chloride 98 mEq/L (98-109); Globulin 4.3 g/dL (2.4-3.5); Glucose 344 mg/dL (70-99); Magnesium 1.9 mg/dL (1.6-2.6); Osmolality,Calculated 283 (280-300); Potassium 4.2 mEq/L (3.5-4.5); Total Protein 5.3 g/dL (6.0-8.3); eGFR For African Americans > 60 (> 60); eGFR For Non-African Americans > 60 (> 60)
[2017-08-06 05:58] LABS: Phosphorous 2.8 mg/dL (2.3-4.7); Sodium 129 mEq/L (136-145)
[2017-08-06 06:01] LABS: Eosinophils # 2.2 K/mcL (0.0-0.6); Lymphocytes # 4.4 K/mcL (0.6-4.6); Monocytes # 3.7 K/mcL (0.0-1.3); Neutrophils # 24.9 K/mcL (1.6-8.9); Platelet Estimate Decreased (Normal); Toxic Vacuolation Present (Not Present)
[2017-08-06 06:02] LABS: Anisocytosis 1+ (Not Present); Dohle Bodies Present (Not Present); Poikilocytosis 1+ (Not Present); Polychromasia 1+ (Not Present)
[2017-08-06 06:03] LABS: Smudge Cells Present (Not Present); Target Cells 1+ (Not Present); Toxic Granulation Present (Not Present)
[2017-08-06] MEDS: Phenylephrine 50 MG in D5% in Water 250 ML IVC SCH ×3 (07:10→17:26)
[2017-08-06] MEDS: Pantoprazole 40 MG VIAL IVP SCH ×2 (07:37→16:31)
[2017-08-06] MEDS: Chlorhexidine Rinse 15 ML MOUTHWASH MM SCH ×2 (07:38→20:09)
[2017-08-06] MEDS: Meropenem 1,000 MG in Water for inj. (sterile) 10 ML IVP SCH ×2 (07:38→16:30)
[2017-08-06] MEDS: Nystatin Cream 15 GM TUBE TP SCH ×2 (07:39→20:10)
[2017-08-06] MEDS: PrismaSATE BGK 4/2.5 5,000 ML CRRT SCH ×4 (08:00→17:10)
--- NOTE | 2017-08-06 08:04 | Pulmonology Progress Note ---
<Julius Navarro - Last Filed: 08/06/17 08:20> Date of Encounter: 08/06/17 Time of Encounter: 08:01 Assessment and Plan (1) Septic shock Current Visit: Yes Status: Acute Present since arrival. Secondary to perforated abdominal viscus. Patient is still requiring pressor therapy in the amount of pressor requirements have been increasing, she is now maxed out on 3 pressors. There is a concern for intra- abdominal abscess however the patient is too unstable for CT scan. Continue antibiotic therapy and may broaden antibiotics today. Patient is on Levaquin, meropenem, vancomycin, and micafungin (2) Cardiac arrest Current Visit: Yes Status: Acute Patient had a cardiac arrest during endoscopy on the day of admission. She received 1 round of CPR and milligram of epinephrine and had spontaneous return of circulation. Neurologic status intact post arrest. (3) Perforated abdominal viscus Current Visit: Yes Status: Acute Likely secondary to gastric ulcer. Patient is postop day 8 status post gastric resection. Patient is on broad-spectrum antibiotics with meropenem and levaquin as well as fluconazole, intraoperative cultures showed 2 different gram -positive cocci and yeast species. Leukocytosis is worsening, will broaden out antibiotics including adding vancomycin and changing fluconazole to micafungin. There is a concern for intra-abdominal abscess and we will tentatively get CT however patient at this point is too unstable to transport to CT scan. Surgery is following. (4) Anemia Current Visit: Yes Status: Acute Stable. Likely secondary to peptic ulcer disease. On twice a day Protonix. Qualifiers: Anemia type: iron deficiency Iron deficiency anemia type: other iron deficiency Qualified Code(s): D50.8 - Other iron deficiency anemias (5) GI bleed Current Visit: Yes Status: Acute Likely secondary to peptic ulcer disease. Hemoglobin has been corrected. No evidence of active bleeding. Continue to monitor. Qualifiers: GI bleed type/associated pathology: unspecified gastrointestinal hemorrhage type Qualified Code(s): K92.2 - Gastrointestinal hemorrhage, unspecified (6) EDDIE (acute kidney injury) Current Visit: Yes Status: Acute Secondary to dehydration in setting of GI bleed as discussed above. Septic shock is also contributing. Patient has been anuric and is on renal replacement therapy. Replace phosphorus. Nephrology is following. (7) Pleural effusion Current Visit: Yes Status: Acute Pleural catheter removed yesterday. Repeat chest x-ray does not show reaccumulation of fluid. Patient also has pulmonary edema which is contributing to her worsening oxygenation status. Currently requiring high amounts of PEEP and FiO2. Attempting to remove fluid through continuous renal replacement therapy. (8) Atrial fibrillation Current Visit: Yes Status: Acute Patient is having paroxysmal A. fib since Saturday. Rate is well controlled. Likely related to stress of underlying illness. Anticoagulation is contraindicated at this time. Continue to monitor. Qualifiers: Atrial fibrillation type: paroxysmal Qualified Code(s): I48.0 - Paroxysmal atrial fibrillation (9) Thrombocytopenia Current Visit: Yes Status: Acute Likely related to underlying sepsis. Platelets were as low as 15, 41 today. (10) Goals of care, counseling/discussion Current Visit: Yes Status: Acute Patient's clinical condition has significantly worsened. She is now requiring 3 pressors maxed out for blood pressure support. We will have further discussions with family today regarding goals of care. We appreciate the palliative care team and their input. Subjective Principal diagnosis: Perforated Viscus s/p subtotal gastrectomy Interval history: Patient seen and examined at bedside. Patient remains intubated and minimally sedated. She is currently unresponsive to painful or verbal stimuli. Objective PUL Vital signs: Last Vital Signs Temp 97.8 F 08/06/17 06:00 Pulse 101 08/06/17 07:00 Resp 28 08/06/17 07:00 BP 143/47 08/06/17 07:00 Pulse Ox 97 08/06/17 07:00 General appearance: comatose ENT: oropharynx dry Auscultation: bilateral: diminished breath sounds Cardiovascular: irregular rhythm (tachycardia) Gastrointestinal: absent bowel sounds, other (firm and distended) Extremities: no cyanosis, no clubbing, edema (1+) unable to assess due to mental status Ventilator Settings Ventilator Settings: Ventilator Settings, Last 8 Hours Ventilator Mode VC+ Ventilator Mode VC+ Ventilator Mode VC+ Ventilator Mode VC+ Ventilator Mode VC+ Ventilator Mode VC+ Ventilator Mode VC+ Ventilator Mode VC+ Ventilator Mode VC+ Ventilator Mode VC+ Ventilator Mode VC+ Ventilator Tidal Volume 450 Setting Ventilator Tidal Volume 450 Setting Ventilator Tidal Volume 450 Setting Ventilator Tidal Volume 450 Setting Ventilator Tidal Volume 450 Setting Ventilator Tidal Volume 450 Setting Ventilator Tidal Volume 450 Setting Ventilator Tidal Volume 450 Setting Ventilator Tidal Volume 450 Setting Ventilator Tidal Volume 450 Setting Ventilator Tidal Volume 450 Setting Ventilator Respiratory Rate 16 Setting Ventilator Respiratory Rate 16 Setting Ventilator Respiratory Rate 16 Setting Ventilator Respiratory Rate 16 Setting Ventilator Respiratory Rate 16 Setting Ventilator Respiratory Rate 16 Setting Ventilator Respiratory Rate 16 Setting Ventilator Respiratory Rate 16 Setting Ventilator Respiratory Rate 16 Setting Ventilator Respiratory Rate 16 Setting Ventilator Respiratory Rate 16 Setting Actual Respiratory Rate 28 Actual Respiratory Rate 28 Actual Respiratory Rate 26 Actual Respiratory Rate 31 Actual Respiratory Rate 28 Actual Respiratory Rate 23 Actual Respiratory Rate 27 Actual Respiratory Rate 31 Actual Respiratory Rate 32 Actual Respiratory Rate 30 Positive End Expiratory 15 Pressure Positive End Expiratory 15 Pressure Positive End Expiratory 15 Pressure Positive End Expiratory 15 Pressure Positive End Expiratory 15 Pressure Positive End Expiratory 15 Pressure Positive End Expiratory 15 Pressure Positive End Expiratory 15 Pressure Positive End Expiratory 15 Pressure Positive End Expiratory 15 Pressure Positive End Expiratory 15 Pressure Peak Inspiratory Airway 28 Pressure Peak Inspiratory Airway 36 Pressure Peak Inspiratory Airway 29 Pressure Peak Inspiratory Airway 34 Pressure Peak Inspiratory Airway 32 Pressure Peak Inspiratory Airway 52 Pressure Peak Inspiratory Airway 32 Pressure Peak Inspiratory Airway 52 Pressure Peak Inspiratory Airway 47 Pressure Peak Inspiratory Airway 50 Pressure Results - Laboratory Findings CBC and BMP: 08/06/17 05:20 08/06/17 05:20 ABG ABG pH 7.24 pH Units (7.32-7.45) L 08/06/17 05:05 ABG pCO2 49 mmHg (35-45) H 08/06/17 05:05 ABG pO2 68 mmHg (85-104) L 08/06/17 05:05 ABG O2 Saturation 90 % (95-98) L 08/06/17 05:05 PT/INR, D-dimer PT 15.0 Seconds (9.4-12.1) H 07/30/17 16:08 Abnormal lab findings: Abnormal lab results WBC 36.6 K/mcL (4.3-11.1) H* D 08/06/17 05:20 RBC 3.03 M/mcL (3.82-4.97) L 08/06/17 05:20 Hgb 8.6 g/dL (11.5-15.4) L 08/06/17 05:20 Hct 26.8 % (35.3-44.9) L 08/06/17 05:20 RDW 19.1 % (11.5-14.5) H 08/06/17 05:20 Plt Count 43 K/mcL (140-400) L 08/06/17 05:20 Band Neutrophils % 8.0 % (0-4) H 08/06/17 05:20 Metamyelocytes % 4.0 % (0) H 08/06/17 05:20 Myelocytes % 6.0 % (0) H 08/04/17 05:45 Neutrophils # 24.9 K/mcL (1.6-8.9) H 08/06/17 05:20 Monocytes # 3.7 K/mcL (0.0-1.3) H 08/06/17 05:20 Eosinophils # 2.2 K/mcL (0.0-0.6) H 08/06/17 05:20 Nucleated RBCs/100 WBC 2.5 /100 WBC (0) H 08/06/17 05:20 Smudge Cells Present (Not Present) A 08/06/17 05:20 Toxic Granulation Present (Not Present) A 08/06/17 05:20 Toxic Vacuolation Present (Not Present) A 08/06/17 05:20 Dohle Bodies Present (Not Present) A 08/06/17 05:20 Platelet Estimate Decreased (Normal) L 08/06/17 05:20 Immature Plt Fraction 26.5 % (1.1-6.1) H 08/06/17 05:20 Polychromasia 1+ (Not Present) A 08/06/17 05:20 Hypochromasia Present (Not Present) A 08/02/17 04:30 Poikilocytosis 1+ (Not Present) A 08/06/17 05:20 Anisocytosis 1+ (Not Present) A 08/06/17 05:20 Microcytosis Present (Not Present) A 08/03/17 04:35 Target Cells 1+ (Not Present) A 08/06/17 05:20 Dorris Cells 1+ (Not Present) A 08/01/17 04:35 PT 15.0 Seconds (9.4-12.1) H 07/30/17 16:08 APTT 69.7 Seconds (26.0-36.0) H 08/01/17 05:30 ABG pH 7.24 pH Units (7.32-7.45) L 08/06/17 05:05 ABG pCO2 49 mmHg (35-45) H 08/06/17 05:05 ABG pO2 68 mmHg (85-104) L 08/06/17 05:05 ABG O2 Saturation 90 % (95-98) L 08/06/17 05:05 ABG Base Excess -6 mEq/L (-2 to 3) L 08/06/17 05:05 ABG Hematocrit 26.0 % (35.3-44.9) L 07/30/17 18:50 ABG Chloride 109 mEq/L (98-107) H 07/30/17 18:50 VBG pH 7.20 pH Units (7.32-7.42) L* 08/05/17 18:39 VBG pCO2 65 mmHg (41-51) H 08/05/17 18:39 VBG pO2 75 mmHg (25-50) H 08/05/17 18:39 Sodium 134 mEq/L (135-148) L 07/30/17 18:50 Glucose 163 mg/dL (60-95) H 07/30/17 18:50 Lactate 3.1 mmol/L (0.7-2.1) H 08/05/17 16:54 Sodium 129 mEq/L (136-145) L D 08/06/17 05:20 Glucose 344 mg/dL (70-99) H 08/06/17 05:20 POC Glucose 308 (58-89) H 08/06/17 07:49 Lactic Acid 4.0 mmol/L (0.5-2.2) H* 08/01/17 04:35 Calcium 7.4 mg/dL (8.6-10.8) L 08/06/17 05:20 Ionized Calcium 1.13 mmol/L (1.15-1.35) L 08/05/17 05:10 Total Bilirubin 1.3 mg/dL (0.2-1.2) H 08/06/17 05:20 Direct Bilirubin 0.9 mg/dL (0.0-0.5) H 08/06/17 05:20 Alkaline Phosphatase 138 Units/L (38-126) H 08/06/17 05:20 B-Natriuretic Peptide 512 pg/mL (0-100) H 07/29/17 09:43 Serum Total Protein 5.3 g/dL (6.0-8.3) L 08/06/17 05:20 Albumin 1.0 g/dL (3.5-5.0) L 08/06/17 05:20 Globulin 4.3 g/dL (2.4-3.5) H 08/06/17 05:20 Albumin/Globulin Ratio 0.2 (1.1-2.2) L 08/06/17 05:20 Triglycerides 262 mg/dL (< 150) H 08/02/17 04:30 Arterial Blood Ionized Calcium 1.48 mmol/L (1.15-1.35) H 07/30/17 18:50 Urine Clarity Hazy (Clear) A 07/29/17 13:07 Ur Specific [place] 1.026 (1.010-1.025) H 07/29/17 13:07 Urine Ketones Trace mg/dL (Negative) H 07/29/17 13:07 Urine Bilirubin Small (Negative) H 07/29/17 13:07 Ur Leukocyte Esterase Small (Negative) H 07/29/17 13:07 Urine Microscopic RBC 3-5 per hpf (0-3) H 07/29/17 13:07 Ur Squamous Epith Cells Many per lpf (None-Few) H 07/29/17 13:07 Amorphous Sediment Many (Few) H 07/29/17 13:07 Ur Culture Indicated? YES (NO) A 07/29/17 13:07 Protein/Creatinin Ratio 2.43 mg/mg (0-0.20) H 08/02/17 02:30 Urine Total Protein 211 mg/dL (1-14) H 08/02/17 02:30 Stool Occult Blood Positive (Negative) A 07/29/17 10:57 Salicylates < 5.0 mg/dL (15-30) L 07/30/17 09:28 Acetaminophen < 1.0 mcg/mL (10-30) L 07/30/17 09:28 - Microbiology Findings Microbiology Findings: Microbiology, Last 48 Hours 07/30/17 18:00 Anaerobic Culture - Final Abdomen No anaerobes were recovered. 07/30/17 18:00 Wound Culture - Preliminary Abdomen Ketty albicans Strep agalactiae - (Group B) Streptococcus mitis/S.oralis 08/01/17 10:40 Body Fluid Culture - Final Pleural Fluid - Clinical Findings Intake & Output: Intake & Output 08/05/17 08/06/17 08/06/17 23:59 07:59 15:59 Intake Total 3322 / 3322 2695 / 2695 Output Total 2283 / 2283 1194 / 1194 Balance 1039 / 1039 1501 / 1501 Weight 97.3 kg - VTE Documentation of Mechanical Device: Intermittent pneumatic compression device Consult Discharge Plan - Plan Referrals: Keesha Ellsworth, [employer] [employer] [Primary Care Provider] - <Chris Rodríguez - Last Filed: 08/06/17 22:29> Date of Encounter: 08/06/17 Objective PUL Vital signs: Last Vital Signs Temp 98.8 F 08/06/17 20:00 Pulse 88 08/06/17 21:00 Resp 15 08/06/17 21:00 BP 57/16 08/06/17 21:00 Pulse Ox 57 08/06/17 21:00 Ventilator Settings Ventilator Settings: Ventilator Settings, Last 8 Hours Ventilator Mode VC+ Ventilator Mode VC+ Ventilator Mode VC+ Ventilator Mode VC+ Ventilator Mode VC+ Ventilator Mode VC+ Ventilator Mode VC+ Ventilator Tidal Volume 450 Setting Ventilator Tidal Volume 450 Setting Ventilator Tidal Volume 450 Setting Ventilator Tidal Volume 450 Setting Ventilator Tidal Volume 450 Setting Ventilator Tidal Volume 450 Setting Ventilator Tidal Volume 450 Setting Ventilator Respiratory Rate 16 Setting Ventilator Respiratory Rate 16 Setting Ventilator Respiratory Rate 16 Setting Ventilator Respiratory Rate 16 Setting Ventilator Respiratory Rate 16 Setting Ventilator Respiratory Rate 16 Setting Ventilator Respiratory Rate 16 Setting Actual Respiratory Rate 19 Actual Respiratory Rate 25 Actual Respiratory Rate 26 Actual Respiratory Rate 28 Actual Respiratory Rate 28 Actual Respiratory Rate 28 Actual Respiratory Rate 23 Positive End Expiratory 15 Pressure Positive End Expiratory 15 Pressure Positive End Expiratory 15 Pressure Positive End Expiratory 15 Pressure Positive End Expiratory 15 Pressure Positive End Expiratory 15 Pressure Positive End Expiratory 15 Pressure Peak Inspiratory Airway 33 Pressure Peak Inspiratory Airway 30 Pressure Peak Inspiratory Airway 34 Pressure Peak Inspiratory Airway 32 Pressure Peak Inspiratory Airway 36 Pressure Peak Inspiratory Airway 41 Pressure Peak Inspiratory Airway 36 Pressure Results - Laboratory Findings CBC and BMP: 08/06/17 05:20 08/06/17 05:20 ABG ABG pH 7.24 pH Units (7.32-7.45) L 08/06/17 05:05 ABG pCO2 49 mmHg (35-45) H 08/06/17 05:05 ABG pO2 68 mmHg (85-104) L 08/06/17 05:05 ABG O2 Saturation 90 % (95-98) L 08/06/17 05:05 PT/INR, D-dimer PT 15.0 Seconds (9.4-12.1) H 07/30/17 16:08 Abnormal lab findings: Abnormal lab results WBC 36.6 K/mcL (4.3-11.1) H* D 08/06/17 05:20 RBC 3.03 M/mcL (3.82-4.97) L 08/06/17 05:20 Hgb 8.6 g/dL (11.5-15.4) L 08/06/17 05:20 Hct 26.8 % (35.3-44.9) L 08/06/17 05:20 RDW 19.1 % (11.5-14.5) H 08/06/17 05:20 Plt Count 43 K/mcL (140-400) L 08/06/17 05:20 Band Neutrophils % 8.0 % (0-4) H 08/06/17 05:20 Metamyelocytes % 4.0 % (0) H 08/06/17 05:20 Myelocytes % 6.0 % (0) H 08/04/17 05:45 Neutrophils # 24.9 K/mcL (1.6-8.9) H 08/06/17 05:20 Monocytes # 3.7 K/mcL (0.0-1.3) H 08/06/17 05:20 Eosinophils # 2.2 K/mcL (0.0-0.6) H 08/06/17 05:20 Nucleated RBCs/100 WBC 2.5 /100 WBC (0) H 08/06/17 05:20 Smudge Cells Present (Not Present) A 08/06/17 05:20 Toxic Granulation Present (Not Present) A 08/06/17 05:20 Toxic Vacuolation Present (Not Present) A 08/06/17 05:20 Dohle Bodies Present (Not Present) A 08/06/17 05:20 Platelet Estimate Decreased (Normal) L 08/06/17 05:20 Immature Plt Fraction 26.5 % (1.1-6.1) H 08/06/17 05:20 Polychromasia 1+ (Not Present) A 08/06/17 05:20 Hypochromasia Present (Not Present) A 08/02/17 04:30 Poikilocytosis 1+ (Not Present) A 08/06/17 05:20 Anisocytosis 1+ (Not Present) A 08/06/17 05:20 Microcytosis Present (Not Present) A 08/03/17 04:35 Target Cells 1+ (Not Present) A 08/06/17 05:20 Kartik Cells 1+ (Not Present) A 08/01/17 04:35 PT 15.0 Seconds (9.4-12.1) H 07/30/17 16:08 APTT 69.7 Seconds (26.0-36.0) H 08/01/17 05:30 ABG pH 7.24 pH Units (7.32-7.45) L 08/06/17 05:05 ABG pCO2 49 mmHg (35-45) H 08/06/17 05:05 ABG pO2 68 mmHg (85-104) L 08/06/17 05:05 ABG O2 Saturation 90 % (95-98) L 08/06/17 05:05 ABG Base Excess -6 mEq/L (-2 to 3) L 08/06/17 05:05 ABG Hematocrit 26.0 % (35.3-44.9) L 07/30/17 18:50 ABG Chloride 109 mEq/L (98-107) H 07/30/17 18:50 VBG pH 7.20 pH Units (7.32-7.42) L* 08/05/17 18:39 VBG pCO2 65 mmHg (41-51) H 08/05/17 18:39 VBG pO2 75 mmHg (25-50) H 08/05/17 18:39 Sodium 134 mEq/L (135-148) L 07/30/17 18:50 Glucose 163 mg/dL (60-95) H 07/30/17 18:50 Lactate 3.1 mmol/L (0.7-2.1) H 08/05/17 16:54 Sodium 129 mEq/L (136-145) L D 08/06/17 05:20 Glucose 344 mg/dL (70-99) H 08/06/17 05:20 POC Glucose 255 (58-89) H 08/06/17 16:10 Lactic Acid 4.0 mmol/L (0.5-2.2) H* 08/01/17 04:35 Calcium 7.4 mg/dL (8.6-10.8) L 08/06/17 05:20 Ionized Calcium 1.13 mmol/L (1.15-1.35) L 08/05/17 05:10 Total Bilirubin 1.3 mg/dL (0.2-1.2) H 08/06/17 05:20 Direct Bilirubin 0.9 mg/dL (0.0-0.5) H 08/06/17 05:20 Alkaline Phosphatase 138 Units/L (38-126) H 08/06/17 05:20 B-Natriuretic Peptide 512 pg/mL (0-100) H 07/29/17 09:43 Serum Total Protein 5.3 g/dL (6.0-8.3) L 08/06/17 05:20 Albumin 1.0 g/dL (3.5-5.0) L 08/06/17 05:20 Globulin 4.3 g/dL (2.4-3.5) H 08/06/17 05:20 Albumin/Globulin Ratio 0.2 (1.1-2.2) L 08/06/17 05:20 Triglycerides 262 mg/dL (< 150) H 08/02/17 04:30 Arterial Blood Ionized Calcium 1.48 mmol/L (1.15-1.35) H 07/30/17 18:50 Urine Clarity Hazy (Clear) A 07/29/17 13:07 Ur Specific [place] 1.026 (1.010-1.025) H 07/29/17 13:07 Urine Ketones Trace mg/dL (Negative) H 07/29/17 13:07 Urine Bilirubin Small (Negative) H 07/29/17 13:07 Ur Leukocyte Esterase Small (Negative) H 07/29/17 13:07 Urine Microscopic RBC 3-5 per hpf (0-3) H 07/29/17 13:07 Ur Squamous Epith Cells Many per lpf (None-Few) H 07/29/17 13:07 Amorphous Sediment Many (Few) H 07/29/17 13:07 Ur Culture Indicated? YES (NO) A 07/29/17 13:07 Protein/Creatinin Ratio 2.43 mg/mg (0-0.20) H 08/02/17 02:30 Urine Total Protein 211 mg/dL (1-14) H 08/02/17 02:30 Stool Occult Blood Positive (Negative) A 07/29/17 10:57 Salicylates < 5.0 mg/dL (15-30) L 07/30/17 09:28 Acetaminophen < 1.0 mcg/mL (10-30) L 07/30/17 09:28 - Microbiology Findings Microbiology Findings: Microbiology, Last 48 Hours 07/30/17 18:00 Anaerobic Culture - Final Abdomen No anaerobes were recovered. 07/30/17 18:00 Wound Culture - Preliminary Abdomen Ketty albicans Strep agalactiae - (Group B) Streptococcus mitis/S.oralis - Clinical Findings Intake & Output: Intake & Output 08/06/17 08/06/17 08/06/17 07:59 15:59 23:59 Intake Total 2705 / 2705 1059 / 1059 720 / 720 Output Total 1194 / 1194 2439 / 2439 1178 / 1178 Balance 1511 / 1511 -1380 / -1380 -458 / -458 Weight 97.3 kg - Attending Attestation I saw the patient with the resident agree with History and Physical exam findings. Labs and Radiology were reviewed CXR showed left sided airspace disease more likely fluid overload vs developing ARDS Ventilator data were reviewed VP CONSTRUCTION: Patient is intubated and not following commands NECK : No JVD appreciated Pulmonary : Patient is has refractory hypoxemia with High FIO2 and PEEP patient is very sensitive for any movement that worsens the shunt physiology Cardiac : On Vasopressor due to septic shock now it is worsening with increasing lactate patient is on 3 pressors are maxed out Nutrition/GI: Patient is on TPN , PPI prophylaxis , most likely severe refractory septic shock likely due to intrabdominal abscess which cannot be intervened because of patient condition. Renal : EDDIE on CVVH had to remove fluid because of low blood pressure. Heme onc Labs reviewed Endo: Diabetes on insulin Musculo skeletal / skin issues : Per Nursing Disposition : Very Critical Code status: Spoke with Mother and her Brother ARAMIS they understand the poor prognosis of the patient they are leaning towards comfort care Palliative Care recs appreciated Family/POA: Brother and Mother
[2017-08-06] MEDS: Micafungin 100 MG in 0.9 % Sodium Chloride 100 ML IVPB SCH (08:40)
[2017-08-06] MEDS ORDERED: Vancomycin 1 EACH in EMPTY BAG 1 EACH IVPB SCH (09:00)
--- NOTE | 2017-08-06 09:07 | Nephrology Progress Note ---
Date of Encounter: 08/06/17 Time of Encounter: 09:04 - Assessment and Plan (1) EDDIE (acute kidney injury) Current Visit: Yes Status: Acute Cr improved but urine output remains very poor: total of 40ml urine output yesterday. oligoanuric EDDIE will continue with helen urine culture: no growth. Plan: continue with helen. hard to remove fluid due to hypotension and septic shock. plan for family meeting to day to discuss goals of care. further recs pending family meeting. (2) Septic shock Current Visit: Yes Status: Acute patient requiring levophed and vasopressin again. wound culture from abdomen grew jagruti albicans, group B strep agalectiae, strep Mitis blood culture and pleural fluid culture: no growth. currently on levaquin, micafungin, meropenem, vancomycin (3) Respiratory failure Current Visit: Yes Status: Acute likely secondary to septic shock. per primary team. Qualifiers: Chronicity: acute Respiratory failure complication: hypoxia Qualified Code(s): J96.01 - Acute respiratory failure with hypoxia (4) Thrombocytopenia Current Visit: Yes Status: Acute platelets today 43 (5) CKD (chronic kidney disease) Current Visit: Yes Status: Acute Qualifiers: Chronic kidney disease stage: unspecified stage Qualified Code(s): N18.9 - Chronic kidney disease, unspecified (6) Hyperkalemia Current Visit: Yes Status: Resolved (7) Anemia Current Visit: Yes Status: Acute acute blood loss anemia, s/p transfusion of 8 units blood and 4 units platelets so far. Qualifiers: Anemia type: iron deficiency Iron deficiency anemia type: other iron deficiency Qualified Code(s): D50.8 - Other iron deficiency anemias (8) GI bleed Current Visit: Yes Status: Acute Qualifiers: GI bleed type/associated pathology: unspecified gastrointestinal hemorrhage type Qualified Code(s): K92.2 - Gastrointestinal hemorrhage, unspecified (9) Pleural effusion Current Visit: Yes Status: Acute pleural catheter has been removed. (10) Perforated abdominal viscus Current Visit: Yes Status: Acute per surgery and primary team. Subjective Principal diagnosis: Perforated Viscus s/p subtotal gastrectomy Interval history: 62F evaluated at bedside. patient remains intubated and sedated. Objective - Vital Signs Vital signs: Vital Signs Temp Pulse Resp BP Pulse Ox 08/06/17 08:00 98.2 F 92 25 98/39 97 08/06/17 07:17 24 98/39 96 08/06/17 07:00 101 28 143/47 97 08/06/17 06:00 97.8 F 133 28 77/35 93 08/06/17 05:38 27 135/50 95 08/06/17 05:00 98.4 F 161 30 99/45 96 08/06/17 04:18 27 108/44 96 08/06/17 04:00 99.1 F 104 23 114/41 98 08/06/17 03:00 97.4 F L 142 27 101/51 98 08/06/17 02:00 97.5 F L 105 31 118/52 94 08/06/17 01:15 31 122/49 96 08/06/17 01:00 97.6 F 111 31 128/51 96 08/06/17 00:00 97.8 F 134 31 90/43 92 08/05/17 23:25 30 119/55 100 08/05/17 23:00 97.9 F 87 29 137/54 100 08/05/17 22:00 97.9 F 92 25 141/50 99 08/05/17 21:48 29 142/54 100 08/05/17 21:00 98.0 F 87 27 147/55 100 08/05/17 20:16 28 135/51 99 08/05/17 20:00 97.1 F L 89 26 142/54 99 08/05/17 19:00 83 28 151/58 99 08/05/17 18:00 89 26 100/44 97 08/05/17 17:50 27 111/46 99 08/05/17 17:00 85 30 101/53 98 08/05/17 16:00 97.7 F 87 24 94/43 92 08/05/17 15:29 29 102/46 94 08/05/17 15:00 87 28 87/47 94 08/05/17 14:00 89 30 93/46 91 08/05/17 13:20 27 111/44 96 08/05/17 13:00 97.6 F 89 29 90/36 94 08/05/17 12:00 90 26 104/42 92 08/05/17 11:45 26 97/39 84 08/05/17 11:00 84 22 123/42 90 08/05/17 10:00 97.5 F L 84 22 92/35 90 08/05/17 09:23 21 111/42 85 Intake and Output 08/05/17 08/06/17 08/06/17 23:59 07:59 15:59 Intake Total 3322 / 3322 2705 / 2705 Output Total 2283 / 2283 1194 / 1194 295 / 295 Balance 1039 / 1039 1511 / 1511 -295 / -295 Intake: IV Fluids 2951 / 2951 2130 / 2130 PrismaSATE BGK 4/2.5 5,000 ML @ 2 / 2 1000 mls/hr CRRT CONT [facility] Rx#: [id number] Vasostrict 40 UNIT In Dextrose 26 / 26 5% 100 ML @ 0.03 UNIT/MIN 4.59 mls/hr IV .[id number] [facility] Rx#: [id number] FentaNYL (PF) 1,000 MCG In 0.9 134 / 134 56 / 56 % Sodium Chloride 80 ML @ 50 MCG/HR 5 mls/hr IVC CONT [facility] Rx #:[id number] Versed 50 MG In 0.9 % Sodium 130 / 130 14 / 14 Chloride 90 ML @ 2 MG/HR 4 mls/ hr IVC CONT [facility] Rx#:[id number] Levophed 8 MG In Dextrose 5% 424 / 424 350 / 350 250 ML @ 20 MCG/MIN 38.7 mls/hr IVC CONT [facility] Rx#:[id number] Phenylephrine 10 MG In Dextrose 502 / 502 1505 / 1505 5% 250 ML @ 100 MCG/MIN 150.6 mls/hr IVC CONT [facility] Rx#: [id number] Merrem 1,000 MG In Water for 10 10 inj. (sterile) 10 ML @ 200 mls/ hr IVP Q8HR [facility] Rx#:[id number] Intralipid 20% 250 ML @ 21 mls/ 81 / 81 85 / 85 hr IVPB DAILY@1700 [facility] Rx#: [id number] Sodium Phosphate 30 MMOL In 220 / 220 Dextrose 5% 100 ML @ 16 mls/hr IVPB ONCE ONE Rx#:[id number] Vancocin 1,250 MG In Dextrose 5 250 / 250 % 250 ML @ 166.67 mls/hr IVPB Q12H [facility] Rx#:[id number] Other 371 / 371 575 / 575 Output: Gastric Tube Lavage Amount Left Upper Quadrant Helen 2278 / 2278 1164 / 1164 295 / 295 Catheter 0 / 0 Other: Weight 97.3 kg Blood Glucose* 251 274 308 Patient Weight 08/06/17 23:59 Weight 97.3 kg - General Appearance General appearance: Present: well-developed, well-nourished, appears started age , obese, chronically ill Neck: Present: JVD Respiratory: Present: wheezing, course breath sounds Additional Comments: tachycardic, irregular rhythm Dialysis Vascular Access: Venous Catheter Gastrointestinal: Present: absent bowel sounds Additional Comments: distended, firm, absent bowel sounds. scar present on abdomen down midline from surgery. Additional Comments: +4 pitting edema on lower extremities bilaterally. Left upper extremity +2 pitting edema. right upper extremity: non pitting edema . - Lab 08/06/17 05:20 08/06/17 05:20 Most recent lab results ABG pH 7.24 pH Units (7.32-7.45) L 08/06/17 05:05 ABG pCO2 49 mmHg (35-45) H 08/06/17 05:05 ABG pO2 68 mmHg (85-104) L 08/06/17 05:05 ABG HCO3 21 mEq/L (21-27) 08/06/17 05:05 ABG O2 Saturation 90 % (95-98) L 08/06/17 05:05 Calcium 7.4 mg/dL (8.6-10.8) L 08/06/17 05:20 Phosphorus 2.8 mg/dL (2.3-4.7) D 08/06/17 05:20 Magnesium 1.9 mg/dL (1.6-2.6) 08/06/17 05:20 Urine Creatinine 87 mg/dL 08/02/17 02:30 Urine Sodium 49.0 mEq/L 08/02/17 02:30 Urine Total Protein 211 mg/dL (1-14) H 08/02/17 02:30 - VTE Documentation of Mechanical Device: Intermittent pneumatic compression device Consult Discharge Plan - Plan Referrals: Keesha Ellsworth, MASTER WELDER [Primary Care Provider] -
[2017-08-06] MEDS: Levofloxacin 750 MG/150 ML 750 MG/150 ML BAG IVPB SCH (09:45)
[2017-08-06] MEDS: Vasopressin 40 UNIT in D5% in Water 100 ML IV SCH (10:06)
--- NOTE | 2017-08-06 11:01 | Palliative Progress Note ---
Date of Encounter: 08/06/17 Time of Encounter: 09:25 - Assessment and plan (1) Generalized pain Current Visit: Yes Status: Acute Assessment and plan: Fentanyl per ICU protocol. Currently at 75mcg (2) Goals of care, counseling/discussion Current Visit: Yes Status: Acute Assessment and plan: Mother and friend at bedside. Updated on pt dire situation and they understand she could pass at any time. She has brother supposed to arrive later today, and desire to maintain current level of care until he gets to hospital. Anticipate they will desire compassionate extubation later this pm. Will f/u this afternoon. (3) Perforated abdominal viscus Current Visit: Yes Status: Acute (4) EDDIE (acute kidney injury) Current Visit: Yes Status: Acute (5) Cardiac arrest Current Visit: Yes Status: Acute (6) Septic shock Current Visit: Yes Status: Acute - Time Spent With Patient Total time spent is greater than 50% in coordination of care (as documented) at patient's floor/unit and/or counseling patient: - Subjective Interval history: Patient with continued deterioration the last 12 hours. Maxed out on 3 pressors. Heart rate erratic. Mother and friend at bedside. - Constitutional Vitals: Abnormal lab results WBC 36.6 K/mcL (4.3-11.1) H* D 08/06/17 05:20 RBC 3.03 M/mcL (3.82-4.97) L 08/06/17 05:20 Hgb 8.6 g/dL (11.5-15.4) L 08/06/17 05:20 Hct 26.8 % (35.3-44.9) L 08/06/17 05:20 RDW 19.1 % (11.5-14.5) H 08/06/17 05:20 Plt Count 43 K/mcL (140-400) L 08/06/17 05:20 Band Neutrophils % 8.0 % (0-4) H 08/06/17 05:20 Metamyelocytes % 4.0 % (0) H 08/06/17 05:20 Myelocytes % 6.0 % (0) H 08/04/17 05:45 Neutrophils # 24.9 K/mcL (1.6-8.9) H 08/06/17 05:20 Monocytes # 3.7 K/mcL (0.0-1.3) H 08/06/17 05:20 Eosinophils # 2.2 K/mcL (0.0-0.6) H 08/06/17 05:20 Nucleated RBCs/100 WBC 2.5 /100 WBC (0) H 08/06/17 05:20 Smudge Cells Present (Not Present) A 08/06/17 05:20 Toxic Granulation Present (Not Present) A 08/06/17 05:20 Toxic Vacuolation Present (Not Present) A 08/06/17 05:20 Dohle Bodies Present (Not Present) A 08/06/17 05:20 Platelet Estimate Decreased (Normal) L 08/06/17 05:20 Immature Plt Fraction 26.5 % (1.1-6.1) H 08/06/17 05:20 Polychromasia 1+ (Not Present) A 08/06/17 05:20 Hypochromasia Present (Not Present) A 08/02/17 04:30 Poikilocytosis 1+ (Not Present) A 08/06/17 05:20 Anisocytosis 1+ (Not Present) A 08/06/17 05:20 Microcytosis Present (Not Present) A 08/03/17 04:35 Target Cells 1+ (Not Present) A 08/06/17 05:20 Kartik Cells 1+ (Not Present) A 08/01/17 04:35 PT 15.0 Seconds (9.4-12.1) H 07/30/17 16:08 APTT 69.7 Seconds (26.0-36.0) H 08/01/17 05:30 ABG pH 7.24 pH Units (7.32-7.45) L 08/06/17 05:05 ABG pCO2 49 mmHg (35-45) H 08/06/17 05:05 ABG pO2 68 mmHg (85-104) L 08/06/17 05:05 ABG O2 Saturation 90 % (95-98) L 08/06/17 05:05 ABG Base Excess -6 mEq/L (-2 to 3) L 08/06/17 05:05 ABG Hematocrit 26.0 % (35.3-44.9) L 07/30/17 18:50 ABG Chloride 109 mEq/L (98-107) H 07/30/17 18:50 VBG pH 7.20 pH Units (7.32-7.42) L* 08/05/17 18:39 VBG pCO2 65 mmHg (41-51) H 08/05/17 18:39 VBG pO2 75 mmHg (25-50) H 08/05/17 18:39 Sodium 134 mEq/L (135-148) L 07/30/17 18:50 Glucose 163 mg/dL (60-95) H 07/30/17 18:50 Lactate 3.1 mmol/L (0.7-2.1) H 08/05/17 16:54 Sodium 129 mEq/L (136-145) L D 08/06/17 05:20 Glucose 344 mg/dL (70-99) H 08/06/17 05:20 POC Glucose 308 (58-89) H 08/06/17 07:49 Lactic Acid 4.0 mmol/L (0.5-2.2) H* 08/01/17 04:35 Calcium 7.4 mg/dL (8.6-10.8) L 08/06/17 05:20 Ionized Calcium 1.13 mmol/L (1.15-1.35) L 08/05/17 05:10 Total Bilirubin 1.3 mg/dL (0.2-1.2) H 08/06/17 05:20 Direct Bilirubin 0.9 mg/dL (0.0-0.5) H 08/06/17 05:20 Alkaline Phosphatase 138 Units/L (38-126) H 08/06/17 05:20 B-Natriuretic Peptide 512 pg/mL (0-100) H 07/29/17 09:43 Serum Total Protein 5.3 g/dL (6.0-8.3) L 08/06/17 05:20 Albumin 1.0 g/dL (3.5-5.0) L 08/06/17 05:20 Globulin 4.3 g/dL (2.4-3.5) H 08/06/17 05:20 Albumin/Globulin Ratio 0.2 (1.1-2.2) L 08/06/17 05:20 Triglycerides 262 mg/dL (< 150) H 08/02/17 04:30 Arterial Blood Ionized Calcium 1.48 mmol/L (1.15-1.35) H 07/30/17 18:50 Urine Clarity Hazy (Clear) A 07/29/17 13:07 Ur Specific [place] 1.026 (1.010-1.025) H 07/29/17 13:07 Urine Ketones Trace mg/dL (Negative) H 07/29/17 13:07 Urine Bilirubin Small (Negative) H 07/29/17 13:07 Ur Leukocyte Esterase Small (Negative) H 07/29/17 13:07 Urine Microscopic RBC 3-5 per hpf (0-3) H 07/29/17 13:07 Ur Squamous Epith Cells Many per lpf (None-Few) H 07/29/17 13:07 Amorphous Sediment Many (Few) H 07/29/17 13:07 Ur Culture Indicated? YES (NO) A 07/29/17 13:07 Protein/Creatinin Ratio 2.43 mg/mg (0-0.20) H 08/02/17 02:30 Urine Total Protein 211 mg/dL (1-14) H 08/02/17 02:30 Stool Occult Blood Positive (Negative) A 07/29/17 10:57 Salicylates < 5.0 mg/dL (15-30) L 07/30/17 09:28 Acetaminophen < 1.0 mcg/mL (10-30) L 07/30/17 09:28 General appearance: Present: mild distress - Respiratory Respiratory exam: Present: decreased breath sounds, CTAB Additional comments: Continues with high vent settings - FIO2 90%, PEEP 15 - Cardiovascular Cardiovascular exam: Present: irregular rhythm - GI/Abdominal GI/Abdominal exam: Present: distended, soft Additional comments: Jejunostomy in place, midline insicion - Neurological Exam Neurological exam: Present: altered Additional comments: sedated on vent - Skin Skin exam: Present: dry, warm Palliative Quality Palliative Quality: Screen for Code Status: Yes, Screen for Goals of Care: Yes, Screen for Pain: NA, If Pain Regimen Started, Initiate Bowel Regimen: NA, Screen for Nausea/Vomitting: NA Code Status: 08/05/17 13:44 CODE [Resuscitation Status: Active] [RES] Routine Comment: Resuscitation Status: DNR-Comfort Care-Arrest - Labs CBC & Chem 7: 08/06/17 05:20 08/06/17 05:20 Labs: Laboratory Results - last 24 hr 10/30/17 10/30/17 10/30/17 12:16 16:24 16:54 WBC RBC Hgb Hct MCV MCH MCHC RDW Plt Count MPV Seg Neutrophils % Band Neutrophils % Lymphocytes % Monocytes % Eosinophils % Metamyelocytes % Neutrophils # Lymphocytes # Monocytes # Eosinophils # Nucleated RBCs/100 WBC Smudge Cells Toxic Granulation Toxic Vacuolation Dohle Bodies Platelet Estimate Immature Plt Fraction Polychromasia Poikilocytosis Anisocytosis Target Cells Sample Site Art Line ABG pH 7.31 L ABG pCO2 47 H ABG pO2 48 L* ABG HCO3 24 ABG Total CO2 25 ABG O2 Saturation 79 L ABG Base Excess -3 L Liam Test N/A VBG pH VBG pCO2 VBG pO2 VBG HCO3 Lactate 3.1 H Respiration Rate 16 O2 Delivery Device Adult Vent Blood Gas Modality ASSIST CONTROL Inspired O2 70.0 Tidal Volume 450 PEEP 15 Sodium Potassium Chloride Carbon Dioxide BUN Creatinine Est GFR ( Amer) Est GFR (Non-Af Amer) BUN/Creatinine Ratio Glucose POC Glucose 197 H 191 H Calculated Osmolality Calcium Phosphorus Magnesium Total Bilirubin Direct Bilirubin Indirect Bilirubin AST ALT Alkaline Phosphatase Serum Total Protein Albumin Globulin Albumin/Globulin Ratio Vancomycin Trough 08/05/17 08/05/17 08/05/17 18:00 18:39 20:37 WBC RBC Hgb Hct MCV MCH MCHC RDW Plt Count MPV Seg Neutrophils % Band Neutrophils % Lymphocytes % Monocytes % Eosinophils % Metamyelocytes % Neutrophils # Lymphocytes # Monocytes # Eosinophils # Nucleated RBCs/100 WBC Smudge Cells Toxic Granulation Toxic Vacuolation Dohle Bodies Platelet Estimate Immature Plt Fraction Polychromasia Poikilocytosis Anisocytosis Target Cells Sample Site Art Line ABG pH 7.29 L ABG pCO2 50 H ABG pO2 71 L ABG HCO3 24 ABG Total CO2 25 ABG O2 Saturation 92 L ABG Base Excess -3 L Liam Test VBG pH 7.20 L* VBG pCO2 65 H VBG pO2 75 H VBG HCO3 25 Lactate Respiration Rate 16 O2 Delivery Device Blood Gas Modality VC Inspired O2 100.0 Tidal Volume 450 PEEP 15 Sodium Potassium Chloride Carbon Dioxide BUN Creatinine Est GFR ( Amer) Est GFR (Non-Af Amer) BUN/Creatinine Ratio Glucose POC Glucose 251 H Calculated Osmolality Calcium Phosphorus Magnesium Total Bilirubin Direct Bilirubin Indirect Bilirubin AST ALT Alkaline Phosphatase Serum Total Protein Albumin Globulin Albumin/Globulin Ratio Vancomycin Trough 08/05/17 08/06/17 08/06/17 23:49 04:34 05:05 WBC RBC Hgb Hct MCV MCH MCHC RDW Plt Count MPV Seg Neutrophils % Band Neutrophils % Lymphocytes % Monocytes % Eosinophils % Metamyelocytes % Neutrophils # Lymphocytes # Monocytes # Eosinophils # Nucleated RBCs/100 WBC Smudge Cells Toxic Granulation Toxic Vacuolation Dohle Bodies Platelet Estimate Immature Plt Fraction Polychromasia Poikilocytosis Anisocytosis Target Cells Sample Site Art Line ABG pH 7.24 L ABG pCO2 49 H ABG pO2 68 L ABG HCO3 21 ABG Total CO2 23 ABG O2 Saturation 90 L ABG Base Excess -6 L Liam Test N/A VBG pH VBG pCO2 VBG pO2 VBG HCO3 Lactate Respiration Rate 16 O2 Delivery Device Adult Vent Blood Gas Modality ASSIST CONTROL Inspired O2 100.0 Tidal Volume 450 PEEP 15 Sodium Potassium Chloride Carbon Dioxide BUN Creatinine Est GFR ( Amer) Est GFR (Non-Af Amer) BUN/Creatinine Ratio Glucose POC Glucose 274 H 345 H Calculated Osmolality Calcium Phosphorus Magnesium Total Bilirubin Direct Bilirubin Indirect Bilirubin AST ALT Alkaline Phosphatase Serum Total Protein Albumin Globulin Albumin/Globulin Ratio Vancomycin Trough 08/06/17 08/06/17 08/06/17 05:20 05:20 07:49 WBC 36.6 H* D RBC 3.03 L Hgb 8.6 L Hct 26.8 L MCV 88.4 MCH 28.4 MCHC 32.1 RDW 19.1 H Plt Count 43 L MPV TNP Seg Neutrophils % 60.0 Band Neutrophils % 8.0 H Lymphocytes % 12.0 Monocytes % 10.0 Eosinophils % 6.0 Metamyelocytes % 4.0 H Neutrophils # 24.9 H Lymphocytes # 4.4 Monocytes # 3.7 H Eosinophils # 2.2 H Nucleated RBCs/100 WBC 2.5 H Smudge Cells Present A Toxic Granulation Present A Toxic Vacuolation Present A Dohle Bodies Present A Platelet Estimate Decreased L Immature Plt Fraction 26.5 H Polychromasia 1+ A Poikilocytosis 1+ A Anisocytosis 1+ A Target Cells 1+ A Sample Site ABG pH ABG pCO2 ABG pO2 ABG HCO3 ABG Total CO2 ABG O2 Saturation ABG Base Excess Liam Test VBG pH VBG pCO2 VBG pO2 VBG HCO3 Lactate Respiration Rate O2 Delivery Device Blood Gas Modality Inspired O2 Tidal Volume PEEP Sodium 129 L D Potassium 4.2 Chloride 98 Carbon Dioxide 20 BUN 17 Creatinine 0.84 Est GFR ( Amer) > 60 Est GFR (Non-Af Amer) > 60 BUN/Creatinine Ratio 20 Glucose 344 H POC Glucose 308 H Calculated Osmolality 283 Calcium 7.4 L Phosphorus 2.8 D Magnesium 1.9 Total Bilirubin 1.3 H Direct Bilirubin 0.9 H Indirect Bilirubin 0.4 AST 24 ALT 14 Alkaline Phosphatase 138 H Serum Total Protein 5.3 L Albumin 1.0 L Globulin 4.3 H Albumin/Globulin Ratio 0.2 L Vancomycin Trough 08/06/17 08:19 WBC RBC Hgb Hct MCV MCH MCHC RDW Plt Count MPV Seg Neutrophils % Band Neutrophils % Lymphocytes % Monocytes % Eosinophils % Metamyelocytes % Neutrophils # Lymphocytes # Monocytes # Eosinophils # Nucleated RBCs/100 WBC Smudge Cells Toxic Granulation Toxic Vacuolation Dohle Bodies Platelet Estimate Immature Plt Fraction Polychromasia Poikilocytosis Anisocytosis Target Cells Sample Site ABG pH ABG pCO2 ABG pO2 ABG HCO3 ABG Total CO2 ABG O2 Saturation ABG Base Excess Liam Test VBG pH VBG pCO2 VBG pO2 VBG HCO3 Lactate Respiration Rate O2 Delivery Device Blood Gas Modality Inspired O2 Tidal Volume PEEP Sodium Potassium Chloride Carbon Dioxide BUN Creatinine Est GFR ( Amer) Est GFR (Non-Af Amer) BUN/Creatinine Ratio Glucose POC Glucose Calculated Osmolality Calcium Phosphorus Magnesium Total Bilirubin Direct Bilirubin Indirect Bilirubin AST ALT Alkaline Phosphatase Serum Total Protein Albumin Globulin Albumin/Globulin Ratio Vancomycin Trough 17.1 - Impressions Impressions Chest X-Ray 08/06/17 05:00 IMPRESSION: Persistent bilateral airspace opacities, left more than right, mildly improved to the left upper lung zone but mildly worsened to the left lower lung zone. D/ / 08/06/2017 07:38:19 Ricky Frazier MD / le Interpreting Provider: Ricky Frazier MD - ABG Interpretation ABG results: ABG ABG pH 7.24 pH Units (7.32-7.45) L 08/06/17 05:05 ABG pCO2 49 mmHg (35-45) H 08/06/17 05:05 ABG pO2 68 mmHg (85-104) L 08/06/17 05:05 ABG O2 Saturation 90 % (95-98) L 08/06/17 05:05 PT/INR, D-dimer PT 15.0 Seconds (9.4-12.1) H 07/30/17 16:08 Consult Discharge Plan - Plan Referrals: Keesha Ellsworth, NEURORADIOLOGIST [Primary Care Provider] -
[2017-08-06] MEDS ORDERED: *HR* Morphine 2 MG/ML SYRINGE IVP PRN (16:44)
--- NOTE | 2017-08-06 16:51 | Event Note ---
Date of Encounter: 08/06/17 Time of Encounter: 16:40 Discussed with pt mother, - pt brother is traveling from airport. Discussed if it is families desire to extubate after he arrives. MOther states, " I'm leaving it up to Raheel when he arrives, it's his decision". Provided emotional support. Added comfort meds if she is extubated. Staff free to call me for any additional orders.
[2017-08-06] MEDS: *HR* LORazepam 2 MG/ML VIAL IVP PRN ×2 (19:15→21:19)
[2017-08-06 21:04] VITALS: BP 57/16
[2017-08-06] MEDS ORDERED: Aminoglycoside Consult 1 EACH MC ONE (23:29)
--- NOTE | 2017-08-07 06:46 | Discharge Summary ---
Date of Encounter: 08/07/17 Time of Encounter: 06:42 - Discharge Diagnosis (1) Septic shock Priority: Primary Status: Acute (2) Cardiac arrest Priority: Primary Status: Acute (3) Perforated abdominal viscus Priority: Primary Status: Acute (4) Anemia Priority: Primary Status: Acute Qualifiers: Anemia type: iron deficiency Iron deficiency anemia type: other iron deficiency Qualified Code(s): D50.8 - Other iron deficiency anemias (5) GI bleed Priority: Primary Status: Acute Qualifiers: GI bleed type/associated pathology: unspecified gastrointestinal hemorrhage type Qualified Code(s): K92.2 - Gastrointestinal hemorrhage, unspecified (6) EDDIE (acute kidney injury) Priority: Primary Status: Acute (7) Pleural effusion Priority: Primary Status: Acute (8) Atrial fibrillation Priority: Primary Status: Acute Qualifiers: Atrial fibrillation type: paroxysmal Qualified Code(s): I48.0 - Paroxysmal atrial fibrillation (9) Thrombocytopenia Priority: Primary Status: Acute (10) Goals of care, counseling/discussion Priority: Primary Status: Acute - Discharge Medications Home Medications: Amlodipine Besylate/Benazepril [Lotrel 10-20 mg Capsule] 1 cap PO DAILY [History] Doxycycline Hyclate [Doxycycline Hyclate] 20 mg PO BID 07/29/17 [History] Simvastatin [Zocor] 20 mg PO QPM 07/29/17 [History] Allergies/Adverse Reactions: 3 Allergy/AdvReac Type Severity Reaction Status Date / Time Penicillins Allergy Rash Verified 07/29/17 09:44 Labs on day of discharge: Labs from last 24 hours 08/06/17 08/06/17 08/06/17 16:10 11:50 08:19 POC Glucose 255 H 295 H Vancomycin Trough 17.1 08/06/17 07:49 POC Glucose 308 H Vancomycin Trough Preliminary micro results at discharge 07/30/17 18:00 Wound Culture - Preliminary Abdomen Ketty albicans Strep agalactiae - (Group B) Streptococcus mitis/S.oralis - Impressions ITS Impressions Guidance Needle Placement Ultrasound 07/30/17 00:00 IMPRESSION: 1. Right internal jugular vein temporary dialysis catheter placement placement as discussed above. D/ / Reginald Walsh MD / Reginald Walsh MD Interpreting Provider: Reginald Walsh MD Insertion Non-Tunneled Catheter 07/30/17 00:00 IMPRESSION: 1. Right internal jugular vein temporary dialysis catheter placement placement as discussed above. D/ / Reginald Walsh MD / Reginald Walsh MD Interpreting Provider: Reginald Walsh MD Chest X-Ray 07/30/17 06:42 IMPRESSION: Stable cardiomegaly. Low lung volumes. Airspace opacities at the bilateral lung bases, likely related to atelectasis and small to moderate pleural effusions, right more than left, stable. Superimposed pneumonia is difficult to exclude. D/ / Eddie Davison MD / Eddie Davison MD Interpreting Provider: Eddie Davison MD Retroperitoneum Ultrasound 07/30/17 09:00 IMPRESSION: No gross hydronephrosis. 1.4 cm right renal cyst. Nonobstructing nephrolithiasis versus echogenic renal sinus fat. Ascites. D/ / Floyd Serna MD / Floyd Serna MD Interpreting Provider: Floyd Serna MD Chest X-Ray 07/30/17 10:44 IMPRESSION: Endotracheal tube measures 2 cm above the omer. Left subclavian central venous catheter tip terminates in the proximal SVC. Increased left basilar atelectasis, superimposed on diffuse increased interstitial changes which may be related to interstitial pulmonary edema. Underlying infectious pneumonitis cannot be excluded. D/ / Amadeo Flores MD / Amadeo Flores MD Interpreting Provider: Amadeo Flores MD Abdomen/Pelvis CT 10/24/17 12:30 IMPRESSION: 1. Bilateral pleural effusions right greater than left with complete atelectasis of the right lower and middle lobes. There is also partial atelectasis of the left lower lobe. 2. Pneumoperitoneum. I suspect this likely is secondary to the abnormality adjacent to the fundus of the stomach and may be related to perforated ulcer or other cause of perforation of the stomach. 3. Mixed density extraluminal mass adjacent to the fundus of the stomach. This may represent a perforated ulcer versus hematoma secondary to iatrogenic perforation. These findings were discussed with Dr. Suh at 3:05 p.m. 07/30/2017. 4. Intra-abdominopelvic ascites with diffuse body wall edema. 5. Low-attenuation lesion seen within the kidneys likely representing cysts with some hemorrhagic cysts involving the left kidney. 6. Diverticulosis without obvious inflammation. 7. Calcified mass within the pelvis likely representing a large degenerated fibroid. 8. Age indeterminate superior endplate fracture of L1. 9. Asymmetric trabecular thickening involving the right pelvis. This could be due to monostotic Paget's disease versus myelofibrosis. Neoplastic process is less likely given the asymmetry and diffuse involvement of the right pelvis. D/ / Reginald Walsh MD / Reginald Walsh MD Interpreting Provider: Reginald Walsh MD Chest CT 07/30/17 12:30 IMPRESSION: 1. Bilateral pleural effusions right greater than left with complete atelectasis of the right lower and middle lobes. There is also partial atelectasis of the left lower lobe. 2. Pneumoperitoneum. I suspect this likely is secondary to the abnormality adjacent to the fundus of the stomach and may be related to perforated ulcer or other cause of perforation of the stomach. 3. Mixed density extraluminal mass adjacent to the fundus of the stomach. This may represent a perforated ulcer versus hematoma secondary to iatrogenic perforation. These findings were discussed with Dr. Suh at 3:05 p.m. 07/30/2017. 4. Intra-abdominopelvic ascites with diffuse body wall edema. 5. Low-attenuation lesion seen within the kidneys likely representing cysts with some hemorrhagic cysts involving the left kidney. 6. Diverticulosis without obvious inflammation. 7. Calcified mass within the pelvis likely representing a large degenerated fibroid. 8. Age indeterminate superior endplate fracture of L1. 9. Asymmetric trabecular thickening involving the right pelvis. This could be due to monostotic Paget's disease versus myelofibrosis. Neoplastic process is less likely given the asymmetry and diffuse involvement of the right pelvis. D/ / Reginald Walsh MD / Reginald Walsh MD Interpreting Provider: Reginald Walsh MD Head CT 07/30/17 12:30 IMPRESSION: 1. No acute intracranial abnormality. 2. Chronic small vessel ischemic disease. D/ / Reginald Walsh MD / Reginald Walsh MD Interpreting Provider: Reginald Walsh MD Echocardiogram 07/30/17 15:17 Impressions: LVEF 65%. Moderate left ventricular diastolic dysfunction. Normal right ventricular structure and function. Mild mitral regurgitation. Mild-moderate tricuspid regurgitation. Mild pulmonic regurgitation. Mild pulmonary hypertension. Abdominal ascites. Left Ventricular Wall Motion: Rest Echo Findings All wall segments showed normal motion. Findings: Study Quality * Technically adequate exam. ECG Findings * Normal sinus rhythm. Left Ventricle * Normal LV chamber size, wall thickness and function. * LVEF 65%. * Moderate left ventricular diastolic dysfunction. Right Ventricle * Normal right ventricular structure and function. Left Atrium * Moderate-severely dilated left atrium. Right Atrium * Normal right atrial size. Aortic Valve * No aortic regurgitation. * Trileaflet aortic valve. * No aortic stenosis. * Mildly calcified aortic valve leaflets. Mitral Valve * Normal mitral valve structure. * No mitral stenosis. * Mild mitral annular calcification * Mild mitral regurgitation. Tricuspid Valve * Normal tricuspid valve structure. * Mild-moderate tricuspid regurgitation. * Estimated RA pressure is 3 mmHg. * Estimated RVSP is 42 mmHg. * Mild pulmonary hypertension. Pulmonic Valve * Pulmonic valve is not well visualized. * No pulmonic stenosis. * Mild pulmonic regurgitation. Pulmonary Artery * Pulmonary artery not well visualized. Aorta * Normally sized aortic root. Pericardium * There is no pericardial effusion present. Interatrial Septum * No evidence of PFO by color Doppler. IVC * The IVC is not dilated. Chest X-Ray 07/31/17 06:03 IMPRESSION: Left subclavian catheter with tip at the superior SVC, slightly withdrawn from the prior exam. Satisfactory position of support devices. Lung aeration is unchanged. Moderate right and small left pleural effusion with bibasilar atelectasis. D/ / 07/31/2017 08:14:16 Armin Lagunas MD / nitesh Interpreting Provider: Armin Lagunas MD Chest X-Ray 08/01/17 06:34 IMPRESSION: Stable support apparatus. Pulmonary edema with bilateral pleural effusions, right greater than left. There are increasing patchy opacities within the left upper lung. While this may be related to worsening pulmonary edema, superimposed pneumonia not excluded. D/ / Linnea Campa MD / Linnea Campa MD Interpreting Provider: Linnea Campa MD Chest X-Ray 08/01/17 10:19 IMPRESSION: 1. Support devices as above. 2. Interval decrease in size in right pleural effusion. 3. Persistent patchy bilateral opacities with likely trace left pleural effusion. 4. No convincing pneumothorax. D/ / Renzo Acosta MD / Renzo Acosta MD Interpreting Provider: Renzo Acosta MD Chest X-Ray 08/02/17 05:00 IMPRESSION: Slightly increasing small left pleural effusion otherwise stable chest. D/ / Kassi Reynolds MD / Kassi Reynolds MD Interpreting Provider: Kassi Reynolds MD Chest X-Ray 08/04/17 08:46 IMPRESSION: Interval removal of the right-sided chest tube with no visible pneumothorax. Slightly improved left-sided pleural effusion. D/ / Justino Nj MD / Justino Nj MD Interpreting Provider: Justino Nj MD Chest X-Ray 08/05/17 05:00 IMPRESSION: Diffuse bilateral airspace disease suggests pneumonia. Stable examination. Stable lines and tubes. D/ / 08/05/2017 07:52:39 George Zamorano MD / le Interpreting Provider: George Zamorano MD Chest X-Ray 08/06/17 05:00 IMPRESSION: Persistent bilateral airspace opacities, left more than right, mildly improved to the left upper lung zone but mildly worsened to the left lower lung zone. D/ / 08/06/2017 07:38:19 Ricky Frazier MD / le Interpreting Provider: Ricky Frazier MD Date of admission: 07/29/17 17:49 Primary care physician: Keesha Ellsworth CNP Consults: 07/30/17 06:46 Consult to Pulmonology [CONS] Routine Consulting Provider: [facility] [place] Reason for Consult: GI bleed, hypotension?? sepsis, EDDIE Call Completed: Yes 08/01/17 11:57 Consult to Nutrition [CONS] Routine Comment: Consulting Provider: NUTRITION Reason for Dietary Consult: TPN Start and Manage 08/05/17 13:52 Consult to Palliative Care [CONS] Routine Comment: Consulting Provider: [facility] [place] Reason for Consult: Goals of care Call Completed: Yes Discharging clinician: Julius Navarro Anticipated date of discharge: 08/06/17 - Patient Status Disposition: Condition: Undetermined - Discharge Instructions Follow Up With: Ellsworth,Keesha C, TIE CUTTER [Primary Care Provider] - - Hospital Course Hospital course: Ms. Adams is a 62 year old female who presented with anemia and GI bleed. Patient underwent upper endoscopy in the intensive care unit and went into cardiac arrest during the procedure. CAT scan performed later showed free air in the abdomen and the patient was taken to surgery. A large amount of purulent fluid was encountered within the abdomen indicative of more chronic process. Patient was also found to be in acute renal failure and continuous renal replacement therapy was initiated. Patient was treated for septic shock and had continual pressor requirements. Patient's clinical condition gradually deteriorated and she ultimately required maximum dose of 3 vasopressors. After several discussions with the family, particularly the mother, at bedside and they determined that this is not with the patient warm and ultimately decided to transition to comfort care. The patient was extubated on 08/06/2017. - Time Spent with Patient Total time spent providing and/or coordinating discharge services: - VTE Documentation of Mechanical Device: Intermittent pneumatic compression device
--- NOTE | 2017-08-07 06:49 | Death Note ---
<Julius Navarro - Last Filed: 08/07/17 06:49> Discharge Sum: Summary - Date and Time Date of admission: 07/29/17 17:49 Date of : 08/06/17 Time of : 21:50 - Summary Details: Ms. Adams is a 62 year old female who presented with anemia and GI bleed. Patient underwent upper endoscopy in the intensive care unit and went into cardiac arrest during the procedure. CAT scan performed later showed free air in the abdomen and the patient was taken to surgery. A large amount of purulent fluid was encountered within the abdomen indicative of more chronic process. Patient was also found to be in acute renal failure and continuous renal replacement therapy was initiated. Patient was treated for septic shock and had continual pressor requirements. Patient's clinical condition gradually deteriorated and she ultimately required maximum dose of 3 vasopressors. After several discussions with the family, particularly the mother, at bedside and they determined that this is not with the patient warm and ultimately decided to transition to comfort care. The patient was extubated on 08/06/2017. - Additional Data Confirmation of as documented by pronouncing clinician: no pulse, no respirations, no heart sounds Family: at bedside Attending/PCP notified?: Yes Attending physician: MD Jill Was code activated?: No Autopsy requested?: No merchandise examiner notified?: No Organ bank notified?: Yes Discharge Sum: Diag - PCOD Probable Cause of : Septic shock Discharge Sum: Prov - Provider Primary care physician: Keesha Ellsworth CNP Admitting clinician: Haja Martinez Consults: 07/30/17 06:46 Consult to Pulmonology [CONS] Routine Consulting Provider: [facility] [place] Reason for Consult: GI bleed, hypotension?? sepsis, EDDIE Call Completed: Yes 08/01/17 11:57 Consult to Nutrition [CONS] Routine Comment: Consulting Provider: NUTRITION Reason for Dietary Consult: TPN Start and Manage 08/05/17 13:52 Consult to Palliative Care [CONS] Routine Comment: Consulting Provider: [facility] [place] Reason for Consult: Goals of care Call Completed: Yes <Chris Rodríguez - Last Filed: 08/08/17 07:30> Discharge Sum: Summary - Date and Time Date of admission: 07/29/17 17:49 - Additional Data Attending physician: Dennys Scott MD Discharge Sum: Prov - Provider Primary care physician: Keesha Ellsworth CNP Consults: 07/30/17 06:46 Consult to Pulmonology [CONS] Routine Consulting Provider: [facility] [place] Reason for Consult: GI bleed, hypotension?? sepsis, EDDIE Call Completed: Yes 08/01/17 11:57 Consult to Nutrition [CONS] Routine Comment: Consulting Provider: NUTRITION Reason for Dietary Consult: TPN Start and Manage 08/05/17 13:52 Consult to Palliative Care [CONS] Routine Comment: Consulting Provider: [facility] [place] Reason for Consult: Goals of care Call Completed: Yes - Attending Attestation I agree with Residents documentation regarding the hospital course and disposition . Patient had intrabadominal sepsis s/p perforation of the bowel went into refractory septic shock on 3 vasopressors according to patient goals of care of wishes it was decided by Mom and her Brother Raheel. Patient was extubated to comfort care. measures . Patient after that . I spent 30 minutes in coordinating patient's goals of care.
== END 2017-08-06 23:30 | disposition expired | DRG 853 ==
LOC: EMEROO 09:20 → 2NNU 09:20 → SUATTDRO 17:49 → ICNU 07-30 05:56
PROVIDERS: ADMIT Internal Medicine; ATTEND Student in an Organized Health Care Education/Training Program